=== PATIENT | female | born 1935 | race Hispanic/Latino ===

== ENCOUNTER 2016-07-16 09:16 | Day surgery (SDC) | payer MEDICARE, BC ==
[2016-01-22 22:39] VITALS: BMI 19.3
[2016-07-16 09:59] VITALS: TEMP 98.1
[2016-07-16] MEDS ORDERED: Propofol 10 mg/ml Inj (20 ML) ONE (11:20)
[2016-07-16] MEDS ORDERED: Sodium Chloride 0.9% 1,000 ML IV SCH (12:00)
[2016-07-16 12:14] LABS: ADD MANUAL DIFF? NO
[2016-07-16 12:17] LABS: BASO # 0.03 K/mm3 (0.0-2.0); BASO % 0.6 % (0.0-3.0); GRAN # 3.29 (1.4-6.5); GRAN % 69.2 % (50.0-68.0); HEMATOCRIT 28.2 % (36.0-48.0); LYMPH # 1.1 (1.2-3.4); LYMPH % 23.5 % (22.0-35.0); MEAN CELL VOLUME 97.2 fL (80.0-105.0); MEAN CORPUSCULAR HGB CONC 31.9 g/dl (31.0-37.0); MEAN PLATELET VOLUME 9.2 fl (7.0-11.0); MONO # 0.3 (0.1-0.6); MONO % 6.7 % (1.0-6.0); PLATELET COUNT 191 10^3/uL (120.0-450.0); RED CELL DISTRIBUTION WIDTH 13.6 % (11.5-14.5); WHITE BLOOD COUNT 4.8 10^3/ul (4.5-11.0)
[2016-07-16 12:34] VITALS: O2SAT 100
[2016-07-16 12:43] LABS: ALB/GLOB RATIO 1.4 (1.1-1.8); BILIRUBIN,TOTAL 0.5 mg/dL (0.2-1.3); CALCIUM 8.6 mg/dL (8.4-10.5); POTASSIUM 4.2 mmol/L (3.6-5.0); TOTAL PROTEIN 6.4 g/dL (5.8-8.3)
[2016-07-16 13:20] VITALS: BP 126/57; PULSE 56; RESP 19
== END 2016-07-16 15:06 | disposition home or self-care (01) ==
LOC: ENDO 09:16
PROVIDERS: ATTEND Internal Medicine Gastroenterology
DX: C18.2 Malignant neoplasm of ascending colon (principal); D64.9 Anemia, unspecified; K57.30 Diverticulosis of large intestine without perforation or abscess without bleeding; K64.8 Other hemorrhoids; J44.9 Chronic obstructive pulmonary disease, unspecified; E78.00 Pure hypercholesterolemia, unspecified; K27.9 Peptic ulcer, site unspecified, unspecified as acute or chronic, without hemorrhage or perforation; E03.9 Hypothyroidism, unspecified; Z90.49 Acquired absence of other specified parts of digestive tract; Z98.49 Cataract extraction status, unspecified eye; K44.9 Diaphragmatic hernia without obstruction or gangrene; Z87.898 Personal history of other specified conditions; Z80.0 Family history of malignant neoplasm of digestive organs
CPT/HCPCS: 36415; 45380; 80053; 85025; 88305; J2704; J7040

== ENCOUNTER 2016-08-16 11:13 | Inpatient (IN) | payer MEDICARE, BC ==
[2016-08-16 11:38] VITALS: BMI 18.1
[2016-08-16 12:12] LABS: HEMOGLOBIN 9.8 gm/dL (12.0-16.0); MEAN CELL VOLUME 96.6 fL (80.0-105.0); MEAN CORPUSCULAR HEMOGLOBIN 30.4 pg (25.0-35.0); MEAN CORPUSCULAR HGB CONC 31.5 g/dl (31.0-37.0); MEAN PLATELET VOLUME 9.3 fl (7.0-11.0); RBC 3.22 10^6/uL (3.5-6.1); WHITE BLOOD COUNT 6.1 10^3/ul (4.5-11.0)
[2016-08-16 12:23] LABS: INR 0.99 (0.93-1.08); PROTHROMBIN TIME 10.7 Seconds (9.9-11.8)
[2016-08-16 12:25] LABS: BLOOD UREA NITROGEN 15 mg/dL (7-21); CALCIUM 8.9 mg/dL (8.4-10.5); GFR AFRICAN-AMERICAN > 60; GFR NON-AFRICAN AMERICAN 53
[2016-08-16] MEDS ORDERED: Magnesium Citrate Oral SOL (300 ml) PO ONE (12:31)
--- NOTE | 2016-08-16 13:25 | RAD ---
HISTORY: COLON CA ANEMIA COMPARISON: 01/22/2016 TECHNIQUE: Chest PA and lateral FINDINGS: LUNGS: No active pulmonary disease. PLEURA: No significant pleural effusion identified. No pneumothorax apparent. CARDIOVASCULAR: Normal. OSSEOUS STRUCTURES: No significant abnormalities. VISUALIZED UPPER ABDOMEN: Hiatal hernia OTHER FINDINGS: None. IMPRESSION: No active disease.
--- NOTE | 2016-08-16 16:40 | CP.PCM.CON ---
History of Present Illness - History of Present Illness History of Present Illness: 80 yo female for elective colon resection, CA colon, negative metastatic w/u ( PET/CT). Past Patient History - Past Medical History & Family History Past Family History: Reviewed and not pertinent - Past Social History Smoking Status: Never Smoked - CARDIAC Hx Pacemaker: No - PULMONARY Hx Respiratory Disorders: Yes Hx Asthma: Yes Hx Chronic Obstructive Pulmonary Disease (COPD): Yes Hx Emphysema: Yes Hx Pneumonia: Yes - NEUROLOGICAL Hx Neurological Disorder: Yes Hx Dizziness: Yes - HEENT Hx HEENT Problems: Yes Hx Cataracts: Yes (cataract removal ou) Hx Glaucoma: Yes Hx Macular Degeneration: Yes - RENAL Hx Chronic Kidney Disease: No - ENDOCRINE/METABOLIC Hx Endocrine Disorders: Yes Hx Hypothyroidism: Yes - HEMATOLOGICAL/ONCOLOGICAL Hx Blood Disorders: No - INTEGUMENTARY Hx Dermatological Problems: No - MUSCULOSKELETAL/RHEUMATOLOGICAL Hx Falls: No - GASTROINTESTINAL Hx Gastrointestinal Disorders: Yes Hx Gastroesophageal Reflux: Yes Other/Comment: hiatal hernia - GENITOURINARY/GYNECOLOGICAL Hx Genitourinary Disorders: No - PSYCHIATRIC Hx Emotional Abuse: No Hx Physical Abuse: No - SURGICAL HISTORY Hx Surgeries: Yes - ANESTHESIA Hx Anesthesia Reactions: Yes Hx Malignant Hyperthermia: No Meds Allergies/Adverse Reactions: Allergies Allergy/AdvReac Type Severity Reaction Status Date / Time codeine Allergy NAUSEA Verified 01/22/16 15:01 - Medications Medications: Current Medications Atorvastatin Calcium (Lipitor) 20 mg PO DIN [facility] Calcitonin [place] (Miacalcin) 200 iu NS DAILY [facility] Donepezil HCl (Aricept) 20 mg PO DAILY [facility] Erythromycin (Erythromycin) 500 mg PO TID [facility] PRN Reason: Protocol Last Admin: 08/16/16 14:01 Dose: 500 mg Home Med (Home Med) 1 unit INH BID [facility] Sodium Chloride (Sodium Chloride 0.9%) 1,000 mls @ 83 mls/hr IV .Q12H3M [facility] Levothyroxine Sodium (Synthroid) 50 mcg PO DAILY [facility] Levothyroxine Sodium (Synthroid) 50 mcg PO 0600 [facility] Meclizine HCl (Antivert) 12.5 mg PO TID PRN PRN Reason: Dizziness Montelukast Sodium (Singulair) 10 mg PO QPM [facility] Montelukast Sodium (Singulair) 10 mg PO HS [facility] Neomycin Sulfate (Neomycin Tab) 500 mg PO TID [facility] Last Admin: 08/16/16 14:01 Dose: 500 mg Non-Formulary Medication (Fluticasone Propionate [Flovent Diskus]) 0 mcg IH BID [facility] Pantoprazole Sodium (Protonix Inj) 40 mg IVP DAILY [facility] Pantoprazole Sodium (Protonix Ec Tab) 40 mg PO 0600 [facility] Pramipexole Dihydrochloride (Mirapex) 0.125 mg PO DAILY [facility] Tiotropium [place] (Spiriva) 18 mcg IH QPM [facility] Tiotropium [place] (Spiriva) 18 mcg IH DAILY [facility] Results - Vital Signs Recent Vital Signs: Last Vital Signs Temp 98.6 F 08/16/16 15:36 Pulse 84 08/16/16 15:36 Resp 18 08/16/16 15:36 BP 138/73 08/16/16 15:36 Pulse Ox - Labs Result Diagrams: 08/16/16 11:00 08/16/16 11:00 Labs: Laboratory Results - last 24 hr 08/16/16 08/16/16 08/16/16 11:00 11:00 11:00 WBC 6.1 D RBC 3.22 L Hgb 9.8 L Hct 31.1 L MCV 96.6 MCH 30.4 MCHC 31.5 RDW 13.0 Plt Count 225 MPV 9.3 PT 10.7 INR 0.99 Sodium 139 Potassium 4.4 Chloride 104 Carbon Dioxide 27 Anion Gap 12 BUN 15 Creatinine 1.0 Est GFR ( Amer) > 60 Est GFR (Non-Af Amer) 53 Random Glucose 83 Calcium 8.9 Blood Type Antibody Screen Crossmatch BBK History Checked 08/16/16 11:00 WBC RBC Hgb Hct MCV MCH MCHC RDW Plt Count MPV PT INR Sodium Potassium Chloride Carbon Dioxide Anion Gap BUN Creatinine Est GFR ( Amer) Est GFR (Non-Af Amer) Random Glucose Calcium Blood Type O POSITIVE Antibody Screen Negative Crossmatch See Detail BBK History Checked Patient has bt Assessment & Plan (1) Adenocarcinoma of colon Status: Acute (2) COPD (chronic obstructive pulmonary disease) Status: Acute - Assessment and Plan (Free Text) Plan: for OR in am, no medical contraindications to surgery or gen anesthesia
--- NOTE | 2016-08-16 17:35 | CARD ---
APPROVED REPORT EKG Measurement Heart [id number] ND 160P0 [id number] <Conclusion> Normal sinus rhythm Normal ECG
[2016-08-16] MEDS ORDERED: Tiotropium 18 mcg Cap For Inhalation IH ONE (18:00)
[2016-08-16] MEDS ORDERED: Home Med 1 UNIT INH SCH (18:00)
[2016-08-16] MEDS ORDERED: Non Formulary Medication (Fluticasone Propionate [Flovent Diskus] 50 MCG) IH SCH (18:00)
[2016-08-16] MEDS: FLOVENT INH SCH (18:27)
[2016-08-16] MEDS: FLUTICASONE PROPIONATE IH SCH (18:28)
[2016-08-17] MEDS: Sodium Chloride 0.9% 1,000 ML IV SCH (00:34)
[2016-08-17] MEDS: Pantoprazole 40 mg EC Tab PO SCH (05:36)
[2016-08-17] MEDS ORDERED: Levothyroxine 50 MCG TAB PO SCH (06:00)
[2016-08-17 08:21] LABS: HEMOGLOBIN 10.9 gm/dL (12.0-16.0); MEAN CELL VOLUME 93.3 fL (80.0-105.0); MEAN CORPUSCULAR HEMOGLOBIN 30.3 pg (25.0-35.0); MEAN CORPUSCULAR HGB CONC 32.4 g/dl (31.0-37.0); MEAN PLATELET VOLUME 8.7 fl (7.0-11.0); RBC 3.6 10^6/uL (3.5-6.1); RED CELL DISTRIBUTION WIDTH 14.2 % (11.5-14.5); WHITE BLOOD COUNT 6.3 10^3/ul (4.5-11.0)
[2016-08-17 08:34] LABS: BLOOD UREA NITROGEN 13 mg/dL (7-21); CALCIUM 8.6 mg/dL (8.4-10.5); GFR AFRICAN-AMERICAN > 60; GFR NON-AFRICAN AMERICAN 60
[2016-08-17] MEDS: FLUTICASONE PROPIONATE IH SCH (09:08)
[2016-08-17] MEDS: FLOVENT INH SCH (09:08)
[2016-08-17] MEDS: Budesonide 0.5 mg/2 ml Inhal Susp UD IH SCH (09:25)
[2016-08-17] MEDS: Arformoterol 15 mcg/2 ml Inh Sol IH SCH (09:25)
[2016-08-17] MEDS: Calcitonin 200 Int Units/Inh Nasal Spray (3.7 ml) NS SCH (09:41)
[2016-08-17] MEDS: Tiotropium 18 mcg Cap For Inhalation IH SCH (09:41)
[2016-08-17] MEDS: Levothyroxine 50 MCG TAB PO SCH (09:42)
[2016-08-17] MEDS ORDERED: Non Formulary Medication (Simvastatin [Zocor] 40 MG) PO SCH (10:00)
[2016-08-17] MEDS ORDERED: Etomidate 20 mg/10ml Inj IV ONE (10:53)
[2016-08-17] MEDS ORDERED: Rocuronium 10 mg/ml (5 ml) ONE (10:53)
[2016-08-17] MEDS ORDERED: metroNIDAZOLE IV 500 mg/100 ml 500 MG/100 ML BAG ONE (11:05)
[2016-08-17] MEDS ORDERED: Oxychlorosene Topical 2 gm Packet TOP ONE (12:13)
[2016-08-17] MEDS ORDERED: Esmolol 100 mg/10ml Inj IV ONE (12:17)
[2016-08-17] MEDS ORDERED: Bupivacaine 0.25% Inj(30mL) ONE ×2 (12:19→12:24)
[2016-08-17] MEDS ORDERED: Neostigmine Methylsulfate 3mg/3ml Syringe IV ONE (12:38)
[2016-08-17] MEDS ORDERED: Glycopyrrolate 0.2 mg/ml (2ml vial) ONE (12:38)
[2016-08-17] MEDS ORDERED: Lidocaine 2% Inj (20ml) ONE (13:06)
[2016-08-17] MEDS ORDERED: HYDROmorphone 0.5 mg/0.5 ml ISec ONE ×2 (13:18→14:19)
[2016-08-17] MEDS ORDERED: Lactated Ringer's 1,000 ML IV SCH (13:20)
[2016-08-17] MEDS ORDERED: HYDROmorphone 0.5 mg/0.5 ml ISec IVP PRN (13:20)
--- NOTE | 2016-08-17 13:22 | PCM.SURG1 ---
Surgeon's Initial Post Op Note - Surgeon's Notes Surgeon: Dr. Davis Apparel Manager: Dr. Tuttle PGY3; Dr. King PGY2; Dr. Fernandez PGY1 Type of Anesthesia: General Endo Anesthesia Administered By: Yair Pre-Operative Diagnosis: Colon Ca Operative Findings: see operative report Post-Operative Diagnosis: same Operation Performed: Celiotomy. Right Hemicolectomy. Lysis of Adhesions Specimen/Specimens Removed: right colon w/ terminal ileum Estimated Blood Loss: EBL {In ML}: 50 Blood Products Given: N/A Drains Used: Stoney Post-Op Condition: Good Date of Surgery/Procedure: 08/17/16 Time of Surgery/Procedure: 13:23
--- NOTE | 2016-08-17 13:32 | CP.PCM.CON ---
History of Present Illness - History of Present Illness History of Present Illness: NAD denies cp sob Past Patient History - Past Medical History & Family History Past Family History: Reviewed and not pertinent - Past Social History Smoking Status: Never Smoked - CARDIAC Hx Pacemaker: No - PULMONARY Hx Respiratory Disorders: Yes Hx Asthma: Yes Hx Chronic Obstructive Pulmonary Disease (COPD): Yes Hx Emphysema: Yes Hx Pneumonia: Yes - NEUROLOGICAL Hx Paralysis: No - HEENT Hx HEENT Problems: Yes Hx Cataracts: Yes (cataract removal ou) Hx Glaucoma: Yes Hx Macular Degeneration: Yes - RENAL Hx Chronic Kidney Disease: No - ENDOCRINE/METABOLIC Hx Endocrine Disorders: Yes Hx Hypothyroidism: Yes - HEMATOLOGICAL/ONCOLOGICAL Hx Blood Transfusions: Yes Hx Blood Transfusion Reaction: No - INTEGUMENTARY Hx Dermatological Problems: No - MUSCULOSKELETAL/RHEUMATOLOGICAL Hx Musculoskeletal Disorders: Yes - GASTROINTESTINAL Hx Gastrointestinal Disorders: Yes Hx Gastroesophageal Reflux: Yes Other/Comment: hiatal hernia - GENITOURINARY/GYNECOLOGICAL Hx Genitourinary Disorders: No - PSYCHIATRIC Hx Emotional Abuse: No Hx Physical Abuse: No Hx Substance Use: No - SURGICAL HISTORY Hx Surgeries: Yes - ANESTHESIA Hx Anesthesia Reactions: No Hx Malignant Hyperthermia: No Meds Allergies/Adverse Reactions: Allergies Allergy/AdvReac Type Severity Reaction Status Date / Time codeine Allergy NAUSEA Verified 01/22/16 15:01 - Medications Medications: Current Medications Arformoterol Tartrate (Brovana) 15 mcg IH [id number] [facility] Last Admin: 08/17/16 09:25 Dose: 15 mcg Atorvastatin Calcium (Lipitor) 20 mg PO DIN [facility] Last Admin: 08/16/16 17:23 Dose: 20 mg Budesonide (Pulmicort Respules) 0.5 mg IH BIDRESP [facility] Last Admin: 08/17/16 09:25 Dose: 0.5 mg Calcitonin [place] (Miacalcin) 200 iu NS DAILY [facility] Last Admin: 08/17/16 09:41 Dose: 1 spr Donepezil HCl (Aricept) 20 mg PO DAILY [facility] Last Admin: 08/17/16 09:15 Dose: Not Given Erythromycin (Erythromycin) 500 mg PO TID [facility] PRN Reason: Protocol Last Admin: 08/17/16 09:15 Dose: Not Given Home Med (Home Med) 1 unit INH BID [facility] Last Admin: 08/17/16 09:08 Dose: Not Given Hydromorphone HCl (Dilaudid) 0.5 mg IVP Q15M PRN PRN Reason: Pain, moderate (4-7) Stop: 08/17/16 15:21 Hydromorphone HCl (Dilaudid) 0.5 mg IVP Q3H PRN PRN Reason: Pain, moderate (4-7) Sodium Chloride (Sodium Chloride 0.9%) 1,000 mls @ 83 mls/hr IV .Q12H3M [facility] Last Admin: 08/17/16 00:34 Dose: 83 mls/hr Lactated Ringer's (Lactated Ringer's) 1,000 mls @ 75 mls/hr IV .[id number] [facility] Stop: 08/17/16 15:21 Cefazolin Sodium (Ancef 1gm In Ns) 1 gm in 100 mls @ 100 mls/hr IVPB ONCE ONE PRN Reason: Protocol Stop: 08/17/16 20:59 Metronidazole (Flagyl) 500 mg in 100 mls @ 100 mls/hr IVPB ONCE ONE PRN Reason: Protocol Stop: 08/17/16 20:59 Levothyroxine Sodium (Synthroid) 50 mcg PO DAILY [facility] Last Admin: 08/17/16 09:42 Dose: Not Given Levothyroxine Sodium (Synthroid) 50 mcg PO 0600 [facility] Last Admin: 08/17/16 05:36 Dose: Not Given Meclizine HCl (Antivert) 12.5 mg PO TID PRN PRN Reason: Dizziness Montelukast Sodium (Singulair) 10 mg PO QPM [facility] Last Admin: 08/16/16 17:23 Dose: 10 mg Montelukast Sodium (Singulair) 10 mg PO HS [facility] Last Admin: 08/16/16 22:41 Dose: 10 mg Neomycin Sulfate (Neomycin Tab) 500 mg PO TID [facility] Last Admin: 08/17/16 09:16 Dose: Not Given Non-Formulary Medication (Fluticasone Propionate [Flovent Diskus]) 0 mcg IH BID [facility] Last Admin: 08/17/16 09:08 Dose: Not Given Pantoprazole Sodium (Protonix Inj) 40 mg IVP DAILY [facility] Last Admin: 08/17/16 09:41 Dose: 40 mg Pantoprazole Sodium (Protonix Ec Tab) 40 mg PO 0600 [facility] Last Admin: 08/17/16 05:36 Dose: Not Given Pramipexole Dihydrochloride (Mirapex) 0.125 mg PO DAILY [facility] Last Admin: 08/17/16 09:16 Dose: Not Given Tiotropium [place] (Spiriva) 18 mcg IH DAILY [facility] Last Admin: 08/17/16 09:41 Dose: 18 mcg Physical Exam - Respiratory Exam Respiratory Exam: Clear to Auscultation Bilateral, NORMAL BREATHING PATTERN - Cardiovascular Exam Cardiovascular Exam: REGULAR RHYTHM Results - Vital Signs Recent Vital Signs: Last Vital Signs Temp 98.1 F 08/17/16 10:14 Pulse 74 08/17/16 10:14 Resp 20 08/17/16 10:14 BP 132/53 L 08/17/16 10:14 Pulse Ox 97 08/17/16 10:14 - Labs Result Diagrams: 08/17/16 07:00 08/17/16 07:00 Labs: Laboratory Results - last 24 hr 08/16/16 08/17/16 08/17/16 11:00 07:00 07:00 WBC 6.3 RBC 3.60 Hgb 10.9 L Hct 33.6 L MCV 93.3 MCH 30.3 MCHC 32.4 RDW 14.2 Plt Count 160 MPV 8.7 Sodium 139 Potassium 4.8 Chloride 105 Carbon Dioxide 26 Anion Gap 13 BUN 13 Creatinine 0.9 Est GFR ( Amer) > 60 Est GFR (Non-Af Amer) 60 Random Glucose 78 Calcium 8.6 Blood Type O POSITIVE Antibody Screen Negative Crossmatch See Detail BBK History Checked Patient has bt Assessment & Plan (1) Adenocarcinoma of colon Status: Acute (2) COPD (chronic obstructive pulmonary disease) Status: Acute - Assessment and Plan (Free Text) Plan: for OR today
[2016-08-17] MEDS ORDERED: metroNIDAZOLE IV 500 mg/100 ml 500 MG/100 ML BAG IVPB SCH (14:00)
--- NOTE | 2016-08-17 14:35 | CP.PCM.CON ---
History of Present Illness - History of Present Illness History of Present Illness: 80 yo female with COPD? admitted for elective colon resection for colon adenocarcinoma. Patient tolerated procedure well. EBL reportedly minimal. u/o? IVF during procedure? Normotensive throughout procedure. Extubated in OR. OnQ in place. Patient is on mild mod postoperative pain--on opiods PRN as well. Review of Systems - Constitutional Constitutional: As Per HPI - EENT Eyes: As Per HPI Nose/Mouth/Throat: As Per HPI - Breasts Breasts: As Per HPI - Cardiovascular Cardiovascular: As Per HPI - Respiratory Respiratory: As Per HPI - Gastrointestinal Gastrointestinal: As Per HPI - Musculoskeletal Musculoskeletal: As Per HPI - Integumentary Integumentary: As Per HPI - Neurological Neurological: As Per HPI Past Patient History - Past Medical History & Family History Past Family History: Reviewed and not pertinent - Past Social History Smoking Status: Never Smoked - CARDIAC Hx Pacemaker: No - PULMONARY Hx Respiratory Disorders: Yes Hx Asthma: Yes Hx Chronic Obstructive Pulmonary Disease (COPD): Yes Hx Emphysema: Yes Hx Pneumonia: Yes - NEUROLOGICAL Hx Paralysis: No - HEENT Hx HEENT Problems: Yes Hx Cataracts: Yes (cataract removal ou) Hx Glaucoma: Yes Hx Macular Degeneration: Yes - RENAL Hx Chronic Kidney Disease: No - ENDOCRINE/METABOLIC Hx Endocrine Disorders: Yes Hx Hypothyroidism: Yes - HEMATOLOGICAL/ONCOLOGICAL Hx Blood Transfusions: Yes Hx Blood Transfusion Reaction: No - INTEGUMENTARY Hx Dermatological Problems: No - MUSCULOSKELETAL/RHEUMATOLOGICAL Hx Musculoskeletal Disorders: Yes - GASTROINTESTINAL Hx Gastrointestinal Disorders: Yes Hx Gastroesophageal Reflux: Yes Other/Comment: hiatal hernia - GENITOURINARY/GYNECOLOGICAL Hx Genitourinary Disorders: No - PSYCHIATRIC Hx Emotional Abuse: No Hx Physical Abuse: No Hx Substance Use: No - SURGICAL HISTORY Hx Surgeries: Yes - ANESTHESIA Hx Anesthesia Reactions: No Hx Malignant Hyperthermia: No Meds Allergies/Adverse Reactions: Allergies Allergy/AdvReac Type Severity Reaction Status Date / Time codeine Allergy NAUSEA Verified 01/22/16 15:01 - Medications Medications: Current Medications Arformoterol Tartrate (Brovana) 15 mcg IH [id number] [facility] Last Admin: 08/17/16 09:25 Dose: 15 mcg Atorvastatin Calcium (Lipitor) 20 mg PO DIN [facility] Last Admin: 08/16/16 17:23 Dose: 20 mg Budesonide (Pulmicort Respules) 0.5 mg IH BIDRESP [facility] Last Admin: 08/17/16 09:25 Dose: 0.5 mg Calcitonin [place] (Miacalcin) 200 iu NS DAILY [facility] Last Admin: 08/17/16 09:41 Dose: 1 spr Donepezil HCl (Aricept) 20 mg PO DAILY [facility] Last Admin: 08/17/16 09:15 Dose: Not Given Home Med (Home Med) 1 unit INH BID [facility] Last Admin: 08/17/16 09:08 Dose: Not Given Hydromorphone HCl (Dilaudid) 0.5 mg IVP Q15M PRN PRN Reason: Pain, moderate (4-7) Stop: 08/17/16 15:21 Last Admin: 08/17/16 13:35 Dose: 0.5 mg Hydromorphone HCl (Dilaudid) 0.5 mg IVP Q3H PRN PRN Reason: Pain, moderate (4-7) Sodium Chloride (Sodium Chloride 0.9%) 1,000 mls @ 83 mls/hr IV .Q12H3M [facility] Last Admin: 08/17/16 00:34 Dose: 83 mls/hr Lactated Ringer's (Lactated Ringer's) 1,000 mls @ 75 mls/hr IV .[id number] [facility] Stop: 08/17/16 15:21 Cefazolin Sodium (Ancef 1gm In Ns) 1 gm in 100 mls @ 100 mls/hr IVPB 0315,1915 [facility] PRN Reason: Protocol Stop: 08/18/16 04:14 Metronidazole (Flagyl) 500 mg in 100 mls @ 100 mls/hr IVPB 0315,1915 [facility] PRN Reason: Protocol Stop: 08/18/16 04:14 Levothyroxine Sodium (Synthroid) 50 mcg PO DAILY [facility] Last Admin: 08/17/16 09:42 Dose: Not Given Meclizine HCl (Antivert) 12.5 mg PO TID PRN PRN Reason: Dizziness Montelukast Sodium (Singulair) 10 mg PO HS [facility] Last Admin: 08/16/16 22:41 Dose: 10 mg Non-Formulary Medication (Fluticasone Propionate [Flovent Diskus]) 0 mcg IH BID [facility] Last Admin: 08/17/16 09:08 Dose: Not Given Ondansetron HCl (Zofran Inj) 4 mg IVP Q4H PRN PRN Reason: Nausea/Vomiting Pantoprazole Sodium (Protonix Ec Tab) 40 mg PO 0600 [facility] Last Admin: 08/17/16 05:36 Dose: Not Given Pramipexole Dihydrochloride (Mirapex) 0.125 mg PO DAILY [facility] Last Admin: 08/17/16 09:16 Dose: Not Given Tiotropium [place] (Spiriva) 18 mcg IH DAILY [facility] Last Admin: 08/17/16 09:41 Dose: 18 mcg Physical Exam - Constitutional Additional comments: in mild distress due to postop pain - Head Exam Head Exam: ATRAUMATIC, NORMAL INSPECTION, NORMOCEPHALIC - Respiratory Exam Respiratory Exam: Clear to Auscultation Bilateral, NORMAL BREATHING PATTERN - Cardiovascular Exam Cardiovascular Exam: REGULAR RHYTHM, +S1, +S2 - Neurological Exam Additional comments: patient moves all extremities - Psychiatric Exam Additional comments: following commands - Skin Skin Exam: Normal Color Results - Vital Signs Recent Vital Signs: Last Vital Signs Temp 97.8 F 08/17/16 13:30 Pulse 87 08/17/16 13:30 Resp 16 08/17/16 13:30 BP 169/68 H 08/17/16 13:30 Pulse Ox 98 08/17/16 13:30 - Labs Result Diagrams: 08/17/16 07:00 08/17/16 07:00 Labs: Laboratory Results - last 24 hr 08/16/16 08/17/16 08/17/16 11:00 07:00 07:00 WBC 6.3 RBC 3.60 Hgb 10.9 L Hct 33.6 L MCV 93.3 MCH 30.3 MCHC 32.4 RDW 14.2 Plt Count 160 MPV 8.7 Sodium 139 Potassium 4.8 Chloride 105 Carbon Dioxide 26 Anion Gap 13 BUN 13 Creatinine 0.9 Est GFR ( Amer) > 60 Est GFR (Non-Af Amer) 60 Random Glucose 78 Calcium 8.6 Blood Type O POSITIVE Antibody Screen Negative Crossmatch See Detail BBK History Checked Patient has bt Assessment & Plan - Assessment and Plan (Free Text) Plan: 80 yo with ?COPD, extubated in OR after uneventful colon resection for colon adenocarcinoma. Pain control, NPO, IVF, early mobilization, OOB to chair, IS, chest PT, bronchodilators, ICS, DVT/GI prophylaxis. Heparin s/c when cleared by surgery.
[2016-08-17 15:57] LABS: BASO # 0.02 K/mm3 (0.0-2.0); BASO % 0.2 % (0.0-3.0); GRAN # 9.26 (1.4-6.5); GRAN % 81.9 % (50.0-68.0); HEMOGLOBIN 11.5 gm/dL (12.0-16.0); LYMPH # 1.4 (1.2-3.4); LYMPH % 11.9 % (22.0-35.0); MEAN CELL VOLUME 94.4 fL (80.0-105.0); MEAN CORPUSCULAR HEMOGLOBIN 30.5 pg (25.0-35.0); MEAN CORPUSCULAR HGB CONC 32.3 g/dl (31.0-37.0); MEAN PLATELET VOLUME 8.6 fl (7.0-11.0); MONO # 0.7 (0.1-0.6); PLATELET COUNT 147 10^3/uL (120.0-450.0); RBC 3.77 10^6/uL (3.5-6.1); RED CELL DISTRIBUTION WIDTH 14.1 % (11.5-14.5); VENOUS BLOOD GAS BASE EXCESS -2.8 mmol/L (0.0-2.0); VENOUS BLOOD GAS PO2 29 mm/Hg (30-55); VENOUS BLOOD PH 7.23 (7.32-7.43); WHITE BLOOD COUNT 11.3 10^3/ul (4.5-11.0)
[2016-08-17 16:09] LABS: ALB/GLOB RATIO 1.3 (1.1-1.8); ALBUMIN 3.3 g/dL (3.0-4.8); ALT/SGPT 33 U/L (7-56); AST/SGOT 59 U/L (15-39); BLOOD UREA NITROGEN 12 mg/dL (7-21); GFR AFRICAN-AMERICAN > 60; GFR NON-AFRICAN AMERICAN > 60
[2016-08-17 16:21] LABS: TROPONIN I < 0.01 ng/mL
[2016-08-17] MEDS: HYDROmorphone 0.5 mg/0.5 ml ISec IVP PRN ×2 (17:24→22:08)
[2016-08-17] MEDS: ceFAZolin 1 gm in NS 1 GM/100 ML BAG IVPB SCH (19:15)
[2016-08-17] MEDS: metroNIDAZOLE IV 500 mg/100 ml 500 MG/100 ML BAG IVPB SCH (19:15)
[2016-08-17 19:35] LABS: VENOUS BLOOD GAS PO2 27 mm/Hg (30-55); VENOUS BLOOD PH 7.22 (7.32-7.43)
[2016-08-17] MEDS ORDERED: metroNIDAZOLE IV 500 mg/100 ml 500 MG/100 ML BAG IVPB ONE (20:00)
[2016-08-17] MEDS ORDERED: ceFAZolin 1 gm in NS 1 GM/100 ML BAG IVPB ONE (20:00)
[2016-08-17] MEDS ORDERED: HYDROmorphone 0.5 mg/0.5 ml ISec IVP STA (23:27)
[2016-08-18] MEDS: HYDROmorphone 0.5 mg/0.5 ml ISec IVP PRN ×3 (02:14→14:12)
[2016-08-18] MEDS: Sodium Chloride 0.9% 1,000 ML IV SCH ×2 (02:49→13:32)
[2016-08-18] MEDS: ceFAZolin 1 gm in NS 1 GM/100 ML BAG IVPB SCH (03:15)
[2016-08-18] MEDS: metroNIDAZOLE IV 500 mg/100 ml 500 MG/100 ML BAG IVPB SCH (03:15)
[2016-08-18] MEDS: Pantoprazole 40 mg EC Tab PO SCH (05:20)
[2016-08-18 06:49] LABS: GRAN # 10.08 (1.4-6.5); GRAN % 86.1 % (50.0-68.0); HEMOGLOBIN 9.9 gm/dL (12.0-16.0); LYMPH # 0.8 (1.2-3.4); LYMPH % 6.5 % (22.0-35.0); MEAN CORPUSCULAR HEMOGLOBIN 30.1 pg (25.0-35.0); MEAN CORPUSCULAR HGB CONC 32.4 g/dl (31.0-37.0); MEAN PLATELET VOLUME 9.3 fl (7.0-11.0); MONO # 0.9 (0.1-0.6); MONO % 7.4 % (1.0-6.0); PLATELET COUNT 114 10^3/uL (120.0-450.0); RBC 3.29 10^6/uL (3.5-6.1); WHITE BLOOD COUNT 11.7 10^3/ul (4.5-11.0)
[2016-08-18 06:56] LABS: ALB/GLOB RATIO 1.2 (1.1-1.8); ALBUMIN 2.9 g/dL (3.0-4.8); ALT/SGPT 36 U/L (7-56); AST/SGOT 55 U/L (15-39); BLOOD UREA NITROGEN 12 mg/dL (7-21); CALCIUM 7.7 mg/dL (8.4-10.5); GFR AFRICAN-AMERICAN > 60; GFR NON-AFRICAN AMERICAN > 60
[2016-08-18] MEDS: Arformoterol 15 mcg/2 ml Inh Sol IH SCH ×2 (08:02→20:00)
[2016-08-18] MEDS: Budesonide 0.5 mg/2 ml Inhal Susp UD IH SCH ×2 (08:02→20:00)
[2016-08-18 09:19] LABS: ARTERIAL BLOOD GAS HCO3 20.6 mmol/L (21-28); ARTERIAL BLOOD GAS HEMOGLOBIN 9.3 g/dL (11.7-17.4); ARTERIAL BLOOD GAS O2 SAT 99.7 % (95-98); ARTERIAL BLOOD GAS PCO2 23 mm/Hg (35-45); ARTERIAL BLOOD GAS PH 7.56 (7.35-7.45); ARTERIAL BLOOD GAS TCO2 21.3 mmol.L (22-28)
[2016-08-18] MEDS: Tiotropium 18 mcg Cap For Inhalation IH SCH (09:27)
[2016-08-18] MEDS: Levothyroxine 50 MCG TAB PO SCH (09:27)
[2016-08-18] MEDS: FLUTICASONE PROPIONATE IH SCH ×2 (09:27→17:55)
[2016-08-18] MEDS: FLOVENT INH SCH ×2 (09:28→17:55)
[2016-08-18] MEDS: Calcitonin 200 Int Units/Inh Nasal Spray (3.7 ml) NS SCH (09:28)
--- NOTE | 2016-08-18 11:20 | RAD ---
HISTORY: tachypneic, post op abd surgery COMPARISON: 08/16/2016 FINDINGS: LUNGS: No active pulmonary disease. PLEURA: No significant pleural effusion identified, no pneumothorax apparent. CARDIOVASCULAR: Normal. OSSEOUS STRUCTURES: No significant abnormalities. VISUALIZED UPPER ABDOMEN: There is a moderate size hiatal hernia OTHER FINDINGS: None. IMPRESSION: No active disease.
--- NOTE | 2016-08-18 12:45 | CP.PCM.PN ---
Subjective - Date & Time of Evaluation Date of Evaluation: 08/18/16 Time of Evaluation: 07:30 - Subjective Subjective: General Surgery- Ryan Pt S&E at bedside this AM. No acute events overnight. Tolerating surgical pain well. Currently on ice chips awaiting bowel function return. C/o SOB currently receiving breathing treatment. Denies fevers, chills, nausea, vomiting. Using IC , SCD on. Incision C/D/I Objective - Vital Signs/Intake and Output Vital Signs (last 24 hours): Temp Pulse Resp BP Pulse Ox 97.1 F L 102 H 37 H 131/60 100 08/18/16 08:00 08/18/16 12:26 08/18/16 11:42 08/18/16 11:42 08/18/16 12:00 Intake and Output: 08/18/16 08/18/16 06:59 18:59 Intake Total 1396 Output Total 375 Balance 1021 - Medications Medications: Current Medications Arformoterol Tartrate (Brovana) 15 mcg IH [id number] [facility] Last Admin: 08/18/16 08:02 Dose: 15 mcg Atorvastatin Calcium (Lipitor) 20 mg PO DIN [facility] Last Admin: 08/17/16 17:04 Dose: Not Given Budesonide (Pulmicort Respules) 0.5 mg IH BIDRESP [facility] Last Admin: 08/18/16 08:02 Dose: 0.5 mg Calcitonin [place] (Miacalcin) 200 iu NS DAILY [facility] Last Admin: 08/18/16 09:28 Dose: 1 spr Donepezil HCl (Aricept) 20 mg PO DAILY [facility] Last Admin: 08/18/16 09:27 Dose: 20 mg Home Med (Home Med) 1 unit INH BID [facility] Last Admin: 08/18/16 09:28 Dose: Not Given Hydromorphone HCl (Dilaudid) 0.5 mg IVP Q3H PRN PRN Reason: Pain, moderate (4-7) Last Admin: 08/18/16 02:14 Dose: 0.5 mg Hydromorphone HCl (Dilaudid) 0.25 mg IVP Q4H PRN PRN Reason: Pain, moderate (4-7) Last Admin: 08/18/16 09:51 Dose: 0.25 mg Sodium Chloride (Sodium Chloride 0.9%) 1,000 mls @ 83 mls/hr IV .Q12H3M [facility] Last Admin: 08/18/16 02:49 Dose: 83 mls/hr Levothyroxine Sodium (Synthroid) 50 mcg PO DAILY [facility] Last Admin: 08/18/16 09:27 Dose: 50 mcg Meclizine HCl (Antivert) 12.5 mg PO TID PRN PRN Reason: Dizziness Last Admin: 08/18/16 10:39 Dose: 12.5 mg Montelukast Sodium (Singulair) 10 mg PO HS [facility] Last Admin: 08/17/16 22:03 Dose: Not Given Non-Formulary Medication (Fluticasone Propionate [Flovent Diskus]) 0 mcg IH BID [facility] Last Admin: 08/18/16 09:27 Dose: Not Given Ondansetron HCl (Zofran Inj) 4 mg IVP Q4H PRN PRN Reason: Nausea/Vomiting Last Admin: 08/18/16 07:43 Dose: 4 mg Pantoprazole Sodium (Protonix Ec Tab) 40 mg PO 0600 [facility] Last Admin: 08/18/16 05:20 Dose: Not Given Pramipexole Dihydrochloride (Mirapex) 0.125 mg PO DAILY [facility] Last Admin: 08/18/16 09:41 Dose: 0.125 mg Tiotropium [place] (Spiriva) 18 mcg IH DAILY [facility] Last Admin: 08/18/16 09:27 Dose: 18 mcg - Labs Labs: 08/18/16 05:30 08/18/16 05:30 PT 10.7 Seconds (9.9-11.8) 08/16/16 11:00 INR 0.99 (0.93-1.08) 08/16/16 11:00 - Constitutional Appears: No Acute Distress - Head Exam Head Exam: ATRAUMATIC - Eye Exam Eye Exam: EOMI - Respiratory Exam Respiratory Exam: Wheezes, NORMAL BREATHING PATTERN - Cardiovascular Exam Cardiovascular Exam: Tachycardia - GI/Abdominal Exam GI & Abdominal Exam: Soft, Diminished Bowel Sounds, Normal Bowel Sounds. absent : Distended, Firm, Guarding - Neurological Exam Neurological Exam: Alert, Oriented x3 - Psychiatric Exam Psychiatric exam: Normal Affect, Normal Mood - Skin Skin Exam: Normal Color Assessment and Plan - Assessment and Plan (Free Text) Assessment: 80F hx of COPD POD1 s/p Right Hemicolectomy Plan: - diet ice chips- await bowel function return; then advance as tolerated - Pain control - IC - GI/DVT ppx - monitor O2 sat discussed with Dr. Ryan Fernandez PGY1
--- NOTE | 2016-08-18 13:26 | CP.PCM.PN ---
Subjective - Date & Time of Evaluation Date of Evaluation: 08/18/16 Time of Evaluation: 12:00 - Subjective Subjective: OOB in chair, confused, somewhat tachypneic Objective - Vital Signs/Intake and Output Vital Signs (last 24 hours): Temp Pulse Resp BP Pulse Ox 97.1 F L 102 H 37 H 131/60 100 08/18/16 08:00 08/18/16 12:26 08/18/16 11:42 08/18/16 11:42 08/18/16 12:00 Intake and Output: 08/18/16 08/18/16 06:59 18:59 Intake Total 1396 Output Total 375 Balance 1021 - Medications Medications: Current Medications Arformoterol Tartrate (Brovana) 15 mcg IH [id number] [facility] Last Admin: 08/18/16 08:02 Dose: 15 mcg Atorvastatin Calcium (Lipitor) 20 mg PO DIN [facility] Last Admin: 08/17/16 17:04 Dose: Not Given Budesonide (Pulmicort Respules) 0.5 mg IH BIDRESP [facility] Last Admin: 08/18/16 08:02 Dose: 0.5 mg Calcitonin [place] (Miacalcin) 200 iu NS DAILY [facility] Last Admin: 08/18/16 09:28 Dose: 1 spr Donepezil HCl (Aricept) 20 mg PO DAILY [facility] Last Admin: 08/18/16 09:27 Dose: 20 mg Home Med (Home Med) 1 unit INH BID [facility] Last Admin: 08/18/16 09:28 Dose: Not Given Hydromorphone HCl (Dilaudid) 0.5 mg IVP Q3H PRN PRN Reason: Pain, moderate (4-7) Last Admin: 08/18/16 02:14 Dose: 0.5 mg Hydromorphone HCl (Dilaudid) 0.25 mg IVP Q4H PRN PRN Reason: Pain, moderate (4-7) Last Admin: 08/18/16 09:51 Dose: 0.25 mg Sodium Chloride (Sodium Chloride 0.9%) 1,000 mls @ 83 mls/hr IV .Q12H3M [facility] Last Admin: 08/18/16 02:49 Dose: 83 mls/hr Levothyroxine Sodium (Synthroid) 50 mcg PO DAILY [facility] Last Admin: 08/18/16 09:27 Dose: 50 mcg Meclizine HCl (Antivert) 12.5 mg PO TID PRN PRN Reason: Dizziness Last Admin: 08/18/16 10:39 Dose: 12.5 mg Montelukast Sodium (Singulair) 10 mg PO HS [facility] Last Admin: 08/17/16 22:03 Dose: Not Given Non-Formulary Medication (Fluticasone Propionate [Flovent Diskus]) 0 mcg IH BID [facility] Last Admin: 08/18/16 09:27 Dose: Not Given Ondansetron HCl (Zofran Inj) 4 mg IVP Q4H PRN PRN Reason: Nausea/Vomiting Last Admin: 08/18/16 07:43 Dose: 4 mg Pantoprazole Sodium (Protonix Ec Tab) 40 mg PO 0600 [facility] Last Admin: 08/18/16 05:20 Dose: Not Given Pramipexole Dihydrochloride (Mirapex) 0.125 mg PO DAILY [facility] Last Admin: 08/18/16 09:41 Dose: 0.125 mg Tiotropium [place] (Spiriva) 18 mcg IH DAILY [facility] Last Admin: 08/18/16 09:27 Dose: 18 mcg - Labs Labs: 08/18/16 05:30 08/18/16 05:30 PT 10.7 Seconds (9.9-11.8) 08/16/16 11:00 INR 0.99 (0.93-1.08) 08/16/16 11:00 - Respiratory Exam Respiratory Exam: Accessory Muscle Use, Prolonged Expiratory Phase - Cardiovascular Exam Cardiovascular Exam: Tachycardia, REGULAR RHYTHM - GI/Abdominal Exam GI & Abdominal Exam: Soft, Tenderness, Hypoactive Bowel Sounds - Neurological Exam Neurological Exam: Altered Assessment and Plan (1) Adenocarcinoma of colon Status: Acute (2) COPD (chronic obstructive pulmonary disease) Status: Acute - Assessment and Plan (Free Text) Plan: continue post-op monitoring in ICU
--- NOTE | 2016-08-18 15:15 | CP.PCM.PN ---
<Suzy Camp - Last Filed: 08/18/16 15:37> Subjective - Date & Time of Evaluation Date of Evaluation: 08/18/16 Time of Evaluation: 15:13 - Subjective Subjective: Patient seen and examined at bedside. She has some mild abdominal pain on deep inspiration. Objective - Vital Signs/Intake and Output Vital Signs (last 24 hours): Temp Pulse Resp BP Pulse Ox 97.1 F L 100 H 19 162/68 H 84 L 08/18/16 08:00 08/18/16 14:42 08/18/16 14:42 08/18/16 14:42 08/18/16 14:42 Intake and Output: 08/18/16 08/18/16 06:59 18:59 Intake Total 1396 Output Total 375 Balance 1021 - Medications Medications: Current Medications Arformoterol Tartrate (Brovana) 15 mcg IH [id number] [facility] Last Admin: 08/18/16 08:02 Dose: 15 mcg Atorvastatin Calcium (Lipitor) 20 mg PO DIN [facility] Last Admin: 08/17/16 17:04 Dose: Not Given Budesonide (Pulmicort Respules) 0.5 mg IH BIDRESP [facility] Last Admin: 08/18/16 08:02 Dose: 0.5 mg Calcitonin [place] (Miacalcin) 200 iu NS DAILY [facility] Last Admin: 08/18/16 09:28 Dose: 1 spr Donepezil HCl (Aricept) 20 mg PO DAILY [facility] Last Admin: 08/18/16 09:27 Dose: 20 mg Home Med (Home Med) 1 unit INH BID [facility] Last Admin: 08/18/16 09:28 Dose: Not Given Hydromorphone HCl (Dilaudid) 0.5 mg IVP Q3H PRN PRN Reason: Pain, moderate (4-7) Last Admin: 08/18/16 14:12 Dose: 0.5 mg Hydromorphone HCl (Dilaudid) 0.25 mg IVP Q4H PRN PRN Reason: Pain, moderate (4-7) Last Admin: 08/18/16 09:51 Dose: 0.25 mg Sodium Chloride (Sodium Chloride 0.9%) 1,000 mls @ 100 mls/hr IV .Q10H [facility] Last Admin: 08/18/16 13:32 Dose: 100 mls/hr Levothyroxine Sodium (Synthroid) 50 mcg PO DAILY [facility] Last Admin: 08/18/16 09:27 Dose: 50 mcg Meclizine HCl (Antivert) 12.5 mg PO TID PRN PRN Reason: Dizziness Last Admin: 08/18/16 10:39 Dose: 12.5 mg Montelukast Sodium (Singulair) 10 mg PO HS [facility] Last Admin: 08/17/16 22:03 Dose: Not Given Non-Formulary Medication (Fluticasone Propionate [Flovent Diskus]) 0 mcg IH BID [facility] Last Admin: 08/18/16 09:27 Dose: Not Given Ondansetron HCl (Zofran Inj) 4 mg IVP Q4H PRN PRN Reason: Nausea/Vomiting Last Admin: 08/18/16 07:43 Dose: 4 mg Pantoprazole Sodium (Protonix Ec Tab) 40 mg PO 0600 [facility] Last Admin: 08/18/16 05:20 Dose: Not Given Pramipexole Dihydrochloride (Mirapex) 0.125 mg PO DAILY [facility] Last Admin: 08/18/16 09:41 Dose: 0.125 mg Tiotropium [place] (Spiriva) 18 mcg IH DAILY [facility] Last Admin: 08/18/16 09:27 Dose: 18 mcg - Labs Labs: 08/18/16 05:30 08/18/16 05:30 PT 10.7 Seconds (9.9-11.8) 08/16/16 11:00 INR 0.99 (0.93-1.08) 08/16/16 11:00 - Constitutional Appears: Other (fragile, in no acute distress, sitting at ) - Head Exam Head Exam: ATRAUMATIC, NORMOCEPHALIC - Eye Exam Eye Exam: EOMI, Normal appearance - ENT Exam ENT Exam: Mucous Membranes Moist, Normal Exam - Neck Exam Neck Exam: absent: Normal Inspection, Tenderness - Respiratory Exam Respiratory Exam: NORMAL BREATHING PATTERN. absent: Accessory Muscle Use, Rales , Rhonchi, Respiratory Distress - Cardiovascular Exam Cardiovascular Exam: REGULAR RHYTHM, +S1, +S2 - GI/Abdominal Exam GI & Abdominal Exam: Soft, Hypoactive Bowel Sounds. absent: Tenderness, Rebound - Rectal Exam Rectal Exam: Deferred - Extremities Exam Extremities Exam: Normal Inspection. 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 She has advanced COPD and was aked to be monitored post-surgery. Plan: 1) NPO, Out of bed to chair, early mobilization, incentive spirometry, IVF resuscitation, chest physiotherapy, bronchodilator, control pain. <Chloe Sen MD H - Last Filed: 08/18/16 16:32> Objective - Vital Signs/Intake and Output Vital Signs (last 24 hours): Temp Pulse Resp BP Pulse Ox 97.1 F L 100 H 19 162/68 H 84 L 08/18/16 08:00 08/18/16 14:42 08/18/16 14:42 08/18/16 14:42 08/18/16 14:42 Intake and Output: 08/18/16 08/18/16 06:59 18:59 Intake Total 1396 Output Total 375 Balance 1021 - Medications Medications: Current Medications Arformoterol Tartrate (Brovana) 15 mcg IH [id number] [facility] Last Admin: 08/18/16 08:02 Dose: 15 mcg Atorvastatin Calcium (Lipitor) 20 mg PO DIN [facility] Last Admin: 08/17/16 17:04 Dose: Not Given Budesonide (Pulmicort Respules) 0.5 mg IH BIDRESP [facility] Last Admin: 08/18/16 08:02 Dose: 0.5 mg Calcitonin [place] (Miacalcin) 200 iu NS DAILY [facility] Last Admin: 08/18/16 09:28 Dose: 1 spr Donepezil HCl (Aricept) 20 mg PO DAILY [facility] Last Admin: 08/18/16 09:27 Dose: 20 mg Home Med (Home Med) 1 unit INH BID [facility] Last Admin: 08/18/16 09:28 Dose: Not Given Hydromorphone HCl (Dilaudid) 0.5 mg IVP Q3H PRN PRN Reason: Pain, moderate (4-7) Last Admin: 08/18/16 14:12 Dose: 0.5 mg Hydromorphone HCl (Dilaudid) 0.25 mg IVP Q4H PRN PRN Reason: Pain, moderate (4-7) Last Admin: 08/18/16 09:51 Dose: 0.25 mg Sodium Chloride (Sodium Chloride 0.9%) 1,000 mls @ 100 mls/hr IV .Q10H [facility] Last Admin: 08/18/16 13:32 Dose: 100 mls/hr Levothyroxine Sodium (Synthroid) 50 mcg PO DAILY [facility] Last Admin: 08/18/16 09:27 Dose: 50 mcg Meclizine HCl (Antivert) 12.5 mg PO TID PRN PRN Reason: Dizziness Last Admin: 08/18/16 10:39 Dose: 12.5 mg Montelukast Sodium (Singulair) 10 mg PO HS [facility] Last Admin: 08/17/16 22:03 Dose: Not Given Non-Formulary Medication (Fluticasone Propionate [Flovent Diskus]) 0 mcg IH BID [facility] Last Admin: 08/18/16 09:27 Dose: Not Given Ondansetron HCl (Zofran Inj) 4 mg IVP Q4H PRN PRN Reason: Nausea/Vomiting Last Admin: 08/18/16 07:43 Dose: 4 mg Pantoprazole Sodium (Protonix Ec Tab) 40 mg PO 0600 [facility] Last Admin: 08/18/16 05:20 Dose: Not Given Pramipexole Dihydrochloride (Mirapex) 0.125 mg PO DAILY [facility] Last Admin: 08/18/16 09:41 Dose: 0.125 mg Tiotropium [place] (Spiriva) 18 mcg IH DAILY [facility] Last Admin: 08/18/16 09:27 Dose: 18 mcg - Labs Labs: 08/18/16 05:30 08/18/16 05:30 PT 10.7 Seconds (9.9-11.8) 08/16/16 11:00 INR 0.99 (0.93-1.08) 08/16/16 11:00 Attending/Attestation - Attestation I have personally seen and examined this patient.: Yes I have fully participated in the care of the patient.: Yes I have reviewed all pertinent clinical information, including history, physical exam and plan: Yes Notes (Text): 08/18/16 16:24 80 y/o F s/p Hemicolectomy for adeno ca Post op course uneventful COPD treatment as prescribed, no acute exacerbation. Post op Incentive spirometry PT/OT HGB post op keep > 9. dvt p scd ppi cc time 65 min
--- NOTE | 2016-08-18 16:45 | CARD ---
APPROVED REPORT EKG Measurement Heart [id number] <Conclusion> Normal sinus rhythm Normal ECG
[2016-08-18 20:35] LABS: PH,URINE 5.5 (4.7-8.0); URINE BILIRUBIN NEGATIVE (NEGATIVE); URINE BLOOD LARGE (NEGATIVE); URINE GLUCOSE (UA) NEGATIVE (NEGATIVE); URINE LEUKOCYTE ESTERASE TRACE Leu/uL (NEGATIVE); URINE NITRATE NEGATIVE (NEGATIVE); URINE PROTEIN NEGATIVE mg/dL (<30 mg/dL); URINE UROBILINOGEN 0.2 E.U./dL (<1 E.U./dL)
[2016-08-18 20:39] LABS: URINE APPEARANCE SL CLOUDY (CLEAR); URINE COLOR YELLOW (YELLOW)
[2016-08-18 21:06] LABS: URINE RBC 15 - 20 /hpf (0-2); URINE WBC 20 - 25 /hpf (0-6)
[2016-08-18 21:07] LABS: URINE BACTERIA MOD (NEG)
[2016-08-19] MEDS: HYDROmorphone 0.5 mg/0.5 ml ISec IVP PRN (03:07)
[2016-08-19] MEDS: Sodium Chloride 0.9% 1,000 ML IV SCH ×2 (03:08→10:00)
[2016-08-19] MEDS: Pantoprazole 40 mg EC Tab PO SCH (06:08)
[2016-08-19 06:44] LABS: GRAN % 86.5 % (50.0-68.0); HEMOGLOBIN 8.7 gm/dL (12.0-16.0); LYMPH # 0.8 (1.2-3.4); LYMPH % 6.3 % (22.0-35.0); MEAN CELL VOLUME 92.7 fL (80.0-105.0); MEAN CORPUSCULAR HEMOGLOBIN 30.1 pg (25.0-35.0); MEAN CORPUSCULAR HGB CONC 32.5 g/dl (31.0-37.0); MONO % 7.2 % (1.0-6.0); PLATELET COUNT 115 10^3/uL (120.0-450.0); RBC 2.89 10^6/uL (3.5-6.1); RED CELL DISTRIBUTION WIDTH 14.1 % (11.5-14.5); WHITE BLOOD COUNT 13.3 10^3/ul (4.5-11.0)
[2016-08-19 07:23] LABS: ALB/GLOB RATIO 1.2 (1.1-1.8); ALBUMIN 2.9 g/dL (3.0-4.8); ALT/SGPT 24 U/L (7-56); AST/SGOT 46 U/L (15-39); BLOOD UREA NITROGEN 13 mg/dL (7-21); CALCIUM 7.4 mg/dL (8.4-10.5); GFR AFRICAN-AMERICAN > 60; GFR NON-AFRICAN AMERICAN 60
--- NOTE | 2016-08-19 07:27 | CP.PCM.PN ---
Subjective - Date & Time of Evaluation Date of Evaluation: 08/19/16 Time of Evaluation: 07:23 - Subjective Subjective: General Surgery PGY [address] Davis Patient seen and examined at bedside this morning. No acute events over night. Patient states that she was feeling SOB at times yesterday, but was able to return to her baseline after receiving a breathing treatment. Patient states her pain is well controlled. She states that she is passing flatus has not had a BM. Denies F/C, N/V Objective - Vital Signs/Intake and Output Vital Signs (last 24 hours): Temp Pulse Resp BP Pulse Ox 98.2 F 72 18 157/63 H 72 L 08/18/16 18:39 08/18/16 19:03 08/18/16 19:03 08/18/16 19:03 08/18/16 18:39 Intake and Output: 08/19/16 08/19/16 06:59 18:59 Intake Total 0 Output Total 230 Balance -230 - Medications Medications: Current Medications Arformoterol Tartrate (Brovana) 15 mcg IH [id number] [facility] Last Admin: 08/18/16 20:00 Dose: 15 mcg Atorvastatin Calcium (Lipitor) 20 mg PO DIN [facility] Last Admin: 08/18/16 16:50 Dose: 20 mg Budesonide (Pulmicort Respules) 0.5 mg IH BIDRESP [facility] Last Admin: 08/18/16 20:00 Dose: 0.5 mg Calcitonin [place] (Miacalcin) 200 iu NS DAILY [facility] Last Admin: 08/18/16 09:28 Dose: 1 spr Donepezil HCl (Aricept) 20 mg PO DAILY [facility] Last Admin: 08/18/16 09:27 Dose: 20 mg Home Med (Home Med) 1 unit INH BID [facility] Last Admin: 08/18/16 17:55 Dose: Not Given Hydromorphone HCl (Dilaudid) 0.25 mg IVP Q4H PRN PRN Reason: Pain, moderate (4-7) Last Admin: 08/19/16 03:07 Dose: 0.25 mg Sodium Chloride (Sodium Chloride 0.9%) 1,000 mls @ 100 mls/hr IV .Q10H [facility] Last Admin: 08/19/16 03:08 Dose: 100 mls/hr Levothyroxine Sodium (Synthroid) 50 mcg PO DAILY [facility] Last Admin: 08/18/16 09:27 Dose: 50 mcg Meclizine HCl (Antivert) 12.5 mg PO TID PRN PRN Reason: Dizziness Last Admin: 08/18/16 10:39 Dose: 12.5 mg Montelukast Sodium (Singulair) 10 mg PO HS [facility] Last Admin: 08/18/16 22:06 Dose: 10 mg Non-Formulary Medication (Fluticasone Propionate [Flovent Diskus]) 0 mcg IH BID [facility] Last Admin: 08/18/16 17:55 Dose: Not Given Ondansetron HCl (Zofran Inj) 4 mg IVP Q4H PRN PRN Reason: Nausea/Vomiting Last Admin: 08/18/16 07:43 Dose: 4 mg Pantoprazole Sodium (Protonix Ec Tab) 40 mg PO 0600 [facility] Last Admin: 08/19/16 06:08 Dose: 40 mg Pramipexole Dihydrochloride (Mirapex) 0.125 mg PO DAILY [facility] Last Admin: 08/18/16 09:41 Dose: 0.125 mg Tiotropium [place] (Spiriva) 18 mcg IH DAILY [facility] Last Admin: 08/18/16 09:27 Dose: 18 mcg - Labs Labs: 08/19/16 06:30 08/18/16 05:30 PT 10.7 Seconds (9.9-11.8) 08/16/16 11:00 INR 0.99 (0.93-1.08) 08/16/16 11:00 - Constitutional Appears: Non-toxic, No Acute Distress - Head Exam Head Exam: ATRAUMATIC, NORMOCEPHALIC - Eye Exam Eye Exam: EOMI - ENT Exam ENT Exam: Mucous Membranes Moist - Respiratory Exam Respiratory Exam: NORMAL BREATHING PATTERN. absent: Accessory Muscle Use, Respiratory Distress - Cardiovascular Exam Cardiovascular Exam: REGULAR RHYTHM - GI/Abdominal Exam GI & Abdominal Exam: Soft, Tenderness. absent: Distended, Rigid Additional comments: Incision is well approximated. C/D/I. - Neurological Exam Neurological Exam: Alert, Awake - Skin Skin Exam: Dry, Normal Color, Warm Assessment and Plan - Assessment and Plan (Free Text) Assessment: 80 yo F with hx of Colon CA s/p R Hemicolectomy POD 2 Plan: Start on Clear Liquid Diet, advance as tolerated. Pain control GI/DVT ppx Monitor O2 sat Encourage IS Will discuss with Dr. Ryan Elizabeth Waldo PGY 1
[2016-08-19] MEDS: Budesonide 0.5 mg/2 ml Inhal Susp UD IH SCH ×2 (07:34→19:36)
[2016-08-19] MEDS: Arformoterol 15 mcg/2 ml Inh Sol IH SCH ×2 (07:34→19:36)
[2016-08-19] MEDS: FLOVENT INH SCH ×2 (09:35→19:00)
[2016-08-19] MEDS: FLUTICASONE PROPIONATE IH SCH ×2 (09:35→19:00)
[2016-08-19] MEDS: Tiotropium 18 mcg Cap For Inhalation IH SCH (10:15)
[2016-08-19] MEDS: Calcitonin 200 Int Units/Inh Nasal Spray (3.7 ml) NS SCH (10:15)
[2016-08-19] MEDS: Levothyroxine 50 MCG TAB PO SCH (10:15)
--- NOTE | 2016-08-19 10:58 | CP.PCM.PN ---
Subjective - Date & Time of Evaluation Date of Evaluation: 08/19/16 Time of Evaluation: 09:15 - Subjective Subjective: less confused, remains somewhat tachypneic, denies abd pain, no cp Objective - Vital Signs/Intake and Output Vital Signs (last 24 hours): Temp Pulse Resp BP Pulse Ox 97.6 F 58 L 20 141/63 94 L 08/19/16 08:31 08/19/16 08:31 08/19/16 08:31 08/19/16 08:31 08/19/16 08:31 Intake and Output: 08/19/16 08/19/16 06:59 18:59 Intake Total 0 Output Total 230 Balance -230 - Medications Medications: Current Medications Arformoterol Tartrate (Brovana) 15 mcg IH [id number] [facility] Last Admin: 08/19/16 07:34 Dose: 15 mcg Atorvastatin Calcium (Lipitor) 20 mg PO DIN [facility] Last Admin: 08/18/16 16:50 Dose: 20 mg Budesonide (Pulmicort Respules) 0.5 mg IH BIDRESP [facility] Last Admin: 08/19/16 07:34 Dose: 0.5 mg Calcitonin [place] (Miacalcin) 200 iu NS DAILY [facility] Last Admin: 08/19/16 10:15 Dose: 1 spr Donepezil HCl (Aricept) 20 mg PO DAILY [facility] Last Admin: 08/19/16 10:15 Dose: 20 mg Home Med (Home Med) 1 unit INH BID [facility] Last Admin: 08/19/16 09:35 Dose: Not Given Hydromorphone HCl (Dilaudid) 0.25 mg IVP Q4H PRN PRN Reason: Pain, moderate (4-7) Last Admin: 08/19/16 03:07 Dose: 0.25 mg Potassium Chloride 10 meq/ (Sodium Chloride) 1,005 mls @ 70 mls/hr IV .[id number] [facility] Levothyroxine Sodium (Synthroid) 50 mcg PO DAILY [facility] Last Admin: 08/18/16 09:27 Dose: 50 mcg Meclizine HCl (Antivert) 12.5 mg PO TID PRN PRN Reason: Dizziness Last Admin: 08/18/16 10:39 Dose: 12.5 mg Montelukast Sodium (Singulair) 10 mg PO HS [facility] Last Admin: 08/18/16 22:06 Dose: 10 mg Non-Formulary Medication (Fluticasone Propionate [Flovent Diskus]) 0 mcg IH BID [facility] Last Admin: 08/19/16 09:35 Dose: Not Given Ondansetron HCl (Zofran Inj) 4 mg IVP Q4H PRN PRN Reason: Nausea/Vomiting Last Admin: 08/18/16 07:43 Dose: 4 mg Pantoprazole Sodium (Protonix Ec Tab) 40 mg PO 0600 [facility] Last Admin: 08/19/16 06:08 Dose: 40 mg Pramipexole Dihydrochloride (Mirapex) 0.125 mg PO DAILY [facility] Last Admin: 08/19/16 10:14 Dose: 0.125 mg Tiotropium [place] (Spiriva) 18 mcg IH DAILY [facility] Last Admin: 08/19/16 10:15 Dose: 18 mcg - Labs Labs: 08/19/16 06:30 08/19/16 06:30 PT 10.7 Seconds (9.9-11.8) 08/16/16 11:00 INR 0.99 (0.93-1.08) 08/16/16 11:00 - Respiratory Exam Respiratory Exam: Accessory Muscle Use, Prolonged Expiratory Phase - Cardiovascular Exam Cardiovascular Exam: REGULAR RHYTHM - GI/Abdominal Exam GI & Abdominal Exam: Distended, Firm (abdominal binder intact), Diminished Bowel Sounds - Neurological Exam Neurological Exam: Alert, Awake, Oriented x3 Assessment and Plan (1) Adenocarcinoma of colon Status: Acute (2) COPD (chronic obstructive pulmonary disease) Status: Acute - Assessment and Plan (Free Text) Plan: check troponin, bnp, decrease IVF to 70cc/hr, add 10meq KCl
[2016-08-19 11:47] LABS: AMYLASE 68 U/L (35-125)
[2016-08-19 11:48] LABS: LIPASE < 10 U/L (23-300)
[2016-08-19 12:03] LABS: B-TYPE NATRIURETIC PEPTIDE 3320 pg/mL (0-450)
[2016-08-19 12:10] LABS: TROPONIN I < 0.01 ng/mL
[2016-08-19] MEDS ORDERED: 0.125% Bupivacaine in 0.9% NS 750mL On Q Dual pump IJ ONE (12:18)
[2016-08-19] MEDS: Albuterol-Ipratrop 3 mg / 0.5 (3 ml) UD IH SCH (19:36)
[2016-08-20] MEDS: Albuterol-Ipratrop 3 mg / 0.5 (3 ml) UD IH SCH ×7 (01:39→23:30)
[2016-08-20] MEDS: Pantoprazole 40 mg EC Tab PO SCH (06:40)
[2016-08-20 07:59] LABS: BASO # 0.01 K/mm3 (0.0-2.0); BASO % 0.1 % (0.0-3.0); GRAN # 9.33 (1.4-6.5); GRAN % 84.3 % (50.0-68.0); LYMPH # 0.9 (1.2-3.4); MEAN CELL VOLUME 93.1 fL (80.0-105.0); MEAN CORPUSCULAR HEMOGLOBIN 30.4 pg (25.0-35.0); MEAN CORPUSCULAR HGB CONC 32.6 g/dl (31.0-37.0); MEAN PLATELET VOLUME 9.3 fl (7.0-11.0); MONO # 0.8 (0.1-0.6); MONO % 7.6 % (1.0-6.0); PLATELET COUNT 139 10^3/uL (120.0-450.0); RED CELL DISTRIBUTION WIDTH 14.3 % (11.5-14.5); WHITE BLOOD COUNT 11.1 10^3/ul (4.5-11.0)
[2016-08-20 08:05] LABS: ALBUMIN 2.7 g/dL (3.0-4.8); ALT/SGPT 24 U/L (7-56); AST/SGOT 34 U/L (15-39); BLOOD UREA NITROGEN 15 mg/dL (7-21); CALCIUM 7.5 mg/dL (8.4-10.5); GFR AFRICAN-AMERICAN > 60; GFR NON-AFRICAN AMERICAN 60
[2016-08-20 08:10] LABS: HEMOGLOBIN 7.9 gm/dL (12.0-16.0)
[2016-08-20] MEDS: Budesonide 0.5 mg/2 ml Inhal Susp UD IH SCH ×2 (08:14→20:20)
[2016-08-20] MEDS: Arformoterol 15 mcg/2 ml Inh Sol IH SCH ×2 (08:14→20:19)
--- NOTE | 2016-08-20 09:38 | CP.PCM.PN ---
Subjective - Date & Time of Evaluation Date of Evaluation: 08/20/16 Time of Evaluation: 09:34 - Subjective Subjective: General Surgery Progress Note Resident: Alyssa Attending: Ryan HPI: Pt seen and examined this morning. Much more alert. Does not have any complaints at this time. Was tachypnic this morning that she blames on the rapid response called on her roommate. We moved her to another room and gave her a breathing treatment which resolved her tachypnea. She states her pain is much improved and she is tolerating her diet. +flatus/+BM. Denies F/N/V/CP. Objective - Vital Signs/Intake and Output Vital Signs (last 24 hours): Temp Pulse Resp BP Pulse Ox 98.6 F 124 H 20 144/71 94 L 08/20/16 08:54 08/20/16 08:54 08/20/16 08:54 08/20/16 08:54 08/20/16 08:54 Intake and Output: 08/20/16 08/20/16 06:59 18:59 Intake Total 360 Output Total 120 Balance 240 - Medications Medications: Current Medications Albuterol/Ipratropium (Duoneb 3 Mg/0.5 Mg (3 Ml) Ud) 3 ml IH [id number] [facility] Last Admin: 08/20/16 08:14 Dose: 3 ml Arformoterol Tartrate (Brovana) 15 mcg IH [id number] [facility] Last Admin: 08/20/16 08:14 Dose: 15 mcg Atorvastatin Calcium (Lipitor) 20 mg PO DIN [facility] Last Admin: 08/19/16 17:02 Dose: 20 mg Budesonide (Pulmicort Respules) 0.5 mg IH BIDRESP [facility] Last Admin: 08/20/16 08:14 Dose: 0.5 mg Calcitonin [place] (Miacalcin) 200 iu NS DAILY [facility] Last Admin: 08/19/16 10:15 Dose: 1 spr Home Med (Home Med) 1 unit INH BID [facility] Last Admin: 08/19/16 19:00 Dose: Not Given Potassium Chloride 40 meq/ (Sodium Chloride) 1,020 mls @ 70 mls/hr IV .[id number] [facility] Levothyroxine Sodium (Synthroid) 50 mcg PO DAILY [facility] Last Admin: 08/19/16 10:15 Dose: 50 mcg Meclizine HCl (Antivert) 12.5 mg PO TID PRN PRN Reason: Dizziness Last Admin: 08/18/16 10:39 Dose: 12.5 mg Montelukast Sodium (Singulair) 10 mg PO HS [facility] Last Admin: 08/19/16 22:45 Dose: Not Given Non-Formulary Medication (Fluticasone Propionate [Flovent Diskus]) 0 mcg IH BID [facility] Last Admin: 08/19/16 19:00 Dose: Not Given Ondansetron HCl (Zofran Inj) 4 mg IVP Q4H PRN PRN Reason: Nausea/Vomiting Last Admin: 08/18/16 07:43 Dose: 4 mg Pantoprazole Sodium (Protonix Ec Tab) 40 mg PO 0600 [facility] Last Admin: 08/20/16 06:40 Dose: 40 mg Pramipexole Dihydrochloride (Mirapex) 0.125 mg PO DAILY [facility] Last Admin: 08/19/16 10:14 Dose: 0.125 mg Tiotropium [place] (Spiriva) 18 mcg IH DAILY [facility] Last Admin: 08/19/16 10:15 Dose: 18 mcg Tramadol/Acetaminophen (Ultracet 37.5/325 Mg) 1 tab PO Q4H PRN PRN Reason: Pain - Labs Labs: 08/20/16 07:00 08/20/16 07:00 PT 10.7 Seconds (9.9-11.8) 08/16/16 11:00 INR 0.99 (0.93-1.08) 08/16/16 11:00 - Constitutional Appears: Well, No Acute Distress - Head Exam Head Exam: NORMAL INSPECTION - Eye Exam Eye Exam: EOMI - ENT Exam ENT Exam: Mucous Membranes Moist - Respiratory Exam Respiratory Exam: Respiratory Distress Additional comments: Tachypneic this am - Cardiovascular Exam Cardiovascular Exam: REGULAR RHYTHM, RRR. absent: Gallop, Rubs, Murmur - GI/Abdominal Exam GI & Abdominal Exam: Soft. absent: Distended, Guarding, Rigid, Tenderness Additional comments: BALAJI drain = 80 cc serosanginous dressing c/d/i with no evidence of infection Assessment and Plan - Assessment and Plan (Free Text) Assessment: 80 y/o frail WF s/p R. hemicolectomy * Hgb was 7.9 --> transfused 1 unit of PRBC * dressing changed this am * IS 10x/hr * Pain control: tramadol * PPX: cara Shah DO PGY-1
[2016-08-20] MEDS: FLUTICASONE PROPIONATE IH SCH ×2 (10:14→18:52)
--- NOTE | 2016-08-20 10:56 | PQF MALNUT ---
This form is a permanent part of the medical record Clarification of your documentation is requested to better reflect the severity of illness and intensity of treatment of your patient. Indicators present 08/20 s/p Hemicolectomy,on d/t Colon CA, on liquid diet, BMI- 18.2 T-Protein - 5.3, Albumin- 2.7. Dietary consult shows Level 3- high acuity. Tx w/ Ensure 3x day. Please document type & degree of malnutrition as this will reflect severity of illness & intensity of treatment. [] Cachexia (due to severe malnutrition) [x] Albumin < 2.8- [] Decreased Pre-albumin [x] Dietary Consult [x] Provider documentation reflects BMI of: []_18.2 [x] Low serum proteins [x] Documented weight loss [x] Inability to consume adequate caloric intake [] Anorexic [] Other: [] Post OP Hemicolectomy d/t Adenocarcinoma of Colon Location in the medical record that reflects the above clinical findings: [x] Dietary consult Treatment Provided: [x]Ensure 3xday PHYSICIAN'S RESPONSE Based on your medical judgment of the clinical indicators outlined above, are you treating this patient for a known or suspected: Type of Malnutrition Severity [] Mild [] Moderate [] Severe [x] Protein calorie [x] Mild [] Moderate [] severe [] Other, please indicate: []_ [] If Unable to Determine, please check the box, sign and date. Present On Admission (POA) Indicator: [x] Present at the time of admission [] Not present at the time of admission [] Clinically Undetermined In responding to this query, please exercise your independent professional judgment. The fact that a question is asked does not imply that any particular answer is desired or expected. Thank you for your clarification on this documentation. If you have any questions please call:[ ][phone] * Thank you, [ ]Sherice Saunders RN CDS frame pulley mortising machine operator Malnutrition Malnutrition results from an imbalance between the body's intake of nutrients and the body's use of nutrients to fuel energy expenditure. Malnutrition may be described as mild, moderate or severe. There are variations in clinical indicators, lab values and risk factors with each type and degree. When reviewing the nutritional status of the client, the entire clinical picture should be assessed and taken into consideration rather than a focus on a single laboratory value. Mild Malnutrition: patient's weight is noted at 85-95% of normal body weight; BMI 18-18.9; serum albumin 3.0-3.4; total lymphocyte count [id number]. Moderate Malnutrition: patient's weight is noted at 75-85% of normal body weight ; BMI 16-17.9; serum albumin 2.4-3.0; total lymphocyte count 800-1500. Severe Malnutrition: patient's weight is noted at <75% of normal body weight, BMI <16, serum albumin <2.4, total lymphocyte count <800, abnormally low VLDL/ LDL levels, creatinine <0.6, BUN <8, cholesterol <160. Other clinical indicators include: loss of subq fat, muscle wasting of the extremities, skin lesions, decubitus ulcers, hair loss, lethargy, constipation, decreased pulse/ respiratory rates, relative hypotension, hepatomegaly d/t fat infiltration, poor wound healing.~~~~~~ Risk: poor intake d/t food avoidance or NPO status for >7 days, protracted nutritional losses from malabsorption states, hypermetabolic state such as sepsis, prolonged fever, extensive trauma or kebede, alcohol/drug abuse, advanced age, CKD, trouble chewing or swallowing, some medications, depression/ social isolation, special diets such as low protein Treatment: dietary consultation, protein-calorie dietary supplementation, daily weights, PEG tube, psychiatric consultation, appetite stimulants (Megace). [employer] Principles of Internal Medicine, 17th edition, chapters 9, 72 and 234. The [employer] Nutritional Support Core Curriculum, 2007 MTDD
[2016-08-20] MEDS: FLOVENT INH SCH ×2 (11:01→18:52)
[2016-08-20] MEDS: Calcitonin 200 Int Units/Inh Nasal Spray (3.7 ml) NS SCH (11:02)
[2016-08-20] MEDS: Levothyroxine 50 MCG TAB PO SCH (11:03)
[2016-08-20] MEDS: Tiotropium 18 mcg Cap For Inhalation IH SCH (11:03)
[2016-08-20] MEDS ORDERED: Potassium Chloride 40 mEq/30 ml LIQ UD PO ONE (11:17)
--- NOTE | 2016-08-20 11:24 | CP.PCM.PN ---
Subjective - Date & Time of Evaluation Date of Evaluation: 08/20/16 Time of Evaluation: 11:00 - Subjective Subjective: remains sl tachypneic, no abd pain Objective - Vital Signs/Intake and Output Vital Signs (last 24 hours): Temp Pulse Resp BP Pulse Ox 98.6 F 124 H 20 144/71 94 L 08/20/16 08:54 08/20/16 08:54 08/20/16 08:54 08/20/16 08:54 08/20/16 08:54 Intake and Output: 08/20/16 08/20/16 06:59 18:59 Intake Total 360 Output Total 120 Balance 240 - Medications Medications: Current Medications Albuterol/Ipratropium (Duoneb 3 Mg/0.5 Mg (3 Ml) Ud) 3 ml IH [id number] [facility] Last Admin: 08/20/16 11:02 Dose: 3 ml Arformoterol Tartrate (Brovana) 15 mcg IH [id number] [facility] Last Admin: 08/20/16 08:14 Dose: 15 mcg Atorvastatin Calcium (Lipitor) 20 mg PO DIN [facility] Last Admin: 08/19/16 17:02 Dose: 20 mg Budesonide (Pulmicort Respules) 0.5 mg IH BIDRESP [facility] Last Admin: 08/20/16 08:14 Dose: 0.5 mg Calcitonin [place] (Miacalcin) 200 iu NS DAILY [facility] Last Admin: 08/20/16 11:02 Dose: 1 spr Home Med (Home Med) 1 unit INH BID [facility] Last Admin: 08/20/16 11:01 Dose: Not Given Levothyroxine Sodium (Synthroid) 50 mcg PO DAILY [facility] Last Admin: 08/20/16 11:03 Dose: 50 mcg Meclizine HCl (Antivert) 12.5 mg PO TID PRN PRN Reason: Dizziness Last Admin: 08/18/16 10:39 Dose: 12.5 mg Montelukast Sodium (Singulair) 10 mg PO HS [facility] Last Admin: 08/19/16 22:45 Dose: Not Given Non-Formulary Medication (Fluticasone Propionate [Flovent Diskus]) 0 mcg IH BID [facility] Last Admin: 08/20/16 10:14 Dose: Not Given Ondansetron HCl (Zofran Inj) 4 mg IVP Q4H PRN PRN Reason: Nausea/Vomiting Last Admin: 08/18/16 07:43 Dose: 4 mg Pantoprazole Sodium (Protonix Ec Tab) 40 mg PO 0600 [facility] Last Admin: 08/20/16 06:40 Dose: 40 mg Potassium Chloride (Potassium Chloride Oral Soln) 40 meq PO ONCE ONE Stop: 08/20/16 11:18 Pramipexole Dihydrochloride (Mirapex) 0.125 mg PO DAILY [facility] Last Admin: 08/20/16 11:02 Dose: 0.125 mg Tiotropium [place] (Spiriva) 18 mcg IH DAILY [facility] Last Admin: 08/20/16 11:03 Dose: 18 mcg Tramadol/Acetaminophen (Ultracet 37.5/325 Mg) 1 tab PO Q4H PRN PRN Reason: Pain - Labs Labs: 08/20/16 07:00 08/20/16 07:00 PT 10.7 Seconds (9.9-11.8) 08/16/16 11:00 INR 0.99 (0.93-1.08) 08/16/16 11:00 - Respiratory Exam Respiratory Exam: Rales - Cardiovascular Exam Cardiovascular Exam: Tachycardia, RRR - GI/Abdominal Exam GI & Abdominal Exam: Soft, Normal Bowel Sounds - Neurological Exam Neurological Exam: Awake Assessment and Plan (1) Adenocarcinoma of colon Status: Acute (2) COPD (chronic obstructive pulmonary disease) Status: Acute - Assessment and Plan (Free Text) Plan: increased BNP, will d/c IVF, K supplement ordered
--- NOTE | 2016-08-20 14:07 | PN ---
SUBJECTIVE: The patient is transferred to [facility]. The patient is an 80-year-old woman who just underwent abdominal surgery. She is on the floor now, extubated and comfortable. There is no respiratory distress. She is extremely anxious. When she gets anxious, she starts to breathe deep. This is not a consequence of her respiratory status, it is a consequence of her anxiety. There are no other problems noted from the pulmonary point of view at this time. OBJECTIVE: VITAL SIGNS: She is afebrile. Has respiratory rate of 22 this morning, blood pressure of 130/60, pulse ox 100%. Intake is 1396, output is 3756 with a positive balance of 1021. She remains on Brovana, budesonide, and tiotropium. There is no need for any further medications at this time. The patient is doing well. There are no other problems of note. NECK: Supple, no JVD, no lymphadenopathy. There is no bruits. CARDIOVASCULAR: S1, S2, soft systolic ejection murmur at the lower left sternal border and no gallop or rub. CHEST: Clear to percussion and auscultation, prolonged expiratory phase. ABDOMEN: Soft but mildly tender. EXTREMITIES: Reveal no clubbing, cyanosis, or edema. SKIN: No rash or excoriation. LABORATORY STUDY: Other laboratory studies show a chest x-ray that is clear of infiltrates. The patient had diagnostics with an x-ray that shows no pulmonary infiltrate and an arterial blood gas done yesterday that shows a pH of 7.56, pCO2 of 23 and a pO2 of 125. Again, this shows a respiratory alkalosis, not secondary to intrinsic lung disease, this is secondary to her anxiety. At times, she is noted to be much slower, I am certain that this blood gas was indicative of her anxiety. IMPRESSION: 1. Status post abdominal surgery, postoperative, stable. 2. Asthma, possible emphysema and hypocapnia secondary to hyperventilation from anxiety. PLAN: Continue to watch this patient carefully. Manage her anxiety per PMD and surgeon. When the patient does well and decreases her breath, she is able to have normalized pH and pCO2. This is not something urgent. I will ask you to contact me if there were any further issues with her respiratory status, and we will be happy to see her again as needed. Thank you for the opportunity to see her during this perioperative period. Сергей Boone MD [facility] # [id number]
--- NOTE | 2016-08-20 17:45 | CP.PCM.PCO ---
Physician Communication Note - Physician Communication Note Physician Communication Note: + FRlatus/No BM/Rx Full liquids/Tramadol PO
--- NOTE | 2016-08-21 00:55 | CP.PCM.PN ---
Subjective - Date & Time of Evaluation Date of Evaluation: 08/21/16 Time of Evaluation: 00:50 - Subjective Subjective: Patient was seen at bedside because she had 2 dark tarry bowel movements. Denies abdominal pain, nausea, vomiting. Is S/P Celiotomy, Right hemicolectomy for colonic cancer. Had received one unit of blood transfusion earlier. This 80 year old white woman was admitted Has H of Colonic cancer, COPD, DJD, GERD, osteoporosis, hypothyroidism, appendectomy. Objective - Vital Signs/Intake and Output Vital Signs (last 24 hours): Temp Pulse Resp BP Pulse Ox 97.9 F 88 20 167/92 H 94 L 08/20/16 19:11 08/20/16 19:11 08/20/16 19:11 08/20/16 19:11 08/20/16 16:00 T: 97.7*F, 142/74, 94 % on 2L/min, 88, 20/min. Sittin/87, HR:108/min.? Intake and Output: 08/20/16 08/21/16 18:59 06:59 Intake Total 360 360 Output Total 80 Balance 360 280 - Medications Medications: Current Medications Albuterol/Ipratropium (Duoneb 3 Mg/0.5 Mg (3 Ml) Ud) 3 ml IH [id number] [facility] Last Admin: 08/20/16 20:20 Dose: 3 ml Arformoterol Tartrate (Brovana) 15 mcg IH [id number] [facility] Last Admin: 08/20/16 20:19 Dose: 15 mcg Atorvastatin Calcium (Lipitor) 20 mg PO DIN [facility] Last Admin: 08/20/16 18:57 Dose: 20 mg Budesonide (Pulmicort Respules) 0.5 mg IH BIDRESP [facility] Last Admin: 08/20/16 20:20 Dose: 0.5 mg Calcitonin [place] (Miacalcin) 200 iu NS DAILY [facility] Last Admin: 08/20/16 11:02 Dose: 1 spr Home Med (Home Med) 1 unit INH BID [facility] Last Admin: 08/20/16 18:52 Dose: Not Given Levothyroxine Sodium (Synthroid) 50 mcg PO DAILY [facility] Last Admin: 08/20/16 11:03 Dose: 50 mcg Meclizine HCl (Antivert) 12.5 mg PO TID PRN PRN Reason: Dizziness Last Admin: 08/18/16 10:39 Dose: 12.5 mg Montelukast Sodium (Singulair) 10 mg PO HS [facility] Last Admin: 08/20/16 22:00 Dose: Not Given Non-Formulary Medication (Fluticasone Propionate [Flovent Diskus]) 0 mcg IH BID [facility] Last Admin: 08/20/16 18:52 Dose: Not Given Ondansetron HCl (Zofran Inj) 4 mg IVP Q4H PRN PRN Reason: Nausea/Vomiting Last Admin: 08/18/16 07:43 Dose: 4 mg Pantoprazole Sodium (Protonix Ec Tab) 40 mg PO 0600 [facility] Last Admin: 08/20/16 06:40 Dose: 40 mg Pramipexole Dihydrochloride (Mirapex) 0.125 mg PO DAILY [facility] Last Admin: 08/20/16 11:02 Dose: 0.125 mg Tiotropium [place] (Spiriva) 18 mcg IH DAILY [facility] Last Admin: 08/20/16 11:03 Dose: 18 mcg Tramadol/Acetaminophen (Ultracet 37.5/325 Mg) 1 tab PO Q4H PRN PRN Reason: Pain - Labs Labs: 08/20/16 07:00 08/20/16 07:00 PT 10.7 Seconds (9.9-11.8) 08/16/16 11:00 INR 0.99 (0.93-1.08) 08/16/16 11:00 Lab Studies 08/20/16 08/20/16 08/20/16 Range/Units 13:48 07:00 07:00 WBC 11.1 H (4.5-11.0) 10^3/ul RBC 2.60 L (3.5-6.1) 10^6/uL Hgb 7.9 L (12.0-16.0) gm/dL Hct 24.2 L (36.0-48.0) % MCV 93.1 (80.0-105.0) fL MCH 30.4 (25.0-35.0) pg MCHC 32.6 (31.0-37.0) g/dl RDW 14.3 (11.5-14.5) % Plt Count 139 (120.0-450.0) 10^3/uL MPV 9.3 (7.0-11.0) fl Gran % 84.3 H (50.0-68.0) % Lymph % (Auto) 8.0 L (22.0-35.0) % [place] % (Auto) 7.6 H (1.0-6.0) % Eos % (Auto) 0.0 L (1.5-5.0) % Baso % (Auto) 0.1 (0.0-3.0) % Gran # 9.33 H (1.4-6.5) Lymph # 0.9 L (1.2-3.4) [place] # 0.8 H (0.1-0.6) Eos # 0.0 (0.0-0.7) Baso # 0.01 (0.0-2.0) K/mm3 Sodium 138 (132-148) mmol/L Potassium 3.1 L (3.6-5.0) mmol/L Chloride 112 H (98-107) mmol/L Carbon Dioxide 14 L (21-33) mmol/L Anion Gap 15 (10-20) BUN 15 (7-21) mg/dL Creatinine 0.9 (0.5-1.4) mg/dL Est GFR ( Amer) > 60 Est GFR (Non-Af Amer) 60 Random Glucose 61 L (70-110) mg/dL Calcium 7.5 L (8.4-10.5) mg/dL Magnesium 1.8 (1.7-2.2) mg/dL Total Bilirubin 0.4 (0.2-1.3) mg/dL AST 34 (15-39) U/L ALT 24 (7-56) U/L Alkaline Phosphatase 64 (38-133) U/L Total Protein 5.3 L (5.8-8.3) g/dL Albumin 2.7 L (3.0-4.8) g/dL Globulin 2.6 gm/dL Albumin/Globulin Ratio 1.0 L (1.1-1.8) Blood Type Antibody Screen Crossmatch BBK History Checked 08/19/16 08/16/16 Range/Units 12:28 11:00 WBC (4.5-11.0) 10^3/ul RBC (3.5-6.1) 10^6/uL Hgb (12.0-16.0) gm/dL Hct (36.0-48.0) % MCV (80.0-105.0) fL MCH (25.0-35.0) pg MCHC (31.0-37.0) g/dl RDW (11.5-14.5) % Plt Count (120.0-450.0) 10^3/uL MPV (7.0-11.0) fl Gran % (50.0-68.0) % Lymph % (Auto) (22.0-35.0) % [place] % (Auto) (1.0-6.0) % Eos % (Auto) (1.5-5.0) % Baso % (Auto) (0.0-3.0) % Gran # (1.4-6.5) Lymph # (1.2-3.4) [place] # (0.1-0.6) Eos # (0.0-0.7) Baso # (0.0-2.0) K/mm3 Sodium (132-148) mmol/L Potassium (3.6-5.0) mmol/L Chloride (98-107) mmol/L Carbon Dioxide (21-33) mmol/L Anion Gap (10-20) BUN (7-21) mg/dL Creatinine (0.5-1.4) mg/dL Est GFR ( Amer) Est GFR (Non-Af Amer) Random Glucose (70-110) mg/dL Calcium (8.4-10.5) mg/dL Magnesium (1.7-2.2) mg/dL Total Bilirubin (0.2-1.3) mg/dL AST (15-39) U/L ALT (7-56) U/L Alkaline Phosphatase (38-133) U/L Total Protein (5.8-8.3) g/dL Albumin (3.0-4.8) g/dL Globulin gm/dL Albumin/Globulin Ratio (1.1-1.8) Blood Type O POSITIVE Antibody Screen Negative Crossmatch See Detail See Detail BBK History Checked Patient has bt - Constitutional Appears: Well, No Acute Distress - Head Exam Head Exam: ATRAUMATIC, NORMAL INSPECTION, NORMOCEPHALIC - Eye Exam Eye Exam: Normal appearance - ENT Exam ENT Exam: Normal External Ear Exam - Neck Exam Neck Exam: Normal Inspection - Respiratory Exam Respiratory Exam: NORMAL BREATHING PATTERN - Cardiovascular Exam Cardiovascular Exam: REGULAR RHYTHM. absent: JVD - GI/Abdominal Exam GI & Abdominal Exam: absent: Distended, Tenderness Additional comments: Abdominal Band clean and dry. - Rectal Exam Rectal Exam: Deferred Additional comments: Noticed dark tarry stool on diaper. - Exam Additional comments: Deferred. - Extremities Exam Extremities Exam: Normal Inspection - Back Exam Back Exam: NORMAL INSPECTION - Neurological Exam Neurological Exam: Alert, Oriented x3 - Psychiatric Exam Psychiatric exam: Normal Affect, Normal Mood - Skin Skin Exam: Normal Color Assessment and Plan - Assessment and Plan (Free Text) Assessment: Rectal bleeding. S/P Celiotomy, Right hemicolectomy. Anemia. Colon cancer. COPD. DJD. Hypothyroidism. Osteoporosis. GERD. Plan: CBC stat. Ortho static Vital Sign x 1. 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 Continue present management.
[2016-08-21 01:32] LABS: HEMOGLOBIN 10.6 gm/dL (12.0-16.0); MEAN CELL VOLUME 89.4 fL (80.0-105.0); MEAN CORPUSCULAR HEMOGLOBIN 30.4 pg (25.0-35.0); MEAN PLATELET VOLUME 9.1 fl (7.0-11.0); RBC 3.49 10^6/uL (3.5-6.1); RED CELL DISTRIBUTION WIDTH 15.2 % (11.5-14.5); WHITE BLOOD COUNT 10.1 10^3/ul (4.5-11.0)
[2016-08-21] MEDS: Pantoprazole 40 mg EC Tab PO SCH ×2 (05:56→18:11)
--- NOTE | 2016-08-21 06:59 | CP.PCM.PCO ---
Physician Communication Note - Physician Communication Note Physician Communication Note: + Rectal bleeding: H & H ? stable/Cont liquids-GI Consult(Doubt PUD)
[2016-08-21] MEDS: Arformoterol 15 mcg/2 ml Inh Sol IH SCH ×2 (08:02→19:13)
[2016-08-21] MEDS: Budesonide 0.5 mg/2 ml Inhal Susp UD IH SCH ×2 (08:03→19:13)
[2016-08-21] MEDS: Albuterol-Ipratrop 3 mg / 0.5 (3 ml) UD IH SCH ×5 (08:03→23:18)
[2016-08-21 08:11] LABS: GRAN # 7.32 (1.4-6.5); GRAN % 83.3 % (50.0-68.0); HEMOGLOBIN 10.7 gm/dL (12.0-16.0); LYMPH # 0.7 (1.2-3.4); LYMPH % 8.3 % (22.0-35.0); MEAN CELL VOLUME 90.1 fL (80.0-105.0); MEAN CORPUSCULAR HEMOGLOBIN 30.2 pg (25.0-35.0); MEAN CORPUSCULAR HGB CONC 33.5 g/dl (31.0-37.0); MEAN PLATELET VOLUME 9.2 fl (7.0-11.0); MONO # 0.7 (0.1-0.6); MONO % 8.4 % (1.0-6.0); PLATELET COUNT 120 10^3/uL (120.0-450.0); RBC 3.54 10^6/uL (3.5-6.1); RED CELL DISTRIBUTION WIDTH 15.6 % (11.5-14.5); WHITE BLOOD COUNT 8.8 10^3/ul (4.5-11.0)
[2016-08-21 08:26] LABS: ALBUMIN 2.6 g/dL (3.0-4.8); ALT/SGPT 25 U/L (7-56); AST/SGOT 32 U/L (15-39); BLOOD UREA NITROGEN 14 mg/dL (7-21); CALCIUM 8.1 mg/dL (8.4-10.5); GFR AFRICAN-AMERICAN > 60; GFR NON-AFRICAN AMERICAN > 60; MAGNESIUM 1.5 mg/dL (1.7-2.2)
--- NOTE | 2016-08-21 10:01 | CP.PCM.PN ---
Subjective - Date & Time of Evaluation Date of Evaluation: 08/21/16 Time of Evaluation: 09:57 - Subjective Subjective: PT S&E at bedside. Patient states she is doing well after blood transfusion. Patient admits to some abdominal pain, but would prefer the binder to be taken off Objective - Vital Signs/Intake and Output Vital Signs (last 24 hours): Temp Pulse Resp BP Pulse Ox 98.1 F 90 21 136/80 97 08/21/16 07:50 08/21/16 07:50 08/21/16 07:50 08/21/16 07:50 08/21/16 07:50 Intake and Output: 08/21/16 08/21/16 06:59 18:59 Intake Total 360 120 Output Total 80 30 Balance 280 90 - Medications Medications: Current Medications Albuterol/Ipratropium (Duoneb 3 Mg/0.5 Mg (3 Ml) Ud) 3 ml IH [id number] [facility] Last Admin: 08/21/16 08:03 Dose: 3 ml Arformoterol Tartrate (Brovana) 15 mcg IH [id number] [facility] Last Admin: 08/21/16 08:02 Dose: 15 mcg Atorvastatin Calcium (Lipitor) 20 mg PO DIN [facility] Last Admin: 08/20/16 18:57 Dose: 20 mg Budesonide (Pulmicort Respules) 0.5 mg IH BIDRESP [facility] Last Admin: 08/21/16 08:03 Dose: 0.5 mg Calcitonin [place] (Miacalcin) 200 iu NS DAILY [facility] Last Admin: 08/20/16 11:02 Dose: 1 spr Home Med (Home Med) 1 unit INH BID [facility] Last Admin: 08/20/16 18:52 Dose: Not Given Levothyroxine Sodium (Synthroid) 50 mcg PO DAILY [facility] Last Admin: 08/20/16 11:03 Dose: 50 mcg Meclizine HCl (Antivert) 12.5 mg PO TID PRN PRN Reason: Dizziness Last Admin: 08/18/16 10:39 Dose: 12.5 mg Montelukast Sodium (Singulair) 10 mg PO HS [facility] Last Admin: 08/20/16 22:00 Dose: Not Given Non-Formulary Medication (Fluticasone Propionate [Flovent Diskus]) 0 mcg IH BID [facility] Last Admin: 08/20/16 18:52 Dose: Not Given Ondansetron HCl (Zofran Inj) 4 mg IVP Q4H PRN PRN Reason: Nausea/Vomiting Last Admin: 08/18/16 07:43 Dose: 4 mg Pantoprazole Sodium (Protonix Ec Tab) 40 mg PO 0600,1600 [facility] Potassium Chloride (K-Dur 20 Meq Er Tab) 20 meq PO [facility] [place] Pramipexole Dihydrochloride (Mirapex) 0.125 mg PO DAILY [facility] Last Admin: 08/20/16 11:02 Dose: 0.125 mg Tiotropium [place] (Spiriva) 18 mcg IH DAILY [facility] Last Admin: 08/20/16 11:03 Dose: 18 mcg Tramadol/Acetaminophen (Ultracet 37.5/325 Mg) 1 tab PO Q4H PRN PRN Reason: Pain - Labs Labs: 08/21/16 08:00 08/21/16 08:00 PT 10.7 Seconds (9.9-11.8) 08/16/16 11:00 INR 0.99 (0.93-1.08) 08/16/16 11:00 - Constitutional Appears: No Acute Distress - Head Exam Head Exam: NORMAL INSPECTION - Eye Exam Eye Exam: EOMI, Normal appearance - ENT Exam ENT Exam: Mucous Membranes Moist - Cardiovascular Exam Cardiovascular Exam: REGULAR RHYTHM. absent: Bradycardia, Tachycardia - GI/Abdominal Exam GI & Abdominal Exam: Soft, Tenderness. absent: Distended, Firm, Guarding, Hyperactive Bowel Sounds - Neurological Exam Neurological Exam: Awake - Skin Skin Exam: Dry Assessment and Plan - Assessment and Plan (Free Text) Assessment: 80 F presents with colon Ca s/p Hemicolectomy POD #4 Plan: H/H stable monitor H/H q8H DC heparin do not advance diet discuss plan with with Juan
[2016-08-21] MEDS: FLOVENT INH SCH ×2 (10:27→17:50)
[2016-08-21] MEDS: Potassium Chloride 20 mEq ER Tab PO SCH (10:27)
[2016-08-21] MEDS: FLUTICASONE PROPIONATE IH SCH ×2 (10:27→17:50)
[2016-08-21] MEDS: Calcitonin 200 Int Units/Inh Nasal Spray (3.7 ml) NS SCH (10:28)
[2016-08-21] MEDS: Levothyroxine 50 MCG TAB PO SCH (10:28)
[2016-08-21] MEDS: Tiotropium 18 mcg Cap For Inhalation IH SCH (10:28)
--- NOTE | 2016-08-21 10:35 | CP.PCM.PN ---
Subjective - Date & Time of Evaluation Date of Evaluation: 08/21/16 Time of Evaluation: 09:15 - Subjective Subjective: denies abd pain, c/o fatigue Objective - Vital Signs/Intake and Output Vital Signs (last 24 hours): Temp Pulse Resp BP Pulse Ox 98.1 F 90 21 136/80 97 08/21/16 07:50 08/21/16 07:50 08/21/16 07:50 08/21/16 07:50 08/21/16 07:50 Intake and Output: 08/21/16 08/21/16 06:59 18:59 Intake Total 360 120 Output Total 80 30 Balance 280 90 - Medications Medications: Current Medications Albuterol/Ipratropium (Duoneb 3 Mg/0.5 Mg (3 Ml) Ud) 3 ml IH [id number] [facility] Last Admin: 08/21/16 08:03 Dose: 3 ml Arformoterol Tartrate (Brovana) 15 mcg IH [id number] [facility] Last Admin: 08/21/16 08:02 Dose: 15 mcg Atorvastatin Calcium (Lipitor) 20 mg PO DIN [facility] Last Admin: 08/20/16 18:57 Dose: 20 mg Budesonide (Pulmicort Respules) 0.5 mg IH BIDRESP [facility] Last Admin: 08/21/16 08:03 Dose: 0.5 mg Calcitonin [place] (Miacalcin) 200 iu NS DAILY [facility] Last Admin: 08/21/16 10:28 Dose: 1 spr Home Med (Home Med) 1 unit INH BID [facility] Last Admin: 08/21/16 10:27 Dose: Not Given Potassium Chloride 40 meq/ (Dextrose/Sodium Chloride) 1,020 mls @ 75 mls/hr IV .[id number] [facility] Levothyroxine Sodium (Synthroid) 50 mcg PO DAILY [facility] Last Admin: 08/21/16 10:28 Dose: 50 mcg Meclizine HCl (Antivert) 12.5 mg PO TID PRN PRN Reason: Dizziness Last Admin: 08/18/16 10:39 Dose: 12.5 mg Montelukast Sodium (Singulair) 10 mg PO HS [facility] Last Admin: 08/20/16 22:00 Dose: Not Given Non-Formulary Medication (Fluticasone Propionate [Flovent Diskus]) 0 mcg IH BID [facility] Last Admin: 08/21/16 10:27 Dose: Not Given Ondansetron HCl (Zofran Inj) 4 mg IVP Q4H PRN PRN Reason: Nausea/Vomiting Last Admin: 08/18/16 07:43 Dose: 4 mg Pantoprazole Sodium (Protonix Ec Tab) 40 mg PO 0600,1600 [facility] Potassium Chloride (K-Dur 20 Meq Er Tab) 20 meq PO BRK [facility] Last Admin: 08/21/16 10:27 Dose: 20 meq Pramipexole Dihydrochloride (Mirapex) 0.125 mg PO DAILY [facility] Last Admin: 08/21/16 10:28 Dose: 0.125 mg Tiotropium [place] (Spiriva) 18 mcg IH DAILY [facility] Last Admin: 08/21/16 10:28 Dose: 18 mcg Tramadol/Acetaminophen (Ultracet 37.5/325 Mg) 1 tab PO Q4H PRN PRN Reason: Pain - Labs Labs: 08/21/16 08:00 08/21/16 08:00 PT 10.7 Seconds (9.9-11.8) 08/16/16 11:00 INR 0.99 (0.93-1.08) 08/16/16 11:00 - Respiratory Exam Respiratory Exam: Prolonged Expiratory Phase - Cardiovascular Exam Cardiovascular Exam: REGULAR RHYTHM - GI/Abdominal Exam GI & Abdominal Exam: Normal Bowel Sounds - Neurological Exam Neurological Exam: Alert, Awake Assessment and Plan (1) Adenocarcinoma of colon Status: Acute (2) COPD (chronic obstructive pulmonary disease) Status: Acute - Assessment and Plan (Free Text) Plan: continue post-op care, for d/c planning, PT
[2016-08-21] MEDS: Potassium Chloride 40 MEQ in Dextrose 5%/0.45% NS 1,000 ML IV SCH (12:02)
[2016-08-21 16:37] LABS: BASO # 0.01 K/mm3 (0.0-2.0); BASO % 0.1 % (0.0-3.0); EOS % 0.1 % (1.5-5.0); GRAN # 6.63 (1.4-6.5); HEMOGLOBIN 11.2 gm/dL (12.0-16.0); LYMPH % 11.4 % (22.0-35.0); MEAN CELL VOLUME 90.4 fL (80.0-105.0); MEAN CORPUSCULAR HEMOGLOBIN 29.9 pg (25.0-35.0); MEAN CORPUSCULAR HGB CONC 33.1 g/dl (31.0-37.0); MEAN PLATELET VOLUME 9.1 fl (7.0-11.0); MONO # 0.7 (0.1-0.6); MONO % 8.4 % (1.0-6.0); PLATELET COUNT 127 10^3/uL (120.0-450.0); RBC 3.74 10^6/uL (3.5-6.1); RED CELL DISTRIBUTION WIDTH 15.4 % (11.5-14.5); WHITE BLOOD COUNT 8.3 10^3/ul (4.5-11.0)
[2016-08-21] MEDS ORDERED: Alum-Mag Hydrox-Simethicone Susp (30 mL) PO ONE (22:13)
[2016-08-22 00:11] LABS: ALBUMIN 2.5 g/dL (3.0-4.8); ALT/SGPT 25 U/L (7-56); AST/SGOT 30 U/L (15-39); BLOOD UREA NITROGEN 18 mg/dL (7-21); CALCIUM 7.9 mg/dL (8.4-10.5); GFR AFRICAN-AMERICAN > 60; GFR NON-AFRICAN AMERICAN > 60
[2016-08-22] MEDS: Potassium Chloride 40 MEQ in Dextrose 5%/0.45% NS 1,000 ML IV SCH ×2 (00:50→22:03)
[2016-08-22] MEDS: Albuterol-Ipratrop 3 mg / 0.5 (3 ml) UD IH SCH ×6 (04:43→23:22)
[2016-08-22] MEDS: Pantoprazole 40 mg EC Tab PO SCH (05:43)
[2016-08-22] MEDS: TraMADol/Apap 37.5/325 mg Tab PO PRN (07:00)
--- NOTE | 2016-08-22 07:54 | CP.PCM.PN ---
<Cuong Shah - Last Filed: 08/22/16 07:49> Subjective - Date & Time of Evaluation Date of Evaluation: 08/22/16 Time of Evaluation: 07:49 - Subjective Subjective: General Surgery Progress Note: Resident: Alyssa Attending: Ryan HPI: Pt seen and examined at bedside. Witnessed multiple episodes of bilious emesis. Pt stated she felt a burning sensation in her epigastrum prior to this. She has not other complaints at this time. Denies abdominal pain. +Flatus. Had a melonic BM this am. +N/+V. Denies CP/SOB. Objective - Vital Signs/Intake and Output Vital Signs (last 24 hours): Temp Pulse Resp BP Pulse Ox 97.5 F L 96 H 20 130/80 97 08/22/16 07:25 08/22/16 07:25 08/22/16 07:25 08/22/16 07:25 08/22/16 07:25 Intake and Output: 08/22/16 08/22/16 06:59 18:59 Intake Total 1740 120 Output Total 195 50 Balance 1545 70 - Medications Medications: Current Medications Albuterol/Ipratropium (Duoneb 3 Mg/0.5 Mg (3 Ml) Ud) 3 ml IH [id number] [facility] Last Admin: 08/22/16 04:43 Dose: Not Given Arformoterol Tartrate (Brovana) 15 mcg IH [id number] [facility] Last Admin: 08/21/16 19:13 Dose: Not Given Atorvastatin Calcium (Lipitor) 20 mg PO DIN [facility] Last Admin: 08/21/16 18:11 Dose: 20 mg Budesonide (Pulmicort Respules) 0.5 mg IH BIDRESP [facility] Last Admin: 08/21/16 19:13 Dose: Not Given Calcitonin [place] (Miacalcin) 200 iu NS DAILY [facility] Last Admin: 08/21/16 10:28 Dose: 1 spr Home Med (Home Med) 1 unit INH BID [facility] Last Admin: 08/21/16 17:50 Dose: Not Given Potassium Chloride 40 meq/ (Dextrose/Sodium Chloride) 1,020 mls @ 75 mls/hr IV .[id number] [facility] Last Admin: 08/22/16 00:50 Dose: 75 mls/hr Levothyroxine Sodium (Synthroid) 50 mcg PO DAILY [facility] Last Admin: 08/21/16 10:28 Dose: 50 mcg Meclizine HCl (Antivert) 12.5 mg PO TID PRN PRN Reason: Dizziness Last Admin: 08/18/16 10:39 Dose: 12.5 mg Montelukast Sodium (Singulair) 10 mg PO HS [facility] Last Admin: 08/21/16 21:35 Dose: 10 mg Non-Formulary Medication (Fluticasone Propionate [Flovent Diskus]) 0 mcg IH BID [facility] Last Admin: 08/21/16 17:50 Dose: Not Given Ondansetron HCl (Zofran Inj) 4 mg IVP Q4H PRN PRN Reason: Nausea/Vomiting Last Admin: 08/22/16 07:00 Dose: 4 mg Pantoprazole Sodium (Protonix Ec Tab) 40 mg PO 0600,1600 [facility] Last Admin: 08/22/16 05:43 Dose: 40 mg Potassium Chloride (K-Dur 20 Meq Er Tab) 20 meq PO BRK [facility] Last Admin: 08/21/16 10:27 Dose: 20 meq Pramipexole Dihydrochloride (Mirapex) 0.125 mg PO DAILY [facility] Last Admin: 08/21/16 10:28 Dose: 0.125 mg Tiotropium [place] (Spiriva) 18 mcg IH DAILY [facility] Last Admin: 08/21/16 10:28 Dose: 18 mcg Tramadol/Acetaminophen (Ultracet 37.5/325 Mg) 1 tab PO Q4H PRN PRN Reason: Pain Last Admin: 08/22/16 07:00 Dose: 1 tab - Labs Labs: 08/21/16 16:00 08/21/16 23:45 PT 10.7 Seconds (9.9-11.8) 08/16/16 11:00 INR 0.99 (0.93-1.08) 08/16/16 11:00 - Constitutional Appears: In Acute Distress (sitting upright in bed vomiting) - Head Exam Head Exam: NORMAL INSPECTION - Eye Exam Eye Exam: EOMI - ENT Exam ENT Exam: Mucous Membranes Moist - Respiratory Exam Respiratory Exam: Clear to Ausculation Bilateral - Cardiovascular Exam Cardiovascular Exam: REGULAR RHYTHM - GI/Abdominal Exam GI & Abdominal Exam: Soft. absent: Distended, Tenderness - Neurological Exam Neurological Exam: Alert, Awake, Oriented x3 Assessment and Plan - Assessment and Plan (Free Text) Assessment: 80 y/o WF s/p R. Hemicolectomy POD 5 * Switched to CLD * Follow H/H * Switched to IV protonix * Will Discuss with Dr. Ryan Shah DO PGY-1 <Viktor Davis - Last Filed: 08/23/16 10:36> Objective - Vital Signs/Intake and Output Vital Signs (last 24 hours): Temp Pulse Resp BP Pulse Ox 98.3 F 97 H 25 H 127/78 96 08/23/16 08:00 08/23/16 08:00 08/23/16 08:00 08/23/16 07:30 08/23/16 08:00 Intake and Output: 08/23/16 08/23/16 06:59 18:59 Intake Total 1236 Output Total 765 Balance 471 - Medications Medications: Current Medications Al Hydrox/Mg Hydrox/Simethicone (Maalox Plus 30 Ml) 30 ml PO DAILY PRN PRN Reason: Indigestion / Heartburn Albuterol/Ipratropium (Duoneb 3 Mg/0.5 Mg (3 Ml) Ud) 3 ml IH [id number] [facility] Last Admin: 08/23/16 08:06 Dose: 3 ml Arformoterol Tartrate (Brovana) 15 mcg IH [id number] [facility] Last Admin: 08/23/16 08:05 Dose: 15 mcg Aspirin (Ecotrin) 81 mg PO DAILY [facility] Atorvastatin Calcium (Lipitor) 20 mg PO DIN [facility] Last Admin: 08/22/16 18:00 Dose: 20 mg Budesonide (Pulmicort Respules) 0.5 mg IH BIDRESP [facility] Last Admin: 08/23/16 08:06 Dose: 0.5 mg Calcitonin [place] (Miacalcin) 200 iu NS DAILY [facility] Last Admin: 08/22/16 11:00 Dose: 1 spr Clopidogrel Bisulfate (Plavix) 75 mg PO DAILY [facility] Last Admin: 08/22/16 11:36 Dose: 75 mg Home Med (Home Med) 1 unit INH BID [facility] Last Admin: 08/22/16 18:23 Dose: Not Given Potassium Chloride 40 meq/ (Dextrose/Sodium Chloride) 1,020 mls @ 75 mls/hr IV .[id number] [facility] Last Admin: 08/22/16 22:03 Dose: 75 mls/hr Amino Acids/Electrolytes/Dextrose (Clinimix 4.25/5 % "E" (2000 Ml)) 2,000 mls @ 83 mls/hr IV .Q24H [facility] Stop: 08/25/16 17:59 Last Admin: 08/22/16 18:10 Dose: 83 mls/hr Piperacillin Sod/Tazobactam Sod (Zosyn 3.375 In Ns 100ml) 100 mls @ 200 mls/hr IVPB Q6 [facility] PRN Reason: Protocol Stop: 08/23/16 12:29 Isosorbide Mononitrate (Imdur) 30 mg PO DAILY [facility] Last Admin: 08/22/16 11:36 Dose: 30 mg Levothyroxine Sodium (Synthroid) 50 mcg PO DAILY [facility] Last Admin: 08/22/16 11:27 Dose: 50 mcg Meclizine HCl (Antivert) 12.5 mg PO TID PRN PRN Reason: Dizziness Last Admin: 08/18/16 10:39 Dose: 12.5 mg Metoprolol Tartrate (Lopressor) 25 mg PO Q12 [facility] Last Admin: 08/22/16 21:24 Dose: 25 mg Montelukast Sodium (Singulair) 10 mg PO HS [facility] Last Admin: 08/22/16 21:24 Dose: 10 mg Nitroglycerin (Nitro-Bid 2% Oint) 1 ea TOP Q6H PRN PRN Reason: Pain, severe (8-10) Last Admin: 08/23/16 05:34 Dose: 1 ea Non-Formulary Medication (Fluticasone Propionate [Flovent Diskus]) 0 mcg IH BID [facility] Last Admin: 08/22/16 18:23 Dose: Not Given Ondansetron HCl (Zofran Inj) 4 mg IVP Q4H PRN PRN Reason: Nausea/Vomiting Last Admin: 08/22/16 11:45 Dose: 4 mg Pantoprazole Sodium (Protonix Inj) 40 mg IVP Q12 [facility] Last Admin: 08/22/16 21:24 Dose: 40 mg Potassium Chloride (K-Dur 20 Meq Er Tab) 20 meq PO BRK [facility] Last Admin: 08/22/16 08:30 Dose: 20 meq Pramipexole Dihydrochloride (Mirapex) 0.125 mg PO DAILY [facility] Last Admin: 08/22/16 11:26 Dose: 0.125 mg Tiotropium [place] (Spiriva) 18 mcg IH DAILY [facility] Last Admin: 08/22/16 11:37 Dose: 18 mcg Tramadol/Acetaminophen (Ultracet 37.5/325 Mg) 1 tab PO Q4H PRN PRN Reason: Pain Last Admin: 08/23/16 06:33 Dose: 1 tab - Labs Labs: 08/23/16 05:30 08/23/16 05:30 PT 11.3 Seconds (9.9-11.8) 08/22/16 07:40 INR 1.05 (0.93-1.08) 08/22/16 07:40 APTT 23.9 Seconds (23.7-30.8) 08/22/16 07:40 Assessment and Plan - Assessment and Plan (Free Text) Assessment: Dx NE(Troponin 0.29) Rx ICU-Cardiology Consultation([facility]) Ulysses Davis MD FACS
[2016-08-22 07:55] LABS: BASO # 0.01 K/mm3 (0.0-2.0); BASO % 0.1 % (0.0-3.0); GRAN # 6.59 (1.4-6.5); GRAN % 80.7 % (50.0-68.0); HEMOGLOBIN 11.9 gm/dL (12.0-16.0); LYMPH # 0.9 (1.2-3.4); LYMPH % 10.6 % (22.0-35.0); MEAN CELL VOLUME 90.9 fL (80.0-105.0); MEAN CORPUSCULAR HEMOGLOBIN 30.1 pg (25.0-35.0); MEAN CORPUSCULAR HGB CONC 33.1 g/dl (31.0-37.0); MEAN PLATELET VOLUME 9.5 fl (7.0-11.0); MONO # 0.7 (0.1-0.6); MONO % 8.6 % (1.0-6.0); PLATELET COUNT 146 10^3/uL (120.0-450.0); RBC 3.95 10^6/uL (3.5-6.1); RED CELL DISTRIBUTION WIDTH 15.5 % (11.5-14.5); WHITE BLOOD COUNT 8.2 10^3/ul (4.5-11.0)
[2016-08-22 08:00] LABS: INR 1.05 (0.93-1.08); PARTIAL THROMBOPLASTIN TIME 23.9 Seconds (23.7-30.8); PROTHROMBIN TIME 11.3 Seconds (9.9-11.8)
[2016-08-22] MEDS: Arformoterol 15 mcg/2 ml Inh Sol IH SCH ×2 (08:13→19:48)
[2016-08-22] MEDS: Budesonide 0.5 mg/2 ml Inhal Susp UD IH SCH ×2 (08:13→19:48)
[2016-08-22] MEDS: Potassium Chloride 20 mEq ER Tab PO SCH (08:30)
[2016-08-22] MEDS ORDERED: Alum-Mag Hydrox-Simethicone Susp (30 mL) PO PRN (08:59)
[2016-08-22 09:54] LABS: TROPONIN I 0.29 ng/mL
[2016-08-22] MEDS: FLOVENT INH SCH ×2 (10:00→18:23)
--- NOTE | 2016-08-22 10:18 | CARD ---
APPROVED REPORT EKG Measurement Heart [id number] [id number] [id number] <Conclusion> Normal sinus rhythm T wave abnormality, consider lateral ischemia Abnormal ECG
[2016-08-22] MEDS: Calcitonin 200 Int Units/Inh Nasal Spray (3.7 ml) NS SCH (11:00)
[2016-08-22] MEDS: Levothyroxine 50 MCG TAB PO SCH (11:27)
[2016-08-22] MEDS: FLUTICASONE PROPIONATE IH SCH ×2 (11:28→18:23)
[2016-08-22] MEDS: Tiotropium 18 mcg Cap For Inhalation IH SCH (11:37)
--- NOTE | 2016-08-22 12:19 | CP.PCM.PN ---
Subjective - Date & Time of Evaluation Date of Evaluation: 08/22/16 Time of Evaluation: 11:15 - Subjective Subjective: had some chest discomfort this am, troponin elevated, pt seen by cardiology started on plavix/asa, no cp at present/ mild nausea, no vomiting Objective - Vital Signs/Intake and Output Vital Signs (last 24 hours): Temp Pulse Resp BP Pulse Ox 97.5 F L 96 H 20 130/80 97 08/22/16 07:25 08/22/16 07:25 08/22/16 07:25 08/22/16 07:25 08/22/16 07:25 Intake and Output: 08/22/16 08/22/16 06:59 18:59 Intake Total 1740 120 Output Total 195 50 Balance 1545 70 - Medications Medications: Current Medications Al Hydrox/Mg Hydrox/Simethicone (Maalox Plus 30 Ml) 30 ml PO DAILY PRN PRN Reason: Indigestion / Heartburn Albuterol/Ipratropium (Duoneb 3 Mg/0.5 Mg (3 Ml) Ud) 3 ml IH [id number] [facility] Last Admin: 08/22/16 11:28 Dose: Not Given Arformoterol Tartrate (Brovana) 15 mcg IH [id number] [facility] Last Admin: 08/22/16 08:13 Dose: 15 mcg Aspirin (Ecotrin) 81 mg PO DAILY [facility] Atorvastatin Calcium (Lipitor) 20 mg PO DIN [facility] Last Admin: 08/21/16 18:11 Dose: 20 mg Budesonide (Pulmicort Respules) 0.5 mg IH BIDRESP [facility] Last Admin: 08/22/16 08:13 Dose: 0.5 mg Calcitonin [place] (Miacalcin) 200 iu NS DAILY [facility] Last Admin: 08/22/16 11:00 Dose: 1 spr Clopidogrel Bisulfate (Plavix) 75 mg PO DAILY [facility] Last Admin: 08/22/16 11:36 Dose: 75 mg Home Med (Home Med) 1 unit INH BID [facility] Last Admin: 08/22/16 10:00 Dose: Not Given Potassium Chloride 40 meq/ (Dextrose/Sodium Chloride) 1,020 mls @ 75 mls/hr IV .[id number] [facility] Last Admin: 08/22/16 00:50 Dose: 75 mls/hr Amino Acids/Electrolytes/Dextrose (Clinimix 4.25/5 % "E" (2000 Ml)) 2,000 mls @ 83 mls/hr IV .Q24H [facility] Stop: 08/25/16 17:59 Isosorbide Mononitrate (Imdur) 30 mg PO DAILY [facility] Last Admin: 08/22/16 11:36 Dose: 30 mg Levothyroxine Sodium (Synthroid) 50 mcg PO DAILY [facility] Last Admin: 08/22/16 11:27 Dose: 50 mcg Meclizine HCl (Antivert) 12.5 mg PO TID PRN PRN Reason: Dizziness Last Admin: 08/18/16 10:39 Dose: 12.5 mg Metoprolol Tartrate (Lopressor) 25 mg PO Q12 [facility] Montelukast Sodium (Singulair) 10 mg PO HS [facility] Last Admin: 08/21/16 21:35 Dose: 10 mg Non-Formulary Medication (Fluticasone Propionate [Flovent Diskus]) 0 mcg IH BID [facility] Last Admin: 08/22/16 11:28 Dose: Not Given Ondansetron HCl (Zofran Inj) 4 mg IVP Q4H PRN PRN Reason: Nausea/Vomiting Last Admin: 08/22/16 11:45 Dose: 4 mg Pantoprazole Sodium (Protonix Inj) 40 mg IVP Q12 [facility] Last Admin: 08/22/16 11:37 Dose: 40 mg Potassium Chloride (K-Dur 20 Meq Er Tab) 20 meq PO BRK [facility] Last Admin: 08/22/16 08:30 Dose: 20 meq Pramipexole Dihydrochloride (Mirapex) 0.125 mg PO DAILY [facility] Last Admin: 08/22/16 11:26 Dose: 0.125 mg Tiotropium [place] (Spiriva) 18 mcg IH DAILY [facility] Last Admin: 08/22/16 11:37 Dose: 18 mcg Tramadol/Acetaminophen (Ultracet 37.5/325 Mg) 1 tab PO Q4H PRN PRN Reason: Pain Last Admin: 08/22/16 07:00 Dose: 1 tab - Labs Labs: 08/22/16 07:40 08/21/16 23:45 PT 11.3 Seconds (9.9-11.8) 08/22/16 07:40 INR 1.05 (0.93-1.08) 08/22/16 07:40 APTT 23.9 Seconds (23.7-30.8) 08/22/16 07:40 - Respiratory Exam Respiratory Exam: Prolonged Expiratory Phase - Cardiovascular Exam Cardiovascular Exam: REGULAR RHYTHM - GI/Abdominal Exam GI & Abdominal Exam: Soft, Normal Bowel Sounds - Back Exam Back Exam: NORMAL INSPECTION - Skin Skin Exam: Dry, Warm Assessment and Plan (1) Adenocarcinoma of colon Status: Acute (2) COPD (chronic obstructive pulmonary disease) Status: Acute (3) Acute coronary syndrome Status: Acute - Assessment and Plan (Free Text) Plan: monitor serial troponin levels, asa/plavix
--- NOTE | 2016-08-22 14:30 | RAD ---
HISTORY: CP, R/o ACS COMPARISON: Comparison chest dated 08/18/2016 FINDINGS: LUNGS: Vague opacities in the right mid and lower lung field as well as left lung base may represent some combination of atelectasis/ infiltrate and effusion. Central pulmonary vasculature is slightly increased. PLEURA: No significant pleural effusion identified, no pneumothorax apparent. CARDIOVASCULAR: Heart size is upper limits of normal. OSSEOUS STRUCTURES: No significant abnormalities. VISUALIZED UPPER ABDOMEN: Moderate size hiatal hernia less well seen on this study compared the prior chest radiograph OTHER FINDINGS: IMPRESSION: Vague opacities in the right mid and lower lung field as well as left lung base may represent some combination of atelectasis/ infiltrate and effusion. Central pulmonary vasculature is slightly increased.
--- NOTE | 2016-08-22 15:43 | CP.PCM.CON ---
History of Present Illness - History of Present Illness History of Present Illness: 80 yo female s/p hemicolectomy POD #6 with a history of advanced COPD who had vomited some nausea and bilious-appearing vomiting. She admits to having some epigastric pain post-emesis this AM. She denies any CP, SOB, or diaphoresis. She is currently on 2L NC and en route to obtain an x-ray of the abdomen. Review of Systems - EENT Eyes: As Per HPI Ears: As Per HPI Nose/Mouth/Throat: As Per HPI - Cardiovascular Cardiovascular: As Per HPI - Respiratory Respiratory: Pain on Inspiration (deep inspiration) - Gastrointestinal Gastrointestinal: Vomiting - Musculoskeletal Additional comments: kyphoscoliosis - Psychiatric Psychiatric: absent: Mood Swings, Tactile Hallucinations - Endocrine Endocrine: As Per HPI - Hematologic/Lymphatic Hematologic: As Per HPI Past Patient History - Past Medical History & Family History Past Family History: Reviewed and not pertinent - Past Social History Smoking Status: Never Smoked - CARDIAC Hx Pacemaker: No - PULMONARY Hx Chronic Obstructive Pulmonary Disease (COPD): Yes - NEUROLOGICAL Hx Paralysis: No - HEENT Hx HEENT Problems: Yes Hx Cataracts: Yes (cataract removal ou) Hx Glaucoma: Yes Hx Macular Degeneration: Yes - RENAL Hx Chronic Kidney Disease: No - ENDOCRINE/METABOLIC Hx Hypothyroidism: Yes - HEMATOLOGICAL/ONCOLOGICAL Hx Blood Transfusions: Yes Hx Blood Transfusion Reaction: No - INTEGUMENTARY Hx Dermatological Problems: No - MUSCULOSKELETAL/RHEUMATOLOGICAL Hx Musculoskeletal Disorders: Yes - GASTROINTESTINAL Hx Gastrointestinal Disorders: Yes Hx Gastroesophageal Reflux: Yes Other/Comment: hiatal hernia - GENITOURINARY/GYNECOLOGICAL Hx Genitourinary Disorders: No - PSYCHIATRIC Hx Emotional Abuse: No Hx Physical Abuse: No Hx Substance Use: No - SURGICAL HISTORY Hx Surgeries: Yes - ANESTHESIA Hx Anesthesia Reactions: No Hx Malignant Hyperthermia: No Meds Allergies/Adverse Reactions: Allergies Allergy/AdvReac Type Severity Reaction Status Date / Time codeine Allergy NAUSEA Verified 01/22/16 15:01 - Medications Medications: Current Medications Al Hydrox/Mg Hydrox/Simethicone (Maalox Plus 30 Ml) 30 ml PO DAILY PRN PRN Reason: Indigestion / Heartburn Albuterol/Ipratropium (Duoneb 3 Mg/0.5 Mg (3 Ml) Ud) 3 ml IH [id number] [facility] Last Admin: 08/22/16 11:28 Dose: Not Given Arformoterol Tartrate (Brovana) 15 mcg IH [id number] [facility] Last Admin: 08/22/16 08:13 Dose: 15 mcg Aspirin (Ecotrin) 81 mg PO DAILY [facility] Atorvastatin Calcium (Lipitor) 20 mg PO DIN [facility] Last Admin: 08/21/16 18:11 Dose: 20 mg Budesonide (Pulmicort Respules) 0.5 mg IH BIDRESP [facility] Last Admin: 08/22/16 08:13 Dose: 0.5 mg Calcitonin [place] (Miacalcin) 200 iu NS DAILY [facility] Last Admin: 08/22/16 11:00 Dose: 1 spr Clopidogrel Bisulfate (Plavix) 75 mg PO DAILY [facility] Last Admin: 08/22/16 11:36 Dose: 75 mg Home Med (Home Med) 1 unit INH BID [facility] Last Admin: 08/22/16 10:00 Dose: Not Given Potassium Chloride 40 meq/ (Dextrose/Sodium Chloride) 1,020 mls @ 75 mls/hr IV .[id number] [facility] Last Admin: 08/22/16 00:50 Dose: 75 mls/hr Amino Acids/Electrolytes/Dextrose (Clinimix 4.25/5 % "E" (2000 Ml)) 2,000 mls @ 83 mls/hr IV .Q24H [facility] Stop: 08/25/16 17:59 Isosorbide Mononitrate (Imdur) 30 mg PO DAILY [facility] Last Admin: 08/22/16 11:36 Dose: 30 mg Levothyroxine Sodium (Synthroid) 50 mcg PO DAILY [facility] Last Admin: 08/22/16 11:27 Dose: 50 mcg Meclizine HCl (Antivert) 12.5 mg PO TID PRN PRN Reason: Dizziness Last Admin: 08/18/16 10:39 Dose: 12.5 mg Metoprolol Tartrate (Lopressor) 25 mg PO Q12 [facility] Montelukast Sodium (Singulair) 10 mg PO HS [facility] Last Admin: 08/21/16 21:35 Dose: 10 mg Non-Formulary Medication (Fluticasone Propionate [Flovent Diskus]) 0 mcg IH BID [facility] Last Admin: 08/22/16 11:28 Dose: Not Given Ondansetron HCl (Zofran Inj) 4 mg IVP Q4H PRN PRN Reason: Nausea/Vomiting Last Admin: 08/22/16 11:45 Dose: 4 mg Pantoprazole Sodium (Protonix Inj) 40 mg IVP Q12 [facility] Last Admin: 08/22/16 11:37 Dose: 40 mg Potassium Chloride (K-Dur 20 Meq Er Tab) 20 meq PO BRK [facility] Last Admin: 08/22/16 08:30 Dose: 20 meq Pramipexole Dihydrochloride (Mirapex) 0.125 mg PO DAILY [facility] Last Admin: 08/22/16 11:26 Dose: 0.125 mg Tiotropium [place] (Spiriva) 18 mcg IH DAILY [facility] Last Admin: 08/22/16 11:37 Dose: 18 mcg Tramadol/Acetaminophen (Ultracet 37.5/325 Mg) 1 tab PO Q4H PRN PRN Reason: Pain Last Admin: 08/22/16 07:00 Dose: 1 tab Physical Exam - Constitutional Appears: Cachectic - Head Exam Head Exam: ATRAUMATIC, NORMOCEPHALIC - Eye Exam Eye Exam: Normal appearance. absent: Periorbital swelling Pupil Exam: PERRL - Neck Exam Neck exam: Positive for: Normal Inspection - Respiratory Exam Additional comments: Respiratory rate 20 per minute, shallow respirations, kyphoscoliosis, bowel sounds auscultated in left lung field - Cardiovascular Exam Cardiovascular Exam: Tachycardia, REGULAR RHYTHM, +S1, +S2 - GI/Abdominal Exam Additional comments: unable to be examined, patient was being transported for abdominal x ray - Neurological Exam Neurological exam: Alert, CN II-XII Intact, Oriented x3 - Psychiatric Exam Psychiatric exam: Normal Affect, Normal Mood - Skin Skin Exam: Dry, Intact, Normal Color Results - Vital Signs Recent Vital Signs: Last Vital Signs Temp 97.5 F L 08/22/16 07:25 Pulse 96 H 08/22/16 07:25 Resp 20 08/22/16 07:25 BP 130/80 08/22/16 07:25 Pulse Ox 97 08/22/16 07:25 - Labs Result Diagrams: 08/22/16 07:40 08/21/16 23:45 Labs: Laboratory Results - last 24 hr 08/21/16 08/21/16 08/22/16 16:00 23:45 07:40 WBC 8.3 8.2 RBC 3.74 3.95 Hgb 11.2 L 11.9 L Hct 33.8 L 35.9 L MCV 90.4 90.9 MCH 29.9 30.1 MCHC 33.1 33.1 RDW 15.4 H 15.5 H Plt Count 127 146 MPV 9.1 9.5 Gran % 80.0 H 80.7 H Lymph % (Auto) 11.4 L 10.6 L [place] % (Auto) 8.4 H 8.6 H Eos % (Auto) 0.1 L 0.0 L Baso % (Auto) 0.1 0.1 Gran # 6.63 H 6.59 H Lymph # 1.0 L 0.9 L [place] # 0.7 H 0.7 H Eos # 0.0 0.0 Baso # 0.01 0.01 PT INR APTT Sodium 135 Potassium 4.9 Chloride 110 H Carbon Dioxide 20 L Anion Gap 10 BUN 18 Creatinine 0.8 Est GFR ( Amer) > 60 Est GFR (Non-Af Amer) > 60 Random Glucose 145 H Calcium 7.9 L Total Bilirubin 0.6 AST 30 ALT 25 Alkaline Phosphatase 45 Lactate Dehydrogenase Total Creatine Kinase Troponin I Total Protein 5.0 L Albumin 2.5 L Globulin 2.5 Albumin/Globulin Ratio 1.0 L 08/22/16 08/22/16 08/22/16 07:40 09:03 13:43 WBC RBC Hgb Hct MCV MCH MCHC RDW Plt Count MPV Gran % Lymph % (Auto) [place] % (Auto) Eos % (Auto) Baso % (Auto) Gran # Lymph # [place] # Eos # Baso # PT 11.3 INR 1.05 APTT 23.9 Sodium Potassium Chloride Carbon Dioxide Anion Gap BUN Creatinine Est GFR ( Amer) Est GFR (Non-Af Amer) Random Glucose Calcium Total Bilirubin AST ALT Alkaline Phosphatase Lactate Dehydrogenase 746 H Total Creatine Kinase 79 Troponin I 0.29 H* D 0.32 H* Total Protein Albumin Globulin Albumin/Globulin Ratio - EKG Data EKG Interpreted by: Myself - EKG Data EKG comments: T-wave inversions in lead I and avL, likely misplacement of lead. - Imaging and Cardiology Chest x-ray Status: Image reviewed by me (increased vascular markings, agree with radiologist's findings.) Assessment & Plan - Assessment and Plan (Free Text) Assessment: 80 yo with a history of advanced COPD, kyphoscoliosis, s/p right hemicolectomy POD #6 who had some nausea and bilious-appearing vomiting, along with an elevation in her troponin I today. Currently, the patient does not have any active chest pain, dyspnea, or diaphoresis. She admits to having some epigastric pain earlier in the day. CXR did show some increased vascular markings this AM compared to prior films, IAt this moment in time, who do not feel Ms. Turpin would benefit from ICU monitoring. If there are any changes in regards to her hemodynamic status, or she develops CP, dyspnea, or a rise in her cardiac markers, we will reconsider admission into the ICU. Plan: ACS: monitor serial troponins, continue ASA/plavix, will re-evaluate patient if she develops any acute SOB, chest pain, or rise in cardiac biomarkers. Currently , patient is hemodynamically stable. - Date & Time Date: 08/22/16 Time: 16:48
--- NOTE | 2016-08-22 18:04 | RAD ---
Abdominal radiographs dated 10/23/2016. History: Nausea and vomiting. Supine AP and right-sided decubitus films performed. Comparison made with prior CT scan abdomen pelvis dated 07/21/2016 The current study reveals skin closure ben just to the left of midline in the lower abdomen upper pelvis region. Drainage catheters are seen overlying the right lower and abdomen. Nonobstructive bowel gas pattern is present. Note that the left abdomen is partially obscured by overlying presumed clothing orbit sheath artifact. Recommend follow-up CT scan of the abdomen pelvis. Impression: Apparent recent postoperative changes with presumed drainage catheters overlying the right abdomen. No definitive evidence of acute obstruction. . Recommend followup CT scan of abdomen pelvis if further evaluation is required as to study is quite limited Findings discussed with 3 Norris Skaggs at approximately 6:02 p.m. with written down and read back verification.
[2016-08-22] MEDS: Nitroglycerin 2% Ointment Foilpak UD TOP PRN (22:02)
[2016-08-22 22:39] LABS: ARTERIAL BLOOD GAS HCO3 19.2 mmol/L (21-28); ARTERIAL BLOOD GAS O2 SAT 98.8 % (95-98); ARTERIAL BLOOD GAS PCO2 27 mm/Hg (35-45); ARTERIAL BLOOD GAS PH 7.46 (7.35-7.45)
--- NOTE | 2016-08-22 22:46 | CP.PCM.PN ---
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 Patient seen and examined at beside. Patient states that she is more fatigued than usual which started approximately 1 hour ago without a specific provoking event. Denies fever, chills, dizziness, chest pain, SOB, abdominal pain, N/V, diarrhea, constipation, and urinary symptoms. Vitals: Temp. 98.2 F, BP 117/77, HR 143, RR 16 SpO2 97% on 3 Liters General: NAD HEENT: AT-NC, EOMI Heart: Tachycardic, +s1, +s2 Lungs: CTA bilateral, no wheezing, no rales, no rhonchi Neuro:Patient is awake, alert, responds to verbal stimuli, follows command, and is moving extremities on command. Sensation is intact to touch Assessment and Plan: 1. AMS - CBC - CMP 2. Tachycardia - EKG - CKR - Lopressor - Troponins trending up, 3rd set is pending, monitor closely Objective - Vital Signs/Intake and Output Vital Signs (last 24 hours): Temp Pulse Resp BP Pulse Ox 97.5 F L 144 H 20 137/76 97 08/22/16 07:25 08/22/16 21:24 08/22/16 07:25 08/22/16 21:24 08/22/16 07:25 Intake and Output: 08/22/16 08/23/16 18:59 06:59 Intake Total 240 Output Total 50 Balance 190 - Medications Medications: Current Medications Al Hydrox/Mg Hydrox/Simethicone (Maalox Plus 30 Ml) 30 ml PO DAILY PRN PRN Reason: Indigestion / Heartburn Albuterol/Ipratropium (Duoneb 3 Mg/0.5 Mg (3 Ml) Ud) 3 ml IH [id number] [facility] Last Admin: 08/22/16 19:48 Dose: 3 ml Arformoterol Tartrate (Brovana) 15 mcg IH [id number] [facility] Last Admin: 08/22/16 19:48 Dose: 15 mcg Aspirin (Ecotrin) 81 mg PO DAILY [facility] Atorvastatin Calcium (Lipitor) 20 mg PO DIN [facility] Last Admin: 08/22/16 18:00 Dose: 20 mg Budesonide (Pulmicort Respules) 0.5 mg IH BIDRESP [facility] Last Admin: 08/22/16 19:48 Dose: 0.5 mg Calcitonin [place] (Miacalcin) 200 iu NS DAILY [facility] Last Admin: 08/22/16 11:00 Dose: 1 spr Clopidogrel Bisulfate (Plavix) 75 mg PO DAILY [facility] Last Admin: 08/22/16 11:36 Dose: 75 mg Home Med (Home Med) 1 unit INH BID [facility] Last Admin: 08/22/16 18:23 Dose: Not Given Potassium Chloride 40 meq/ (Dextrose/Sodium Chloride) 1,020 mls @ 75 mls/hr IV .[id number] [facility] Last Admin: 08/22/16 22:03 Dose: 75 mls/hr Amino Acids/Electrolytes/Dextrose (Clinimix 4.25/5 % "E" (2000 Ml)) 2,000 mls @ 83 mls/hr IV .Q24H [facility] Stop: 08/25/16 17:59 Last Admin: 08/22/16 18:10 Dose: 83 mls/hr Isosorbide Mononitrate (Imdur) 30 mg PO DAILY [facility] Last Admin: 08/22/16 11:36 Dose: 30 mg Levothyroxine Sodium (Synthroid) 50 mcg PO DAILY [facility] Last Admin: 08/22/16 11:27 Dose: 50 mcg Meclizine HCl (Antivert) 12.5 mg PO TID PRN PRN Reason: Dizziness Last Admin: 08/18/16 10:39 Dose: 12.5 mg Metoprolol Tartrate (Lopressor) 25 mg PO Q12 [facility] Last Admin: 08/22/16 21:24 Dose: 25 mg Montelukast Sodium (Singulair) 10 mg PO HS [facility] Last Admin: 08/22/16 21:24 Dose: 10 mg Nitroglycerin (Nitro-Bid 2% Oint) 1 ea TOP Q6H PRN PRN Reason: Pain, severe (8-10) Last Admin: 08/22/16 22:02 Dose: 1 ea Non-Formulary Medication (Fluticasone Propionate [Flovent Diskus]) 0 mcg IH BID [facility] Last Admin: 08/22/16 18:23 Dose: Not Given Ondansetron HCl (Zofran Inj) 4 mg IVP Q4H PRN PRN Reason: Nausea/Vomiting Last Admin: 08/22/16 11:45 Dose: 4 mg Pantoprazole Sodium (Protonix Inj) 40 mg IVP Q12 [facility] Last Admin: 08/22/16 21:24 Dose: 40 mg Potassium Chloride (K-Dur 20 Meq Er Tab) 20 meq PO BRK [facility] Last Admin: 08/22/16 08:30 Dose: 20 meq Pramipexole Dihydrochloride (Mirapex) 0.125 mg PO DAILY [facility] Last Admin: 08/22/16 11:26 Dose: 0.125 mg Tiotropium [place] (Spiriva) 18 mcg IH DAILY [facility] Last Admin: 08/22/16 11:37 Dose: 18 mcg Tramadol/Acetaminophen (Ultracet 37.5/325 Mg) 1 tab PO Q4H PRN PRN Reason: Pain Last Admin: 08/22/16 07:00 Dose: 1 tab - Labs Labs: 08/22/16 07:40 08/21/16 23:45 PT 11.3 Seconds (9.9-11.8) 08/22/16 07:40 INR 1.05 (0.93-1.08) 08/22/16 07:40 APTT 23.9 Seconds (23.7-30.8) 08/22/16 07:40
[2016-08-22 22:50] LABS: BASO # 0.01 K/mm3 (0.0-2.0); BASO % 0.1 % (0.0-3.0); EOS % 0.1 % (1.5-5.0); GRAN # 6.53 (1.4-6.5); GRAN % 72.9 % (50.0-68.0); HEMOGLOBIN 11.2 gm/dL (12.0-16.0); LYMPH # 1.4 (1.2-3.4); LYMPH % 15.8 % (22.0-35.0); MEAN CELL VOLUME 91.9 fL (80.0-105.0); MEAN CORPUSCULAR HEMOGLOBIN 30.3 pg (25.0-35.0); MEAN CORPUSCULAR HGB CONC 32.9 g/dl (31.0-37.0); MEAN PLATELET VOLUME 9.1 fl (7.0-11.0); MONO % 11.1 % (1.0-6.0); PLATELET COUNT 151 10^3/uL (120.0-450.0); RED CELL DISTRIBUTION WIDTH 15.1 % (11.5-14.5)
[2016-08-22] MEDS ORDERED: Metoprolol 1 mg/ml Inj IVP STA (22:52)
[2016-08-22] MEDS ORDERED: Levalbuterol 0.63 MG/3 ML Inhal Soln UD IH STA (22:52)
[2016-08-22 22:54] LABS: ALBUMIN 2.6 g/dL (3.0-4.8); ALT/SGPT 22 U/L (7-56); AST/SGOT 26 U/L (15-39); BLOOD UREA NITROGEN 22 mg/dL (7-21); CALCIUM 8.3 mg/dL (8.4-10.5); GFR AFRICAN-AMERICAN > 60; GFR NON-AFRICAN AMERICAN 60
[2016-08-22] MEDS ORDERED: Metoprolol 1 mg/ml Inj IVP ONE (22:56)
[2016-08-22] MEDS ORDERED: Iodixanol 320 MG/ML 100 ML BOTTLE IV ONE (23:55)
--- NOTE | 2016-08-23 00:36 | CP.PCM.CON ---
<Jude Mckeon - Last Filed: 08/23/16 01:17> History of Present Illness - History of Present Illness History of Present Illness: ICU Consult Note - Jude Mckeon PGY2 HPI: Patient is a 80yo female with past medical history of Colon Ca s/p hemicolectomy (POD #5), COPD, DJD, Osteoporosis, hypothyroidism, GERD that was admitted to the surgical service for elective colon resection. Patient previously had a rapid response called for altered mental status and tachycardia (~140's despite metoprolol 25mg PO administration 2 hours prior). Per prior notes, patient had been previously complaining of chest pain, abdominal pain and nausea/vomiting. She had elevated troponin of 0.29, 0.32 and 0.38 for which cardiology was consulted and had been seeing the patient. Presently, patient admitted to the ICU for closer monitoring/treatment s/p rapid response. Presently, denies chest pain, palpitations, abdominal pain, nausea, vomiting. 12point ROS as per HPI above, otherwise negative PMHx: as above PSHx: Appendectomy, colon ca s/p hemicolectomy Allergies: Codeine Social Hx: Denies tobacco, alcohol, illicit drug use Family Hx: Noncontributory Past Patient History - Past Medical History & Family History Past Family History: Reviewed and not pertinent - Past Social History Smoking Status: Never Smoked - CARDIAC Hx Pacemaker: No - PULMONARY Hx Chronic Obstructive Pulmonary Disease (COPD): Yes - NEUROLOGICAL Hx Paralysis: No - HEENT Hx HEENT Problems: Yes Hx Cataracts: Yes (cataract removal ou) Hx Glaucoma: Yes Hx Macular Degeneration: Yes - RENAL Hx Chronic Kidney Disease: No - ENDOCRINE/METABOLIC Hx Hypothyroidism: Yes - HEMATOLOGICAL/ONCOLOGICAL Hx Blood Transfusions: Yes Hx Blood Transfusion Reaction: No - INTEGUMENTARY Hx Dermatological Problems: No - MUSCULOSKELETAL/RHEUMATOLOGICAL Hx Musculoskeletal Disorders: Yes - GASTROINTESTINAL Hx Gastrointestinal Disorders: Yes Hx Gastroesophageal Reflux: Yes Other/Comment: hiatal hernia - GENITOURINARY/GYNECOLOGICAL Hx Genitourinary Disorders: No - PSYCHIATRIC Hx Emotional Abuse: No Hx Physical Abuse: No Hx Substance Use: No - SURGICAL HISTORY Hx Surgeries: Yes - ANESTHESIA Hx Anesthesia Reactions: No Hx Malignant Hyperthermia: No Meds Allergies/Adverse Reactions: Allergies Allergy/AdvReac Type Severity Reaction Status Date / Time codeine Allergy NAUSEA Verified 01/22/16 15:01 - Medications Medications: Current Medications Al Hydrox/Mg Hydrox/Simethicone (Maalox Plus 30 Ml) 30 ml PO DAILY PRN PRN Reason: Indigestion / Heartburn Albuterol/Ipratropium (Duoneb 3 Mg/0.5 Mg (3 Ml) Ud) 3 ml IH [id number] [facility] Last Admin: 08/22/16 23:22 Dose: Not Given Arformoterol Tartrate (Brovana) 15 mcg IH [id number] [facility] Last Admin: 08/22/16 19:48 Dose: 15 mcg Aspirin (Ecotrin) 81 mg PO DAILY [facility] Atorvastatin Calcium (Lipitor) 20 mg PO DIN [facility] Last Admin: 08/22/16 18:00 Dose: 20 mg Budesonide (Pulmicort Respules) 0.5 mg IH BIDRESP [facility] Last Admin: 08/22/16 19:48 Dose: 0.5 mg Calcitonin [place] (Miacalcin) 200 iu NS DAILY [facility] Last Admin: 08/22/16 11:00 Dose: 1 spr Clopidogrel Bisulfate (Plavix) 75 mg PO DAILY [facility] Last Admin: 08/22/16 11:36 Dose: 75 mg Home Med (Home Med) 1 unit INH BID [facility] Last Admin: 08/22/16 18:23 Dose: Not Given Potassium Chloride 40 meq/ (Dextrose/Sodium Chloride) 1,020 mls @ 75 mls/hr IV .[id number] [facility] Last Admin: 08/22/16 22:03 Dose: 75 mls/hr Amino Acids/Electrolytes/Dextrose (Clinimix 4.25/5 % "E" (2000 Ml)) 2,000 mls @ 83 mls/hr IV .Q24H [facility] Stop: 08/25/16 17:59 Last Admin: 08/22/16 18:10 Dose: 83 mls/hr Isosorbide Mononitrate (Imdur) 30 mg PO DAILY [facility] Last Admin: 08/22/16 11:36 Dose: 30 mg Levothyroxine Sodium (Synthroid) 50 mcg PO DAILY [facility] Last Admin: 08/22/16 11:27 Dose: 50 mcg Meclizine HCl (Antivert) 12.5 mg PO TID PRN PRN Reason: Dizziness Last Admin: 08/18/16 10:39 Dose: 12.5 mg Metoprolol Tartrate (Lopressor) 25 mg PO Q12 [facility] Last Admin: 08/22/16 21:24 Dose: 25 mg Montelukast Sodium (Singulair) 10 mg PO HS [facility] Last Admin: 08/22/16 21:24 Dose: 10 mg Nitroglycerin (Nitro-Bid 2% Oint) 1 ea TOP Q6H PRN PRN Reason: Pain, severe (8-10) Last Admin: 08/22/16 22:02 Dose: 1 ea Non-Formulary Medication (Fluticasone Propionate [Flovent Diskus]) 0 mcg IH BID [facility] Last Admin: 08/22/16 18:23 Dose: Not Given Ondansetron HCl (Zofran Inj) 4 mg IVP Q4H PRN PRN Reason: Nausea/Vomiting Last Admin: 08/22/16 11:45 Dose: 4 mg Pantoprazole Sodium (Protonix Inj) 40 mg IVP Q12 [facility] Last Admin: 08/22/16 21:24 Dose: 40 mg Potassium Chloride (K-Dur 20 Meq Er Tab) 20 meq PO BRK [facility] Last Admin: 08/22/16 08:30 Dose: 20 meq Pramipexole Dihydrochloride (Mirapex) 0.125 mg PO DAILY [facility] Last Admin: 08/22/16 11:26 Dose: 0.125 mg Tiotropium [place] (Spiriva) 18 mcg IH DAILY [facility] Last Admin: 08/22/16 11:37 Dose: 18 mcg Tramadol/Acetaminophen (Ultracet 37.5/325 Mg) 1 tab PO Q4H PRN PRN Reason: Pain Last Admin: 08/22/16 07:00 Dose: 1 tab Physical Exam - Constitutional Appears: Non-toxic, No Acute Distress - Head Exam Head Exam: ATRAUMATIC, NORMAL INSPECTION, NORMOCEPHALIC - Eye Exam Eye Exam: EOMI, PERRL - ENT Exam ENT Exam: Mucous Membranes Moist - Neck Exam Neck exam: Positive for: Normal Inspection. Negative for: Lymphadenopathy, Tenderness, Thyromegaly - Respiratory Exam Respiratory Exam: Decreased Breath Sounds. absent: Rales, Rhonchi, Wheezes - Cardiovascular Exam Cardiovascular Exam: Tachycardia, +S1, +S2. absent: Gallop, Rubs - GI/Abdominal Exam GI & Abdominal Exam: Soft. absent: Distended, Firm, Guarding, Rebound, Tenderness - Neurological Exam Neurological exam: Alert, Oriented x3 - Psychiatric Exam Psychiatric exam: Normal Affect, Normal Mood - Skin Skin Exam: Dry, Intact, Normal Color, Warm Results - Vital Signs Recent Vital Signs: Last Vital Signs Temp 97.5 F L 08/22/16 07:25 Pulse 144 H 08/22/16 22:57 Resp 20 08/22/16 07:25 BP 117/76 08/22/16 23:14 Pulse Ox 97 08/22/16 07:25 - Labs Result Diagrams: 08/22/16 22:40 08/22/16 22:40 Labs: Laboratory Results - last 24 hr 08/22/16 08/22/16 08/22/16 07:40 07:40 09:03 WBC 8.2 RBC 3.95 Hgb 11.9 L Hct 35.9 L MCV 90.9 MCH 30.1 MCHC 33.1 RDW 15.5 H Plt Count 146 MPV 9.5 Gran % 80.7 H Lymph % (Auto) 10.6 L [place] % (Auto) 8.6 H Eos % (Auto) 0.0 L Baso % (Auto) 0.1 Gran # 6.59 H Lymph # 0.9 L [place] # 0.7 H Eos # 0.0 Baso # 0.01 PT 11.3 INR 1.05 APTT 23.9 pCO2 pO2 HCO3 ABG pH ABG Total CO2 ABG O2 Saturation ABG Base Excess ABG Potassium Sodium Chloride Glucose Lactate FiO2 Potassium Carbon Dioxide Anion Gap BUN Creatinine Est GFR ( Amer) Est GFR (Non-Af Amer) Random Glucose Calcium Total Bilirubin AST ALT Alkaline Phosphatase Lactate Dehydrogenase 746 H Total Creatine Kinase 79 Troponin I 0.29 H* D Total Protein Albumin Globulin Albumin/Globulin Ratio Arterial Blood Potassium 08/22/16 08/22/16 08/22/16 13:43 22:14 22:30 WBC RBC Hgb Hct MCV MCH MCHC RDW Plt Count MPV Gran % Lymph % (Auto) [place] % (Auto) Eos % (Auto) Baso % (Auto) Gran # Lymph # [place] # Eos # Baso # PT INR APTT pCO2 27 L pO2 96.0 HCO3 19.2 L ABG pH 7.46 H ABG Total CO2 20.0 L ABG O2 Saturation 98.8 H ABG Base Excess -3.6 L ABG Potassium 5.2 Sodium 149.0 H Chloride 99.0 Glucose 135 H Lactate 1.1 FiO2 32.0 Potassium Carbon Dioxide Anion Gap BUN Creatinine Est GFR ( Amer) Est GFR (Non-Af Amer) Random Glucose Calcium Total Bilirubin AST ALT Alkaline Phosphatase Lactate Dehydrogenase Total Creatine Kinase Troponin I 0.32 H* 0.38 H* Total Protein Albumin Globulin Albumin/Globulin Ratio Arterial Blood Potassium 5.2 08/22/16 08/22/16 22:40 22:40 WBC 9.0 RBC 3.70 Hgb 11.2 L Hct 34.0 L MCV 91.9 MCH 30.3 MCHC 32.9 RDW 15.1 H Plt Count 151 MPV 9.1 Gran % 72.9 H Lymph % (Auto) 15.8 L [place] % (Auto) 11.1 H Eos % (Auto) 0.1 L Baso % (Auto) 0.1 Gran # 6.53 H Lymph # 1.4 [place] # 1.0 H Eos # 0.0 Baso # 0.01 PT INR APTT pCO2 pO2 HCO3 ABG pH ABG Total CO2 ABG O2 Saturation ABG Base Excess ABG Potassium Sodium 134 Chloride 106 Glucose Lactate FiO2 Potassium 4.7 Carbon Dioxide 22 Anion Gap 11 BUN 22 H Creatinine 0.9 Est GFR ( Amer) > 60 Est GFR (Non-Af Amer) 60 Random Glucose 123 H Calcium 8.3 L Total Bilirubin 0.5 AST 26 ALT 22 Alkaline Phosphatase 47 Lactate Dehydrogenase Total Creatine Kinase Troponin I Total Protein 5.2 L Albumin 2.6 L Globulin 2.6 Albumin/Globulin Ratio 1.0 L Arterial Blood Potassium Assessment & Plan - Assessment and Plan (Free Text) Plan: 80yo female with history of COPD, Colon Ca s/p hemicolectomy (POD #5) admitted to the ICU s/p rapid response for which she reportedly had AMS, tachycardia (~ 140's) and prior complaints of chest pain with elevated troponin Neuro: -Alert and oriented x3 -Afebrile, maintain normothermia Cardio: -Troponin elevated of 0.29, 0.32 and 0.38 -Prior EKG's reviewed -Sinus tachycardia on examination; patient was given Lopressor 5mg IVP and subsequently HR decreased to the 90's -No prior echocardiogram available for review; pending echo -Maintain MAP > 65 -Continue with ASA, plavix, metoprolol 25 BID, lipitor per cardiology recs -Cardiology consulted - Dr. Quach Pulm: -CXR reviewed; revealed vague opacities in the right mid and lower lung field as well as left lung base may represent some combination of atelectasis/ infiltrate and effusion (see full report) -ABG ordered and reviewed; consistent with respiratory alkalosis -CTA ordered to rule out PE given unexplained tachycardia in a POD#5 patient -Continue with pulmicort, brovana, singulair GI: -NPO diet per GI recs -Continue with protonix -GI following - Dr. Sierra Nephro: -Will monitor and replete electrolytes as needed -Strict I's and O's Heme: -DVT prophylaxis with SCD's -H/H stable ID: -Afebrile, no leukocytosis -Blood/urine cultures pending -Procalcitonin pending -Lactate within normal limits Patient seen and case discussed with attending, Dr. Hill - Date & Time Date: 08/23/16 Time: 00:56 <Stone Hill MD - Last Filed: 08/23/16 08:44> Meds - Medications Medications: Current Medications Al Hydrox/Mg Hydrox/Simethicone (Maalox Plus 30 Ml) 30 ml PO DAILY PRN PRN Reason: Indigestion / Heartburn Albuterol/Ipratropium (Duoneb 3 Mg/0.5 Mg (3 Ml) Ud) 3 ml IH [id number] [facility] Last Admin: 08/23/16 08:06 Dose: 3 ml Arformoterol Tartrate (Brovana) 15 mcg IH [id number] [facility] Last Admin: 08/23/16 08:05 Dose: 15 mcg Aspirin (Ecotrin) 81 mg PO DAILY [facility] Atorvastatin Calcium (Lipitor) 20 mg PO DIN [facility] Last Admin: 08/22/16 18:00 Dose: 20 mg Budesonide (Pulmicort Respules) 0.5 mg IH BIDRESP [facility] Last Admin: 08/23/16 08:06 Dose: 0.5 mg Calcitonin [place] (Miacalcin) 200 iu NS DAILY [facility] Last Admin: 08/22/16 11:00 Dose: 1 spr Clopidogrel Bisulfate (Plavix) 75 mg PO DAILY [facility] Last Admin: 08/22/16 11:36 Dose: 75 mg Home Med (Home Med) 1 unit INH BID [facility] Last Admin: 08/22/16 18:23 Dose: Not Given Potassium Chloride 40 meq/ (Dextrose/Sodium Chloride) 1,020 mls @ 75 mls/hr IV .[id number] [facility] Last Admin: 08/22/16 22:03 Dose: 75 mls/hr Amino Acids/Electrolytes/Dextrose (Clinimix 4.25/5 % "E" (2000 Ml)) 2,000 mls @ 83 mls/hr IV .Q24H [facility] Stop: 08/25/16 17:59 Last Admin: 08/22/16 18:10 Dose: 83 mls/hr Piperacillin Sod/Tazobactam Sod (Zosyn 3.375 In Ns 100ml) 100 mls @ 200 mls/hr IVPB Q6 [facility] PRN Reason: Protocol Stop: 08/23/16 12:29 Isosorbide Mononitrate (Imdur) 30 mg PO DAILY [facility] Last Admin: 08/22/16 11:36 Dose: 30 mg Levothyroxine Sodium (Synthroid) 50 mcg PO DAILY [facility] Last Admin: 08/22/16 11:27 Dose: 50 mcg Meclizine HCl (Antivert) 12.5 mg PO TID PRN PRN Reason: Dizziness Last Admin: 08/18/16 10:39 Dose: 12.5 mg Metoprolol Tartrate (Lopressor) 25 mg PO Q12 [facility] Last Admin: 08/22/16 21:24 Dose: 25 mg Montelukast Sodium (Singulair) 10 mg PO HS [facility] Last Admin: 08/22/16 21:24 Dose: 10 mg Nitroglycerin (Nitro-Bid 2% Oint) 1 ea TOP Q6H PRN PRN Reason: Pain, severe (8-10) Last Admin: 08/23/16 05:34 Dose: 1 ea Non-Formulary Medication (Fluticasone Propionate [Flovent Diskus]) 0 mcg IH BID [facility] Last Admin: 08/22/16 18:23 Dose: Not Given Ondansetron HCl (Zofran Inj) 4 mg IVP Q4H PRN PRN Reason: Nausea/Vomiting Last Admin: 08/22/16 11:45 Dose: 4 mg Pantoprazole Sodium (Protonix Inj) 40 mg IVP Q12 [facility] Last Admin: 08/22/16 21:24 Dose: 40 mg Potassium Chloride (K-Dur 20 Meq Er Tab) 20 meq PO BRK [facility] Last Admin: 08/22/16 08:30 Dose: 20 meq Pramipexole Dihydrochloride (Mirapex) 0.125 mg PO DAILY [facility] Last Admin: 08/22/16 11:26 Dose: 0.125 mg Tiotropium [place] (Spiriva) 18 mcg IH DAILY [facility] Last Admin: 08/22/16 11:37 Dose: 18 mcg Tramadol/Acetaminophen (Ultracet 37.5/325 Mg) 1 tab PO Q4H PRN PRN Reason: Pain Last Admin: 08/23/16 06:33 Dose: 1 tab Results - Vital Signs Recent Vital Signs: Last Vital Signs Temp 98.2 F 08/23/16 04:25 Pulse 97 H 08/23/16 08:00 Resp 25 H 08/23/16 08:00 BP 127/78 08/23/16 07:30 Pulse Ox 96 08/23/16 08:00 - Labs Result Diagrams: 08/23/16 05:30 08/23/16 05:30 Labs: Laboratory Results - last 24 hr 08/22/16 08/22/16 08/22/16 09:03 13:43 22:14 WBC RBC Hgb Hct MCV MCH MCHC RDW Plt Count MPV Gran % Lymph % (Auto) [place] % (Auto) Eos % (Auto) Baso % (Auto) Gran # Lymph # [place] # Eos # Baso # pCO2 pO2 HCO3 ABG pH ABG Total CO2 ABG O2 Saturation ABG Base Excess ABG Potassium Sodium Chloride Glucose Lactate FiO2 Potassium Carbon Dioxide Anion Gap BUN Creatinine Est GFR ( Amer) Est GFR (Non-Af Amer) Random Glucose Calcium Total Bilirubin AST ALT Alkaline Phosphatase Lactate Dehydrogenase 746 H Total Creatine Kinase 79 Troponin I 0.29 H* D 0.32 H* 0.38 H* Total Protein Albumin Globulin Albumin/Globulin Ratio Arterial Blood Potassium 08/22/16 08/22/16 08/22/16 22:30 22:40 22:40 WBC 9.0 RBC 3.70 Hgb 11.2 L Hct 34.0 L MCV 91.9 MCH 30.3 MCHC 32.9 RDW 15.1 H Plt Count 151 MPV 9.1 Gran % 72.9 H Lymph % (Auto) 15.8 L [place] % (Auto) 11.1 H Eos % (Auto) 0.1 L Baso % (Auto) 0.1 Gran # 6.53 H Lymph # 1.4 [place] # 1.0 H Eos # 0.0 Baso # 0.01 pCO2 27 L pO2 96.0 HCO3 19.2 L ABG pH 7.46 H ABG Total CO2 20.0 L ABG O2 Saturation 98.8 H ABG Base Excess -3.6 L ABG Potassium 5.2 Sodium 149.0 H 134 Chloride 99.0 106 Glucose 135 H Lactate 1.1 FiO2 32.0 Potassium 4.7 Carbon Dioxide 22 Anion Gap 11 BUN 22 H Creatinine 0.9 Est GFR ( Amer) > 60 Est GFR (Non-Af Amer) 60 Random Glucose 123 H Calcium 8.3 L Total Bilirubin 0.5 AST 26 ALT 22 Alkaline Phosphatase 47 Lactate Dehydrogenase Total Creatine Kinase Troponin I Total Protein 5.2 L Albumin 2.6 L Globulin 2.6 Albumin/Globulin Ratio 1.0 L Arterial Blood Potassium 5.2 08/23/16 08/23/16 05:30 05:30 WBC 7.8 RBC 3.47 L Hgb 10.5 L Hct 32.2 L MCV 92.8 MCH 30.3 MCHC 32.6 RDW 15.3 H Plt Count 164 MPV 9.4 Gran % 72.4 H Lymph % (Auto) 16.7 L [place] % (Auto) 10.5 H Eos % (Auto) 0.3 L Baso % (Auto) 0.1 Gran # 5.67 Lymph # 1.3 [place]ley # 0.8 H Eos # 0.0 Baso # 0.01 pCO2 pO2 HCO3 ABG pH ABG Total CO2 ABG O2 Saturation ABG Base Excess ABG Potassium Sodium 134 Chloride 102 Glucose Lactate FiO2 Potassium 4.4 Carbon Dioxide 23 Anion Gap 13 BUN 28 H Creatinine 1.0 Est GFR ( Amer) > 60 Est GFR (Non-Af Amer) 53 Random Glucose 122 H Calcium 8.3 L Total Bilirubin 0.4 AST 25 ALT 23 Alkaline Phosphatase 42 Lactate Dehydrogenase Total Creatine Kinase Troponin I Total Protein 5.0 L Albumin 2.5 L Globulin 2.4 Albumin/Globulin Ratio 1.0 L Arterial Blood Potassium Attending/Attestation - Attestation I have personally seen and examined this patient.: Yes I have fully participated in the care of the patient.: Yes I have reviewed all pertinent clinical information: Yes Notes (Text): 08/23/16 08:35 -I agree with the above ICU consult note completed by the resident physician with the following additions and/or changes: The patient is an 80 year old woman with a history of COPD, hypothyroidism, DJD and colon adenocarcinoma (s/p hemicolectomy POD#6). Her post-op course has be potentially been complicated by an NSTEMI. Overnight, a [employer] because the patient was found to be acutely lethargic, diaphoretic and SOB by the nurse. She was also persistently tachycardic (sinus) (as high as 150's). A stat CXR showed evidence of increased congestion (+/- infiltrates). A stat CT angio of the chest ruled out acute PE but did confirm the presence of worsening bilateral effusions and infiltrates. As a result, the patient was upgraded to the ICU overnight for closer monitoring. Also, a single dose of IV Lasix 40mg was given after which the patient appeared less distressed. Lastly, empiric IV Zosyn was started given new CXR findings (after blood and urine cultures were drawn). More serial trop's and EKG's were also ordered. Will continue to follow-up further cardiology recommendations later this morning.
--- NOTE | 2016-08-23 02:33 | CT ---
EXAM: CT Angiography Chest With Intravenous Contrast CLINICAL HISTORY: 80 years old, female; Signs and symptoms; Shortness of breath; Additional info: R/O pe TECHNIQUE: Axial computed tomographic angiography images of the chest with intravenous contrast using pulmonary embolism protocol. This CT exam was performed using one or more of the following dose reduction techniques: automated exposure control, adjustment of the mA and/or kV according to patient size, and/or use of iterative reconstruction technique. MIP reconstructed images were created and reviewed. Coronal and sagittal reformatted images were created and reviewed. CONTRAST: 96 mL of visi 320 administered intravenously. EXAM DATE/TIME: 08/22/2016 11:14 PM COMPARISON: CT - CHEST, ABDOMEN, PELVIS PO ONLY 01/23/2016 4:28:55 PM FINDINGS: No pulmonary embolism. There are atherosclerotic changes of the aorta.No aortic dissection or aneurysm. There are small- moderate bilateral pleural effusions. There is bilateral lower lung consolidation. The majority of the stomach herniates into the lower right chest similar to prior. Please see discussion in prior report where wall thickness was better visualized. Fluid is present within the gastric lumen and esophagus. Fluid within the visualized bowel in the upper abdomen, finding that can be associated with diarrhea/enteritis. Gallstones are present. There is mild bilateral perinephric stranding.There is mild bilateral hydronephrosis new since prior. Catheter along the inferior aspect of the right kidney. IMPRESSION: Bilateral pleural effusions and bilateral lower lung consolidation essentially new since prior. Majority of the stomach herniates into the chest similar to prior however please note that gastric wall is better evaluated on the prior study due to administration of oral contrast. Cholelithiasis. New bilateral mild hydronephrosis incompletely evaluated on this exam. Fluid within the bowel discussed in the body of the report.
[2016-08-23] MEDS: Albuterol-Ipratrop 3 mg / 0.5 (3 ml) UD IH SCH ×3 (03:23→11:13)
[2016-08-23] MEDS: Nitroglycerin 2% Ointment Foilpak UD TOP PRN (05:34)
[2016-08-23] MEDS: TraMADol/Apap 37.5/325 mg Tab PO PRN ×2 (06:33→16:27)
[2016-08-23] MEDS ORDERED: Piperacillin/Tazobact 3.375 gm 100 ML IVPB SCH ×2 (06:48→12:00)
[2016-08-23 06:51] LABS: BASO # 0.01 K/mm3 (0.0-2.0); BASO % 0.1 % (0.0-3.0); EOS % 0.3 % (1.5-5.0); GRAN # 5.67 (1.4-6.5); GRAN % 72.4 % (50.0-68.0); HEMOGLOBIN 10.5 gm/dL (12.0-16.0); LYMPH # 1.3 (1.2-3.4); LYMPH % 16.7 % (22.0-35.0); MEAN CELL VOLUME 92.8 fL (80.0-105.0); MEAN CORPUSCULAR HEMOGLOBIN 30.3 pg (25.0-35.0); MEAN CORPUSCULAR HGB CONC 32.6 g/dl (31.0-37.0); MEAN PLATELET VOLUME 9.4 fl (7.0-11.0); MONO # 0.8 (0.1-0.6); MONO % 10.5 % (1.0-6.0); PLATELET COUNT 164 10^3/uL (120.0-450.0); RBC 3.47 10^6/uL (3.5-6.1); RED CELL DISTRIBUTION WIDTH 15.3 % (11.5-14.5); WHITE BLOOD COUNT 7.8 10^3/ul (4.5-11.0)
[2016-08-23 07:01] LABS: ALBUMIN 2.5 g/dL (3.0-4.8); ALT/SGPT 23 U/L (7-56); AST/SGOT 25 U/L (15-39); BLOOD UREA NITROGEN 28 mg/dL (7-21); CALCIUM 8.3 mg/dL (8.4-10.5); GFR AFRICAN-AMERICAN > 60; GFR NON-AFRICAN AMERICAN 53
--- NOTE | 2016-08-23 07:06 | CON ---
DATE: 08/22/2016 LOCATION: Room 361, Bed 2. REASON FOR CONSULTATION: Chest pain, troponin elevation. HISTORY OF PRESENT ILLNESS: The patient is an 80-year-old female, known case of a mass in the colon for which she had recent surgery, history of high cholesterol, hypothyroidism, asthma, COPD, vertigo, developed chest pain which was in the lower sternal area. The patient also had some burning in the epigastrium and she also had associated nausea and she vomited also. The patient denies any prior history of exertional chest pain or any cardiac problem in the past. PAST MEDICAL HISTORY: Positive for asthma, hypothyroidism, vertigo, high cholesterol, she had cataract surgery, macular degeneration, asthma, COPD. PERSONAL HISTORY: Denies smoking. Denies drinking. HOME MEDICATIONS: Included Antivert 12.5 mg t.i.d. p.r.n., Synthroid 50 mcg p.o. daily, Zocor 40 daily, Spiriva, omeprazole, Singulair, Aricept. REVIEW OF SYSTEMS: All the systems reviewed, positive mentioned in the history, otherwise negative. PHYSICAL EXAMINATION VITAL SIGNS: Blood pressure 130/80, respirations 20, pulse 96, temperature 97.5. HEENT: Head is normocephalic. Eyes: Pupils are normal. Conjunctivae slightly pale. NECK: JVP low. Carotid equal. Thorax AP diameter normal. LUNGS: Clear. CARDIOVASCULAR: S1 and S2. ABDOMEN: The patient has recent surgery for the colon mass. EXTREMITIES: No clubbing. No cyanosis. LABORATORY DATA: Shows WBC 8.2, hemoglobin 11.9, hematocrit 35.9, platelet 146. Sodium 135, potassium 4.9, BUN 18, creatinine 0.8, AST/ALT normal, total protein 5.0, bilirubin 2.5. The patient's troponin on 08/19/2016 was less than 0.01 and today troponin is 0.29 and second troponin 0.32. EKG showed regular sinus rhythm. As compared to admission EKG, the patient has T inversion in 1 and aVL. Chest x-ray, vague opacities in the right mid and lower lung field and left lung base, *------* combination of atelectasis versus infiltrate versus effusion. DIAGNOSES: Chest pain with troponin elevation suggestive of non-ST segment elevation myocardial infarction, recent surgery for colon mass, emphysema, high cholesterol, hypothyroidism, vertigo. PLAN: We will start the patient on aspirin 81 mg daily, Plavix 75 mg daily, metoprolol 25 mg b.i.d., isosorbide mononitrate 30 mg p.o. daily, atorvastatin 20 mg p.o. daily. We will give 20 mg IV stat Lasix dose. We will follow up repeat troponin. The patient may have also GI component with burning in the epigastrium and repeated episode of vomiting that may be related to GI problem. We will monitor the patient closely and we will follow with you. Right now, the patient is asymptomatic, had no chest pain or shortness of breath. Kemar Arias MD
--- NOTE | 2016-08-23 07:30 | CP.PCM.PN ---
<ConradoSuzy - Last Filed: 08/23/16 13:28> Subjective - Date & Time of Evaluation Date of Evaluation: 08/23/16 Time of Evaluation: 07:23 - Subjective Subjective: Patient seen and examined at bedside. Patient denies CP or dyspnea at this moment. Reports epigastric pain has improved on current regiment. Objective - Vital Signs/Intake and Output Vital Signs (last 24 hours): Temp Pulse Resp BP Pulse Ox 98.2 F 95 H 16 115/71 96 08/23/16 04:25 08/23/16 06:00 08/23/16 05:30 08/23/16 05:30 08/23/16 06:00 Intake and Output: 08/23/16 08/23/16 06:59 18:59 Intake Total 1236 Output Total 765 Balance 471 - Medications Medications: Current Medications Al Hydrox/Mg Hydrox/Simethicone (Maalox Plus 30 Ml) 30 ml PO DAILY PRN PRN Reason: Indigestion / Heartburn Albuterol/Ipratropium (Duoneb 3 Mg/0.5 Mg (3 Ml) Ud) 3 ml IH [id number] [facility] Last Admin: 08/23/16 03:23 Dose: Not Given Arformoterol Tartrate (Brovana) 15 mcg IH [id number] [facility] Last Admin: 08/22/16 19:48 Dose: 15 mcg Aspirin (Ecotrin) 81 mg PO DAILY [facility] Atorvastatin Calcium (Lipitor) 20 mg PO DIN [facility] Last Admin: 08/22/16 18:00 Dose: 20 mg Budesonide (Pulmicort Respules) 0.5 mg IH BIDRESP [facility] Last Admin: 08/22/16 19:48 Dose: 0.5 mg Calcitonin [place] (Miacalcin) 200 iu NS DAILY [facility] Last Admin: 08/22/16 11:00 Dose: 1 spr Clopidogrel Bisulfate (Plavix) 75 mg PO DAILY [facility] Last Admin: 08/22/16 11:36 Dose: 75 mg Home Med (Home Med) 1 unit INH BID [facility] Last Admin: 08/22/16 18:23 Dose: Not Given Potassium Chloride 40 meq/ (Dextrose/Sodium Chloride) 1,020 mls @ 75 mls/hr IV .[id number] [facility] Last Admin: 08/22/16 22:03 Dose: 75 mls/hr Amino Acids/Electrolytes/Dextrose (Clinimix 4.25/5 % "E" (2000 Ml)) 2,000 mls @ 83 mls/hr IV .Q24H [facility] Stop: 08/25/16 17:59 Last Admin: 08/22/16 18:10 Dose: 83 mls/hr Piperacillin Sod/Tazobactam Sod (Zosyn 3.375 In Ns 100ml) 100 mls @ 200 mls/hr IVPB Q6 [facility] PRN Reason: Protocol Stop: 08/23/16 12:29 Isosorbide Mononitrate (Imdur) 30 mg PO DAILY [facility] Last Admin: 08/22/16 11:36 Dose: 30 mg Levothyroxine Sodium (Synthroid) 50 mcg PO DAILY [facility] Last Admin: 08/22/16 11:27 Dose: 50 mcg Meclizine HCl (Antivert) 12.5 mg PO TID PRN PRN Reason: Dizziness Last Admin: 08/18/16 10:39 Dose: 12.5 mg Metoprolol Tartrate (Lopressor) 25 mg PO Q12 [facility] Last Admin: 08/22/16 21:24 Dose: 25 mg Montelukast Sodium (Singulair) 10 mg PO HS [facility] Last Admin: 08/22/16 21:24 Dose: 10 mg Nitroglycerin (Nitro-Bid 2% Oint) 1 ea TOP Q6H PRN PRN Reason: Pain, severe (8-10) Last Admin: 08/23/16 05:34 Dose: 1 ea Non-Formulary Medication (Fluticasone Propionate [Flovent Diskus]) 0 mcg IH BID [facility] Last Admin: 08/22/16 18:23 Dose: Not Given Ondansetron HCl (Zofran Inj) 4 mg IVP Q4H PRN PRN Reason: Nausea/Vomiting Last Admin: 08/22/16 11:45 Dose: 4 mg Pantoprazole Sodium (Protonix Inj) 40 mg IVP Q12 [facility] Last Admin: 08/22/16 21:24 Dose: 40 mg Potassium Chloride (K-Dur 20 Meq Er Tab) 20 meq PO BRK [facility] Last Admin: 08/22/16 08:30 Dose: 20 meq Pramipexole Dihydrochloride (Mirapex) 0.125 mg PO DAILY [facility] Last Admin: 08/22/16 11:26 Dose: 0.125 mg Tiotropium [place] (Spiriva) 18 mcg IH DAILY [facility] Last Admin: 08/22/16 11:37 Dose: 18 mcg Tramadol/Acetaminophen (Ultracet 37.5/325 Mg) 1 tab PO Q4H PRN PRN Reason: Pain Last Admin: 08/23/16 06:33 Dose: 1 tab - Labs Labs: 08/23/16 05:30 08/23/16 05:30 PT 11.3 Seconds (9.9-11.8) 08/22/16 07:40 INR 1.05 (0.93-1.08) 08/22/16 07:40 APTT 23.9 Seconds (23.7-30.8) 08/22/16 07:40 - Head Exam Head Exam: ATRAUMATIC, NORMOCEPHALIC Assessment and Plan - Assessment and Plan (Free Text) Assessment: 80yo female with history of COPD, Colon Ca s/p right hemicolectomy (POD #6) admitted to the ICU s/p rapid response for which she reportedly had AMS, tachycardia (~140's) with prior complaints of epigastric pain, nausea, with elevated troponins. Neuro: -Alert and oriented x3 -Afebrile, maintain normothermia Cardio: Dr. Quach will perform cardiac catherization on patient today for NSTEMI. Patient made NPO. -Troponin elevated of 0.29, 0.32 and 0.38. Prior EKG's reviewed, EKG obtained during intial episode of CP on 08/22 showed new T-wave inversions in leads avL and I compared to EKG on 08/16 and 08/17 with concomitant elevation of troponin I. NSTEMI: Maintain O2 saturation> 90%, control chest pain, will follow cardiology consult. Pulm: -CTA for PE showed no evidence of PE, but did reveal new bilateral pleural effusions and bilateral lower lung consolidation -ABG shows improvement in respiratory alkalosis pH 7.46, PCO2 of 27, PO2 97, HCO3 19.6 -Patient undergoing cardiac catherization, will continue/hold with pulmicort, brovana, singulair GI: -Abdominal film showed non-obstructive bowel pattern -NPO diet per GI recommendations -Continue with protonix -GI following - Dr. Sierra Nephro: -CT for PE protocol incidentally showed new bilateral hydronephrosis with bilateral perinephric stranding, -Will monitor and replete electrolytes as needed -Strict I's and O's Heme: -DVT prophylaxis with SCD's -H/H stable ID: -Afebrile, no leukocytosis -Blood cultures pending -Urine uncollected -Procalcitonin pending -Lactate within normal limits <Alex Vázquez - Last Filed: 08/23/16 14:25> Objective - Vital Signs/Intake and Output Vital Signs (last 24 hours): Temp Pulse Resp BP Pulse Ox 98.3 F 102 H 25 H 127/78 96 08/23/16 08:00 08/23/16 10:00 08/23/16 08:00 08/23/16 07:30 08/23/16 08:00 Intake and Output: 08/23/16 08/23/16 06:59 18:59 Intake Total 1236 Output Total 765 Balance 471 - Medications Medications: Current Medications Al Hydrox/Mg Hydrox/Simethicone (Maalox Plus 30 Ml) 30 ml PO DAILY PRN PRN Reason: Indigestion / Heartburn Albuterol/Ipratropium (Duoneb 3 Mg/0.5 Mg (3 Ml) Ud) 3 ml IH [id number] [facility] Last Admin: 08/23/16 11:13 Dose: 3 ml Arformoterol Tartrate (Brovana) 15 mcg IH [id number] [facility] Last Admin: 08/23/16 08:05 Dose: 15 mcg Aspirin (Ecotrin) 81 mg PO DAILY [facility] Last Admin: 08/23/16 12:39 Dose: 81 mg Atorvastatin Calcium (Lipitor) 20 mg PO DIN [facility] Last Admin: 08/22/16 18:00 Dose: 20 mg Budesonide (Pulmicort Respules) 0.5 mg IH BIDRESP [facility] Last Admin: 08/23/16 08:06 Dose: 0.5 mg Calcitonin [place] (Miacalcin) 200 iu NS DAILY [facility] Last Admin: 08/22/16 11:00 Dose: 1 spr Clopidogrel Bisulfate (Plavix) 75 mg PO DAILY [facility] Last Admin: 08/23/16 12:39 Dose: 75 mg Home Med (Home Med) 1 unit INH BID [facility] Last Admin: 08/22/16 18:23 Dose: Not Given Potassium Chloride 40 meq/ (Dextrose/Sodium Chloride) 1,020 mls @ 75 mls/hr IV .[id number] [facility] Last Admin: 08/22/16 22:03 Dose: 75 mls/hr Amino Acids/Electrolytes/Dextrose (Clinimix 4.25/5 % "E" (2000 Ml)) 2,000 mls @ 83 mls/hr IV .Q24H [facility] Stop: 08/25/16 17:59 Last Admin: 08/22/16 18:10 Dose: 83 mls/hr Isosorbide Mononitrate (Imdur) 30 mg PO DAILY [facility] Last Admin: 08/23/16 10:55 Dose: Not Given Levothyroxine Sodium (Synthroid) 50 mcg PO DAILY [facility] Last Admin: 08/22/16 11:27 Dose: 50 mcg Meclizine HCl (Antivert) 12.5 mg PO TID PRN PRN Reason: Dizziness Last Admin: 08/18/16 10:39 Dose: 12.5 mg Metoprolol Tartrate (Lopressor) 25 mg PO Q12 [facility] Last Admin: 08/23/16 10:55 Dose: Not Given Montelukast Sodium (Singulair) 10 mg PO HS [facility] Last Admin: 08/22/16 21:24 Dose: 10 mg Nitroglycerin (Nitro-Bid 2% Oint) 1 ea TOP Q6H PRN PRN Reason: Pain, severe (8-10) Last Admin: 08/23/16 05:34 Dose: 1 ea Non-Formulary Medication (Fluticasone Propionate [Flovent Diskus]) 0 mcg IH BID [facility] Last Admin: 08/22/16 18:23 Dose: Not Given Ondansetron HCl (Zofran Inj) 4 mg IVP Q4H PRN PRN Reason: Nausea/Vomiting Last Admin: 08/22/16 11:45 Dose: 4 mg Pantoprazole Sodium (Protonix Inj) 40 mg IVP Q12 [facility] Last Admin: 08/23/16 11:08 Dose: 40 mg Potassium Chloride (K-Dur 20 Meq Er Tab) 20 meq PO BRK [facility] Last Admin: 08/23/16 10:55 Dose: Not Given Pramipexole Dihydrochloride (Mirapex) 0.125 mg PO DAILY [facility] Last Admin: 08/23/16 11:07 Dose: Not Given Tiotropium [place] (Spiriva) 18 mcg IH DAILY [facility] Last Admin: 08/22/16 11:37 Dose: 18 mcg Tramadol/Acetaminophen (Ultracet 37.5/325 Mg) 1 tab PO Q4H PRN PRN Reason: Pain Last Admin: 08/23/16 06:33 Dose: 1 tab - Labs Labs: 08/23/16 05:30 08/23/16 05:30 PT 11.3 Seconds (9.9-11.8) 08/22/16 07:40 INR 1.05 (0.93-1.08) 08/22/16 07:40 APTT 23.9 Seconds (23.7-30.8) 08/22/16 07:40 Attending/Attestation - Attestation I have personally seen and examined this patient.: Yes I have fully participated in the care of the patient.: Yes I have reviewed all pertinent clinical information, including history, physical exam and plan: Yes Notes (Text): 08/23/16 14:20 80 yo female who developed NSTEMI in late postop period (chest pain, trop leak and EKG changes in I, avL). If surgery cleared would proceed with DUAPT, therapeutic AC, maintaining Hb >9, bb and statins. Patient is going for PCI by Dr. Quach. Patient is not in pain and no active bleed to consider supply/demand mismatch ischemia. If/when cardio clears would consider early mobilization, OOB to chair, PT. Also would go with bronchodilators, IS, CPT. DVT/GI propylaxis ccm time 40 min
--- NOTE | 2016-08-23 08:01 | RAD ---
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 PLEURA: Suspect pleural effusions. No pneumothorax. CARDIOVASCULAR: The cardiomediastinal silhouette is stable. OSSEOUS STRUCTURES: Stable. VISUALIZED UPPER ABDOMEN: Normal. OTHER FINDINGS: None. IMPRESSION: Bibasilar atelectasis/ pneumonia and bilateral pleural effusions .
[2016-08-23] MEDS: Arformoterol 15 mcg/2 ml Inh Sol IH SCH ×2 (08:05→20:39)
[2016-08-23] MEDS: Budesonide 0.5 mg/2 ml Inhal Susp UD IH SCH ×2 (08:06→20:39)
[2016-08-23 08:47] LABS: VENOUS BLOOD GAS BASE EXCESS 0.7 mmol/L (0.0-2.0); VENOUS BLOOD GAS PO2 52 mm/Hg (30-55); VENOUS BLOOD PH 7.36 (7.32-7.43)
--- NOTE | 2016-08-23 08:48 | CP.PCM.PN ---
<MerchantSerge - Last Filed: 08/23/16 09:11> Subjective - Date & Time of Evaluation Date of Evaluation: 08/23/16 Time of Evaluation: 07:30 - Subjective Subjective: General Surgery- Dr. Davis Pt seen and examined at bedside this AM. Rapid response was called last night, pt was given Metoprolol and Nitro. Pt is feeling better. Denies any current chest pain or shortness of breath. Denies Nausea or vomiting at this time. Tolerating CLD. Pain is manageable. +Flatus no BM this AM. purewick in place, connected to suction. Incision Clean Dry Intact, no perincisional erythema Objective - Vital Signs/Intake and Output Vital Signs (last 24 hours): Temp Pulse Resp BP Pulse Ox 98.2 F 97 H 25 H 127/78 96 08/23/16 04:25 08/23/16 08:00 08/23/16 08:00 08/23/16 07:30 08/23/16 08:00 Intake and Output: 08/23/16 08/23/16 06:59 18:59 Intake Total 1236 Output Total 765 Balance 471 - Medications Medications: Current Medications Al Hydrox/Mg Hydrox/Simethicone (Maalox Plus 30 Ml) 30 ml PO DAILY PRN PRN Reason: Indigestion / Heartburn Albuterol/Ipratropium (Duoneb 3 Mg/0.5 Mg (3 Ml) Ud) 3 ml IH [id number] [facility] Last Admin: 08/23/16 08:06 Dose: 3 ml Arformoterol Tartrate (Brovana) 15 mcg IH [id number] [facility] Last Admin: 08/23/16 08:05 Dose: 15 mcg Aspirin (Ecotrin) 81 mg PO DAILY [facility] Atorvastatin Calcium (Lipitor) 20 mg PO DIN [facility] Last Admin: 08/22/16 18:00 Dose: 20 mg Budesonide (Pulmicort Respules) 0.5 mg IH BIDRESP [facility] Last Admin: 08/23/16 08:06 Dose: 0.5 mg Calcitonin [place] (Miacalcin) 200 iu NS DAILY [facility] Last Admin: 08/22/16 11:00 Dose: 1 spr Clopidogrel Bisulfate (Plavix) 75 mg PO DAILY [facility] Last Admin: 08/22/16 11:36 Dose: 75 mg Home Med (Home Med) 1 unit INH BID [facility] Last Admin: 08/22/16 18:23 Dose: Not Given Potassium Chloride 40 meq/ (Dextrose/Sodium Chloride) 1,020 mls @ 75 mls/hr IV .[id number] [facility] Last Admin: 08/22/16 22:03 Dose: 75 mls/hr Amino Acids/Electrolytes/Dextrose (Clinimix 4.25/5 % "E" (2000 Ml)) 2,000 mls @ 83 mls/hr IV .Q24H [facility] Stop: 08/25/16 17:59 Last Admin: 08/22/16 18:10 Dose: 83 mls/hr Piperacillin Sod/Tazobactam Sod (Zosyn 3.375 In Ns 100ml) 100 mls @ 200 mls/hr IVPB Q6 [facility] PRN Reason: Protocol Stop: 08/23/16 12:29 Isosorbide Mononitrate (Imdur) 30 mg PO DAILY [facility] Last Admin: 08/22/16 11:36 Dose: 30 mg Levothyroxine Sodium (Synthroid) 50 mcg PO DAILY [facility] Last Admin: 08/22/16 11:27 Dose: 50 mcg Meclizine HCl (Antivert) 12.5 mg PO TID PRN PRN Reason: Dizziness Last Admin: 08/18/16 10:39 Dose: 12.5 mg Metoprolol Tartrate (Lopressor) 25 mg PO Q12 [facility] Last Admin: 08/22/16 21:24 Dose: 25 mg Montelukast Sodium (Singulair) 10 mg PO HS [facility] Last Admin: 08/22/16 21:24 Dose: 10 mg Nitroglycerin (Nitro-Bid 2% Oint) 1 ea TOP Q6H PRN PRN Reason: Pain, severe (8-10) Last Admin: 08/23/16 05:34 Dose: 1 ea Non-Formulary Medication (Fluticasone Propionate [Flovent Diskus]) 0 mcg IH BID [facility] Last Admin: 08/22/16 18:23 Dose: Not Given Ondansetron HCl (Zofran Inj) 4 mg IVP Q4H PRN PRN Reason: Nausea/Vomiting Last Admin: 08/22/16 11:45 Dose: 4 mg Pantoprazole Sodium (Protonix Inj) 40 mg IVP Q12 [facility] Last Admin: 08/22/16 21:24 Dose: 40 mg Potassium Chloride (K-Dur 20 Meq Er Tab) 20 meq PO BRK [facility] Last Admin: 08/22/16 08:30 Dose: 20 meq Pramipexole Dihydrochloride (Mirapex) 0.125 mg PO DAILY [facility] Last Admin: 08/22/16 11:26 Dose: 0.125 mg Tiotropium [place] (Spiriva) 18 mcg IH DAILY [facility] Last Admin: 08/22/16 11:37 Dose: 18 mcg Tramadol/Acetaminophen (Ultracet 37.5/325 Mg) 1 tab PO Q4H PRN PRN Reason: Pain Last Admin: 08/23/16 06:33 Dose: 1 tab - Labs Labs: 08/23/16 05:30 08/23/16 05:30 PT 11.3 Seconds (9.9-11.8) 08/22/16 07:40 INR 1.05 (0.93-1.08) 08/22/16 07:40 APTT 23.9 Seconds (23.7-30.8) 08/22/16 07:40 - Constitutional Appears: No Acute Distress - Eye Exam Eye Exam: EOMI - ENT Exam ENT Exam: Mucous Membranes Moist - Respiratory Exam Respiratory Exam: Wheezes, NORMAL BREATHING PATTERN. absent: Accessory Muscle Use - Cardiovascular Exam Cardiovascular Exam: REGULAR RHYTHM, +S1, +S2 - GI/Abdominal Exam GI & Abdominal Exam: Soft, Normal Bowel Sounds. absent: Tenderness - Neurological Exam Neurological Exam: Awake, Oriented x3 Assessment and Plan - Assessment and Plan (Free Text) Assessment: 80F s/p R. 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 Ryan Fernandez <Viktor Davis - Last Filed: 08/23/16 10:39> Objective - Vital Signs/Intake and Output Vital Signs (last 24 hours): Temp Pulse Resp BP Pulse Ox 98.3 F 97 H 25 H 127/78 96 08/23/16 08:00 08/23/16 08:00 08/23/16 08:00 08/23/16 07:30 08/23/16 08:00 Intake and Output: 08/23/16 08/23/16 06:59 18:59 Intake Total 1236 Output Total 765 Balance 471 - Medications Medications: Current Medications Al Hydrox/Mg Hydrox/Simethicone (Maalox Plus 30 Ml) 30 ml PO DAILY PRN PRN Reason: Indigestion / Heartburn Albuterol/Ipratropium (Duoneb 3 Mg/0.5 Mg (3 Ml) Ud) 3 ml IH [id number] [facility] Last Admin: 08/23/16 08:06 Dose: 3 ml Arformoterol Tartrate (Brovana) 15 mcg IH [id number] [facility] Last Admin: 08/23/16 08:05 Dose: 15 mcg Aspirin (Ecotrin) 81 mg PO DAILY [facility] Atorvastatin Calcium (Lipitor) 20 mg PO DIN [facility] Last Admin: 08/22/16 18:00 Dose: 20 mg Budesonide (Pulmicort Respules) 0.5 mg IH BIDRESP [facility] Last Admin: 08/23/16 08:06 Dose: 0.5 mg Calcitonin [place] (Miacalcin) 200 iu NS DAILY [facility] Last Admin: 08/22/16 11:00 Dose: 1 spr Clopidogrel Bisulfate (Plavix) 75 mg PO DAILY [facility] Last Admin: 08/22/16 11:36 Dose: 75 mg Home Med (Home Med) 1 unit INH BID [facility] Last Admin: 08/22/16 18:23 Dose: Not Given Potassium Chloride 40 meq/ (Dextrose/Sodium Chloride) 1,020 mls @ 75 mls/hr IV .[id number] [facility] Last Admin: 08/22/16 22:03 Dose: 75 mls/hr Amino Acids/Electrolytes/Dextrose (Clinimix 4.25/5 % "E" (2000 Ml)) 2,000 mls @ 83 mls/hr IV .Q24H [facility] Stop: 08/25/16 17:59 Last Admin: 08/22/16 18:10 Dose: 83 mls/hr Piperacillin Sod/Tazobactam Sod (Zosyn 3.375 In Ns 100ml) 100 mls @ 200 mls/hr IVPB Q6 [facility] PRN Reason: Protocol Stop: 08/23/16 12:29 Isosorbide Mononitrate (Imdur) 30 mg PO DAILY [facility] Last Admin: 08/22/16 11:36 Dose: 30 mg Levothyroxine Sodium (Synthroid) 50 mcg PO DAILY [facility] Last Admin: 08/22/16 11:27 Dose: 50 mcg Meclizine HCl (Antivert) 12.5 mg PO TID PRN PRN Reason: Dizziness Last Admin: 08/18/16 10:39 Dose: 12.5 mg Metoprolol Tartrate (Lopressor) 25 mg PO Q12 [facility] Last Admin: 08/22/16 21:24 Dose: 25 mg Montelukast Sodium (Singulair) 10 mg PO HS [facility] Last Admin: 08/22/16 21:24 Dose: 10 mg Nitroglycerin (Nitro-Bid 2% Oint) 1 ea TOP Q6H PRN PRN Reason: Pain, severe (8-10) Last Admin: 08/23/16 05:34 Dose: 1 ea Non-Formulary Medication (Fluticasone Propionate [Flovent Diskus]) 0 mcg IH BID [facility] Last Admin: 08/22/16 18:23 Dose: Not Given Ondansetron HCl (Zofran Inj) 4 mg IVP Q4H PRN PRN Reason: Nausea/Vomiting Last Admin: 08/22/16 11:45 Dose: 4 mg Pantoprazole Sodium (Protonix Inj) 40 mg IVP Q12 [facility] Last Admin: 08/22/16 21:24 Dose: 40 mg Potassium Chloride (K-Dur 20 Meq Er Tab) 20 meq PO BRK [facility] Last Admin: 08/22/16 08:30 Dose: 20 meq Pramipexole Dihydrochloride (Mirapex) 0.125 mg PO DAILY [facility] Last Admin: 08/22/16 11:26 Dose: 0.125 mg Tiotropium [place] (Spiriva) 18 mcg IH DAILY [facility] Last Admin: 08/22/16 11:37 Dose: 18 mcg Tramadol/Acetaminophen (Ultracet 37.5/325 Mg) 1 tab PO Q4H PRN PRN Reason: Pain Last Admin: 08/23/16 06:33 Dose: 1 tab - Labs Labs: 08/23/16 05:30 08/23/16 05:30 PT 11.3 Seconds (9.9-11.8) 08/22/16 07:40 INR 1.05 (0.93-1.08) 08/22/16 07:40 APTT 23.9 Seconds (23.7-30.8) 08/22/16 07:40 Assessment and Plan - Assessment and Plan (Free Text) Assessment: Dx OH/Tachycardia every night(130-150) Leonides [facility]/Beta peter Ulysses Davis MD FACS
[2016-08-23 09:44] LABS: TROPONIN I 0.27 ng/mL
[2016-08-23] MEDS: Potassium Chloride 20 mEq ER Tab PO SCH (10:55)
--- NOTE | 2016-08-23 13:52 | PN ---
GI Followup DATE: 08/23/2016 Seen and examined at the bedside earlier today. The patient denies any shortness of breath, chest pain. No nausea, vomiting. Complaining of some upper abdominal discomfort. The patient had rapid response last night. Had a chest CT, angio that showed cholelithiasis. No pulmonary embolism, but did show some bilateral pleural effusion. PHYSICAL EXAMINATION VITAL SIGNS: Temperature 98.3, blood pressure 127/78, pulse 97, respirations 20, O2 saturation 96. HEENT: Sclerae are anicteric. NECK: Supple. CARDIAC: S1 and S2. LUNGS: Lung sounds with decreased breath sounds, but good air entry. LABS: WBC 7.8, H and H is 10.5 and 32.2, platelets is 164. Sodium 134, K 4.4, BUN 28, creatinine is 1.2. LFTs are within normal limits. Her troponin last night was 0.38, this morning it is 0.27, LDH is 545. ASSESSMENT: An 80-year-old female with history of colon cancer, status post right hemicolectomy; history of chronic obstructive pulmonary disease, status post rapid response. The patient had altered mental status and tachycardia. She does complain of epigastric pain. No nausea now and elevated troponins. Her CT chest, angio was negative for pulmonary embolism. It did show gallstones and bilateral pleural effusions, anemia. Also CT shows new bilateral hydronephrosis with bilateral perinephric stranding. PLAN: The patient NPO. Continue IV fluids for hydration. She is also on IV antibiotics. Continue PPI. The patient is on aspirin and Plavix. Looks like planned for cardiac cath today. Continue surgical followup. Monitor H and H. The patient was seen and case discussed with Dr. Sierra. WILMAN Green BRIAN
[2016-08-23] MEDS ORDERED: Iodixanol 320 mg/ml 150 ml Bottle IV ONE (13:58)
[2016-08-23] MEDS ORDERED: Lidocaine 2% Inj (20ml) ONE (13:58)
[2016-08-23] MEDS ORDERED: Iohexol 350mgl/ml 50 ML ONE (13:59)
--- NOTE | 2016-08-23 14:12 | CP.PCM.PN ---
Subjective - Date & Time of Evaluation Date of Evaluation: 08/23/16 Time of Evaluation: 09:00 - Subjective Subjective: nad, no cp, no n/v Objective - Vital Signs/Intake and Output Vital Signs (last 24 hours): Temp Pulse Resp BP Pulse Ox 98.3 F 97 H 25 H 127/78 96 08/23/16 08:00 08/23/16 08:00 08/23/16 08:00 08/23/16 07:30 08/23/16 08:00 Intake and Output: 08/23/16 08/23/16 06:59 18:59 Intake Total 1236 Output Total 765 Balance 471 - Medications Medications: Current Medications Al Hydrox/Mg Hydrox/Simethicone (Maalox Plus 30 Ml) 30 ml PO DAILY PRN PRN Reason: Indigestion / Heartburn Albuterol/Ipratropium (Duoneb 3 Mg/0.5 Mg (3 Ml) Ud) 3 ml IH [id number] [facility] Last Admin: 08/23/16 11:13 Dose: 3 ml Arformoterol Tartrate (Brovana) 15 mcg IH [id number] [facility] Last Admin: 08/23/16 08:05 Dose: 15 mcg Aspirin (Ecotrin) 81 mg PO DAILY [facility] Last Admin: 08/23/16 12:39 Dose: 81 mg Atorvastatin Calcium (Lipitor) 20 mg PO DIN [facility] Last Admin: 08/22/16 18:00 Dose: 20 mg Budesonide (Pulmicort Respules) 0.5 mg IH BIDRESP [facility] Last Admin: 08/23/16 08:06 Dose: 0.5 mg Calcitonin [place] (Miacalcin) 200 iu NS DAILY [facility] Last Admin: 08/22/16 11:00 Dose: 1 spr Clopidogrel Bisulfate (Plavix) 75 mg PO DAILY [facility] Last Admin: 08/23/16 12:39 Dose: 75 mg Home Med (Home Med) 1 unit INH BID [facility] Last Admin: 08/22/16 18:23 Dose: Not Given Potassium Chloride 40 meq/ (Dextrose/Sodium Chloride) 1,020 mls @ 75 mls/hr IV .[id number] [facility] Last Admin: 08/22/16 22:03 Dose: 75 mls/hr Amino Acids/Electrolytes/Dextrose (Clinimix 4.25/5 % "E" (2000 Ml)) 2,000 mls @ 83 mls/hr IV .Q24H [facility] Stop: 08/25/16 17:59 Last Admin: 08/22/16 18:10 Dose: 83 mls/hr Isosorbide Mononitrate (Imdur) 30 mg PO DAILY [facility] Last Admin: 08/23/16 10:55 Dose: Not Given Levothyroxine Sodium (Synthroid) 50 mcg PO DAILY [facility] Last Admin: 08/22/16 11:27 Dose: 50 mcg Meclizine HCl (Antivert) 12.5 mg PO TID PRN PRN Reason: Dizziness Last Admin: 08/18/16 10:39 Dose: 12.5 mg Metoprolol Tartrate (Lopressor) 25 mg PO Q12 [facility] Last Admin: 08/23/16 10:55 Dose: Not Given Montelukast Sodium (Singulair) 10 mg PO HS [facility] Last Admin: 08/22/16 21:24 Dose: 10 mg Nitroglycerin (Nitro-Bid 2% Oint) 1 ea TOP Q6H PRN PRN Reason: Pain, severe (8-10) Last Admin: 08/23/16 05:34 Dose: 1 ea Non-Formulary Medication (Fluticasone Propionate [Flovent Diskus]) 0 mcg IH BID [facility] Last Admin: 08/22/16 18:23 Dose: Not Given Ondansetron HCl (Zofran Inj) 4 mg IVP Q4H PRN PRN Reason: Nausea/Vomiting Last Admin: 08/22/16 11:45 Dose: 4 mg Pantoprazole Sodium (Protonix Inj) 40 mg IVP Q12 [facility] Last Admin: 08/23/16 11:08 Dose: 40 mg Potassium Chloride (K-Dur 20 Meq Er Tab) 20 meq PO BRK [facility] Last Admin: 08/23/16 10:55 Dose: Not Given Pramipexole Dihydrochloride (Mirapex) 0.125 mg PO DAILY [facility] Last Admin: 08/23/16 11:07 Dose: Not Given Tiotropium [place] (Spiriva) 18 mcg IH DAILY [facility] Last Admin: 08/22/16 11:37 Dose: 18 mcg Tramadol/Acetaminophen (Ultracet 37.5/325 Mg) 1 tab PO Q4H PRN PRN Reason: Pain Last Admin: 08/23/16 06:33 Dose: 1 tab - Labs Labs: 08/23/16 05:30 08/23/16 05:30 PT 11.3 Seconds (9.9-11.8) 08/22/16 07:40 INR 1.05 (0.93-1.08) 08/22/16 07:40 APTT 23.9 Seconds (23.7-30.8) 08/22/16 07:40 - Respiratory Exam Respiratory Exam: Prolonged Expiratory Phase, Rales - Cardiovascular Exam Cardiovascular Exam: REGULAR RHYTHM, Murmur - GI/Abdominal Exam GI & Abdominal Exam: Soft, Normal Bowel Sounds - Neurological Exam Neurological Exam: Alert, Awake - Skin Skin Exam: Dry, Pallor, Warm Assessment and Plan (1) Adenocarcinoma of colon Status: Acute (2) COPD (chronic obstructive pulmonary disease) Status: Acute (3) Acute coronary syndrome Status: Acute
[2016-08-23 14:14] LABS: TROPONIN I 0.19 ng/mL
--- NOTE | 2016-08-23 14:29 | CON ---
DATE: 08/23/2016 HISTORY OF PRESENT ILLNESS: The patient is an 80-year-old lady who was evaluated by ICU team several days ago on 08/17/2016 for postoperative management in light of her baseline reportedly severe chronic emphysema. At that time, the patient was completely stable without signs of respiratory or cardiac compromise and extubated in OR. She was transferred out of ICU Tuesday. She was doing well couple of days; however, yesterday she developed chest pain associated with some shortness of breath 5-6/10 in intensity, pressure like in nature,waxing and waning for hour before it went away. She was found to have new EKG changes with T wave inversion in lead I and aVL and the patient was transferred to ICU for further management of [place]. PAST MEDICAL HISTORY: COPD and emphysema. MEDICATIONS: DuoNeb every 4 hours q.p.m., Brovana, aspirin, Lipitor, Pulmicort, calcitonin, Plavix, fluticasone, Lasix, isosorbide mononitrate, Synthroid, Antivert, metoprolol, Singulair, Zofran p.r.n., Protonix, potassium supplementation, Mirapex, Spiriva, Zosyn. REVIEW OF SYSTEMS: Review of 12-point systems other than mentioned in history of present illness is negative. FAMILY HISTORY: Noncontributory. ALLERGIES: CODEINE. PHYSICAL EXAMINATION VITAL SIGNS: Heart rate 81, oxygen saturation 96% on room air, respiratory rate 19, blood pressure 127/78. HEENT: Atraumatic. LUNGS: Clear to auscultation bilaterally. HEART: Regular rate and rhythm. S1 and S2 normal. ABDOMEN: Soft, nontender, nondistended even in perioperative area. There is BALAJI in intraperitoneal space with serosanguineous discharge about 70 mL over the last night. MUSCULOSKELETAL: No C/C/E. NEUROLOGIC: The patient moves all extremities spontaneously. SKIN: Moist. PSYCHIATRIC: The patient is alert and oriented x3. LABORATORY DATA: Sodium 135, potassium 4.2, chloride 102, carbon dioxide 26, BUN 12, creatinine 0.8, glucose 102. AST 55, ALT 36. WBC 11.1. hemoglobin 7.9, down from 8.7, platelet count 139. ASSESSMENT AND PLAN: This is an 80-year-old with non-ST elevated myocardial infarction in the setting of chest pain, troponin leak, and EKG changes in the anterior leads. Cardiology consult was obtained and the patient is going for cardiac catheterization at 10 a.m. today, I would continue with dual antiplatelet therapy, statins, beta-blockers, and therapeutic anticoagulation if cleared by surgery. I would continue with pain control, DVT and GI prophylaxis, mobilization, incentive spirometry, out of bed to chair, physical therapy if/when cleared by cardiology and surgical service. The patient has a questionable history of chronic obstructive pulmonary disease, thus she is on bronchodilators, long acting muscarinic antagonist. There is no signs of bronchospasm and she is not wheezing, thus I would avoid steroids at the present at present. Aspiration precaution, HOB>35 degrees. ccm time 40 min Alex Vázquez MD MTDJessie
[2016-08-23] MEDS ORDERED: Midazolam 2 MG/2 ML VIAL ONE (14:37)
[2016-08-23] MEDS ORDERED: Eptifibatide 20 mg/10mL Inj IVP ONE (14:42)
--- NOTE | 2016-08-23 14:45 | CP.PCM.PN ---
Subjective - Date & Time of Evaluation Date of Evaluation: 08/23/16 Time of Evaluation: 14:41 - Subjective Subjective: [employer] note: Code heart in the [employer] [facility] was paged overhead. Rapid response team responded immediately. Patient was on gurney at [employer] [facility] at time of arrival. Dr. Quach was at bedside. He reports that further help is not needed. Patient will proceed with cardiac cath. Objective - Vital Signs/Intake and Output Vital Signs (last 24 hours): Temp Pulse Resp BP Pulse Ox 98.2 F 100 H 25 H 127/78 96 08/23/16 12:00 08/23/16 14:00 08/23/16 08:00 08/23/16 07:30 08/23/16 08:00 Intake and Output: 08/23/16 08/23/16 06:59 18:59 Intake Total 1236 Output Total 765 Balance 471 - Medications Medications: Current Medications Al Hydrox/Mg Hydrox/Simethicone (Maalox Plus 30 Ml) 30 ml PO DAILY PRN PRN Reason: Indigestion / Heartburn Albuterol/Ipratropium (Duoneb 3 Mg/0.5 Mg (3 Ml) Ud) 3 ml IH [id number] [facility] Last Admin: 08/23/16 11:13 Dose: 3 ml Arformoterol Tartrate (Brovana) 15 mcg IH [id number] [facility] Last Admin: 08/23/16 08:05 Dose: 15 mcg Aspirin (Ecotrin) 81 mg PO DAILY [facility] Last Admin: 08/23/16 12:39 Dose: 81 mg Atorvastatin Calcium (Lipitor) 20 mg PO DIN [facility] Last Admin: 08/22/16 18:00 Dose: 20 mg Budesonide (Pulmicort Respules) 0.5 mg IH BIDRESP [facility] Last Admin: 08/23/16 08:06 Dose: 0.5 mg Calcitonin [place] (Miacalcin) 200 iu NS DAILY [facility] Last Admin: 08/22/16 11:00 Dose: 1 spr Clopidogrel Bisulfate (Plavix) 75 mg PO DAILY [facility] Last Admin: 08/23/16 12:39 Dose: 75 mg Home Med (Home Med) 1 unit INH BID [facility] Last Admin: 08/22/16 18:23 Dose: Not Given Potassium Chloride 40 meq/ (Dextrose/Sodium Chloride) 1,020 mls @ 75 mls/hr IV .[id number] [facility] Last Admin: 08/22/16 22:03 Dose: 75 mls/hr Amino Acids/Electrolytes/Dextrose (Clinimix 4.25/5 % "E" (2000 Ml)) 2,000 mls @ 83 mls/hr IV .Q24H [facility] Stop: 08/25/16 17:59 Last Admin: 08/22/16 18:10 Dose: 83 mls/hr Isosorbide Mononitrate (Imdur) 30 mg PO DAILY [facility] Last Admin: 08/23/16 10:55 Dose: Not Given Levothyroxine Sodium (Synthroid) 50 mcg PO DAILY [facility] Last Admin: 08/22/16 11:27 Dose: 50 mcg Meclizine HCl (Antivert) 12.5 mg PO TID PRN PRN Reason: Dizziness Last Admin: 08/18/16 10:39 Dose: 12.5 mg Metoprolol Tartrate (Lopressor) 25 mg PO Q12 [facility] Last Admin: 08/23/16 10:55 Dose: Not Given Montelukast Sodium (Singulair) 10 mg PO HS [facility] Last Admin: 08/22/16 21:24 Dose: 10 mg Nitroglycerin (Nitro-Bid 2% Oint) 1 ea TOP Q6H PRN PRN Reason: Pain, severe (8-10) Last Admin: 08/23/16 05:34 Dose: 1 ea Non-Formulary Medication (Fluticasone Propionate [Flovent Diskus]) 0 mcg IH BID [facility] Last Admin: 08/22/16 18:23 Dose: Not Given Ondansetron HCl (Zofran Inj) 4 mg IVP Q4H PRN PRN Reason: Nausea/Vomiting Last Admin: 08/22/16 11:45 Dose: 4 mg Pantoprazole Sodium (Protonix Inj) 40 mg IVP Q12 [facility] Last Admin: 08/23/16 11:08 Dose: 40 mg Potassium Chloride (K-Dur 20 Meq Er Tab) 20 meq PO BRK [facility] Last Admin: 08/23/16 10:55 Dose: Not Given Pramipexole Dihydrochloride (Mirapex) 0.125 mg PO DAILY [facility] Last Admin: 08/23/16 11:07 Dose: Not Given Tiotropium [place] (Spiriva) 18 mcg IH DAILY [facility] Last Admin: 08/22/16 11:37 Dose: 18 mcg Tramadol/Acetaminophen (Ultracet 37.5/325 Mg) 1 tab PO Q4H PRN PRN Reason: Pain Last Admin: 08/23/16 06:33 Dose: 1 tab - Labs Labs: 08/23/16 05:30 08/23/16 05:30 PT 11.3 Seconds (9.9-11.8) 08/22/16 07:40 INR 1.05 (0.93-1.08) 08/22/16 07:40 APTT 23.9 Seconds (23.7-30.8) 08/22/16 07:40
--- NOTE | 2016-08-23 15:13 | PN ---
DATE: 08/23/2016 REASON FOR THE CONSULTATION: Non-ST segment myocardial infarction, status post rapid response, moved to ICU. BRIEF CLINICAL HISTORY: This is an 80-year-old female with colon mass, is status post celiotomy and a postop troponin is positive. The patient complained last night of abdominal pain, chest pain, moved to ICU with significant T-inversion noted anteriorly, which is not present. Currently, the patient is awake and alert. Denies any chest pain, but felt mild abdominal and chest discomfort. PHYSICAL EXAMINATION: As follows, VITAL SIGNS: Temperature afebrile, heart rate 97, blood pressure 127/78. HEENT: PERRLA, EOM intact. NECK: Supple. No carotid bruit or thyromegaly. CHEST: Clear to auscultation. HEART: S1 and S2, regular. ABDOMEN: Soft. EXTREMITIES: Clubbing, cyanosis negative. LABORATORY DATA: WBC 7.8, hemoglobin *------*, hematocrit 32.2, platelet count 164. Chemistry shows sodium 134, potassium 4.4, chloride of 102, *------*, anion gap of 13, BUN 20, creatinine 1.02, total protein 5, albumin 2.5, albumin globulin ratio 1. Troponin 0.38, maximum troponin 0.32, BNP 3300, troponin is trending up. IMPRESSION: Status post rapid response, status post chest pain, abdominal pain, non-ST segment myocardial infarction, T-wave inversion in inferior lead, status post exploratory laparotomy, recent surgery for colonic mass, emphysema, high lipid, hypothyroidism. Last night, the patient did chest CT, negative for PE. Recommended to keep n.p.o. Give the Plavix, aspirin. We will consider cardiac catheterization. Discussed with the patient and the patient agreed. The patient is complaining of a burning pain, epigastric abdominal pain going to the chest, possible angina. Further recommendation after cardiac catheterization. If needed, probably we will put bare-metal stent. We will keep n.p.o. for now. Further recommendation after cardiac catheterization. Thank you Dr. Davis for the opportunity in taking care of the patient. We will follow with you. Kemar Quach MD cc: Dr. Viktor Davis
[2016-08-23] MEDS ORDERED: Sodium Chloride 0.9% 1,000 ML IV SCH (15:15)
--- NOTE | 2016-08-23 17:45 | CARD ---
APPROVED REPORT Procedure(s) performed: Left Heart Catheterization HISTORY The patient is a 80 year-old female with a history of : Hx of Ca colon S/p resection post op NSTEMI, and had rapid response b/c of chest pain, tachycardia ST T changes and upgraded to ICU.. INDICATION The indication(s) include : non-STEMI . CASE TECHNIQUE The patient was brought urgently to the Cardiac Catheterization Laboratory in a fasting state and was prepped and draped in a sterile manner. The right femoral groin was infiltrated with 2% Lidocaine subcutaneous anesthesia. A 6 fR kuldeep sheath was inserted into the right femoral artery without difficulty. Coronary angiography was performed using coronary diagnostic catheters. The left coronary system was accessed and visualized with a Diagnostic , JL3.5 5Fr catheter. The right coronary system was accessed and visualized with a Diagnostic ,JR 3.5, 5Fr catheter. The left ventricle was accessed and visualized with a pig tail catheter. Left ventricular/Aortic Valve gradient assessed on pullback. Left ventriculogram was performed in LYNN projection. Closure device was deployed with a 6 Fr Mynx without any complications. The patient tolerated the procedure well and there were no complications associated with the procedure. Vessel Analysis The patient's coronary anatomy is right dominant. The left main coronary artery is a large size vessel with diffuse calcification noted throughout this vessel and without significant stenosis. The left main bifurcates to the left anterior descending and circumflex. The left anterior descending artery is a medium size vessel with diffuse calcification noted throughout this vessel and without significant stenosis. very tortous vessel The first diagonal branch is a medium size vessel with diffuse calcification noted throughout this vessel and without significant stenosis. The circumflex artery is a medium size vessel with diffuse calcification noted throughout this vessel and without significant stenosis. Very tortous vessel The first obtuse marginal branch is a medium size vessel with diffuse calcification noted throughout this vessel and without significant stenosis. The right coronary artery is a large size vessel with diffuse calcification noted throughout this vessel and without significant stenosis. The right posterior descending artery is a medium size vessel with diffuse calcification noted throughout this vessel and without significant stenosis. Left Ventricle The left ventricle is normal in size with normal contractility. There was no cardiomyopathy. The left ventricular ejection fraction is estimated to be 65%. The left ventricular end diastolic pressure is 14 mmHg. There was no gradient across the aortic valve upon pullback. 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 EF-65%, EDP-14 mmof hg. Positive troponin Post op, possible secondary to henodynamic instability. Recommendations Aggressive Medical Therapy Add ASa and beta peter. Cc; Dr. Davis/ [place]
[2016-08-23 19:26] LABS: TROPONIN I 0.17 ng/mL
--- NOTE | 2016-08-23 20:41 | CARD ---
APPROVED REPORT EKG Measurement Heart [id number] <Conclusion> Sinus tachycardia T wave abnormality, consider lateral ischemia Abnormal ECG
--- NOTE | 2016-08-23 20:55 | CARD ---
APPROVED REPORT EKG Measurement Heart [id number] [id number] <Conclusion> Normal sinus rhythm T wave abnormality, consider lateral ischemia Abnormal ECG
[2016-08-23 23:05] LABS: MEAN CELL VOLUME 91.5 fL (80.0-105.0); MEAN CORPUSCULAR HEMOGLOBIN 30.4 pg (25.0-35.0); MEAN CORPUSCULAR HGB CONC 33.2 g/dl (31.0-37.0); MEAN PLATELET VOLUME 9.6 fl (7.0-11.0); RBC 3.29 10^6/uL (3.5-6.1); RED CELL DISTRIBUTION WIDTH 14.6 % (11.5-14.5); WHITE BLOOD COUNT 9.2 10^3/ul (4.5-11.0)
[2016-08-24] MEDS ORDERED: Morphine 2 mg/ml ISec IVP ONE (02:11)
--- NOTE | 2016-08-24 03:00 | PN ---
ADDENDUM DATE: 08/23/2016 SUBJECTIVE: This patient was seen and evaluated earlier. This is an addendum to the GI progress report dictated by WILMAN Green. Status post cardiac cath today. Normal coronaries on cardiac cath today. The patient is on aspirin and Plavix. Hemoglobin today is 10.5, remains more stable. Status post right hemicolectomy. Continue with PPI. The patient did have an upper GI endoscopy done 6 months ago that is negative. Thank you very much for allowing us to participate in the care of this patient. Joseline Sierra MD
[2016-08-24 05:56] LABS: BASO # 0.01 K/mm3 (0.0-2.0); BASO % 0.1 % (0.0-3.0); EOS # 0.1 (0.0-0.7); EOS % 0.6 % (1.5-5.0); GRAN # 5.43 (1.4-6.5); HEMOGLOBIN 10.2 gm/dL (12.0-16.0); LYMPH # 1.8 (1.2-3.4); LYMPH % 22.3 % (22.0-35.0); MEAN CELL VOLUME 92.1 fL (80.0-105.0); MEAN CORPUSCULAR HEMOGLOBIN 29.9 pg (25.0-35.0); MEAN CORPUSCULAR HGB CONC 32.5 g/dl (31.0-37.0); MEAN PLATELET VOLUME 9.3 fl (7.0-11.0); MONO # 0.8 (0.1-0.6); PLATELET COUNT 190 10^3/uL (120.0-450.0); RBC 3.41 10^6/uL (3.5-6.1); RED CELL DISTRIBUTION WIDTH 14.8 % (11.5-14.5); WHITE BLOOD COUNT 8.1 10^3/ul (4.5-11.0)
[2016-08-24 06:15] LABS: ALB/GLOB RATIO 1.1 (1.1-1.8); ALBUMIN 2.6 g/dL (3.0-4.8); CALCIUM 8.1 mg/dL (8.4-10.5)
[2016-08-24 06:51] LABS: TROPONIN I 0.15 ng/mL
[2016-08-24] MEDS: Arformoterol 15 mcg/2 ml Inh Sol IH SCH (07:17)
[2016-08-24] MEDS: Budesonide 0.5 mg/2 ml Inhal Susp UD IH SCH ×2 (07:17→20:47)
[2016-08-24] MEDS ORDERED: Sodium Chloride 0.9% 500 ML IV STA (08:12)
[2016-08-24] MEDS: Levothyroxine 50 MCG TAB PO SCH ×2 (09:59→10:47)
[2016-08-24] MEDS: Tiotropium 18 mcg Cap For Inhalation IH SCH (10:28)
--- NOTE | 2016-08-24 11:48 | PN ---
DATE: 08/24/2016 SUBJECTIVE: The patient is seen and examined at bedside. She feels comfortable. She talks in full sentences. She is not in respiratory or otherwise distress. She does have a discomfort associated with being in the bed most of the time. She is alert and oriented x 3. PHYSICAL EXAMINATION: VITAL SIGNS: Heart rate of 111, blood pressure of 116/72, respiratory rate of 13, and oxygen saturation of 95% on room air. HEENT: Head and neck atraumatic. LUNGS: Clear to auscultation bilaterally. HEART: Regular rate and rhythm. S1 and S2 normal. ABDOMEN: Soft, nontender and nondistended. BALAJI has 30 mL of serous fluid output over the last 12 hours (overnight). No tenderness even in the periumbilical area. MUSCULOSKELETAL: No C/C/E. NEUROLOGIC: The patient moves all extremities spontaneously. SKIN: Moist. PSYCHIATRIC: The patient is alert and oriented x3. LABORATORY DATA: WBC of 8.1, hemoglobin of 10.2, and platelet count of 190. Sodium of 131, potassium of 4.8, chloride of 99, carbon dioxide of 23, BUN of 52, and creatinine of 1.2. Troponin of 0.15 down from 0.17. Pro-BNP is 16,100. DIAGNOSTIC DATA: Of note, CAT scan of the chest performed 2 days ago did not reveal any PE. MEDICATIONS: CPM, aspirin, Lipitor, budesonide, calcitonin, isosorbide mononitrate, Xopenex p.r.n., Synthroid, meclizine, metoprolol 25 mg p.o. t.i.d., Singulair, Zofran p.r.n., Protonix, Mirapex, tiotropium, acetaminophen, and tramadol. ASSESSMENT AND PLAN: This is an 80-year-old lady who presented to ICU with troponin and electrocardiogram changes and some epigastric/chest pain. Subsequent coronary angiography revealed "clear" coronaries. Plavix and therapeutic anticoagulation was stopped. At the present time, the patient hemodynamically relatively stable except for mild tachycardia. Her abdominal exam is benign. Her BALAJI drain is substantially decreased and become more serous than serosanguineous. Her creatinine is slightly increased and I will start patient on statins/NAC/IVF for [place]ER[place]. I would maintain thin balance between fluid overloading the patient and preventing kidney hypoperfusion. I will continue with out of bed to chair, incentive spirometry chest PT, physical therapy, bronchodilators, pulmonary toilet, deep venous thrombosis and gastrointestinal prophylaxis. Cardiology service want to continue beta-blockers and baby aspirin. ccm time 40 min Alex Vázquez MD MTDD
--- NOTE | 2016-08-24 11:55 | CP.PCM.PN ---
Subjective - Date & Time of Evaluation Date of Evaluation: 08/24/16 Time of Evaluation: 11:51 - Subjective Subjective: General Surgery - Dr. Davis Pt S&E. Pt had 1 episode of vomiting overnight after receiving regular diet. Otherwise she denies any complaints. Pt denies any abdominal pain, F/C, SOB/ Cp. Stoney drain in RLQ w/ serous drainage, 30cc/12hrs. Objective - Vital Signs/Intake and Output Vital Signs (last 24 hours): Temp Pulse Resp BP Pulse Ox 98.2 F 113 H 18 113/62 93 L 08/24/16 07:57 08/24/16 10:05 08/24/16 10:05 08/24/16 09:58 08/24/16 10:23 Intake and Output: 08/24/16 08/24/16 06:59 18:59 Intake Total 1196 Output Total 25 Balance 1171 - Medications Medications: Current Medications Acetylcysteine (Acetylcysteine 20%) 3 ml PO BID [facility] Aspirin (Ecotrin) 81 mg PO DAILY [facility] Last Admin: 08/24/16 09:59 Dose: 81 mg Atorvastatin Calcium (Lipitor) 20 mg PO DIN [facility] Last Admin: 08/22/16 18:00 Dose: 20 mg Budesonide (Pulmicort Respules) 0.5 mg IH BIDRESP [facility] Last Admin: 08/24/16 07:17 Dose: 0.5 mg Calcitonin [place] (Miacalcin) 200 iu NS DAILY [facility] Last Admin: 08/22/16 11:00 Dose: 1 spr Home Med (Home Med) 1 unit INH BID [facility] Last Admin: 08/22/16 18:23 Dose: Not Given Amino Acids/Electrolytes/Dextrose (Clinimix 4.25/5 % "E" (2000 Ml)) 2,000 mls @ 83 mls/hr IV .Q24H [facility] Stop: 08/25/16 17:59 Last Admin: 08/23/16 18:12 Dose: 83 mls/hr Isosorbide Mononitrate (Imdur) 30 mg PO DAILY [facility] Last Admin: 08/23/16 10:55 Dose: Not Given Levalbuterol HCl (Xopenex) 0.63 mg IH [id number] PRN PRN Reason: Shortness of Breath Levothyroxine Sodium (Synthroid) 50 mcg PO DAILY [facility] Last Admin: 08/24/16 10:47 Dose: 50 mcg Meclizine HCl (Antivert) 12.5 mg PO TID PRN PRN Reason: Dizziness Last Admin: 08/18/16 10:39 Dose: 12.5 mg Montelukast Sodium (Singulair) 10 mg PO HS [facility] Last Admin: 08/23/16 22:00 Dose: Not Given Ondansetron HCl (Zofran Inj) 4 mg IVP Q4H PRN PRN Reason: Nausea/Vomiting Last Admin: 08/24/16 02:20 Dose: 4 mg Pantoprazole Sodium (Protonix Inj) 40 mg IVP Q12 [facility] Last Admin: 08/24/16 10:01 Dose: 40 mg Potassium Chloride (K-Dur 20 Meq Er Tab) 20 meq PO BRK [facility] Last Admin: 08/23/16 10:55 Dose: Not Given Pramipexole Dihydrochloride (Mirapex) 0.125 mg PO DAILY [facility] Last Admin: 08/24/16 10:00 Dose: 0.125 mg Propranolol HCl (Inderal) 20 mg PO TID [facility] Last Admin: 08/24/16 09:58 Dose: 20 mg Tiotropium [place] (Spiriva) 18 mcg IH DAILY [facility] Last Admin: 08/22/16 11:37 Dose: 18 mcg Tramadol/Acetaminophen (Ultracet 37.5/325 Mg) 1 tab PO Q4H PRN PRN Reason: Pain Last Admin: 08/23/16 16:27 Dose: 1 tab - Labs Labs: 08/24/16 05:30 08/24/16 05:30 PT 11.3 Seconds (9.9-11.8) 08/22/16 07:40 INR 1.05 (0.93-1.08) 08/22/16 07:40 APTT 23.9 Seconds (23.7-30.8) 08/22/16 07:40 - Constitutional Appears: No Acute Distress - Head Exam Head Exam: ATRAUMATIC, NORMAL INSPECTION, NORMOCEPHALIC - Eye Exam Eye Exam: Normal appearance - Respiratory Exam Respiratory Exam: NORMAL BREATHING PATTERN. absent: Respiratory Distress - Cardiovascular Exam Cardiovascular Exam: Tachycardia - GI/Abdominal Exam GI & Abdominal Exam: Distended (mild), Soft. absent: Guarding, Tenderness, Rebound Additional comments: midline incision C/D/I with ben - Neurological Exam Neurological Exam: Alert, Oriented x3 - Psychiatric Exam Psychiatric exam: Normal Affect, Normal Mood - Skin Skin Exam: Dry, Intact Assessment and Plan - Assessment and Plan (Free Text) Assessment: 80F s/p R. Hemicolectomy POD 7 with post op AK, s/p cath 08/23 Plan: - Clear liquid diet until pt is tolerating, then may advance slowly to regular - Cont care as per cardiology and ICU teams - Encourage IS and OOB to chair CHUNG Tuttle PGY3
--- NOTE | 2016-08-24 13:40 | CP.PCM.PN ---
Subjective - Date & Time of Evaluation Date of Evaluation: 08/24/16 Time of Evaluation: 07:35 - Subjective Subjective: Patient seen and examined at bedside. Does not complain of epigastric pain today. Nurse reports that patient did not have any CP, SOB, nausea overnight. Objective - Vital Signs/Intake and Output Vital Signs (last 24 hours): Temp Pulse Resp BP Pulse Ox 98.2 F 85 17 126/65 93 L 08/24/16 07:57 08/24/16 13:14 08/24/16 12:11 08/24/16 12:11 08/24/16 12:11 Intake and Output: 08/24/16 08/24/16 06:59 18:59 Intake Total 1196 1196 Output Total 25 700 Balance 1171 496 - Medications Medications: Current Medications Acetylcysteine (Acetylcysteine 20%) 3 ml PO BID [facility] Aspirin (Ecotrin) 81 mg PO DAILY [facility] Last Admin: 08/24/16 09:59 Dose: 81 mg Atorvastatin Calcium (Lipitor) 20 mg PO DIN [facility] Last Admin: 08/22/16 18:00 Dose: 20 mg Budesonide (Pulmicort Respules) 0.5 mg IH BIDRESP [facility] Last Admin: 08/24/16 07:17 Dose: 0.5 mg Calcitonin [place] (Miacalcin) 200 iu NS DAILY [facility] Last Admin: 08/22/16 11:00 Dose: 1 spr Home Med (Home Med) 1 unit INH BID [facility] Last Admin: 08/22/16 18:23 Dose: Not Given Amino Acids/Electrolytes/Dextrose (Clinimix 4.25/5 % "E" (2000 Ml)) 2,000 mls @ 83 mls/hr IV .Q24H [facility] Stop: 08/25/16 17:59 Last Admin: 08/23/16 18:12 Dose: 83 mls/hr Isosorbide Mononitrate (Imdur) 30 mg PO DAILY [facility] Last Admin: 08/24/16 10:00 Dose: Not Given Levalbuterol HCl (Xopenex) 0.63 mg IH [id number] PRN PRN Reason: Shortness of Breath Levothyroxine Sodium (Synthroid) 50 mcg PO DAILY [facility] Last Admin: 08/24/16 10:47 Dose: 50 mcg Meclizine HCl (Antivert) 12.5 mg PO TID PRN PRN Reason: Dizziness Last Admin: 08/18/16 10:39 Dose: 12.5 mg Montelukast Sodium (Singulair) 10 mg PO HS [facility] Last Admin: 08/23/16 22:00 Dose: Not Given Ondansetron HCl (Zofran Inj) 4 mg IVP Q4H PRN PRN Reason: Nausea/Vomiting Last Admin: 08/24/16 02:20 Dose: 4 mg Pantoprazole Sodium (Protonix Inj) 40 mg IVP Q12 [facility] Last Admin: 08/24/16 10:01 Dose: 40 mg Potassium Chloride (K-Dur 20 Meq Er Tab) 20 meq PO BRK [facility] Last Admin: 08/23/16 10:55 Dose: Not Given Pramipexole Dihydrochloride (Mirapex) 0.125 mg PO DAILY [facility] Last Admin: 08/24/16 10:00 Dose: 0.125 mg Propranolol HCl (Inderal) 20 mg PO TID [facility] Last Admin: 08/24/16 09:58 Dose: 20 mg Tiotropium [place] (Spiriva) 18 mcg IH DAILY [facility] Last Admin: 08/24/16 10:28 Dose: 18 mcg Tramadol/Acetaminophen (Ultracet 37.5/325 Mg) 1 tab PO Q4H PRN PRN Reason: Pain Last Admin: 08/23/16 16:27 Dose: 1 tab - Labs Labs: 08/24/16 05:30 08/24/16 05:30 PT 11.3 Seconds (9.9-11.8) 08/22/16 07:40 INR 1.05 (0.93-1.08) 08/22/16 07:40 APTT 23.9 Seconds (23.7-30.8) 08/22/16 07:40 - Constitutional Appears: No Acute Distress, Other (frail) - Head Exam Head Exam: ATRAUMATIC, NORMOCEPHALIC - Eye Exam Eye Exam: EOMI, Normal appearance. absent: Conjunctival injection Pupil Exam: PERRL - ENT Exam ENT Exam: Mucous Membranes Moist - Respiratory Exam Respiratory Exam: Clear to Ausculation Bilateral, NORMAL BREATHING PATTERN - Cardiovascular Exam Cardiovascular Exam: REGULAR RHYTHM, +S1, +S2 Additional comments: Patient's tachycardia has resolved - GI/Abdominal Exam Additional comments: deferred - Rectal Exam Rectal Exam: Deferred - Neurological Exam Neurological Exam: Alert, Oriented x3 - Psychiatric Exam Psychiatric exam: Normal Affect, Normal Mood - Skin Skin Exam: Dry, Intact Additional comments: thin, pale Assessment and Plan - Assessment and Plan (Free Text) Assessment: 80 yo female with history of COPD, s/p right hemicolectomy (POD #7) admitted to the ICU for NSTEMI-elevated troponins with high risk for bleeding. Neuro: Alert and oriented x3, will maintain normothermia Cardiology: Cardiac Catherization showed diffuse calcifications seen throughout the coronary arteries, without stenosis, and preserved EF of 65%. B-blockers and ASA recommended per Cardiology. Elevated troponins, tachycardia, and SOB of unknown etiology in a post- operative patient warrants further diagnostic testing. To R/O PE a Bedside POC US was performed that did not show signs suggestive of PE/right heart strain. Duplex US of LE also ordered to assess for DVT/VTE. Other causes could be tachycardia-induced myocardial ischemia, would recommended rate-control measures as well as discontinuing LABA. The tachycardia in and of itself may be due to vagal nerve derangement given a celiotomy was performed with the right hemicolectomy, unlikely, but mentionable cause. Otherwise, will continue to maintain O2 saturation> 90%, control non-cardiogenic chest pain and admit patient to telemetry for cardiac monitoring. [id number]-type [employer] tripled as did the BUN. Renal related, not indicative of a change in cardiac status/myocardial ischemia/ or sudden onset HF. Patient has preserved EF of 65%. Pulmonology: CTA for PE performed on 08/22 showed no evidence of PE, but did reveal new bilateral pleural effusions and bilateral lower lung consolidation. Witheld LABA, will continue Levalbuterol. PFT also ordered to assess the degree / severity of the patients underlying respiratory condition. GI: Continue with therapeutic dosage of Protonix. GI and surgical team are following closely. Nephrology: Contrast-induced LEXII, will administer IVF/N-acetylcysteine/statin. PE protocol and cardiac catherization cumulative dose of radiocontrast must be considered. Heme: Discussed anticoagulation with PGY-2, Dr. Yuriy King. We will hold DVT prophylaxis at this time. Anemia, stable but will continue to monitor with daily H/H given patient is in the post-operative setting. DVT prophylaxis with Sequential Compression Device ID: No leukocytosis or fever, will continue to monitor. Psychiatric: Patient is of appropriate mood and affect. Disposition: Patient transferred to Telemetry for cardiac monitoring.
--- NOTE | 2016-08-24 15:36 | CP.PCM.PN ---
Subjective - Date & Time of Evaluation Date of Evaluation: 08/24/16 Time of Evaluation: 15:30 - Subjective Subjective: mild nausea, no vomiting, denies cp, no sob Objective - Vital Signs/Intake and Output Vital Signs (last 24 hours): Temp Pulse Resp BP Pulse Ox 98.2 F 91 H 16 114/79 96 08/24/16 07:57 08/24/16 14:11 08/24/16 14:11 08/24/16 14:11 08/24/16 14:11 Intake and Output: 08/24/16 08/24/16 06:59 18:59 Intake Total 1196 1196 Output Total 25 700 Balance 1171 496 - Medications Medications: Current Medications Acetylcysteine (Acetylcysteine 20%) 3 ml PO BID [facility] Aspirin (Ecotrin) 81 mg PO DAILY [facility] Last Admin: 08/24/16 09:59 Dose: 81 mg Atorvastatin Calcium (Lipitor) 20 mg PO DIN [facility] Last Admin: 08/22/16 18:00 Dose: 20 mg Budesonide (Pulmicort Respules) 0.5 mg IH BIDRESP [facility] Last Admin: 08/24/16 07:17 Dose: 0.5 mg Calcitonin [place] (Miacalcin) 200 iu NS DAILY [facility] Last Admin: 08/22/16 11:00 Dose: 1 spr Home Med (Home Med) 1 unit INH BID [facility] Last Admin: 08/22/16 18:23 Dose: Not Given Amino Acids/Electrolytes/Dextrose (Clinimix 4.25/5 % "E" (2000 Ml)) 2,000 mls @ 83 mls/hr IV .Q24H [facility] Stop: 08/25/16 17:59 Last Admin: 08/23/16 18:12 Dose: 83 mls/hr Isosorbide Mononitrate (Imdur) 30 mg PO DAILY [facility] Last Admin: 08/24/16 10:00 Dose: Not Given Levalbuterol HCl (Xopenex) 0.63 mg IH [id number] PRN PRN Reason: Shortness of Breath Levothyroxine Sodium (Synthroid) 50 mcg PO DAILY [facility] Last Admin: 08/24/16 10:47 Dose: 50 mcg Meclizine HCl (Antivert) 12.5 mg PO TID PRN PRN Reason: Dizziness Last Admin: 08/18/16 10:39 Dose: 12.5 mg Montelukast Sodium (Singulair) 10 mg PO HS [facility] Last Admin: 08/23/16 22:00 Dose: Not Given Ondansetron HCl (Zofran Inj) 4 mg IVP Q4H PRN PRN Reason: Nausea/Vomiting Last Admin: 08/24/16 02:20 Dose: 4 mg Pantoprazole Sodium (Protonix Inj) 40 mg IVP Q12 [facility] Last Admin: 08/24/16 10:01 Dose: 40 mg Potassium Chloride (K-Dur 20 Meq Er Tab) 20 meq PO BRK [facility] Last Admin: 08/23/16 10:55 Dose: Not Given Pramipexole Dihydrochloride (Mirapex) 0.125 mg PO DAILY [facility] Last Admin: 08/24/16 10:00 Dose: 0.125 mg Propranolol HCl (Inderal) 20 mg PO TID [facility] Last Admin: 08/24/16 09:58 Dose: 20 mg Tiotropium [place] (Spiriva) 18 mcg IH DAILY [facility] Last Admin: 08/24/16 10:28 Dose: 18 mcg Tramadol/Acetaminophen (Ultracet 37.5/325 Mg) 1 tab PO Q4H PRN PRN Reason: Pain Last Admin: 08/23/16 16:27 Dose: 1 tab - Labs Labs: 08/24/16 05:30 08/24/16 05:30 PT 11.3 Seconds (9.9-11.8) 08/22/16 07:40 INR 1.05 (0.93-1.08) 08/22/16 07:40 APTT 23.9 Seconds (23.7-30.8) 08/22/16 07:40 - Respiratory Exam Respiratory Exam: Decreased Breath Sounds, Prolonged Expiratory Phase - Cardiovascular Exam Cardiovascular Exam: Tachycardia, REGULAR RHYTHM - GI/Abdominal Exam GI & Abdominal Exam: Soft, Normal Bowel Sounds - Extremities Exam Extremities Exam: Normal Inspection - Neurological Exam Neurological Exam: Alert, Awake - Skin Skin Exam: Dry, Warm Assessment and Plan (1) Adenocarcinoma of colon Status: Acute (2) COPD (chronic obstructive pulmonary disease) Status: Acute (3) Acute coronary syndrome Status: Acute (4) Cardiomyopathy Status: Acute - Assessment and Plan (Free Text) Plan: continue post-op ICU monitoring
[2016-08-24] MEDS: TraMADol/Apap 37.5/325 mg Tab PO PRN (15:49)
--- NOTE | 2016-08-24 16:53 | US ---
HISTORY: Leg pain and swelling. Evaluate for DVT PHYSICIAN(S): Armand Infante MD. TECHNIQUE: Duplex sonography and color-flow Doppler with graded compression were used to evaluate the deep venous systems of both lower extremities. FINDINGS: The visualized deep venous systems of both lower extremities are sonographically normal and compressible. Normal wave forms and augmentation are seen. There is no sonographic evidence for deep venous thrombosis in the visualized segments of both lower extremities. There is a 4.6 x 6 cm hypoechoic collection in the left groin. This could represent hematoma post catheterization IMPRESSION: No sonographic evidence for deep venous thrombosis in the visualized segments of both lower extremities.
--- NOTE | 2016-08-24 17:02 | CP.PCM.PN ---
Subjective - Date & Time of Evaluation Date of Evaluation: 08/24/16 Time of Evaluation: 10:30 - Subjective Subjective: Weight Up 11#/? Overhydrated/BUN doubled 28 to 52(R/O UGI Bleeding) Objective - Vital Signs/Intake and Output Vital Signs (last 24 hours): Temp Pulse Resp BP Pulse Ox 97.5 F L 85 17 132/73 94 L 08/24/16 16:00 08/24/16 16:00 08/24/16 16:00 08/24/16 16:00 08/24/16 16:00 Intake and Output: 08/24/16 08/24/16 06:59 18:59 Intake Total 1196 1796 Output Total 25 1100 Balance 1171 696 - Medications Medications: Current Medications Acetylcysteine (Acetylcysteine 20%) 3 ml PO BID [facility] Aspirin (Ecotrin) 81 mg PO DAILY [facility] Last Admin: 08/24/16 09:59 Dose: 81 mg Atorvastatin Calcium (Lipitor) 20 mg PO DIN [facility] Last Admin: 08/22/16 18:00 Dose: 20 mg Budesonide (Pulmicort Respules) 0.5 mg IH BIDRESP [facility] Last Admin: 08/24/16 07:17 Dose: 0.5 mg Calcitonin [place] (Miacalcin) 200 iu NS DAILY [facility] Last Admin: 08/22/16 11:00 Dose: 1 spr Home Med (Home Med) 1 unit INH BID [facility] Last Admin: 08/22/16 18:23 Dose: Not Given Amino Acids/Electrolytes/Dextrose (Clinimix 4.25/5 % "E" (2000 Ml)) 2,000 mls @ 83 mls/hr IV .Q24H [facility] Stop: 08/25/16 17:59 Last Admin: 08/23/16 18:12 Dose: 83 mls/hr Isosorbide Mononitrate (Imdur) 30 mg PO DAILY [facility] Last Admin: 08/24/16 10:00 Dose: Not Given Levalbuterol HCl (Xopenex) 0.63 mg IH [id number] PRN PRN Reason: Shortness of Breath Levothyroxine Sodium (Synthroid) 50 mcg PO DAILY [facility] Last Admin: 08/24/16 10:47 Dose: 50 mcg Meclizine HCl (Antivert) 12.5 mg PO TID PRN PRN Reason: Dizziness Last Admin: 08/18/16 10:39 Dose: 12.5 mg Montelukast Sodium (Singulair) 10 mg PO HS [facility] Last Admin: 08/23/16 22:00 Dose: Not Given Ondansetron HCl (Zofran Inj) 4 mg IVP Q4H PRN PRN Reason: Nausea/Vomiting Last Admin: 08/24/16 02:20 Dose: 4 mg Pantoprazole Sodium (Protonix Inj) 40 mg IVP Q12 [facility] Last Admin: 08/24/16 10:01 Dose: 40 mg Potassium Chloride (K-Dur 20 Meq Er Tab) 20 meq PO BRK [facility] Last Admin: 08/23/16 10:55 Dose: Not Given Pramipexole Dihydrochloride (Mirapex) 0.125 mg PO DAILY [facility] Last Admin: 08/24/16 10:00 Dose: 0.125 mg Propranolol HCl (Inderal) 20 mg PO TID [facility] Last Admin: 08/24/16 15:51 Dose: 20 mg Tiotropium [place] (Spiriva) 18 mcg IH DAILY [facility] Last Admin: 08/24/16 10:28 Dose: 18 mcg Tramadol/Acetaminophen (Ultracet 37.5/325 Mg) 1 tab PO Q4H PRN PRN Reason: Pain Last Admin: 08/24/16 15:49 Dose: 1 tab - Labs Labs: 08/24/16 05:30 08/24/16 05:30 PT 11.3 Seconds (9.9-11.8) 08/22/16 07:40 INR 1.05 (0.93-1.08) 08/22/16 07:40 APTT 23.9 Seconds (23.7-30.8) 08/22/16 07:40 Assessment and Plan - Assessment and Plan (Free Text) Plan: Rx Decrease IV/OOB ambulating/BID Prophylaxix PPI/HOLD Heparin
--- NOTE | 2016-08-24 17:16 | PN ---
DATE OF SERVICE: REASON FOR CONSULTATION: Followup non-ST segment myocardial infarction, status post rapid response, status post colostomy. BRIEF CLINICAL HISTORY: This is an 80-year-old female with a colonic mass status post celiotomy and postop colectomy. The patient developed non-ST segment myocardial infraction, chest pain, abdominal pain, had a rapid response and was tachycardiac. Next morning, the patient was taken to tag and label cutter, found to be nonobstructive coronary artery disease. The patient feels okay, but still is tachycardic. Denies any chest pain, abdominal pain, or shortness of breath. PHYSICAL EXAMINATION: As follows; VITAL SIGNS: Temperature afebrile, heart rate 130, and blood pressure 116/72. HEENT: PERRLA. Extraocular muscles intact. NECK: Supple. No carotid thyromegaly. CHEST: Clear to auscultation. HEART: S1 and S2, regular. ABDOMEN: Soft. EXTREMITIES: Clubbing, cyanosis negative. LABORATORY DATA: Blood workup as follows; WBC 8.1, hemoglobin 10.8, hematocrit 31.4, platelet count 190. Chemistry shows sodium of 131, potassium 4.8, chloride 99, carbon dioxide 33, anion gap of 14, BUN 52, and creatinine 1.2. Troponin trended to down 0.18. BNP 21147. The patient has sinus tachycardia, rule out hyperthyroidism *------* multifactorial anemia, postop pain. Also, the patient getting a Duoneb nebulizer treatment status post cardiac catheterization and absolute normal coronaries, preserved LV function. Protein calorie malnutrition, moderate, albumin is 2.6. This protein calorie malnutrition was not present on admission. ASSESSMENT: Anemia, colon cancer status post celiotomy as well as right hemicolectomy, status post packed red blood cell transfusion. RECOMMENDATION: Discontinue metoprolol, start propranolol 20 mg three times a day. Discontinue nebulizer treatment. Duoneb nebulizer change to Xopenex. We will get EKG, get a TSH level, transfer to telemetry, not a candidate to med/surg because her heart rate is 130, very fragile lady. We will transfer to telemetry. We will discuss with Dr. Huff and Dr. Vázquez. Monitor electrolytes. Monitor blood workup. Though patient have elevated BMP, but it could be secondary to low albumin level as well. Decrease plasma oncotic pressure. The patient is a prerenal azotemic. We will not follow the number and do not treat aggressively with Lasix for elevated BNP. Continue baby aspirin. We will get the lipid profile tomorrow for continuation of atorvastatin. For now, we will continue atorvastatin. We will check the lipid profile tomorrow. Continue PPN. We will follow. We will get echo to assess her valvular function and mitral regurgitation for elevated BNP. We will add magnesium level and magnesium phosphate and lipid profile and hemoglobin A1c for tomorrow. Thank you Dr. Huff for opportunity in taking care of Petra Turpin. Kemar Quach MD
--- NOTE | 2016-08-24 19:17 | CARD ---
APPROVED REPORT EKG Measurement Heart [id number] <Conclusion> Atrial fibrillation with rapid ventricular response ST & T wave abnormality, consider lateral ischemia or digitalis effect Abnormal ECG
--- NOTE | 2016-08-24 20:24 | PN ---
DATE: 08/24/2016 SUBJECTIVE: Seen and examined at the bedside earlier today. No acute overnight events reported. The patient denies any shortness of breath; feeling better; no reports of any nausea, vomiting or abdominal pain. She went for cardiac cath yesterday and reported clear coronaries. VITAL SIGNS: Temperature is 98.2, blood pressure is 113/65, her pulse rate is 97, respirations 18, 97% O2 saturation. LABORATORY DATA: WBC is 8.1, H and H are 10.2 and 31.4; platelets are 190. Sodium is 131, potassium is 4.8, BUN is 52, creatinine is 1.2. LFTs are within normal limits. Her troponin is 0.15, yesterday evening this was 0.17. BNP is 16,100. The patient has TSH level with 4.35. PHYSICAL EXAMINATION: HEENT: Sclerae are anicteric. NECK: Supple. CARDIAC: S1 and S2. LUNGS: Sounds with decreased breath sounds, but good air entry. No rales or wheeze. ABDOMEN: With bowel sounds; soft; nondistended; nontender. BALAJI drain in place with about 35 mL of drainage. Midline incision is clean and dry. NEUROLOGIC: Awake, alert, and oriented. ASSESSMENT: This is an 80-year-old female with a history of colon cancer, status post right hemicolectomy; complains of chest pains and shortness of breath. The patient has a CT angio, which was negative for a pulmonary embolism. She was found to have elevated troponins, status post cardiac catheterization yesterday, which showed normal coronaries. Other comorbidities are chronic obstructive pulmonary disease and anemia. PLAN: The patient's aspirin and Plavix have been stopped. She had a negative cardiac catheterization. She is on a regular diet as per surgery. Monitor H and H. She is noted to have elevated BNP. Continue PPI. She is currently on PPN. The patient is maintained on aspirin. She is off Plavix. Zofran p.r.n., nausea and has been placed on Inderal. The patient was seen and case discussed with Dr. Sierra. WILMAN Green [facility] # [id number]
[2016-08-25 06:03] LABS: BASO # 0.01 K/mm3 (0.0-2.0); BASO % 0.2 % (0.0-3.0); EOS # 0.1 (0.0-0.7); EOS % 1.1 % (1.5-5.0); GRAN # 3.53 (1.4-6.5); GRAN % 64.7 % (50.0-68.0); LYMPH # 1.2 (1.2-3.4); LYMPH % 22.3 % (22.0-35.0); MEAN CELL VOLUME 92.9 fL (80.0-105.0); MEAN CORPUSCULAR HEMOGLOBIN 30.6 pg (25.0-35.0); MONO # 0.6 (0.1-0.6); MONO % 11.7 % (1.0-6.0); PLATELET COUNT 197 10^3/uL (120.0-450.0); RBC 2.94 10^6/uL (3.5-6.1); RED CELL DISTRIBUTION WIDTH 14.5 % (11.5-14.5); WHITE BLOOD COUNT 5.5 10^3/ul (4.5-11.0)
[2016-08-25 06:48] LABS: ALBUMIN 2.3 g/dL (3.0-4.8); ALT/SGPT 21 U/L (7-56); AST/SGOT 28 U/L (15-39); BLOOD UREA NITROGEN 50 mg/dL (7-21); CALCIUM 7.8 mg/dL (8.4-10.5); GFR AFRICAN-AMERICAN > 60; GFR NON-AFRICAN AMERICAN 60; HDL CHOLESTEROL 42 mg/dL (29-60); MAGNESIUM 2.1 mg/dL (1.7-2.2)
[2016-08-25 06:53] LABS: B-TYPE NATRIURETIC PEPTIDE 9960 pg/mL (0-450)
[2016-08-25 07:01] LABS: LDL CHOLESTEROL 37 mg/dL (0-129)
[2016-08-25] MEDS: Budesonide 0.5 mg/2 ml Inhal Susp UD IH SCH ×2 (07:24→20:54)
[2016-08-25] MEDS: Levalbuterol 0.63 MG/3 ML Inhal Soln UD IH PRN ×2 (07:24→20:54)
--- NOTE | 2016-08-25 07:49 | CP.PCM.PN ---
Subjective - Date & Time of Evaluation Date of Evaluation: 08/25/16 Time of Evaluation: 07:00 - Subjective Subjective: General Surgery Progress note- Dr. Davis Pt S&E. Pt having dark stool per rectum. No bright red blood. currently on TPN. Otherwise she denies any complaints. Pt denies any abdominal pain, F/C, SOB/Cp. Objective - Vital Signs/Intake and Output Vital Signs (last 24 hours): Temp Pulse Resp BP Pulse Ox 98.6 F 72 20 104/57 L 95 08/25/16 06:00 08/25/16 06:00 08/25/16 06:00 08/25/16 06:00 08/25/16 06:00 Intake and Output: 08/25/16 08/25/16 06:59 18:59 Intake Total 830 Output Total 400 Balance 430 - Medications Medications: Current Medications Acetylcysteine (Acetylcysteine 20%) 3 ml PO BID [facility] Aspirin (Ecotrin) 81 mg PO DAILY [facility] Last Admin: 08/24/16 09:59 Dose: 81 mg Atorvastatin Calcium (Lipitor) 20 mg PO DIN [facility] Last Admin: 08/24/16 17:42 Dose: 20 mg Budesonide (Pulmicort Respules) 0.5 mg IH BIDRESP [facility] Last Admin: 08/25/16 07:24 Dose: 0.5 mg Calcitonin [place] (Miacalcin) 200 iu NS DAILY [facility] Last Admin: 08/22/16 11:00 Dose: 1 spr Home Med (Home Med) 1 unit INH BID [facility] Last Admin: 08/22/16 18:23 Dose: Not Given Amino Acids/Electrolytes/Dextrose (Clinimix 4.25/5 % "E" (2000 Ml)) 2,000 mls @ 83 mls/hr IV .Q24H [facility] Stop: 08/25/16 17:59 Last Admin: 08/24/16 18:40 Dose: 83 mls/hr Isosorbide Mononitrate (Imdur) 30 mg PO DAILY [facility] Last Admin: 08/24/16 10:00 Dose: Not Given Levalbuterol HCl (Xopenex) 0.63 mg IH [id number] PRN PRN Reason: Shortness of Breath Last Admin: 08/25/16 07:24 Dose: 0.63 mg Levothyroxine Sodium (Synthroid) 50 mcg PO DAILY [facility] Last Admin: 08/24/16 10:47 Dose: 50 mcg Meclizine HCl (Antivert) 12.5 mg PO TID PRN PRN Reason: Dizziness Last Admin: 08/18/16 10:39 Dose: 12.5 mg Montelukast Sodium (Singulair) 10 mg PO HS [facility] Last Admin: 08/24/16 23:22 Dose: 10 mg Ondansetron HCl (Zofran Inj) 4 mg IVP Q4H PRN PRN Reason: Nausea/Vomiting Last Admin: 08/24/16 21:32 Dose: 4 mg Pantoprazole Sodium (Protonix Inj) 40 mg IVP Q12 [facility] Last Admin: 08/24/16 21:32 Dose: 40 mg Potassium Chloride (K-Dur 20 Meq Er Tab) 20 meq PO BRK [facility] Last Admin: 08/23/16 10:55 Dose: Not Given Pramipexole Dihydrochloride (Mirapex) 0.125 mg PO DAILY [facility] Last Admin: 08/24/16 10:00 Dose: 0.125 mg Propranolol HCl (Inderal) 20 mg PO TID [facility] Last Admin: 08/24/16 17:35 Dose: 20 mg Tiotropium [place] (Spiriva) 18 mcg IH DAILY [facility] Last Admin: 08/24/16 10:28 Dose: 18 mcg Tramadol/Acetaminophen (Ultracet 37.5/325 Mg) 1 tab PO Q4H PRN PRN Reason: Pain Last Admin: 08/24/16 15:49 Dose: 1 tab - Labs Labs: 08/25/16 05:20 08/25/16 05:20 PT 11.3 Seconds (9.9-11.8) 08/22/16 07:40 INR 1.05 (0.93-1.08) 08/22/16 07:40 APTT 23.9 Seconds (23.7-30.8) 08/22/16 07:40 - Constitutional Appears: Non-toxic, In Acute Distress - Respiratory Exam Respiratory Exam: NORMAL BREATHING PATTERN. absent: Accessory Muscle Use - Cardiovascular Exam Cardiovascular Exam: REGULAR RHYTHM, +S1 - GI/Abdominal Exam GI & Abdominal Exam: Soft, Normal Bowel Sounds. absent: Distended - Rectal Exam Rectal Exam: Black Stool - Neurological Exam Neurological Exam: Awake, Oriented x3 - Psychiatric Exam Psychiatric exam: Normal Mood - Skin Skin Exam: Normal Color Assessment and Plan - Assessment and Plan (Free Text) Assessment: 80F s/p R. Hemicolectomy POD8, negative cardiac cath Plan: - Hg dropped from 10.2 to 9.0. Transfuse 1u PRBC - encourage OOB and IC - continue medical management - further recs Per Dr. Star Fernandez PGY1
[2016-08-25] MEDS: Levothyroxine 50 MCG TAB PO SCH (10:19)
[2016-08-25] MEDS: Acetylcysteine 20% Inhal Soln (4ml) PO SCH ×2 (10:23→17:55)
[2016-08-25] MEDS: Tiotropium 18 mcg Cap For Inhalation IH SCH (10:24)
[2016-08-25] MEDS: FLOVENT INH SCH ×2 (10:27→17:48)
[2016-08-25] MEDS: Calcitonin 200 Int Units/Inh Nasal Spray (3.7 ml) NS SCH ×2 (12:01→12:23)
[2016-08-25] MEDS: TraMADol/Apap 37.5/325 mg Tab PO PRN ×2 (12:19→22:11)
--- NOTE | 2016-08-25 13:58 | CP.PCM.PN ---
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, denies abd pain Objective - Vital Signs/Intake and Output Vital Signs (last 24 hours): Temp Pulse Resp BP Pulse Ox 97.3 F L 66 18 115/52 L 95 08/25/16 12:00 08/25/16 12:00 08/25/16 12:00 08/25/16 12:00 08/25/16 06:00 Intake and Output: 08/25/16 08/25/16 06:59 18:59 Intake Total 830 Output Total 400 Balance 430 - Medications Medications: Current Medications Acetylcysteine (Acetylcysteine 20%) 3 ml PO BID [facility] Last Admin: 08/25/16 10:23 Dose: 3 ml Aspirin (Ecotrin) 81 mg PO DAILY [facility] Last Admin: 08/25/16 10:22 Dose: 81 mg Budesonide (Pulmicort Respules) 0.5 mg IH BIDRESP [facility] Last Admin: 08/25/16 07:24 Dose: 0.5 mg Calcitonin [place] (Miacalcin) 200 iu NS DAILY [facility] Last Admin: 08/25/16 12:23 Dose: 1 spr Home Med (Home Med) 1 unit INH BID [facility] Last Admin: 08/25/16 10:27 Dose: Not Given Amino Acids/Electrolytes/Dextrose (Clinimix 4.25/5 % "E" (2000 Ml)) 2,000 mls @ 83 mls/hr IV .Q24H [facility] Stop: 08/25/16 17:59 Last Admin: 08/24/16 18:40 Dose: 83 mls/hr Isosorbide Mononitrate (Imdur) 30 mg PO DAILY [facility] Last Admin: 08/25/16 10:26 Dose: 30 mg Levalbuterol HCl (Xopenex) 0.63 mg IH [id number] PRN PRN Reason: Shortness of Breath Last Admin: 08/25/16 07:24 Dose: 0.63 mg Levothyroxine Sodium (Synthroid) 50 mcg PO DAILY [facility] Last Admin: 08/25/16 10:19 Dose: 50 mcg Meclizine HCl (Antivert) 12.5 mg PO TID PRN PRN Reason: Dizziness Last Admin: 08/18/16 10:39 Dose: 12.5 mg Montelukast Sodium (Singulair) 10 mg PO HS [facility] Last Admin: 08/24/16 23:22 Dose: 10 mg Ondansetron HCl (Zofran Inj) 4 mg IVP Q4H PRN PRN Reason: Nausea/Vomiting Last Admin: 08/24/16 21:32 Dose: 4 mg Pantoprazole Sodium (Protonix Inj) 40 mg IVP Q12 [facility] Last Admin: 08/25/16 10:22 Dose: 40 mg Potassium Chloride (K-Dur 20 Meq Er Tab) 20 meq PO BRK [facility] Last Admin: 08/23/16 10:55 Dose: Not Given Pramipexole Dihydrochloride (Mirapex) 0.125 mg PO DAILY [facility] Last Admin: 08/25/16 12:00 Dose: 0.125 mg Propranolol HCl (Inderal) 20 mg PO TID [facility] Last Admin: 08/25/16 10:26 Dose: 20 mg Tiotropium [place] (Spiriva) 18 mcg IH DAILY [facility] Last Admin: 08/25/16 10:24 Dose: 18 mcg Tramadol/Acetaminophen (Ultracet 37.5/325 Mg) 1 tab PO Q4H PRN PRN Reason: Pain Last Admin: 08/25/16 12:19 Dose: 1 tab - Labs Labs: 08/25/16 05:20 08/25/16 05:20 PT 11.3 Seconds (9.9-11.8) 08/22/16 07:40 INR 1.05 (0.93-1.08) 08/22/16 07:40 APTT 23.9 Seconds (23.7-30.8) 08/22/16 07:40 - Respiratory Exam Respiratory Exam: Clear to Ausculation Bilateral, NORMAL BREATHING PATTERN - Cardiovascular Exam Cardiovascular Exam: REGULAR RHYTHM - GI/Abdominal Exam GI & Abdominal Exam: Soft, Normal Bowel Sounds - Extremities Exam Extremities Exam: Normal Inspection - Neurological Exam Neurological Exam: Alert, Awake, Oriented x3 - Skin Skin Exam: Dry, Warm Assessment and Plan (1) Adenocarcinoma of colon Status: Acute (2) COPD (chronic obstructive pulmonary disease) Status: Acute (3) Acute coronary syndrome Status: Acute (4) Cardiomyopathy Status: Acute - Assessment and Plan (Free Text) Plan: PT, SW for d/c planning, continue post-op care, monitor lytes
--- NOTE | 2016-08-25 14:00 | PN ---
DATE: 08/25/2016 REASON FOR CONSULTATION: Followup for non-ST segment myocardial infarction, status post rapid response, status post colostomy. BRIEF CLINICAL HISTORY: An 80-year-old female with a past medical history significant for chronic *------*, status post celiotomy and right hemicolectomy, postop complicated by non-ST segment myocardial infarction with acute coronary artery disease. The patient underwent cardiac catheterization that revealed normal coronaries. The patient denies any chest pain, shortness of breath, any palpitation. PHYSICAL EXAMINATION: VITAL SIGNS: Temperature afebrile, heart rate 72, blood pressure 104/50. HEENT: PERRLA. EOMs intact. NECK: Supple. No carotid bruits or thyromegaly. CHEST: Clear to auscultation. HEART: S1 and S2, regular. ABDOMEN: Soft. EXTREMITIES: Clubbing and cyanosis negative. LABORATORY DATA: Blood workup as follows; WBC 5.5, hemoglobin 9, hemoglobin 27.3, platelet count 197. Chemistry show a sodium of 130, potassium 4.5, chloride 102, carbon dioxide 24, anion gap of 9, BUN 15, creatinine 0.9. BNP 9960. IMPRESSION: Albumin 2.8, which is consistent with [id number] protein-calorie malnutrition, which was not present on admission, anemia, stage I colon cancer, status post right hemicolectomy; [id number] myocardial infarction, status post myocardial infarction postop; tachycardia, status post cardiac catheterization, nonobstructive coronary artery disease, essentially normal, tachycardia resolved. RECOMMENDATION: Continue to hold nebulizer treatment, p.r.n. Xopenex. Continue beta-peter, rate is well controlled. Echo briefly reviewed, looks like anterolateral wall hypokinesis, could be manifestation of early Takotsubo syndrome. Continue beta peter, increase nutritional support. Continue propranolol; increase nutritional support; continue PPM, we will repeat a MUGA scan in a day or two. We will follow up with you. As of this morning, triglyceride is 154, total cholesterol 105, LDL 37, HDL 42. If low cholesterol and low LDL level, we will discontinue atorvastatin. In case of this report, we will follow with you. Repeat the lytes in the morning. Thank you Dr. Davis for opportunity in taking of this patient. Kemar Quach MD [facility] # [id number]
--- NOTE | 2016-08-25 14:28 | PN ---
DATE: 08/25/2016 GI FOLLOWUP NOTE SUBJECTIVE: Seen and examined at the bedside earlier today. She did have last night some nausea and episode of vomiting, what appeared to be bile. No coffee-ground vomitus or bright red blood. She feels okay this morning. No shortness of breadth. The chest pain is better, but occasionally has the patient states, status post cardiac catheterization that was negative. No other acute events overnight. She did report bowel movement. No reports of diarrhea. PHYSICAL EXAMINATION: VITAL SIGNS: Temperature 98.6, blood pressure 104/57, pulse 72, respirations 20, 95% O2 saturation. LABORATORY DATA: WBC is 5.5, H&H is 9.0 and 27.3, platelets is 197. Sodium 130, K 4.5, BUN 50, creatinine is 0.9. Total bilirubin is 0.2. LFTs are within normal limit. BNP has improved, it is 9960. She went for extremity ultrasound yesterday and this was negative for any DVT in the lower both extremities. PHYSICAL EXAMINATION: HEENT: Sclerae are anicteric. NECK: Supple. CARDIAC: S1 and S2. LUNGS: Sounds with decreased breath sounds, but good air entry. No rales or wheeze. ABDOMEN: With bowel sounds; soft, nontender. Her incision, ben is dry and intact. The BALAJI was removed yesterday. ASSESSMENT: An 81-year-old female with history of colon cancer status post right hemicolectomy. She was complaining of chest pains and shortness of breath. She was found to have elevated troponin, had cardiac catheterization which showed normal coronaries, also history of anemia and chronic obstructive pulmonary disease. She also had history of 9 cm large common hiatus hernia. PLAN: We will change diet to a soft low residual diet. Continue GI prophylaxis, she is on TPN. Monitor H&H and electrolytes. The patient is on Imdur, Zofran p.r.n. We will follow up. The patient was seen and case discussed with Dr. Sierra. WILMAN Green
--- NOTE | 2016-08-25 15:44 | PCM.OP ---
Operative Report - Operative Report Date of Surgery/Procedure: 08/17/16 Time of Surgery/Procedure: 00:00 Surgeon: Viktor Davis MD Guest Room Inspector: Darcie Gonzalez, Nima Plummer Anesthesia/Sedation: Dr. Yair NAYLOR (Anesthesia general endotracheal-on queue catheter) Pre-Operative Diagnosis: Right colon carcinoma with bleeding-anemia; Moderate COPD Post-Operative Diagnosis: Right colon carcinoma with bleeding-anemia; Moderate COPD; pathology pending Indication for Surgery: Patient is an 80 year old female with moderate COPD restricting her activity to less than one half of a flight of stairs. Over the past several months she has noted progressive weakness. Underlying blood testing found to have a hemoglobin of 6.6. She was transfused. Recommended and underwent colonoscopy confirming a right colon carcinoma that was bleeding (2.3cm) lesion. Post colonoscopy she underwent CAT scanning and PET scanning demonstrating that there is no evidence of any metastasis. The patient has been referred by her private physician Dr. Juliano Griffith to the surgeon whose advice was elective resection of the tumor. The patient' pulmonary history was obtained from [place] [employer] Dr. Santillan and demonstrating significant improvement in her pulmonary function from 2012 to 2016. She's brought to the hospital one day early with transfusion as her hemoglobin was 9 on the last count and to complete a bowel preparation which is almost impossible for this patient to do at home. She's been medically cleared by her private physician. The risks, benefits, alternatives, and anticipated outcomes have been discussed with the patient and she is fully aware that she may have a pulmonary problem requiring prolonged respiratory support post- operatively and is anticipating and prepared for this. Operative Findings: small r colon tumor Procedure/Operation Description: 1. exploratory laparotomy with lysis of adhesions. 2. Right hemicolectomy with anastomosis. 3. Insertion of an on queue catheter (pain management post operative). The patient is brought to the operating room from the holding area. She is identified by her wristband. Undergoes time out procedure and is placed on the table in a supine manner. Following the induction of general anesthesia and the insertion of an endotracheal tube sequential compression devices are placed on her lower extremeties for venous thrombal embolism prophylaxis and a Chow catheter is inserted. . The abdomen is prepped with hibiclens chlorhexidin preparation and the patient is in aseptic drape. . Midline incision is made from the epigastrium down past the umbilicus and sharp dissection carrying us through the subcutaneous tissue through the midline raphe into the peritoneal cavity. Hemostasis is now contained with electrocoagulating cautering and adhesions from the previous appendectomy in the right lower quadrant are sharply lysed and hemostasis contained. . Complete exploration of the abdomen demonstrates a small lesion in the ascending colon, no visible adenopathy or evidence of metastasis and a right hemicolectomy is now performed. . The terminal ileum is transected with a capillary YOSHI stapeler as is the transverse colon just past the hepatic flexure. The intervening meso of the right colon is transected using Lygasure device and the intervening segment of terminal ileum and right colon and hepatic flexure are submitted to pathology informal and for permanent section analysis. . The terminal ileum and transverse colon are secured with 300 muscular silk sutures enterotomies are placed and the GI stapler is inserted , fired, and anastomosis is secured and the suture line examined after removal of the stapling devices. The defect is now closed with Allis clamps and the TA60 stapler and the meso between the terminal ileum and transverse colon is closed with running locking 20 chromic catgut suture. The abdomen is now washed with normal saline solution and clorpactin until the return is clear and a Stoney 15 Divehi drain is inserted through the abdominal wall in the right gut and pelvis and secured with 2-0 surgery dacron polyester sutures. . The peritoneum and posterier fascia are closed with running 2-0 polysorb sutures and an on queue is placed with specific intention of inserting the catheter and introducer in the preperitoneal position below the abdominal wall musculature. . The catheters are inserted the introducer is removed and the catheters were inserted through the upper end of the incision and secured with steri strips and dermabond adhesive. The catheters are now flushed with bupivicaine solution and will be attached to the infusion punp at the end of the procedure. . The anterior abdominal wall is now closed with a double stranded number one PDS suture in a continuous manner. The subcutaneous space is now washed with clorpactin solution, aspirated, and hemostasis is contained. Interrupted 3-0 polysorb sutures are employed and the skin is closed with the autosuture skin stapler. . A dry dressing is applied, the patient is awaken, and she is expidited and she is transported to the recovery room is a satisfactory condition. Her vital signs and respiratory status are satisfactory and it is anticipated the patient will need intensive care monitoring over night because of the possibility of respiratory embarrasment and subsequent faliure. At this point the intensive care physician was notified, releases the bed following the recovery room and will come and see the patient. . The Stoney drain is draining approximately 40cc's of blood and approximately 50 were seen during the procedure. It is anticipated that the retroperitoneal oozing at this point may hold off on subcutaneous heparin prophylaxis or DVT treatments. It is advisable at this point to continue the antibiotics for two additional doses in a prophylactic manner and leave the Chow catheter in for the first 48 hours due to the patient's frail state approximately (4'8", 81lbs). . The surgical assistants were present throughout the procedure from beginning to end and were exremely valuable in helping with the dissection and the anastomosis as well as performing significant exposure during the dissection allowing for an expiditious procedure such that the patient has minimal anesthesia time in the operating room. Estimated Blood Loss: 60cc Blood Replaced: 0 Sponge/Instrument Count: ok Drains: stoney Complications: 0 Specimen: r colon Discharge & Condition: fair-no respirator reqd
--- NOTE | 2016-08-25 16:42 | CARD ---
APPROVED REPORT EXAM: Two-dimensional and M-mode echocardiogram with Doppler and color Doppler. INDICATION LV Function:SystolicDiastolic EF 2D DIMENSIONS Left Atrium (2D)3.4 (1.6-4.0cm)IVSd0.9 (0.7-1.1cm) LVDd4.0 (3.9-5.9cm)PWd0.9 (0.7-1.1cm) M-Mode DIMENSIONS Aortic Root3.20 (2.2-3.7cm)Aortic Cusp Exc.1.50 (1.5-2.0cm) Aortic Valve AoV Peak Epfvkufw205.0cm/Concepcion Peak GR.11mmHgAI P 1/2 Iadh511vy Mitral Valve MV E Znpcmljo56.1cm/sMV A Kvzjdqzz554.0cm/sE/A ratio0.5 TDI E/Lateral E'0.0E/Medial E'0.0 Tricuspid Valve TR Peak Zxbjbxpg753bf/sRAP [id number] Peak Gr.31mmHg [id number] LEFT VENTRICLE The left ventricle is normal size. There is normal left ventricular wall thickness. The systolic function is moderately impaired.EF-35-% There is mild to moderate hypokinesis in the apical anterior wall. Transmitral Doppler flow pattern is Grade III-reversible restrictive diastolic dysfunction. No left ventricle thrombus noted on this study. There is no ventricular septal defect visualized. There is no left ventricular aneurysm. There is no mass noted in the left ventricle. RIGHT VENTRICLE The right ventricle is normal size. There is normal right ventricular wall thickness. The right ventricular systolic function is normal. ATRIA The left atrium size is normal. The right atrium size is normal. The interatrial septum is intact with no evidence for an atrial septal defect. AORTIC VALVE The aortic valve is thickened but opens well. There is moderate aortic regurgitation. There is no aortic valvular stenosis. There is no aortic valvular vegetation. MITRAL VALVE The mitral valve is thickened but opens well. Mitral annular calcification is mild. Mitral regurgitation is mild. There is no mitral valve stenosis. There is no evidence of mitral valve prolapse. TRICUSPID VALVE The tricuspid valve leaflets are thickened or calcified, but open well. There is mild tricuspid regurgitation.RVSP-41 mmof hg. There is no tricuspid valve stenosis. There is no tricuspid valve prolapse or vegetation. PULMONIC VALVE The pulmonic valve is mildly thickened. There is trace to mild pulmonic valvular regurgitation. There is no pulmonic valvular stenosis. GREAT VESSELS The aortic root is normal in size. The ascending aorta is normal in size. The pulmonary artery is normal. The IVC is normal in size and collapses >50% with inspiration. PERICARDIAL EFFUSION There is no pleural effusion. There is no pericardial effusion. <Conclusion> The left ventricle is normal size. There is normal left ventricular wall thickness. The systolic function is moderately impaired.EF-35-% There is moderate aortic regurgitation. There is no aortic valvular stenosis. Mitral regurgitation is mild. There is mild tricuspid regurgitation.RVSP-41 mmof hg. There is trace to mild pulmonic valvular regurgitation. The IVC is normal in size and collapses >50% with inspiration. There is no pericardial effusion. No Vegetation or thrombus noted.
--- NOTE | 2016-08-25 16:43 | CP.PCM.PN ---
Subjective - Date & Time of Evaluation Date of Evaluation: 08/25/16 Time of Evaluation: 16:20 - Subjective Subjective: Patient has very poor veins,she needs iv access Objective - Vital Signs/Intake and Output Vital Signs (last 24 hours): Temp Pulse Resp BP Pulse Ox 97.3 F L 66 18 98/51 L 95 08/25/16 12:00 08/25/16 12:00 08/25/16 12:00 08/25/16 14:29 08/25/16 06:00 Intake and Output: 08/25/16 08/25/16 06:59 18:59 Intake Total 830 Output Total 400 Balance 430 - Medications Medications: Current Medications Acetylcysteine (Acetylcysteine 20%) 3 ml PO BID [facility] Last Admin: 08/25/16 10:23 Dose: 3 ml Aspirin (Ecotrin) 81 mg PO DAILY [facility] Last Admin: 08/25/16 10:22 Dose: 81 mg Budesonide (Pulmicort Respules) 0.5 mg IH BIDRESP [facility] Last Admin: 08/25/16 07:24 Dose: 0.5 mg Calcitonin [place] (Miacalcin) 200 iu NS DAILY [facility] Last Admin: 08/25/16 12:23 Dose: 1 spr Home Med (Home Med) 1 unit INH BID [facility] Last Admin: 08/25/16 10:27 Dose: Not Given Amino Acids/Electrolytes/Dextrose (Clinimix 4.25/5 % "E" (2000 Ml)) 2,000 mls @ 83 mls/hr IV .Q24H [facility] Stop: 08/25/16 17:59 Last Admin: 08/24/16 18:40 Dose: 83 mls/hr Isosorbide Mononitrate (Imdur) 30 mg PO DAILY [facility] Last Admin: 08/25/16 10:26 Dose: 30 mg Levalbuterol HCl (Xopenex) 0.63 mg IH [id number] PRN PRN Reason: Shortness of Breath Last Admin: 08/25/16 07:24 Dose: 0.63 mg Levothyroxine Sodium (Synthroid) 50 mcg PO DAILY [facility] Last Admin: 08/25/16 10:19 Dose: 50 mcg Meclizine HCl (Antivert) 12.5 mg PO TID PRN PRN Reason: Dizziness Last Admin: 08/18/16 10:39 Dose: 12.5 mg Montelukast Sodium (Singulair) 10 mg PO HS [facility] Last Admin: 08/24/16 23:22 Dose: 10 mg Ondansetron HCl (Zofran Inj) 4 mg IVP Q4H PRN PRN Reason: Nausea/Vomiting Last Admin: 08/24/16 21:32 Dose: 4 mg Pantoprazole Sodium (Protonix Inj) 40 mg IVP Q12 [facility] Last Admin: 08/25/16 10:22 Dose: 40 mg Potassium Chloride (K-Dur 20 Meq Er Tab) 20 meq PO BRK [facility] Last Admin: 08/23/16 10:55 Dose: Not Given Pramipexole Dihydrochloride (Mirapex) 0.125 mg PO DAILY [facility] Last Admin: 08/25/16 12:00 Dose: 0.125 mg Propranolol HCl (Inderal) 20 mg PO TID [facility] Last Admin: 08/25/16 14:29 Dose: Not Given Tiotropium [place] (Spiriva) 18 mcg IH DAILY [facility] Last Admin: 08/25/16 10:24 Dose: 18 mcg Tramadol/Acetaminophen (Ultracet 37.5/325 Mg) 1 tab PO Q4H PRN PRN Reason: Pain Last Admin: 08/25/16 12:19 Dose: 1 tab - Labs Labs: 08/25/16 05:20 08/25/16 05:20 PT 11.3 Seconds (9.9-11.8) 08/22/16 07:40 INR 1.05 (0.93-1.08) 08/22/16 07:40 APTT 23.9 Seconds (23.7-30.8) 08/22/16 07:40 - Constitutional Appears: No Acute Distress Assessment and Plan - Assessment and Plan (Free Text) Assessment: Poor venous access Plan: Hep lock inserted in the R antecubital vein # 24 angiocath used.
--- NOTE | 2016-08-25 21:27 | CP.PCM.PN ---
Subjective - Date & Time of Evaluation Date of Evaluation: 08/25/16 Time of Evaluation: 19:45 - Subjective Subjective: 20 G angiocath inserted in the right EJ, due to poor venous access, for ivf, meds and blood transfusion. Patient tolerated it well, good flow and return noticed. Objective - Vital Signs/Intake and Output Vital Signs (last 24 hours): Temp Pulse Resp BP Pulse Ox 97.7 F 70 18 106/45 L 95 08/25/16 20:55 08/25/16 20:55 08/25/16 20:55 08/25/16 20:55 08/25/16 06:00 Intake and Output: 08/25/16 08/26/16 18:59 06:59 Intake Total 25 375 Balance 25 375 - Medications Medications: Current Medications Acetylcysteine (Acetylcysteine 20%) 3 ml PO BID [facility] Last Admin: 08/25/16 10:23 Dose: 3 ml Aspirin (Ecotrin) 81 mg PO DAILY [facility] Last Admin: 08/25/16 10:22 Dose: 81 mg Budesonide (Pulmicort Respules) 0.5 mg IH BIDRESP [facility] Last Admin: 08/25/16 20:54 Dose: 0.5 mg Calcitonin [place] (Miacalcin) 200 iu NS DAILY [facility] Last Admin: 08/25/16 12:23 Dose: 1 spr Home Med (Home Med) 1 unit INH BID [facility] Last Admin: 08/25/16 17:48 Dose: Not Given Isosorbide Mononitrate (Imdur) 30 mg PO DAILY [facility] Last Admin: 08/25/16 10:26 Dose: 30 mg Levalbuterol HCl (Xopenex) 0.63 mg IH [id number] PRN PRN Reason: Shortness of Breath Last Admin: 08/25/16 20:54 Dose: 0.63 mg Levothyroxine Sodium (Synthroid) 50 mcg PO DAILY [facility] Last Admin: 08/25/16 10:19 Dose: 50 mcg Meclizine HCl (Antivert) 12.5 mg PO TID PRN PRN Reason: Dizziness Last Admin: 08/18/16 10:39 Dose: 12.5 mg Montelukast Sodium (Singulair) 10 mg PO HS [facility] Last Admin: 08/24/16 23:22 Dose: 10 mg Ondansetron HCl (Zofran Inj) 4 mg IVP Q4H PRN PRN Reason: Nausea/Vomiting Last Admin: 08/24/16 21:32 Dose: 4 mg Pantoprazole Sodium (Protonix Inj) 40 mg IVP Q12 [facility] Last Admin: 08/25/16 10:22 Dose: 40 mg Potassium Chloride (K-Dur 20 Meq Er Tab) 20 meq PO BRK [facility] Last Admin: 08/23/16 10:55 Dose: Not Given Pramipexole Dihydrochloride (Mirapex) 0.125 mg PO DAILY [facility] Last Admin: 08/25/16 12:00 Dose: 0.125 mg Propranolol HCl (Inderal) 20 mg PO TID [facility] Last Admin: 08/25/16 17:55 Dose: 20 mg Tiotropium [place] (Spiriva) 18 mcg IH DAILY [facility] Last Admin: 08/25/16 10:24 Dose: 18 mcg Tramadol/Acetaminophen (Ultracet 37.5/325 Mg) 1 tab PO Q4H PRN PRN Reason: Pain Last Admin: 08/25/16 12:19 Dose: 1 tab - Labs Labs: 08/25/16 05:20 08/25/16 05:20 PT 11.3 Seconds (9.9-11.8) 08/22/16 07:40 INR 1.05 (0.93-1.08) 08/22/16 07:40 APTT 23.9 Seconds (23.7-30.8) 08/22/16 07:40
[2016-08-26 05:34] VITALS: O2SAT 94
[2016-08-26 06:21] LABS: ALB/GLOB RATIO 1.1 (1.1-1.8); ALBUMIN 2.4 g/dL (3.0-4.8); ALT/SGPT 20 U/L (7-56); AST/SGOT 40 U/L (15-39); BLOOD UREA NITROGEN 46 mg/dL (7-21); CALCIUM 7.9 mg/dL (8.4-10.5); GFR AFRICAN-AMERICAN > 60; GFR NON-AFRICAN AMERICAN 60
[2016-08-26 06:46] LABS: HEMOGLOBIN 10.3 gm/dL (12.0-16.0); MEAN CELL VOLUME 94.2 fL (80.0-105.0); MEAN CORPUSCULAR HEMOGLOBIN 31.4 pg (25.0-35.0); MEAN CORPUSCULAR HGB CONC 33.3 g/dl (31.0-37.0); MEAN PLATELET VOLUME 9.5 fl (7.0-11.0); PLATELET COUNT 232 10^3/uL (120.0-450.0); RBC 3.28 10^6/uL (3.5-6.1); RED CELL DISTRIBUTION WIDTH 14.3 % (11.5-14.5); WHITE BLOOD COUNT 7.3 10^3/ul (4.5-11.0)
[2016-08-26] MEDS: Budesonide 0.5 mg/2 ml Inhal Susp UD IH SCH (07:35)
--- NOTE | 2016-08-26 08:00 | CP.PCM.PN ---
<Cuong Shah - Last Filed: 08/26/16 07:56> Subjective - Date & Time of Evaluation Date of Evaluation: 08/26/16 Time of Evaluation: 07:56 - Subjective Subjective: General Surgery Note Resident: Alyssa Attending: Ryan HPI: Patient seen and examined at bedside. Doing well with no complaints at this time. States she had a bloody BM last night. She has not been eating much. No pain. -F/N/V/CP/SOB Objective - Vital Signs/Intake and Output Vital Signs (last 24 hours): Temp Pulse Resp BP Pulse Ox 97.4 F L 76 19 93/51 L 94 L 08/26/16 05:33 08/26/16 05:33 08/26/16 05:33 08/26/16 05:33 08/26/16 05:33 Intake and Output: 08/26/16 08/26/16 06:59 18:59 Intake Total 990 Balance 990 - Medications Medications: Current Medications Acetylcysteine (Acetylcysteine 20%) 3 ml PO BID [facility] Last Admin: 08/25/16 17:55 Dose: 3 ml Aspirin (Ecotrin) 81 mg PO DAILY [facility] Last Admin: 08/25/16 10:22 Dose: 81 mg Budesonide (Pulmicort Respules) 0.5 mg IH BIDRESP [facility] Last Admin: 08/26/16 07:35 Dose: 0.5 mg Calcitonin [place] (Miacalcin) 200 iu NS DAILY [facility] Last Admin: 08/25/16 12:23 Dose: 1 spr Home Med (Home Med) 1 unit INH BID [facility] Last Admin: 08/25/16 17:48 Dose: Not Given Isosorbide Mononitrate (Imdur) 30 mg PO DAILY [facility] Last Admin: 08/25/16 10:26 Dose: 30 mg Levalbuterol HCl (Xopenex) 0.63 mg IH [id number] PRN PRN Reason: Shortness of Breath Last Admin: 08/25/16 20:54 Dose: 0.63 mg Levothyroxine Sodium (Synthroid) 50 mcg PO DAILY [facility] Last Admin: 08/25/16 10:19 Dose: 50 mcg Meclizine HCl (Antivert) 12.5 mg PO TID PRN PRN Reason: Dizziness Last Admin: 08/18/16 10:39 Dose: 12.5 mg Montelukast Sodium (Singulair) 10 mg PO HS [facility] Last Admin: 08/25/16 21:33 Dose: 10 mg Ondansetron HCl (Zofran Inj) 4 mg IVP Q4H PRN PRN Reason: Nausea/Vomiting Last Admin: 08/24/16 21:32 Dose: 4 mg Pantoprazole Sodium (Protonix Inj) 40 mg IVP Q12 [facility] Last Admin: 08/25/16 21:33 Dose: 40 mg Pramipexole Dihydrochloride (Mirapex) 0.125 mg PO DAILY [facility] Last Admin: 08/25/16 12:00 Dose: 0.125 mg Propranolol HCl (Inderal) 20 mg PO TID [facility] Last Admin: 08/25/16 17:55 Dose: 20 mg Tiotropium [place] (Spiriva) 18 mcg IH DAILY [facility] Last Admin: 08/25/16 10:24 Dose: 18 mcg Tramadol/Acetaminophen (Ultracet 37.5/325 Mg) 1 tab PO Q4H PRN PRN Reason: Pain Last Admin: 08/25/16 22:11 Dose: 1 tab - Labs Labs: 08/26/16 05:50 08/26/16 05:50 PT 11.3 Seconds (9.9-11.8) 08/22/16 07:40 INR 1.05 (0.93-1.08) 08/22/16 07:40 APTT 23.9 Seconds (23.7-30.8) 08/22/16 07:40 - Constitutional Appears: Well - Head Exam Head Exam: NORMAL INSPECTION - Eye Exam Eye Exam: EOMI - ENT Exam ENT Exam: Mucous Membranes Moist - Respiratory Exam Respiratory Exam: Clear to Ausculation Bilateral - Cardiovascular Exam Cardiovascular Exam: REGULAR RHYTHM - GI/Abdominal Exam GI & Abdominal Exam: Soft. absent: Distended, Firm, Guarding, Tenderness Assessment and Plan - Assessment and Plan (Free Text) Assessment: 80 y/o WF s/p R. Hemicolectomy POD 9 * Consult PT * Ambulate * Monitor for bloody BM * Will discuss with Dr. Ryan Shah DO PGY-1 <Viktor Davis - Last Filed: 08/26/16 11:13> Objective - Vital Signs/Intake and Output Vital Signs (last 24 hours): Temp Pulse Resp BP Pulse Ox 97.4 F L 76 19 93/51 L 94 L 08/26/16 05:33 08/26/16 05:33 08/26/16 05:33 08/26/16 05:33 08/26/16 05:33 Intake and Output: 08/26/16 08/26/16 06:59 18:59 Intake Total 990 Balance 990 - Medications Medications: Current Medications Acetylcysteine (Acetylcysteine 20%) 3 ml PO BID [facility] Last Admin: 08/25/16 17:55 Dose: 3 ml Aspirin (Ecotrin) 81 mg PO DAILY [facility] Last Admin: 08/26/16 10:35 Dose: 81 mg Budesonide (Pulmicort Respules) 0.5 mg IH BIDRESP [facility] Last Admin: 08/26/16 07:35 Dose: 0.5 mg Calcitonin [place] (Miacalcin) 200 iu NS DAILY [facility] Last Admin: 08/25/16 12:23 Dose: 1 spr Home Med (Home Med) 1 unit INH BID [facility] Last Admin: 08/25/16 17:48 Dose: Not Given Isosorbide Mononitrate (Imdur) 30 mg PO DAILY [facility] Last Admin: 08/26/16 10:35 Dose: 30 mg Levalbuterol HCl (Xopenex) 0.63 mg IH [id number] PRN PRN Reason: Shortness of Breath Last Admin: 08/25/16 20:54 Dose: 0.63 mg Levothyroxine Sodium (Synthroid) 50 mcg PO DAILY [facility] Last Admin: 08/26/16 10:35 Dose: 50 mcg Meclizine HCl (Antivert) 12.5 mg PO TID PRN PRN Reason: Dizziness Last Admin: 08/18/16 10:39 Dose: 12.5 mg Montelukast Sodium (Singulair) 10 mg PO HS [facility] Last Admin: 08/25/16 21:33 Dose: 10 mg Ondansetron HCl (Zofran Inj) 4 mg IVP Q4H PRN PRN Reason: Nausea/Vomiting Last Admin: 08/24/16 21:32 Dose: 4 mg Pantoprazole Sodium (Protonix Inj) 40 mg IVP Q12 [facility] Last Admin: 08/26/16 10:34 Dose: 40 mg Pramipexole Dihydrochloride (Mirapex) 0.125 mg PO DAILY [facility] Last Admin: 08/25/16 12:00 Dose: 0.125 mg Propranolol HCl (Inderal) 20 mg PO TID [facility] Last Admin: 08/25/16 17:55 Dose: 20 mg Tiotropium [place] (Spiriva) 18 mcg IH DAILY [facility] Last Admin: 08/25/16 10:24 Dose: 18 mcg Tramadol/Acetaminophen (Ultracet 37.5/325 Mg) 1 tab PO Q4H PRN PRN Reason: Pain Last Admin: 08/25/16 22:11 Dose: 1 tab - Labs Labs: 08/26/16 05:50 08/26/16 10:55 PT 11.3 Seconds (9.9-11.8) 08/22/16 07:40 INR 1.05 (0.93-1.08) 08/22/16 07:40 APTT 23.9 Seconds (23.7-30.8) 08/22/16 07:40 Assessment and Plan - Assessment and Plan (Free Text) Plan: BM without blood this am Bessie diet well Wound/Groin normal K+ 5.3 this am Hgb 10.3 Leonides repeat Lytes/? TRCU if improved(NB K+ stopped) Ulysses Davis MD FACS
[2016-08-26 09:01] LABS: LYMPHOCYTE 23 % (22.0-35.0); MONOCYTE 13 % (1.0-6.0); NEUTROPHIL 64 % (50.0-70.0); PLATELET ESTIMATE NORMAL (NORMAL)
--- NOTE | 2016-08-26 09:26 | CP.PCM.PN ---
<Annamarie Ambrosio - Last Filed: 08/26/16 09:26> Subjective - Date & Time of Evaluation Date of Evaluation: 08/26/16 Time of Evaluation: 08:10 - Subjective Subjective: S&E, chart reviewed, No N/V or abdominal pain. No chest discomfort. Reports BM yesterday, s/p 1 unit PRBC. Denies SOB or chest pain. Objective - Vital Signs/Intake and Output Vital Signs (last 24 hours): Temp Pulse Resp BP Pulse Ox 97.4 F L 76 19 93/51 L 94 L 08/26/16 05:33 08/26/16 05:33 08/26/16 05:33 08/26/16 05:33 08/26/16 05:33 Intake and Output: 08/26/16 08/26/16 06:59 18:59 Intake Total 990 Balance 990 - Medications Medications: Current Medications Acetylcysteine (Acetylcysteine 20%) 3 ml PO BID [facility] Last Admin: 08/25/16 17:55 Dose: 3 ml Aspirin (Ecotrin) 81 mg PO DAILY [facility] Last Admin: 08/25/16 10:22 Dose: 81 mg Budesonide (Pulmicort Respules) 0.5 mg IH BIDRESP [facility] Last Admin: 08/26/16 07:35 Dose: 0.5 mg Calcitonin [place] (Miacalcin) 200 iu NS DAILY [facility] Last Admin: 08/25/16 12:23 Dose: 1 spr Home Med (Home Med) 1 unit INH BID [facility] Last Admin: 08/25/16 17:48 Dose: Not Given Isosorbide Mononitrate (Imdur) 30 mg PO DAILY [facility] Last Admin: 08/25/16 10:26 Dose: 30 mg Levalbuterol HCl (Xopenex) 0.63 mg IH [id number] PRN PRN Reason: Shortness of Breath Last Admin: 08/25/16 20:54 Dose: 0.63 mg Levothyroxine Sodium (Synthroid) 50 mcg PO DAILY [facility] Last Admin: 08/25/16 10:19 Dose: 50 mcg Meclizine HCl (Antivert) 12.5 mg PO TID PRN PRN Reason: Dizziness Last Admin: 08/18/16 10:39 Dose: 12.5 mg Montelukast Sodium (Singulair) 10 mg PO HS [facility] Last Admin: 08/25/16 21:33 Dose: 10 mg Ondansetron HCl (Zofran Inj) 4 mg IVP Q4H PRN PRN Reason: Nausea/Vomiting Last Admin: 08/24/16 21:32 Dose: 4 mg Pantoprazole Sodium (Protonix Inj) 40 mg IVP Q12 [facility] Last Admin: 08/25/16 21:33 Dose: 40 mg Pramipexole Dihydrochloride (Mirapex) 0.125 mg PO DAILY [facility] Last Admin: 08/25/16 12:00 Dose: 0.125 mg Propranolol HCl (Inderal) 20 mg PO TID [facility] Last Admin: 08/25/16 17:55 Dose: 20 mg Tiotropium [place] (Spiriva) 18 mcg IH DAILY [facility] Last Admin: 08/25/16 10:24 Dose: 18 mcg Tramadol/Acetaminophen (Ultracet 37.5/325 Mg) 1 tab PO Q4H PRN PRN Reason: Pain Last Admin: 08/25/16 22:11 Dose: 1 tab - Labs Labs: 08/26/16 05:50 08/26/16 05:50 PT 11.3 Seconds (9.9-11.8) 08/22/16 07:40 INR 1.05 (0.93-1.08) 08/22/16 07:40 APTT 23.9 Seconds (23.7-30.8) 08/22/16 07:40 - Constitutional Appears: No Acute Distress - Head Exam Head Exam: NORMAL INSPECTION - Eye Exam Eye Exam: Normal appearance. absent: Scleral icterus - ENT Exam ENT Exam: Mucous Membranes Moist - Neck Exam Neck Exam: Normal Inspection - Respiratory Exam Respiratory Exam: Decreased Breath Sounds, NORMAL BREATHING PATTERN. absent: Wheezes, Respiratory Distress - Cardiovascular Exam Cardiovascular Exam: +S1 - GI/Abdominal Exam GI & Abdominal Exam: Soft, Normal Bowel Sounds. absent: Distended (incision HEATHER , ben dry and intact.), Guarding, Tenderness, Rebound - Extremities Exam Extremities Exam: absent: Calf Tenderness, Pedal Edema - Neurological Exam Neurological Exam: Alert, Awake, Oriented x3 Assessment and Plan - Assessment and Plan (Free Text) Assessment: ASSESSMENT: An 81-year-old female with history of colon cancer status post right hemicolectomy. 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 Sierra. <Joseline Sierra V - Last Filed: 08/26/16 22:10> Objective - Vital Signs/Intake and Output Vital Signs (last 24 hours): Temp Pulse Resp BP Pulse Ox 98.6 F 81 20 106/58 L 94 L 08/26/16 17:17 08/26/16 17:48 08/26/16 17:17 08/26/16 17:48 08/26/16 05:33 - Labs Labs: 08/26/16 05:50 08/26/16 10:55 PT 11.3 Seconds (9.9-11.8) 08/22/16 07:40 INR 1.05 (0.93-1.08) 08/22/16 07:40 APTT 23.9 Seconds (23.7-30.8) 08/22/16 07:40 Attending/Attestation - Attestation I have personally seen and examined this patient.: Yes I have fully participated in the care of the patient.: Yes I have reviewed all pertinent clinical information, including history, physical exam and plan: Yes Notes (Text): this
--- NOTE | 2016-08-26 09:33 | CP.PCM.PN ---
Subjective - Date & Time of Evaluation Date of Evaluation: 08/26/16 Time of Evaluation: 09:00 - Subjective Subjective: nad, no copper tapper, no sob, no abd pain Objective - Vital Signs/Intake and Output Vital Signs (last 24 hours): Temp Pulse Resp BP Pulse Ox 97.4 F L 76 19 93/51 L 94 L 08/26/16 05:33 08/26/16 05:33 08/26/16 05:33 08/26/16 05:33 08/26/16 05:33 Intake and Output: 08/26/16 08/26/16 06:59 18:59 Intake Total 990 Balance 990 - Medications Medications: Current Medications Acetylcysteine (Acetylcysteine 20%) 3 ml PO BID [facility] Last Admin: 08/25/16 17:55 Dose: 3 ml Aspirin (Ecotrin) 81 mg PO DAILY [facility] Last Admin: 08/25/16 10:22 Dose: 81 mg Budesonide (Pulmicort Respules) 0.5 mg IH BIDRESP [facility] Last Admin: 08/26/16 07:35 Dose: 0.5 mg Calcitonin [place] (Miacalcin) 200 iu NS DAILY [facility] Last Admin: 08/25/16 12:23 Dose: 1 spr Home Med (Home Med) 1 unit INH BID [facility] Last Admin: 08/25/16 17:48 Dose: Not Given Isosorbide Mononitrate (Imdur) 30 mg PO DAILY [facility] Last Admin: 08/25/16 10:26 Dose: 30 mg Levalbuterol HCl (Xopenex) 0.63 mg IH [id number] PRN PRN Reason: Shortness of Breath Last Admin: 08/25/16 20:54 Dose: 0.63 mg Levothyroxine Sodium (Synthroid) 50 mcg PO DAILY [facility] Last Admin: 08/25/16 10:19 Dose: 50 mcg Meclizine HCl (Antivert) 12.5 mg PO TID PRN PRN Reason: Dizziness Last Admin: 08/18/16 10:39 Dose: 12.5 mg Montelukast Sodium (Singulair) 10 mg PO HS [facility] Last Admin: 08/25/16 21:33 Dose: 10 mg Ondansetron HCl (Zofran Inj) 4 mg IVP Q4H PRN PRN Reason: Nausea/Vomiting Last Admin: 08/24/16 21:32 Dose: 4 mg Pantoprazole Sodium (Protonix Inj) 40 mg IVP Q12 [facility] Last Admin: 08/25/16 21:33 Dose: 40 mg Pramipexole Dihydrochloride (Mirapex) 0.125 mg PO DAILY [facility] Last Admin: 08/25/16 12:00 Dose: 0.125 mg Propranolol HCl (Inderal) 20 mg PO TID [facility] Last Admin: 08/25/16 17:55 Dose: 20 mg Tiotropium [place] (Spiriva) 18 mcg IH DAILY [facility] Last Admin: 08/25/16 10:24 Dose: 18 mcg Tramadol/Acetaminophen (Ultracet 37.5/325 Mg) 1 tab PO Q4H PRN PRN Reason: Pain Last Admin: 08/25/16 22:11 Dose: 1 tab - Labs Labs: 08/26/16 05:50 08/26/16 05:50 PT 11.3 Seconds (9.9-11.8) 08/22/16 07:40 INR 1.05 (0.93-1.08) 08/22/16 07:40 APTT 23.9 Seconds (23.7-30.8) 08/22/16 07:40 - Respiratory Exam Respiratory Exam: Clear to Ausculation Bilateral, NORMAL BREATHING PATTERN - Cardiovascular Exam Cardiovascular Exam: REGULAR RHYTHM - GI/Abdominal Exam GI & Abdominal Exam: Soft, Normal Bowel Sounds - Extremities Exam Extremities Exam: Normal Inspection - Neurological Exam Neurological Exam: Alert, Awake, Oriented x3 Assessment and Plan (1) Adenocarcinoma of colon Status: Acute (2) COPD (chronic obstructive pulmonary disease) Status: Acute (3) Acute coronary syndrome Status: Acute (4) Cardiomyopathy Status: Acute (5) Hyperkalemia Status: Acute - Assessment and Plan (Free Text) Plan: monitor K+, PT, SW for dc planning
[2016-08-26] MEDS: Levothyroxine 50 MCG TAB PO SCH (10:35)
[2016-08-26] MEDS: FLOVENT INH SCH (11:00)
[2016-08-26 11:45] VITALS: RESP 20
[2016-08-26] MEDS: Calcitonin 200 Int Units/Inh Nasal Spray (3.7 ml) NS SCH (12:00)
[2016-08-26 17:18] VITALS: BP 106/58; PULSE 81; TEMP 98.6
--- NOTE | 2016-08-26 17:45 | PN ---
REASON FOR CONSULTATION: Followup non-ST segment myocardial infarction, status post rapid response, status post colostomy. BRIEF CLINICAL HISTORY: This is an 80-year-old female with past medical history significant for hypertension, chronic anemia, GI bleed, status post celiotomy and right hemicolectomy for stage I CA colon. Postop course was complicated with non-ST segment myocardial infarction status post rapid response, chest pain. The patient underwent cardiac catheterization which revealed nonobstructive coronary artery disease. Echo shows anterior wall hypokinesis, possible Takotsubo syndrome. The patient now denies any chest pain, shortness of breath, or any palpitation. PHYSICAL EXAMINATION: As follows; VITAL SIGNS: Temperature afebrile, heart rate 76, blood pressure 104/61. HEENT: PERRLA. Extraocular muscles intact. NECK: Supple. No carotid bruits or thyromegaly. CHEST: Clear to auscultation. HEART: S1 and S2, regular. ABDOMEN: Soft. EXTREMITIES: Clubbing and cyanosis negative. LABORATORY DATA: Blood workup as follows: WBC 7 with hemoglobin of 10.8, hematocrit 30.9, platelet count 232. Chemistry shows sodium of 132, potassium 5.3, repeat potassium 4.6, chloride 103, carbon dioxide 23, anion gap of 11, BUN of 46, creatinine 0.9, total protein 4.5, albumin 2.4, albumin-globulin ratio 1.1. IMPRESSION: Protein-calorie malnutrition, which was not present on admission; anemia; stage I colon cancer status post colectomy, celiotomy, and right hemicolectomy. Postop course complicated with non-ST segment myocardial infarction, status post cardiac catheterization with normal coronaries. Echo shows anterior wall hypokinesis suggestive of Takotsubo syndrome possibly this related to stress of surgery. The patient went into *------* Takotsubo syndrome. Echo shows decreased LV function. [place] was not moving. Overall ejection fraction by echo 35%, moderate aortic regurgitation. RECOMMENDATION: We will get a MUGA scan to assess LV function. Continue beta-peter, the patient is a tachycardic so propranolol 20 mg three times a day started. Heart rate is well controlled. We will cut down to 10 mg because of low blood pressure. Increase nutritional support. Clinically, the patient is *------* not in failure, though BNP was elevated, but not in failure. Increase nutritional support as tolerated. We will follow with you. Increase nutritional support. Increase diet as tolerated. We will put Ensure pudding, also increase nutritional support. Possible TCU transfer. We will cut down the metoprolol to three times a day. Follow the MUGA scan when it is done and we will add Ensure pudding. Thank you Dr. Huff for providing the opportunity in taking care of the patient. Kemar Quach MD
[2016-08-26] MEDS: Tiotropium 18 mcg Cap For Inhalation IH SCH (17:54)
[2016-08-26] MEDS: Acetylcysteine 20% Inhal Soln (4ml) PO SCH ×4 (18:00→18:03)
--- NOTE | 2016-08-26 22:28 | CARD ---
APPROVED REPORT INDICATION EVALUATE LV AND RV EF% PROCEDURE The above named patient recieved 25 millicuries of Tc99m tagged red blood cells intravenously. After achieving equilibrium, gated imaging of 16/frame/cycle was performed utillizing Gamma camera interfaced with a digital computer and gated device. Gated imaging was then performed in the left anterior oblique, anterior, and the left lateral projections. Findings Left Ventricle: The quality of the study is good. The left ventricle is mildly enlarged. The right ventricle is normal in size. Wall motion study shows diffuse hypokinesis of the left ventricle. RV wall motion is normal. The right atrium is dynamic. The left atrium is prminent. The remainder of the study is unremarkable. Impressions Mild LV dysfunction with diffuse hypokinesis. LVEF = 43%. LBBB. Normal RV wall motion. Porminent left atrium is suggestive of mitral regurgitaion.
== END 2016-08-26 19:32 | DRG 329 ==
LOC: 3RSO 11:13 → OBSVTOIN 08-17 08:44 → CCU 08-17 15:21 → 3RNO 08-18 18:28 → CCU 08-23 01:12 → 2RNO 08-24 21:09
PROVIDERS: ADMIT Surgery; ATTEND Surgery
PROC: 4A023N7 Measurement of Cardiac Sampling and Pressure, Left Heart, Percutaneous Approach (ICD-10-PCS; 2016-08-23)
PROC: B2111ZZ Fluoroscopy of Multiple Coronary Arteries using Low Osmolar Contrast (ICD-10-PCS; 2016-08-23)
PROC: 0DTF0ZZ Resection of Right Large Intestine, Open Approach (ICD-10-PCS; principal; 2016-08-25)
PROC: 0DNW0ZZ Release Peritoneum, Open Approach (ICD-10-PCS; 2016-08-25)
DX: C18.2 Malignant neoplasm of ascending colon (principal); I21.4 Non-ST elevation (NSTEMI) myocardial infarction; R64 Cachexia; E44.1 Mild protein-calorie malnutrition; I42.9 Cardiomyopathy, unspecified; E87.5 Hyperkalemia; Z68.1 Body mass index [BMI] 19.9 or less, adult; J44.9 Chronic obstructive pulmonary disease, unspecified; K66.0 Peritoneal adhesions (postprocedural) (postinfection); E78.00 Pure hypercholesterolemia, unspecified; E03.9 Hypothyroidism, unspecified; Z85.038 Personal history of other malignant neoplasm of large intestine; M81.0 Age-related osteoporosis without current pathological fracture; M19.90 Unspecified osteoarthritis, unspecified site; K21.9 Gastro-esophageal reflux disease without esophagitis; R00.0 Tachycardia, unspecified; D64.9 Anemia, unspecified

== ENCOUNTER 2016-08-26 20:02 | Inpatient (IN) | payer OTHER, BC ==
[2016-08-26 20:15] VITALS: BMI 22.1
[2016-08-26] MEDS ORDERED: TraMADol/Apap 37.5/325 mg Tab PO PRN (20:28)
[2016-08-27 05:37] VITALS: O2SAT 98
[2016-08-27] MEDS ORDERED: Levothyroxine 50 MCG TAB PO SCH (06:30)
[2016-08-27 07:18] LABS: BASO # 0.01 K/mm3 (0.0-2.0); BASO % 0.1 % (0.0-3.0); EOS # 0.1 (0.0-0.7); EOS % 1.2 % (1.5-5.0); GRAN # 5.23 (1.4-6.5); GRAN % 63.2 % (50.0-68.0); HEMOGLOBIN 9.6 gm/dL (12.0-16.0); MEAN CELL VOLUME 92.4 fL (80.0-105.0); MEAN CORPUSCULAR HEMOGLOBIN 30.6 pg (25.0-35.0); MEAN CORPUSCULAR HGB CONC 33.1 g/dl (31.0-37.0); MEAN PLATELET VOLUME 8.8 fl (7.0-11.0); MONO % 11.5 % (1.0-6.0); PLATELET COUNT 260 10^3/uL (120.0-450.0); RBC 3.14 10^6/uL (3.5-6.1); RED CELL DISTRIBUTION WIDTH 14.5 % (11.5-14.5); WHITE BLOOD COUNT 8.3 10^3/ul (4.5-11.0)
[2016-08-27 07:38] LABS: ALBUMIN 2.3 g/dL (3.0-4.8); ALT/SGPT 21 U/L (7-56); AST/SGOT 26 U/L (15-39); BLOOD UREA NITROGEN 33 mg/dL (7-21); CALCIUM 7.7 mg/dL (8.4-10.5); GFR AFRICAN-AMERICAN > 60; GFR NON-AFRICAN AMERICAN 53
[2016-08-27 07:41] LABS: B-TYPE NATRIURETIC PEPTIDE 5650 pg/mL (0-450)
--- NOTE | 2016-08-27 08:02 | CP.PCM.PN ---
Subjective - Date & Time of Evaluation Date of Evaluation: 08/27/16 Time of Evaluation: 07:44 - Subjective Subjective: General Surgery Progress Note: Resident: Alyssa Attending: Ryan HPI: Patient seen adn examined at bedise. Doing well with no complaints at this time. Denies any belly pain. +flatus/+BM. Bessie. diet. No N/V/SOB/CP. Objective - Vital Signs/Intake and Output Vital Signs (last 24 hours): Temp Pulse Resp BP Pulse Ox 97.8 F 84 20 123/69 98 08/27/16 05:36 08/27/16 05:36 08/27/16 05:36 08/27/16 05:36 08/27/16 05:36 - Medications Medications: Current Medications Acetylcysteine (Acetylcysteine 20%) 3 ml PO BID [facility] Aspirin (Ecotrin) 81 mg PO 0800 [facility] Budesonide (Pulmicort Respules) 0.5 mg IH BID [facility] Calcitonin [place] (Miacalcin) 200 iu NS DAILY [facility] Isosorbide Mononitrate (Imdur) 30 mg PO 0600 [facility] Last Admin: 08/27/16 05:51 Dose: 30 mg Levalbuterol HCl (Xopenex) 0.63 mg IH [id number] PRN PRN Reason: Shortness of Breath Levothyroxine Sodium (Synthroid) 50 mcg PO 0630 [facility] Last Admin: 08/27/16 05:51 Dose: 50 mcg Meclizine HCl (Antivert) 12.5 mg PO TID PRN PRN Reason: Dizziness Montelukast Sodium (Singulair) 10 mg PO HS [facility] Last Admin: 08/26/16 21:38 Dose: 10 mg Ondansetron HCl (Zofran Inj) 4 mg IVP Q4H PRN PRN Reason: Nausea/Vomiting Pantoprazole Sodium (Protonix Ec Tab) 40 mg PO 0600,1600 [facility] Pramipexole Dihydrochloride (Mirapex) 0.125 mg PO DAILY [facility] Propranolol HCl (Inderal) 10 mg PO TID [facility] Tiotropium [place] (Spiriva) 18 mcg IH DAILY [facility] Tramadol/Acetaminophen (Ultracet 37.5/325 Mg) 1 tab PO Q4 PRN PRN Reason: moderate pain - Labs Labs: 08/27/16 06:35 07/21/17 06:35 - Constitutional Appears: Well - Head Exam Head Exam: ATRAUMATIC - Eye Exam Eye Exam: EOMI - ENT Exam ENT Exam: Mucous Membranes Moist - Respiratory Exam Respiratory Exam: Clear to Ausculation Bilateral - Cardiovascular Exam Cardiovascular Exam: REGULAR RHYTHM - GI/Abdominal Exam GI & Abdominal Exam: Soft. absent: Distended, Firm, Tenderness Additional comments: ecchymosis around suprapubic area and femoral cath insertion site Assessment and Plan - Assessment and Plan (Free Text) Assessment: 80 y/o WF s/p R. hemicolectomy POD 10 * In TCU * PT * OOB/ambulate Cuong Shah DO PGY-1
[2016-08-27] MEDS: Budesonide 0.5 mg/2 ml Inhal Susp UD IH SCH ×2 (08:18→19:54)
[2016-08-27] MEDS: Levalbuterol 0.63 MG/3 ML Inhal Soln UD IH PRN ×2 (08:18→19:54)
--- NOTE | 2016-08-27 08:29 | CP.PCM.PCO ---
Physician Communication Note - Physician Communication Note Physician Communication Note: CHF(Takotsubo)/COBPD/PUD-bleed:RX PT/Diet/BID PPI
[2016-08-27] MEDS ORDERED: Acetylcysteine 20% Inhal Soln (4ml) PO SCH (10:00)
[2016-08-27] MEDS ORDERED: Tiotropium 18 mcg Cap For Inhalation IH SCH (10:00)
[2016-08-27] MEDS ORDERED: Calcitonin 200 Int Units/Inh Nasal Spray (3.7 ml) NS SCH (10:00)
[2016-08-27] MEDS ORDERED: Budesonide 0.5 mg/2 ml Inhal Susp UD IH SCH (10:00)
--- NOTE | 2016-08-27 10:57 | CP.PCM.PN ---
<Annamarie Ambrosio - Last Filed: 08/27/16 10:57> Subjective - Date & Time of Evaluation Date of Evaluation: 08/27/16 Time of Evaluation: 09:10 - Subjective Subjective: S&E at bedside in TCU, having BM, no abdominal pain, N/V, SOB or chest pain. Tolerating oral intake. No acute overnight events. Objective - Vital Signs/Intake and Output Vital Signs (last 24 hours): Temp Pulse Resp BP Pulse Ox 97.8 F 84 20 123/69 98 08/27/16 05:36 08/27/16 09:42 08/27/16 05:36 08/27/16 09:42 08/27/16 05:36 Intake and Output: 08/27/16 08/27/16 06:59 18:59 Intake Total 240 Balance 240 - Medications Medications: Current Medications Acetylcysteine (Acetylcysteine 20%) 3 ml PO BID [facility] Aspirin (Ecotrin) 81 mg PO 0800 [facility] Last Admin: 08/27/16 08:42 Dose: 81 mg Budesonide (Pulmicort Respules) 0.5 mg IH 0800,2000 [facility] Last Admin: 08/27/16 08:18 Dose: 0.5 mg Calcitonin [place] (Miacalcin) 200 iu NS DAILY [facility] Isosorbide Mononitrate (Imdur) 30 mg PO 0600 [facility] Last Admin: 08/27/16 05:51 Dose: 30 mg Levalbuterol HCl (Xopenex) 0.63 mg IH [id number] PRN PRN Reason: Shortness of Breath Last Admin: 08/27/16 08:18 Dose: 0.63 mg Levothyroxine Sodium (Synthroid) 50 mcg PO 0630 [facility] Last Admin: 08/27/16 05:51 Dose: 50 mcg Meclizine HCl (Antivert) 12.5 mg PO TID PRN PRN Reason: Dizziness Montelukast Sodium (Singulair) 10 mg PO HS [facility] Last Admin: 08/26/16 21:38 Dose: 10 mg Ondansetron HCl (Zofran Inj) 4 mg IVP Q4H PRN PRN Reason: Nausea/Vomiting Pantoprazole Sodium (Protonix Ec Tab) 40 mg PO 0600,1600 [facility] Pramipexole Dihydrochloride (Mirapex) 0.125 mg PO DAILY [facility] Last Admin: 08/27/16 09:48 Dose: 0.125 mg Propranolol HCl (Inderal) 10 mg PO TID [facility] Last Admin: 08/27/16 09:42 Dose: 10 mg Tiotropium [place] (Spiriva) 18 mcg IH DAILY [facility] Tramadol/Acetaminophen (Ultracet 37.5/325 Mg) 1 tab PO Q4 PRN PRN Reason: moderate pain - Labs Labs: 08/27/16 06:35 08/27/16 06:35 - Constitutional Appears: No Acute Distress - Head Exam Head Exam: NORMOCEPHALIC - Eye Exam Eye Exam: Normal appearance. absent: Scleral icterus - ENT Exam ENT Exam: Mucous Membranes Moist - Neck Exam Neck Exam: Normal Inspection - Respiratory Exam Respiratory Exam: NORMAL BREATHING PATTERN. absent: Respiratory Distress - Cardiovascular Exam Cardiovascular Exam: +S1, +S2 - GI/Abdominal Exam GI & Abdominal Exam: Soft, Normal Bowel Sounds. absent: Guarding, Tenderness, Rebound - Extremities Exam Extremities Exam: absent: Calf Tenderness, Pedal Edema - Neurological Exam Neurological Exam: Alert, Awake, Oriented x3 - Skin Skin Exam: Dry, Warm Assessment and Plan - Assessment and Plan (Free Text) Assessment: ASSESSMENT: An 81-year-old female with history of colon cancer status post right hemicolectomy. 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 Sierra. <Joseline Sierra V - Last Filed: 08/27/16 23:44> Objective - Vital Signs/Intake and Output Vital Signs (last 24 hours): Temp Pulse Resp BP Pulse Ox 97.8 F 103 H 20 110/73 98 08/27/16 05:36 08/27/16 17:52 08/27/16 05:36 08/27/16 17:52 08/27/16 05:36 Intake and Output: 08/27/16 08/28/16 18:59 06:59 Intake Total 240 Balance 240 - Medications Medications: Current Medications Acetylcysteine (Acetylcysteine 20%) 3 ml PO BID [facility] Aspirin (Ecotrin) 81 mg PO 0800 [facility] Last Admin: 08/27/16 08:42 Dose: 81 mg Budesonide (Pulmicort Respules) 0.5 mg IH 0800,1999 [facility] Last Admin: 08/27/16 19:54 Dose: 0.5 mg Calcitonin [place] (Miacalcin) 200 iu NS DAILY [facility] Last Admin: 08/27/16 10:16 Dose: 1 spr Ferrous Sulfate (Feosol) 324 mg PO TID [facility] Last Admin: 08/27/16 17:55 Dose: 324 mg Levalbuterol HCl (Xopenex) 0.63 mg IH [id number] PRN PRN Reason: Shortness of Breath Last Admin: 08/27/16 19:54 Dose: 0.63 mg Levothyroxine Sodium (Synthroid) 50 mcg PO 0630 [facility] Last Admin: 08/27/16 05:51 Dose: 50 mcg Meclizine HCl (Antivert) 12.5 mg PO TID PRN PRN Reason: Dizziness Montelukast Sodium (Singulair) 10 mg PO HS [facility] Last Admin: 08/27/16 21:47 Dose: 10 mg Multivitamins (Thera Tab) 1 tab PO 0800 [facility] Ondansetron HCl (Zofran Inj) 4 mg IVP Q4H PRN PRN Reason: Nausea/Vomiting Pantoprazole Sodium (Protonix Ec Tab) 40 mg PO 0600,1600 [facility] Last Admin: 08/27/16 17:54 Dose: 40 mg Pramipexole Dihydrochloride (Mirapex) 0.125 mg PO DAILY [facility] Last Admin: 08/27/16 09:48 Dose: 0.125 mg Propranolol HCl (Inderal) 10 mg PO TID [facility] Last Admin: 08/27/16 17:52 Dose: 10 mg Tiotropium [place] (Spiriva) 18 mcg IH DAILY [facility] Last Admin: 08/27/16 10:17 Dose: 18 mcg Tramadol/Acetaminophen (Ultracet 37.5/325 Mg) 1 tab PO Q4 PRN PRN Reason: moderate pain Last Admin: 08/27/16 11:22 Dose: 1 tab - Labs Labs: 08/27/16 06:35 08/27/16 06:35 Attending/Attestation - Attestation I have personally seen and examined this patient.: Yes I have fully participated in the care of the patient.: Yes I have reviewed all pertinent clinical information, including history, physical exam and plan: Yes Notes (Text): mai
--- NOTE | 2016-08-27 11:37 | CP.PCM.HP ---
History of Present Illness - History of Present Illness History of Present Illness: 80 yo female admitted for [facility] s/p hosp elective colon resection adenoCA colon, complicated by NSTEMI, CHF. Pt now stable, no cp, no sob Present on Admission - Present on Admission Any Indicators Present on Admission: No Review of Systems - Cardiovascular Cardiovascular: Dyspnea on Exertion Past Patient History - Past Social History Smoking Status: Never Smoked - CARDIAC Hx Congestive Heart Failure: Yes Hx Heart Attack: Yes Hx Pacemaker: No - PULMONARY Hx Chronic Obstructive Pulmonary Disease (COPD): Yes - NEUROLOGICAL Hx Neurological Disorder: Yes Hx Dizziness: Yes - HEENT Hx HEENT Problems: Yes Hx Cataracts: Yes (cataract removal ou) Hx Glaucoma: Yes Hx Macular Degeneration: Yes - RENAL Hx Chronic Kidney Disease: No - ENDOCRINE/METABOLIC Hx Hypothyroidism: Yes - HEMATOLOGICAL/ONCOLOGICAL Hx Blood Disorders: No - INTEGUMENTARY Hx Dermatological Problems: No - MUSCULOSKELETAL/RHEUMATOLOGICAL Hx Musculoskeletal Disorders: Yes Hx Falls: No - GASTROINTESTINAL Hx Gastrointestinal Disorders: Yes Hx Gastroesophageal Reflux: Yes Other/Comment: hiatal hernia - GENITOURINARY/GYNECOLOGICAL Hx Genitourinary Disorders: No - PSYCHIATRIC Hx Emotional Abuse: No Hx Physical Abuse: No - SURGICAL HISTORY Hx Surgeries: Yes - ANESTHESIA Hx Anesthesia Reactions: No Hx Malignant Hyperthermia: No Meds Allergies/Adverse Reactions: Allergies Allergy/AdvReac Type Severity Reaction Status Date / Time codeine Allergy NAUSEA Verified 08/26/16 20:12 Physical Exam - Constitutional Appears: No Acute Distress - Head Exam Head Exam: ATRAUMATIC, NORMAL INSPECTION, NORMOCEPHALIC - Eye Exam Eye Exam: EOMI, Normal appearance, PERRL - ENT Exam ENT Exam: Mucous Membranes Moist, Normal Exam - Neck Exam Neck exam: Positive for: Normal Inspection - Respiratory Exam Respiratory Exam: Decreased Breath Sounds, Prolonged Expiratory Phase - Cardiovascular Exam Cardiovascular Exam: REGULAR RHYTHM - GI/Abdominal Exam GI & Abdominal Exam: Normal Bowel Sounds - Extremities Exam Extremities exam: Positive for: normal inspection - Neurological Exam Neurological exam: Alert, Normal Gait, Oriented x3 Results - Vital Signs Recent Vital Signs: Last Vital Signs Temp 97.8 F 08/27/16 05:36 Pulse 84 08/27/16 09:42 Resp 20 08/27/16 05:36 BP 123/69 08/27/16 09:42 Pulse Ox 98 08/27/16 05:36 - Labs Result Diagrams: 08/27/16 06:35 08/27/16 06:35 Labs: Laboratory Results - last 24 hr 08/27/16 08/27/16 06:35 06:35 WBC 8.3 RBC 3.14 L Hgb 9.6 L Hct 29.0 L MCV 92.4 MCH 30.6 MCHC 33.1 RDW 14.5 Plt Count 260 MPV 8.8 Gran % 63.2 Lymph % (Auto) 24.0 [place] % (Auto) 11.5 H Eos % (Auto) 1.2 L Baso % (Auto) 0.1 Gran # 5.23 Lymph # 2.0 [place] # 1.0 H Eos # 0.1 Baso # 0.01 Sodium 134 Potassium 4.3 Chloride 104 Carbon Dioxide 22 Anion Gap 12 BUN 33 H Creatinine 1.0 Est GFR ( Amer) > 60 Est GFR (Non-Af Amer) 53 Random Glucose 57 L Calcium 7.7 L Total Bilirubin 0.4 AST 26 ALT 21 Alkaline Phosphatase 58 NT-Pro-B Natriuret Pep 5650 H Total Protein 4.7 L Albumin 2.3 L Globulin 2.4 Albumin/Globulin Ratio 1.0 L Assessment & Plan (1) Adenocarcinoma of colon Status: Acute (2) COPD (chronic obstructive pulmonary disease) Status: Acute (3) Chronic congestive heart failure Status: Acute - Date & Time Date: 08/27/16 Time: 10:20
[2016-08-27] MEDS ORDERED: Pantoprazole 40 mg EC Tab PO SCH (16:00)
--- NOTE | 2016-08-28 01:40 | CP.PCM.PN ---
Subjective - Date & Time of Evaluation Date of Evaluation: 08/28/16 Time of Evaluation: 01:40 - Subjective Subjective: Patient was seen at bedside. She had rectal bleeding, bright red with clots ~ 250 CC. on pad. Also complains of little periumbilical pain. Has no other complaints. No nausea, no vomiting. Medical record was reviewed. This 80 year old white woman was admitted with NIKO,S/P colon resection for adenocarcinoma of colon, NSTEMI, CHF. Has PMH of COPD,DJD, hypothyroidism,GERD. Objective - Vital Signs/Intake and Output Vital Signs (last 24 hours): Temp Pulse Resp BP Pulse Ox 97.8 F 103 H 20 110/73 98 08/27/16 05:36 08/27/16 17:52 08/27/16 05:36 08/27/16 17:52 08/27/16 05:36 Last Vital Signs Temp 98.1 F 08/28/16 01:40 Pulse 79 08/28/16 01:40 Resp 18 08/28/16 01:40 BP 116/64 08/28/16 01:40 Pulse Ox 98 08/28/16 01:40 110/69.Lying down. Intake and Output: 08/27/16 08/28/16 18:59 06:59 Intake Total 240 Balance 240 - Medications Medications: Current Medications Acetylcysteine (Acetylcysteine 20%) 3 ml PO BID [facility] Aspirin (Ecotrin) 81 mg PO 0800 [facility] Last Admin: 08/27/16 08:42 Dose: 81 mg Budesonide (Pulmicort Respules) 0.5 mg IH 0800,1999 [facility] Last Admin: 08/27/16 19:54 Dose: 0.5 mg Calcitonin [place] (Miacalcin) 200 iu NS DAILY [facility] Last Admin: 08/27/16 10:16 Dose: 1 spr Ferrous Sulfate (Feosol) 324 mg PO TID [facility] Last Admin: 08/27/16 17:55 Dose: 324 mg Levalbuterol HCl (Xopenex) 0.63 mg IH [id number] PRN PRN Reason: Shortness of Breath Last Admin: 08/27/16 19:54 Dose: 0.63 mg Levothyroxine Sodium (Synthroid) 50 mcg PO 0630 [facility] Last Admin: 08/27/16 05:51 Dose: 50 mcg Meclizine HCl (Antivert) 12.5 mg PO TID PRN PRN Reason: Dizziness Montelukast Sodium (Singulair) 10 mg PO HS [facility] Last Admin: 08/27/16 21:47 Dose: 10 mg Multivitamins (Thera Tab) 1 tab PO 0800 [facility] Ondansetron HCl (Zofran Inj) 4 mg IVP Q4H PRN PRN Reason: Nausea/Vomiting Pantoprazole Sodium (Protonix Ec Tab) 40 mg PO 0600,1600 [facility] Last Admin: 08/27/16 17:54 Dose: 40 mg Pramipexole Dihydrochloride (Mirapex) 0.125 mg PO DAILY [facility] Last Admin: 08/27/16 09:48 Dose: 0.125 mg Propranolol HCl (Inderal) 10 mg PO TID [facility] Last Admin: 08/27/16 17:52 Dose: 10 mg Tiotropium [place] (Spiriva) 18 mcg IH DAILY [facility] Last Admin: 08/27/16 10:17 Dose: 18 mcg Tramadol/Acetaminophen (Ultracet 37.5/325 Mg) 1 tab PO Q4 PRN PRN Reason: moderate pain Last Admin: 08/27/16 11:22 Dose: 1 tab - Labs Labs: 08/27/16 06:35 08/27/16 06:35 Laboratory Last Values WBC 8.3 10^3/ul (4.5-11.0) 08/27/16 06:35 RBC 3.14 10^6/uL (3.5-6.1) L 08/27/16 06:35 Hgb 9.6 gm/dL (12.0-16.0) L 08/27/16 06:35 Hct 29.0 % (36.0-48.0) L 08/27/16 06:35 MCV 92.4 fL (80.0-105.0) 08/27/16 06:35 MCH 30.6 pg (25.0-35.0) 08/27/16 06:35 MCHC 33.1 g/dl (31.0-37.0) 08/27/16 06:35 RDW 14.5 % (11.5-14.5) 08/27/16 06:35 Plt Count 260 10^3/uL (120.0-450.0) 08/27/16 06:35 MPV 8.8 fl (7.0-11.0) 08/27/16 06:35 Gran % 63.2 % (50.0-68.0) 08/27/16 06:35 Lymph % (Auto) 24.0 % (22.0-35.0) 08/27/16 06:35 [place] % (Auto) 11.5 % (1.0-6.0) H 08/27/16 06:35 Eos % (Auto) 1.2 % (1.5-5.0) L 08/27/16 06:35 Baso % (Auto) 0.1 % (0.0-3.0) 08/27/16 06:35 Gran # 5.23 (1.4-6.5) 08/27/16 06:35 Lymph # 2.0 (1.2-3.4) 08/27/16 06:35 [place] # 1.0 (0.1-0.6) H 08/27/16 06:35 Eos # 0.1 (0.0-0.7) 08/27/16 06:35 Baso # 0.01 K/mm3 (0.0-2.0) 08/27/16 06:35 Sodium 134 mmol/L (132-148) 08/27/16 06:35 Potassium 4.3 mmol/L (3.6-5.0) 08/27/16 06:35 Chloride 104 mmol/L (98-107) 08/27/16 06:35 Carbon Dioxide 22 mmol/L (21-33) 08/27/16 06:35 Anion Gap 12 (10-20) 08/27/16 06:35 BUN 33 mg/dL (7-21) H 08/27/16 06:35 Creatinine 1.0 mg/dL (0.5-1.4) 08/27/16 06:35 Est GFR ( Amer) > 60 08/27/16 06:35 Est GFR (Non-Af Amer) 53 08/27/16 06:35 Random Glucose 57 mg/dL (70-110) L 08/27/16 06:35 Calcium 7.7 mg/dL (8.4-10.5) L 08/27/16 06:35 Total Bilirubin 0.4 mg/dL (0.2-1.3) 08/27/16 06:35 AST 26 U/L (15-39) 08/27/16 06:35 ALT 21 U/L (7-56) 08/27/16 06:35 Alkaline Phosphatase 58 U/L (38-133) 08/27/16 06:35 NT-Pro-B Natriuret Pep 5650 pg/mL (0-450) H 08/27/16 06:35 Total Protein 4.7 g/dL (5.8-8.3) L 08/27/16 06:35 Albumin 2.3 g/dL (3.0-4.8) L 08/27/16 06:35 Globulin 2.4 gm/dL 08/27/16 06:35 Albumin/Globulin Ratio 1.0 (1.1-1.8) L 08/27/16 06:35 Stool Occult Blood Positive (NEGATIVE) H 08/28/16 01:30 - Constitutional Appears: Well, No Acute Distress - Head Exam Head Exam: ATRAUMATIC, NORMAL INSPECTION, NORMOCEPHALIC - Eye Exam Eye Exam: Normal appearance - ENT Exam ENT Exam: Normal External Ear Exam - Neck Exam Neck Exam: Normal Inspection - Respiratory Exam Respiratory Exam: Clear to Ausculation Bilateral - Cardiovascular Exam Cardiovascular Exam: REGULAR RHYTHM. absent: JVD - GI/Abdominal Exam GI & Abdominal Exam: Soft (Yes,), Tenderness (Mild in periumbilical area.), Normal Bowel Sounds. absent: Distended, Firm, Guarding, Rigid, Mass, Organomegaly, Pulsatile Mass, Rebound Additional comments: Midline surgical ben seen. RLQ Mando - Banks site is clean and dry, non tender. - Rectal Exam Rectal Exam: Deferred - Exam Additional comments: Deferred. - Extremities Exam Extremities Exam: Normal Inspection - Back Exam Back Exam: NORMAL INSPECTION - Neurological Exam Neurological Exam: Alert, Oriented x3 - Psychiatric Exam Psychiatric exam: Normal Affect, Normal Mood - Skin Skin Exam: Normal Color Assessment and Plan - Assessment and Plan (Free Text) Assessment: Rectal bleeding. [place] carcinoma colon. NSTEMI,Rcecent. DJD. Hypothyroidism. COPD. GERD. CHF. Plan: NPO. Type and screen. Orthosatic VS x 1. Protonixi 40 mg IV x 1. Serial H & H. Will inform PMD and Dr. Huff in AM. 03:09 H & H have dropped by about 1/3 points. Discussed with . Will transfer patient to telemetry via ER. will transfuse one unit prbc. will get bleeding scan. Also discussed with .
[2016-08-28 01:41] VITALS: BP 116/64; PULSE 79; RESP 18; TEMP 98.1
--- NOTE | 2016-08-28 03:12 | CP.PCM.PCO ---
Physician Communication Note - Physician Communication Note Physician Communication Note: 250cc BRB(rectal)-to ER(?Tele)/[id number]/?Tic source
--- NOTE | 2016-08-28 03:14 | CON ---
DATE: 08/27/2016 CONSULT SERVICE: Cardiology. REASON FOR THE CONSULTATION: Continued care in the transition care unit, non-ST segment myocardial infarction, possible Takotsubo syndrome. BRIEF CLINICAL HISTORY: This is an 80-year-old female who was originally admitted on 08/17/2016 with a colonic mass, status post ileotomy and right hemicolectomy, postop course was complicated by non-ST segment myocardial infarction. The patient subsequently underwent cardiac catheterization that revealed nonobstructive coronary artery disease, but echo shows anterior wall severe hypokinesis. Overall, ejection fraction was 35%, moderate aortic regurgitation. PAST MEDICAL HISTORY: Significant for asthma, COPD, hypothyroidism, vertigo, high cholesterol. PAST SURGICAL HISTORY: Significant for cataract surgery and recently, the patient had a right hemicolectomy, ileotomy for the colonic mass stage I *------*, lung cancer. SOCIAL HISTORY: She denies any history of alcohol abuse. HOME MEDICATIONS: At home, the patient was taking Antivert, Synthroid, Zocor, omeprazole, and Spiriva. CURRENT MEDICATIONS: The patient is taking aspirin, meclizine, propranolol, and levothyroxine. REVIEW OF SYSTEMS: As per HPI. PHYSICAL EXAMINATION VITAL SIGNS: Temperature afebrile, heart rate 84, blood pressure 123/66. HEENT: PERRLA. EOMs intact. NECK: Supple. No carotid bruit. No thyromegaly. CHEST: Clear to auscultation. HEART: S1 and S2, regular. ABDOMEN: Soft. EXTREMITIES: Clubbing and cyanosis negative. LABORATORY DATA: Recent cardiac workup as follows: The patient had a cardiac catheterization done on 08/23/2016, that shows normal coronaries, very tortuous, hypertensive heart disease, EDP was in the range of 14. The patient had echocardiography done on 08/24/2016 that showed ejection fraction of 35%, [id number] anterior wall hypokinesis noted. Moderate aortic regurgitation. No significant aortic stenosis noted. Mild mitral regurgitation, mild tricuspid regurgitation noted. The patient subsequently underwent MUGA scan while the patient is on the floor on 08/26/2016 that shows ejection fraction of 43%, left bundle-branch block, normal RV. Blood workup as follows; WBC 8.3, hemoglobin 9.0, hematocrit 29.0, platelet count 260. Chemistry shows sodium of 134, potassium 4.0, chloride 104, carbon dioxide 20, anion gap of 12, BUN 33, and creatinine 1.0. BNP 5650. Total protein 4.7, albumin 2.5, albumin/globulin ratio 1. IMPRESSION: An 80-year-old female with past medical history significant for chronic obstructive pulmonary disease, asthma, and hypothyroidism, admitted with gastrointestinal bleed, chronic mass, stage I cancer, status post right hemicolectomy. Postop course was complicated with non-ST segment myocardial infarction, possible Takotsubo syndrome. The patient underwent cardiac catheterization that revealed essentially normal coronaries, end-diastolic pressure was in the range of 14. Echo shows anterior wall [id number] hypokinesis, mild mitral regurgitation, mild tricuspid regurgitation, moderate aortic regurgitation. The patient underwent multigated acquisition scan that showed ejection fraction of 43% consistent with Takotsubo cardiomyopathy. RECOMMENDATIONS: Continue beta-peter. Continue baby aspirin as tolerated. Discontinue Imdur. Increase nutritional support. Protein-calorie malnutrition was not present on admission. Add Ensure pudding in the diet. She has no significant coronary artery disease. We will discontinue Imdur because the patient's blood pressure is on low side. Continue propanolol. Although BNP was elevated, but the patient is not in clinically failure, so we will avoid diuretics for now and reassess in a day or two, if indeed will add on. We will add supplement Ensure and also multivitamins and iron preparation. We will follow with you. Thank you *------*for opportunity in taking care of your patient, Win Lambert. Kemar Quach MD
--- NOTE | 2016-08-28 04:33 | CP.PCM.CON ---
History of Present Illness - History of Present Illness History of Present Illness: After discussion with the patient's primary attending, a decision was made to admit patient to ICU given her multiple co-morbidities, recent surgery and recent acute DC. Patient currently undergoing a nuclear bleeding scan to help ID source of bleeding. Will also check a stat BMP afterwards to evaluate the BUN. Full note to follow. Past Patient History - Past Social History Smoking Status: Never Smoked - CARDIAC Hx Congestive Heart Failure: Yes - PULMONARY Hx Chronic Obstructive Pulmonary Disease (COPD): Yes - NEUROLOGICAL Hx Neurological Disorder: Yes Hx Dizziness: Yes - HEENT Hx HEENT Problems: Yes Hx Cataracts: Yes (cataract removal ou) Hx Glaucoma: Yes Hx Macular Degeneration: Yes - RENAL Hx Chronic Kidney Disease: No - ENDOCRINE/METABOLIC Hx Hypothyroidism: Yes - HEMATOLOGICAL/ONCOLOGICAL Hx Blood Disorders: No - INTEGUMENTARY Hx Dermatological Problems: No - MUSCULOSKELETAL/RHEUMATOLOGICAL Hx Musculoskeletal Disorders: Yes Hx Falls: No - GASTROINTESTINAL Hx Gastrointestinal Disorders: Yes Hx Gastroesophageal Reflux: Yes Other/Comment: hiatal hernia - GENITOURINARY/GYNECOLOGICAL Hx Genitourinary Disorders: No - PSYCHIATRIC Hx Emotional Abuse: No Hx Physical Abuse: No - SURGICAL HISTORY Hx Surgeries: Yes - ANESTHESIA Hx Anesthesia Reactions: No Hx Malignant Hyperthermia: No Meds Allergies/Adverse Reactions: Allergies Allergy/AdvReac Type Severity Reaction Status Date / Time codeine Allergy NAUSEA Verified 08/26/16 20:12 - Medications Medications: Current Medications Acetylcysteine (Acetylcysteine 20%) 3 ml PO BID [facility] Aspirin (Ecotrin) 81 mg PO 0800 [facility] Last Admin: 08/27/16 08:42 Dose: 81 mg Budesonide (Pulmicort Respules) 0.5 mg IH 799,1999 [facility] Last Admin: 08/27/16 19:54 Dose: 0.5 mg Calcitonin [place] (Miacalcin) 200 iu NS DAILY [facility] Last Admin: 08/27/16 10:16 Dose: 1 spr Ferrous Sulfate (Feosol) 324 mg PO TID [facility] Last Admin: 08/27/16 17:55 Dose: 324 mg Levalbuterol HCl (Xopenex) 0.63 mg IH [id number] PRN PRN Reason: Shortness of Breath Last Admin: 08/27/16 19:54 Dose: 0.63 mg Levothyroxine Sodium (Synthroid) 50 mcg PO 0630 [facility] Last Admin: 08/27/16 05:51 Dose: 50 mcg Meclizine HCl (Antivert) 12.5 mg PO TID PRN PRN Reason: Dizziness Montelukast Sodium (Singulair) 10 mg PO HS [facility] Last Admin: 08/27/16 21:47 Dose: 10 mg Multivitamins (Thera Tab) 1 tab PO 0800 [facility] Ondansetron HCl (Zofran Inj) 4 mg IVP Q4H PRN PRN Reason: Nausea/Vomiting Pantoprazole Sodium (Protonix Ec Tab) 40 mg PO 0600,1600 [facility] Last Admin: 08/27/16 17:54 Dose: 40 mg Pramipexole Dihydrochloride (Mirapex) 0.125 mg PO DAILY [facility] Last Admin: 08/27/16 09:48 Dose: 0.125 mg Propranolol HCl (Inderal) 10 mg PO TID [facility] Last Admin: 08/27/16 17:52 Dose: 10 mg Tiotropium [place] (Spiriva) 18 mcg IH DAILY [facility] Last Admin: 08/27/16 10:17 Dose: 18 mcg Tramadol/Acetaminophen (Ultracet 37.5/325 Mg) 1 tab PO Q4 PRN PRN Reason: moderate pain Last Admin: 08/27/16 11:22 Dose: 1 tab Results - Vital Signs Recent Vital Signs: Last Vital Signs Temp 98.1 F 08/28/16 01:40 Pulse 79 08/28/16 01:40 Resp 18 08/28/16 01:40 BP 116/64 08/28/16 01:40 Pulse Ox 98 08/28/16 01:40 - Labs Result Diagrams: 08/28/16 02:00 08/27/16 06:35 Labs: Laboratory Results - last 24 hr 08/27/16 08/27/16 08/28/16 06:35 06:35 01:30 WBC 8.3 RBC 3.14 L Hgb 9.6 L Hct 29.0 L MCV 92.4 MCH 30.6 MCHC 33.1 RDW 14.5 Plt Count 260 MPV 8.8 Gran % 63.2 Lymph % (Auto) 24.0 [place] % (Auto) 11.5 H Eos % (Auto) 1.2 L Baso % (Auto) 0.1 Gran # 5.23 Lymph # 2.0 [place] # 1.0 H Eos # 0.1 Baso # 0.01 Sodium 134 Potassium 4.3 Chloride 104 Carbon Dioxide 22 Anion Gap 12 BUN 33 H Creatinine 1.0 Est GFR ( Amer) > 60 Est GFR (Non-Af Amer) 53 Random Glucose 57 L Calcium 7.7 L Total Bilirubin 0.4 AST 26 ALT 21 Alkaline Phosphatase 58 NT-Pro-B Natriuret Pep 5650 H Total Protein 4.7 L Albumin 2.3 L Globulin 2.4 Albumin/Globulin Ratio 1.0 L Stool Occult Blood Positive H Blood Type Antibody Screen BBK History Checked 08/28/16 08/28/16 02:00 02:00 WBC 7.4 RBC 2.86 L Hgb 8.7 L Hct 26.6 L MCV 93.0 MCH 30.4 MCHC 32.7 RDW 14.4 Plt Count 273 MPV 8.5 Gran % Lymph % (Auto) [place] % (Auto) Eos % (Auto) Baso % (Auto) Gran # Lymph # [place] # Eos # Baso # Sodium Potassium Chloride Carbon Dioxide Anion Gap BUN Creatinine Est GFR ( Amer) Est GFR (Non-Af Amer) Random Glucose Calcium Total Bilirubin AST ALT Alkaline Phosphatase NT-Pro-B Natriuret Pep Total Protein Albumin Globulin Albumin/Globulin Ratio Stool Occult Blood Blood Type O POSITIVE Antibody Screen Negative BBK History Checked Patient has bt
[2016-08-28] MEDS: Budesonide 0.5 mg/2 ml Inhal Susp UD IH SCH (07:30)
[2016-08-28] MEDS ORDERED: Multivitamin Therapeutic Tab PO SCH (08:00)
== END 2016-08-28 05:30 | disposition short-term general hospital (02) | DRG 374 ==
LOC: TRCU 20:02
PROVIDERS: ADMIT Surgery; ATTEND Surgery
DX: C18.9 Malignant neoplasm of colon, unspecified (principal); I21.4 Non-ST elevation (NSTEMI) myocardial infarction; I51.81 Takotsubo syndrome; K62.5 Hemorrhage of anus and rectum; J44.9 Chronic obstructive pulmonary disease, unspecified; I50.9 Heart failure, unspecified; I25.10 Atherosclerotic heart disease of native coronary artery without angina pectoris; Z48.3 Aftercare following surgery for neoplasm; I08.3 Combined rheumatic disorders of mitral, aortic and tricuspid valves; E78.00 Pure hypercholesterolemia, unspecified; E03.9 Hypothyroidism, unspecified; D64.9 Anemia, unspecified; K44.9 Diaphragmatic hernia without obstruction or gangrene; M19.90 Unspecified osteoarthritis, unspecified site; K21.9 Gastro-esophageal reflux disease without esophagitis; Z90.49 Acquired absence of other specified parts of digestive tract

== ENCOUNTER 2016-08-28 03:41 | Inpatient (IN) | payer MEDICARE, BC ==
[2016-08-28 02:18] LABS: HEMOGLOBIN 8.7 gm/dL (12.0-16.0); MEAN CORPUSCULAR HEMOGLOBIN 30.4 pg (25.0-35.0); MEAN CORPUSCULAR HGB CONC 32.7 g/dl (31.0-37.0); MEAN PLATELET VOLUME 8.5 fl (7.0-11.0); RBC 2.86 10^6/uL (3.5-6.1); RED CELL DISTRIBUTION WIDTH 14.4 % (11.5-14.5); WHITE BLOOD COUNT 7.4 10^3/ul (4.5-11.0)
--- NOTE | 2016-08-28 04:49 | ED PDOC ---
Arrival/HPI - General Chief Complaint: GI Problem Time Seen by Provider: 08/28/16 04:03 Historian: Patient - History of Present Illness Narrative History of Present Illness (Text): 08/28/16 04:48 An 80 year old female, whose past medical history includes emphysema on home O2 , takotsubo cardiomyopathy and colon cancer s/p recent hemicolectomy, was sent to the emergency department from TCU for bright red blood in rectum, approximately 250cc. Patient reports left lower quadrant abdominal pain today but denies any chest pain, palpitations, general weakness, or any other complaints at this time. PMD: Dr. Juliano Griffith Symptom Onset: Sudden Symptom Course: Unchanged Activities at Onset: Rest Context: Home Past Medical History - Provider Review Nursing Documentation Reviewed: Yes - Cardiac Hx Congestive Heart Failure: Yes - Pulmonary Hx Chronic Obstructive Pulmonary Disease (COPD): Yes - Neurological Hx Neurological Disorder: Yes Hx Dizziness: Yes - HEENT Hx HEENT Disorder: Yes Hx Cataracts: Yes (cataract removal ou) Hx Glaucoma: Yes Hx Macular Degeneration: Yes - Renal Hx Renal Disorder: No - Endocrine/Metabolic Hx Hypothyroidism: Yes - Hematological/Oncological Hx Blood Disorders: No Hx Cancer: Yes (Colon) - Integumentary Hx Dermatological Disorder: No - Musculoskeletal/Rheumatological Hx Musculoskeletal Disorders: Yes Hx Falls: No - Gastrointestinal Hx Gastrointestinal Disorders: Yes Hx Gastroesophageal Reflux: Yes Other/Comment: hiatal hernia - Genitourinary/Gynecological Hx Genitourinary Disorders: No - Psychiatric Hx Emotional Abuse: No Hx Physical Abuse: No Hx Substance Use: No - Surgical History Other/Comment: Right Hemicolectomy - Anesthesia Hx Anesthesia Reactions: No Hx Malignant Hyperthermia: No - Suicidal Assessment Feels Threatened In Home Enviroment: No Family/Social History - Physician Review Nursing Documentation Reviewed: Yes Family/Social History: No Known Family HX Smoking Status: Never Smoked Hx Alcohol Use: No Hx Substance Use: No Hx Substance Use Treatment: No Allergies/Home Meds Allergies/Adverse Reactions: Allergies codeine Allergy (Verified 08/26/16 20:12) NAUSEA Home Medications: Home Meds Medication Instructions Recorded Confirmed Acetylcysteine 20% 3 ml PO BID 08/28/16 08/28/16 Aspirin [Aspirin Chewable] 81 mg PO DAILY 08/28/16 08/28/16 Budesonide [Pulmicort Respules] 0.5 mg IH BID 08/28/16 08/28/16 Calcitonin ([place]) [Miacalcin] 200 iu NS DAILY 08/28/16 08/28/16 Ferrous Sulfate [Feosol] 324 mg PO TID 08/28/16 08/28/16 Levalbuterol [Xopenex] 0.63 mg IH Q6H PRN 08/28/16 08/28/16 Levothyroxine [Synthroid] 50 mcg PO DAILY 08/28/16 08/28/16 Meclizine [Antivert] 12.5 mg PO TID PRN 08/28/16 08/28/16 Multivitamin Therapeutic Tab 1 tab PO DAILY 08/28/16 08/28/16 [Thera Tab] Ondansetron [Zofran Inj] 4 mg IVP Q4H PRN 08/28/16 08/28/16 Pantoprazole Sodium 40 mg PO BID 08/28/16 08/28/16 Pramipexole [Mirapex] 0.125 mg PO DAILY 08/28/16 08/28/16 Propranolol [Propranolol HCl] 10 mg PO TID 08/28/16 08/28/16 Tiotropium [Spiriva] 18 mcg IH DAILY 08/28/16 08/28/16 traMADol/Acetaminophen [Ultracet 1 tab PO Q4 PRN 08/28/16 08/28/16 325 MG-37.5 MG] Review of Systems - Physician Review All systems were reviewed & negative as marked: Yes - Review of Systems Cardiovascular: absent: Chest Pain, Palpitations Gastrointestinal: Abdominal Pain Physical Exam - Physical Exam Narrative Physical Exam (Text): 08/28/16 04:46 Constitutional: No acute distress. Head: Normocephalic. Atraumatic. Eyes: PERRL. ENT: Moist mucous membranes. Neck: Supple. Cardiovascular: Regular rate. Chest: No tenderness. Respiratory: Clear to auscultation bilaterally. Back: No CVA tenderness. Musculoskeletal: No tenderness or swelling of extremities. Skin: No rash. Neurologic: Alert, no focal deficit. Vital Signs Reviewed: Yes Vital Signs Temp Pulse Resp BP Pulse Ox 08/28/16 03:51 98 F 77 18 110/58 L 100 Temperature: Afebrile Pulse: Regular Respiratory Rate: Normal Appearance: Positive for: Well-Appearing, Non-Toxic, Comfortable Pain Distress: None Mental Status: Positive for: Alert and Oriented X 3 Medical Decision Making ED Course and Treatment: 08/28/16 04:45 Impression: An 80 year old female with rectal bleeding s/p hemicolectomy. Plan: -- labs -- Reassess and disposition Prior Visits: Notes and results from previous visits were reviewed. Patient was last seen in the emergency department on 01/22/16 for evaluation of low blood count. Patient admitted to Dr. Griffith's service. Progress Notes: EKG: Ordered, reviewed, and independently interpreted the EKG. Rate : 75 BPM Rhythm : NSR Interpretation : No ST elevations. No T wave inversions Blood transfusion ordered. Dr. Davis will take patient on his service. Dr. Hill accepts patient to ICU. vice president regulatory evaluated patient at bedside. - Lab Interpretations I have reviewed the lab results: Yes - RAD Interpretation Radiology Orders: 08/28/16 04:33 GI BLEEDING SCAN W/ FLOW [NM] Stat - EKG Interpretation Interpreted by ED Physician: Yes Type: 12 lead EKG - Medication Orders Current Medication Orders: Pantoprazole Sodium (Protonix Inj) 40 mg IVP Q12 [facility] - Scribe Statement The provider has reviewed the documentation as recorded by the Mariluz Hollingsworth Provider Scribe Attestation: All medical record entries made by the Yolandeibrachana were at my direction and personally dictated by me. I have reviewed the chart and agree that the record accurately reflects my personal performance of the history, physical exam, medical decision making, and the department course for this patient. I have also personally directed, reviewed, and agree with the discharge instructions and disposition. Disposition/Present on Arrival - Present on Arrival Any Indicators Present on Arrival: Yes History of DVT/PE: Yes History of Uncontrolled Diabetes: No Urinary Catheter: No History of Decub. Ulcer: No History Surgical Site Infection Following: Abdominal Surgery - Disposition Have Diagnosis and Disposition been Completed?: Yes Diagnosis: GI bleeding Disposition: HOSPITALIZED Disposition Time: 06:00 Patient Plan: Admission, ICU Condition: GUARDED
--- NOTE | 2016-08-28 06:35 | CP.PCM.HP ---
History of Present Illness - History of Present Illness History of Present Illness: 80 yo female with ischemic heart disease, COPD, asthma, hypothyroidism, GERD, AND history of right colon adenoCA admitted for elective colon resection on 12/2016. Patient is s/p Right hemicolectomy POD11. Consulted for lower GI bleed. As per nursing patient had a bloody BM w/ blood clots ~250ccs. Patient complained of epigastric pain, which was alleviated by pain medication. At times of examination patient was alert and aware. Denied headache/dizziness, palpitaions, chest pain/SOB, n/v. PMHx: as stated above PSurghx:Cataract, R hemicolectomy Allergy:Codeine Present on Admission - Present on Admission Any Indicators Present on Admission: No Review of Systems - Review of Systems Review of Systems: 12pt ROS carried out, unremarkable, except as stated in HPI Past Patient History - Past Social History Smoking Status: Never Smoked - CARDIAC Hx Congestive Heart Failure: Yes - PULMONARY Hx Chronic Obstructive Pulmonary Disease (COPD): Yes - NEUROLOGICAL Hx Neurological Disorder: Yes Hx Dizziness: Yes - HEENT Hx HEENT Problems: Yes Hx Cataracts: Yes (cataract removal ou) Hx Glaucoma: Yes Hx Macular Degeneration: Yes - RENAL Hx Chronic Kidney Disease: No - ENDOCRINE/METABOLIC Hx Hypothyroidism: Yes - HEMATOLOGICAL/ONCOLOGICAL Hx Blood Disorders: No Hx Cancer: Yes (Colon) - INTEGUMENTARY Hx Dermatological Problems: No - MUSCULOSKELETAL/RHEUMATOLOGICAL Hx Musculoskeletal Disorders: Yes Hx Falls: No - GASTROINTESTINAL Hx Gastrointestinal Disorders: Yes Hx Gastroesophageal Reflux: Yes Other/Comment: hiatal hernia - GENITOURINARY/GYNECOLOGICAL Hx Genitourinary Disorders: No - PSYCHIATRIC Hx Emotional Abuse: No Hx Physical Abuse: No Hx Substance Use: No - SURGICAL HISTORY Other/Comment: Right Hemicolectomy - ANESTHESIA Hx Anesthesia Reactions: No Hx Malignant Hyperthermia: No Meds Allergies/Adverse Reactions: Allergies Allergy/AdvReac Type Severity Reaction Status Date / Time codeine Allergy NAUSEA Verified 08/26/16 20:12 Physical Exam - Constitutional Appears: No Acute Distress - Head Exam Head Exam: NORMOCEPHALIC - ENT Exam ENT Exam: Mucous Membranes Moist - Respiratory Exam Respiratory Exam: NORMAL BREATHING PATTERN - Cardiovascular Exam Cardiovascular Exam: +S1, +S2 - GI/Abdominal Exam GI & Abdominal Exam: Soft, Tenderness Additional comments: mild epigastric tenderness on palpation - Neurological Exam Neurological exam: Alert - Psychiatric Exam Psychiatric exam: Normal Mood - Skin Skin Exam: Dry, Warm Results - Vital Signs Recent Vital Signs: Last Vital Signs Temp 98 F 08/28/16 03:51 Pulse 77 08/28/16 03:51 Resp 18 08/28/16 03:51 BP 110/58 L 08/28/16 03:51 Pulse Ox 100 08/28/16 03:51 Assessment & Plan - Assessment and Plan (Free Text) Assessment: 80F w GI bleed -NPO -IVF -Transfuse 1uPRBC -F/u AM labs -F/u bleeding scan -Chow insertion -May require central line insertion, monitor BP -Hold NGT insertion for time being -Hold ASA/ anti-coagulation -Will follow -Further recs per Dr. Refugio Angeles PGY-2
[2016-08-28] MEDS ORDERED: Levalbuterol 0.63 MG/3 ML Inhal Soln UD IH PRN (07:01)
[2016-08-28] MEDS: Lactated Ringer's 1,000 ML IV SCH ×2 (07:04→21:00)
[2016-08-28 07:31] LABS: BASO # 0.01 K/mm3 (0.0-2.0); BASO % 0.1 % (0.0-3.0); EOS # 0.1 (0.0-0.7); EOS % 0.8 % (1.5-5.0); GRAN # 4.39 (1.4-6.5); HEMOGLOBIN 8.8 gm/dL (12.0-16.0); INR 1.08 (0.93-1.08); MEAN CORPUSCULAR HEMOGLOBIN 30.9 pg (25.0-35.0); MEAN CORPUSCULAR HGB CONC 33.2 g/dl (31.0-37.0); MEAN PLATELET VOLUME 8.4 fl (7.0-11.0); MONO # 0.8 (0.1-0.6); MONO % 11.1 % (1.0-6.0); PARTIAL THROMBOPLASTIN TIME 24.7 Seconds (23.7-30.8); PLATELET COUNT 273 10^3/uL (120.0-450.0); PROTHROMBIN TIME 11.7 Seconds (9.9-11.8); RBC 2.85 10^6/uL (3.5-6.1); RED CELL DISTRIBUTION WIDTH 14.7 % (11.5-14.5); WHITE BLOOD COUNT 7.2 10^3/ul (4.5-11.0)
[2016-08-28 07:34] LABS: ALB/GLOB RATIO 1.1 (1.1-1.8); ALBUMIN 2.5 g/dL (3.0-4.8); ALT/SGPT 21 U/L (7-56); AST/SGOT 25 U/L (15-39); BLOOD UREA NITROGEN 25 mg/dL (7-21); CALCIUM 8.3 mg/dL (8.4-10.5); GFR AFRICAN-AMERICAN > 60; GFR NON-AFRICAN AMERICAN 53
--- NOTE | 2016-08-28 07:40 | CP.PCM.CON ---
History of Present Illness - History of Present Illness History of Present Illness: The patient is an 80 year old woman with a history of COPD (on home O2), asthma , hypothyroidism, GERD, AND history of right colon adenocarcinoma, who was admitted about 12 days ago for an elective right hemicolectomy POD#11. Post- operative complications included acute VT and a diagnosis of both CAD and takotsubo cardiomyopathy. She was doing well enough to have been transferred to the TCU until overnight, when she suddenly had a 250cc bloody bowel movement with associated abdominal pain. Her vitals signs have remained within normal range throughout and a stat bleeding scan was negative. However, due to her recent complicated hospital course and multiple medical comorbidities, she will be admitted to the ICU now for further management and close monitoring. Review of Systems - Review of Systems All systems: reviewed and no additional remarkable complaints except Past Patient History - Past Social History Smoking Status: Never Smoked - CARDIAC Hx Congestive Heart Failure: Yes - PULMONARY Hx Chronic Obstructive Pulmonary Disease (COPD): Yes - NEUROLOGICAL Hx Neurological Disorder: Yes Hx Dizziness: Yes - HEENT Hx HEENT Problems: Yes Hx Cataracts: Yes (cataract removal ou) Hx Glaucoma: Yes Hx Macular Degeneration: Yes - RENAL Hx Chronic Kidney Disease: No - ENDOCRINE/METABOLIC Hx Hypothyroidism: Yes - HEMATOLOGICAL/ONCOLOGICAL Hx Blood Disorders: No Hx Cancer: Yes (Colon) - INTEGUMENTARY Hx Dermatological Problems: No - MUSCULOSKELETAL/RHEUMATOLOGICAL Hx Musculoskeletal Disorders: Yes Hx Falls: No - GASTROINTESTINAL Hx Gastrointestinal Disorders: Yes Hx Gastroesophageal Reflux: Yes Other/Comment: hiatal hernia - GENITOURINARY/GYNECOLOGICAL Hx Genitourinary Disorders: No - PSYCHIATRIC Hx Emotional Abuse: No Hx Physical Abuse: No Hx Substance Use: No - SURGICAL HISTORY Other/Comment: Right Hemicolectomy - ANESTHESIA Hx Anesthesia Reactions: No Hx Malignant Hyperthermia: No Meds Allergies/Adverse Reactions: Allergies Allergy/AdvReac Type Severity Reaction Status Date / Time codeine Allergy NAUSEA Verified 08/26/16 20:12 - Medications Medications: Current Medications Acetylcysteine (Acetylcysteine 20%) 3 ml PO BID [facility] Budesonide (Pulmicort Respules) 0.5 mg IH BID [facility] Calcitonin [place] (Miacalcin) 200 iu NS DAILY [facility] Ferrous Sulfate (Feosol) 324 mg PO TID [facility] Lactated Ringer's (Lactated Ringer's) 1,000 mls @ 75 mls/hr IV .[id number] [facility] Last Admin: 08/28/16 07:04 Dose: 75 mls/hr Levalbuterol HCl (Xopenex) 0.63 mg IH Q6H PRN PRN Reason: Shortness of Breath Levothyroxine Sodium (Synthroid) 50 mcg PO DAILY [facility] Meclizine HCl (Antivert) 12.5 mg PO TID PRN PRN Reason: Dizziness Multivitamins (Thera Tab) 1 tab PO DAILY [facility] Ondansetron HCl (Zofran Inj) 4 mg IVP Q4H PRN PRN Reason: Nausea/Vomiting Pantoprazole Sodium (Protonix Inj) 40 mg IVP Q12 [facility] Pramipexole Dihydrochloride (Mirapex) 0.125 mg PO DAILY [facility] Propranolol HCl (Inderal) 10 mg PO TID [facility] Tiotropium [place] (Spiriva) 18 mcg IH DAILY [facility] Physical Exam - Constitutional Appears: Well Additional comments: Appears fatigued and weak but in no acute distress; A&OX4 - Head Exam Head Exam: ATRAUMATIC, NORMAL INSPECTION, NORMOCEPHALIC - Eye Exam Additional comments: Pale conjuntiva bilaterally - ENT Exam ENT Exam: Mucous Membranes Dry - Neck Exam Neck exam: Positive for: Normal Inspection - Respiratory Exam Respiratory Exam: Clear to Auscultation Bilateral, NORMAL BREATHING PATTERN - Cardiovascular Exam Cardiovascular Exam: REGULAR RHYTHM - GI/Abdominal Exam GI & Abdominal Exam: Normal Bowel Sounds, Soft. absent: Tenderness - Rectal Exam Rectal Exam: Deferred - Extremities Exam Extremities exam: Positive for: normal inspection - Neurological Exam Neurological exam: Alert, CN II-XII Intact, Normal Gait, Oriented x3, Reflexes Normal Results - Vital Signs Recent Vital Signs: Last Vital Signs Temp 98 F 08/28/16 03:51 Pulse 77 08/28/16 03:51 Resp 18 08/28/16 03:51 BP 110/58 L 08/28/16 03:51 Pulse Ox 100 08/28/16 03:51 - Labs Result Diagrams: 08/28/16 06:55 08/28/16 06:55 Labs: Laboratory Results - last 24 hr 08/28/16 06:55 Sodium 138 Potassium 4.0 Chloride 106 Carbon Dioxide 24 Anion Gap 12 BUN 25 H Creatinine 1.0 Est GFR ( Amer) > 60 Est GFR (Non-Af Amer) 53 Random Glucose 78 Calcium 8.3 L Total Bilirubin 0.6 AST 25 ALT 21 Alkaline Phosphatase 65 Total Protein 4.8 L Albumin 2.5 L Globulin 2.3 Albumin/Globulin Ratio 1.1 Assessment & Plan - Assessment and Plan (Free Text) Plan: A/P: The patient is an 80 year old woman with a history of recently diagnosed CAD and takotsubo cardiomyopathy, COPD (on home O2), hypothyroidism, GERD, and a history of right colon adenocarcinoma, who was admitted about 12 days ago for an elective right hemicolectomy POD#11. She now presents with acute a bloody bowel movement for which she will be admitted to the ICU for close monitoring. 1. Acute GI Bleed: -unclear source of bleeding thus far -nuclear bleeding scan negative -tranfuse 1 unit PRBC -keep NPO -IV Protonix BID -will consult GI for further rec's -monitor Q4hr serial CBC's -IVF's -patient hemondynamically stable with normal heart rate 2. Cardiomyopathy (takotsubo and ischemic): -hold all anticoagulation and antiplatelet meds given acute GI bleed -pt denies any chest pain 3. Hypothyroidisim: -continue home thyroid meds 4. COPD: -continue home meds -O2 as needed to keep sats> 92% -no acute symptoms 5. Colon AdenoCA (s/p right hemicolectomy POD#11): -surgery team is primary -pain control with IV Morphine DVT PPx: SCD's GI PPx: IV Protonix
[2016-08-28] MEDS ORDERED: Morphine 2 mg/ml ISec IVP PRN (07:59)
[2016-08-28] MEDS: Tiotropium 18 mcg Cap For Inhalation IH SCH (09:58)
[2016-08-28] MEDS: Multivitamin Therapeutic Tab PO SCH (09:58)
[2016-08-28] MEDS: Levothyroxine 50 MCG TAB PO SCH (09:58)
[2016-08-28] MEDS ORDERED: Budesonide 0.5 mg/2 ml Inhal Susp UD IH SCH (10:00)
[2016-08-28] MEDS: Acetylcysteine 20% Inhal Soln (4ml) PO SCH ×2 (10:06→18:00)
--- NOTE | 2016-08-28 11:27 | PN ---
BIOINFORMATICS SOFTWARE ENGINEER NOTE DATE: 08/28/2016 SUBJECTIVE: The patient is awake and alert and resting in bed. States that she is a little chilly with plenty of covers. The patient has some mild abdominal pain and stated that she had bloody bowel movement earlier this morning. The patient was admitted for GI bleed, and at this time, is comfortable on 2 L of nasal canula. No cough. No congestion. No nauseous or vomiting. No fever or chills. PHYSICAL EXAMINATION: VITAL SIGNS: Note that her temperature is 98, pulse is 77, respirations are 18, and BP of 110/58. SKIN: Warm and dry. HEENT: Head is atraumatic and normocephalic. Eyes; reactive to light. Ears, nose, and throat seen to be within normal limits. NECK: Supple. No JVD. No thyroid enlargement. No lymph nodes. HEART: Regular rate and rhythm. Normal S1 and S2. LUNGS: Revealed decreased breath sounds at the bases. ABDOMEN: Soft and nontender. Normal bowel sounds. GENITOURINARY AND RECTAL: Deferred. MUSCULOSKELETAL: No joint deformities. EXTREMITIES: Reveal trace lower extremity edema. NEUROLOGIC: She is seen to be grossly intact. LABORATORY DATA: As far as her laboratories are concerned; her white count is 7.2, hemoglobin is 8.8, hematocrit is 28.6 with platelets of 273,000. The patient's PT is 11.7, INR is 1.08, an PTT is 24.7. Sodium is 138, potassium is 4.0, chloride is 1.6, CO2 is 24 with BUN of 25, creatinine of 1.0, and glucose of 78. IMPRESSION: This patient has acute gastrointestinal bleed and note that the bleeding scan was negative. The patient has history of myocardial infarction with also history of coronary artery disease, chronic obstructive pulmonary disease as well as vasculitis. She has a recent history of being diagnosed with colon cancer and had a hemicolectomy. The patient also carries a diagnosis of hypothyroidism as well as gastroesophageal reflux disease. Note that the patient has anemia secondary to the gastrointestinal bleed. PLAN: We will continue to monitor closely in the ICU. The patient is getting IV fluids and has gotten packed red blood cells. We will monitor her hemoglobin closely and continue Zofran for any nauseousness. She is on Xopenex as well as Pulmicort as bronchodilators and antiinflammatory. She will continue with Synthroid and Protonix. The patient will be monitored closely and we will continue to treat aggressively along with the other consultants and the primary care doctor. Ad Roberts MD
--- NOTE | 2016-08-28 11:30 | CP.PCM.PCO ---
Physician Communication Note - Physician Communication Note Physician Communication Note: Lower GI Bleed/HgB8.7-TX IUPRBC/Hold Colonoscopy til rebleed
[2016-08-28] MEDS: Calcitonin 200 Int Units/Inh Nasal Spray (3.7 ml) NS SCH (11:45)
[2016-08-28 16:47] LABS: BASO # 0.01 K/mm3 (0.0-2.0); BASO % 0.2 % (0.0-3.0); EOS # 0.1 (0.0-0.7); EOS % 0.8 % (1.5-5.0); GRAN # 4.14 (1.4-6.5); HEMOGLOBIN 10.7 gm/dL (12.0-16.0); LYMPH # 1.7 (1.2-3.4); LYMPH % 25.4 % (22.0-35.0); MEAN CELL VOLUME 90.3 fL (80.0-105.0); MEAN CORPUSCULAR HEMOGLOBIN 30.7 pg (25.0-35.0); MEAN PLATELET VOLUME 8.6 fl (7.0-11.0); MONO # 0.8 (0.1-0.6); MONO % 11.6 % (1.0-6.0); PLATELET COUNT 225 10^3/uL (120.0-450.0); RBC 3.49 10^6/uL (3.5-6.1); RED CELL DISTRIBUTION WIDTH 14.5 % (11.5-14.5); WHITE BLOOD COUNT 6.7 10^3/ul (4.5-11.0)
[2016-08-28 17:23] VITALS: BMI 24.6
[2016-08-28] MEDS ORDERED: Pneumococcal 23-Valent Vaccine IM ONE (17:23)
--- NOTE | 2016-08-28 20:14 | CON ---
DATE: 08/28/2016 REASON FOR THE CONSULTATION: Cardiac evaluation, status post non-STEMI, status post possible Takotsubo syndrome, was in TCU, moved because of the GI bleed. BRIEF CLINICAL HISTORY: This is an 80-year-old female with past medical history of COPD, asthma, hypothyroidism, gastroesophageal reflux, on home O2, recently had a GI bleed, and found to be adenocarcinoma stage I, status post right hemicolectomy. Postop course was complicated by non-ST segment myocardial infarction; underwent cardiac catheterization, normal coronaries, possible Takotsubo syndrome, was in transitional care unit (TCU) when 250 mL bloody bowel movement between 4 and 8 p.m. So the patient was moved to ICU. Currently, hemoglobin is 8.8. Denies any chest pain or feel cold. Denies any shortness of breath. Denies any palpitation. PAST MEDICAL HISTORY: Significant for asthma, COPD, hypothyroidism, vertigo, high cholesterol, status post right hemicolectomy, adenocarcinoma of the colon. PAST SURGICAL HISTORY: Significant for cataract surgery. Recently, the patient had right hemicolectomy, ileotomy, and colonic mass removed, status post 1 colon cancer. RECENT CARDIAC WORKUP: As follows; the patient had a cardiac catheter after having a non-ST segment myocardial infarction dated 08/23/2016. This shows normal coronaries, very tortuous vessels, hypertensive heart disease. At that time, 02:59 shows ejection fraction preserved in the range of 14%. The patient had later on echocardiography done that shows ejection fraction of 35%, moderate aortic regurgitation; no aortic stenosis; mild mitral regurgitation, mild tricuspid regurgitation, RV systolic pressure of 51, but significant wall motion abnormality noted. Anterior wall hypokinesis noted, [id number]. The patient later on a MUGA scan done yesterday that shows ejection fraction of 43%, date is 08/26/2016. SOCIAL HISTORY: Active tobacco abuse. Denies any history of alcohol abuse. MEDICATIONS: At home, the patient was taking Antivert, Synthroid, Zocor, omeprazole, and Spiriva. CURRENT MEDICATIONS: At TCU, the patient was taking propranolol, levothyroxine, aspirin, and meclizine. REVIEW OF SYSTEMS: Negative except as in HPI, bloody bowel movement. PHYSICAL EXAMINATION: GENERAL: Height of the patient 4 feet 8 inches, weight of the patient 110 pounds. Body mass index 24.7 kg/meter square. VITAL SIGNS: Temperature 98, heart rate 85, blood pressure 117/54. HEENT: PERRLA. Extraocular muscles intact. NECK: Supple. No carotid bruit. No thyromegaly. CHEST: Clear to auscultation. HEART: S1 and S2 regular. ABDOMEN: Soft. EXTREMITIES: Clubbing and cyanosis negative. LABORATORY DATA: Blood workup as follows; WBC 11.8, hemoglobin 8.8, hematocrit 26.5, platelet count 273. Chemistry shows sodium of 130, potassium 4, chloride 106, carbon dioxide 24, anion gap of 12, BUN 25, creatinine 1.0. Albumin 2.5, total protein 4.8. Protein-calorie malnutrition noted today in ICU. Anemia, hemoglobin dropped to 8.8, yesterday was 9.6, and day before was 10.3. Gastrointestinal bleed; colon cancer stage 1, status post resection, hemicolectomy; non-ST segment myocardial infarction, possible Takotsubo syndrome; cardiomyopathy, hypothyroidism, COPD, on home oxygen. IMPRESSION: This is an 80-year-old female with past medical history significant for asthma, COPD, on home oxygen, hypothyroidism, gastroesophageal reflux, initially admitted 2 weeks ago for GI bleed, found to be stage I colon cancer, status post right hemicolectomy. Postop course was complicated by non-ST segment myocardial infarction secondary to Takotsubo syndrome, status post catheterization with normal coronaries. Recent MUGA scan showed ejection fraction of 43%, prior to the echo shows 35% with anterior wall hypokinesis, was in TCU; has a GI bleed; 250 mL bloody bowel movement. The patient moved to ICU. RECOMMENDATIONS: Continue beta-peter. Continue levothyroxine. Given 1 unit of pack RBC and 40 mg of Lasix post transfusion. We will monitor her closely. Further recommendation during the hospital course. We will follow with you. Thank you Dr. Huff for providing the opportunity in taking care of your patient. Kemar Quach MD
--- NOTE | 2016-08-28 20:44 | CARD ---
APPROVED REPORT EKG Measurement Heart [id number] OR 142P4 [id number] <Conclusion> Normal sinus rhythm Nonspecific T wave abnormality Abnormal ECG
[2016-08-28 21:11] LABS: BASO # 0.01 K/mm3 (0.0-2.0); BASO % 0.1 % (0.0-3.0); EOS # 0.1 (0.0-0.7); EOS % 0.9 % (1.5-5.0); GRAN # 3.81 (1.4-6.5); GRAN % 56.4 % (50.0-68.0); HEMOGLOBIN 10.5 gm/dL (12.0-16.0); LYMPH % 29.6 % (22.0-35.0); MEAN CELL VOLUME 90.7 fL (80.0-105.0); MEAN CORPUSCULAR HEMOGLOBIN 30.6 pg (25.0-35.0); MEAN CORPUSCULAR HGB CONC 33.8 g/dl (31.0-37.0); MEAN PLATELET VOLUME 8.6 fl (7.0-11.0); MONO # 0.9 (0.1-0.6); PLATELET COUNT 221 10^3/uL (120.0-450.0); RBC 3.43 10^6/uL (3.5-6.1); RED CELL DISTRIBUTION WIDTH 14.7 % (11.5-14.5); WHITE BLOOD COUNT 6.8 10^3/ul (4.5-11.0)
--- NOTE | 2016-08-29 06:12 | CP.PCM.PN ---
Subjective - Date & Time of Evaluation Date of Evaluation: 08/29/16 Time of Evaluation: 06:11 - Subjective Subjective: SURGERY NOTE FOR DR. FALLON 80F seen and examined at bedside. Patient denies pain. states she feels cold, wants to go home. NAEON. No bloody BM as per nurse. Good urine output 1000/ 10hrs. Objective - Vital Signs/Intake and Output Vital Signs (last 24 hours): Temp Pulse Resp BP Pulse Ox 98.9 F 85 20 114/50 L 98 08/29/16 04:00 08/29/16 04:40 08/29/16 04:40 08/29/16 04:35 08/29/16 04:40 Intake and Output: 08/28/16 08/29/16 18:59 06:59 Intake Total 1975 Output Total 3450 Balance -1475 - Medications Medications: Current Medications Acetylcysteine (Acetylcysteine 20%) 3 ml PO BID [facility] Last Admin: 08/28/16 10:06 Dose: 3 ml Calcitonin [place] (Miacalcin) 200 iu NS DAILY [facility] Last Admin: 08/28/16 11:45 Dose: 1 spray Ferrous Sulfate (Feosol) 324 mg PO TID [facility] Last Admin: 08/28/16 14:19 Dose: 324 mg Lactated Ringer's (Lactated Ringer's) 1,000 mls @ 75 mls/hr IV .[id number] [facility] Last Admin: 08/28/16 21:00 Dose: 75 mls/hr Levalbuterol HCl (Xopenex) 0.63 mg IH Q6H PRN PRN Reason: Shortness of Breath Levothyroxine Sodium (Synthroid) 50 mcg PO DAILY [facility] Last Admin: 08/28/16 09:58 Dose: 50 mcg Meclizine HCl (Antivert) 12.5 mg PO TID PRN PRN Reason: Dizziness Morphine Sulfate (Morphine) 2 mg IVP Q4 PRN PRN Reason: Pain, severe (8-10) Multivitamins (Thera Tab) 1 tab PO DAILY [facility] Last Admin: 08/28/16 09:58 Dose: 1 tab Ondansetron HCl (Zofran Inj) 4 mg IVP Q4H PRN PRN Reason: Nausea/Vomiting Pantoprazole Sodium (Protonix Inj) 40 mg IVP Q12 [facility] Last Admin: 08/28/16 22:04 Dose: 40 mg Pramipexole Dihydrochloride (Mirapex) 0.125 mg PO DAILY [facility] Last Admin: 08/28/16 09:58 Dose: 0.125 mg Propranolol HCl (Inderal) 10 mg PO TID [facility] Last Admin: 08/28/16 14:12 Dose: 10 mg Tiotropium [place] (Spiriva) 18 mcg IH DAILY [facility] Last Admin: 08/28/16 09:58 Dose: 18 mcg - Labs Labs: 08/28/16 21:00 08/28/16 06:55 PT 11.7 Seconds (9.9-11.8) 08/28/16 06:55 INR 1.08 (0.93-1.08) 08/28/16 06:55 APTT 24.7 Seconds (23.7-30.8) 08/28/16 06:55 - Constitutional Appears: Non-toxic, No Acute Distress - Respiratory Exam Respiratory Exam: Clear to Ausculation Bilateral - Cardiovascular Exam Cardiovascular Exam: REGULAR RHYTHM, +S1, +S2 - GI/Abdominal Exam GI & Abdominal Exam: Soft. absent: Distended, Firm, Guarding, Rigid, Tenderness , Rebound Additional comments: incision CDI - Neurological Exam Neurological Exam: Alert, Awake - Skin Skin Exam: Dry, Intact, Warm Assessment and Plan - Assessment and Plan (Free Text) Assessment: 80F with hx of right hemicolectomy POD12, presents for GI bleed Plan: - ADAT - monitor for further bloody BM - f/u labs in AM - Is&Os, daily weights - Bleeding scan appears negative, will wait for official read Further recs discuss with Dr Ryan King, PGY2
[2016-08-29 06:28] LABS: ALBUMIN 2.2 g/dL (3.0-4.8); ALT/SGPT 21 U/L (7-56); AST/SGOT 25 U/L (15-39); BLOOD UREA NITROGEN 15 mg/dL (7-21); CALCIUM 7.6 mg/dL (8.4-10.5); GFR AFRICAN-AMERICAN > 60; GFR NON-AFRICAN AMERICAN > 60
[2016-08-29 06:29] LABS: BASO # 0.02 K/mm3 (0.0-2.0); BASO % 0.3 % (0.0-3.0); EOS # 0.1 (0.0-0.7); EOS % 0.8 % (1.5-5.0); GRAN # 3.72 (1.4-6.5); GRAN % 59.7 % (50.0-68.0); HEMOGLOBIN 10.3 gm/dL (12.0-16.0); LYMPH # 1.7 (1.2-3.4); LYMPH % 26.9 % (22.0-35.0); MEAN CELL VOLUME 90.5 fL (80.0-105.0); MEAN CORPUSCULAR HEMOGLOBIN 30.7 pg (25.0-35.0); MEAN CORPUSCULAR HGB CONC 33.9 g/dl (31.0-37.0); MEAN PLATELET VOLUME 8.9 fl (7.0-11.0); MONO # 0.8 (0.1-0.6); MONO % 12.3 % (1.0-6.0); PLATELET COUNT 179 10^3/uL (120.0-450.0); RBC 3.36 10^6/uL (3.5-6.1); RED CELL DISTRIBUTION WIDTH 14.8 % (11.5-14.5); WHITE BLOOD COUNT 6.2 10^3/ul (4.5-11.0)
[2016-08-29] MEDS: Magnesium Sulfate 2 GM in Sodium Chloride 0.9% 100 ML IVPB SCH ×2 (06:59→08:06)
--- NOTE | 2016-08-29 08:17 | CP.PCM.CON ---
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 She had an episode of bright red blood per rectum about 250 cc was transferred to the ICU. No vomiting blood and no abdominal pain. Patient had of bleeding before while in the mesentery postoperatively had transfusion. Patient was tolerating the diet. Her recent hospital course was complicated by heart failure secondary to Takotsubo syndrome. Patient has a history of chronic COPD. Patient did have blood count repeated remind stable .The bleeding scans done which was negative patient was eating solid food at the time of examination. No further episodes of bleeding per rectum Other PMH include COPD Hypothyroidism Status post cataract surgery Allergy codeine Social history denies smoking or alcohol now Review of the system all other systems reviewed are positive as above Review of Systems - Review of Systems All systems: reviewed and no additional remarkable complaints except - Constitutional Constitutional: absent: Chills, Fever - EENT Eyes: absent: Diplopia, Discharge Ears: absent: Ear Discharge, Ear Pain - Cardiovascular Cardiovascular: absent: Chest Pain, Rapid Heart Rate - Gastrointestinal Gastrointestinal: As Per HPI - Genitourinary Genitourinary: absent: Dysuria, Urinary Frequency - Neurological Neurological: absent: Numbness, Weakness - Psychiatric Psychiatric: absent: Hallucinations Past Patient History - Past Social History Smoking Status: Never Smoked - CARDIAC Hx Cardiac Disorders: Yes (CAD) Hx Congestive Heart Failure: Yes - PULMONARY Hx Respiratory Disorders: Yes Hx Chronic Obstructive Pulmonary Disease (COPD): Yes (HOME O2 24-7 USE) - NEUROLOGICAL Hx Neurological Disorder: Yes Hx Dizziness: Yes (VERTIGO) - HEENT Hx HEENT Problems: Yes Hx Cataracts: Yes (cataract removal ou) Hx Glaucoma: Yes Hx Macular Degeneration: Yes - RENAL Hx Chronic Kidney Disease: No - ENDOCRINE/METABOLIC Hx Endocrine Disorders: Yes Hx Hypothyroidism: Yes - HEMATOLOGICAL/ONCOLOGICAL Hx Blood Disorders: Yes Hx Anemia: Yes (BLOOD TRANSFUSION) Hx Cancer: Yes (Colon) - INTEGUMENTARY Hx Dermatological Problems: Yes Other/Comment: MID LOWER ABDOMINAL AREA INCISION LINE POST HEMICOLECTOMY AUGUST 16. 08-28-16 GROIN AREA,PERINAL AREA WITH A LARGE BRUISE OR HEMATOMA.BURGUNDY COLORED SKIN. - MUSCULOSKELETAL/RHEUMATOLOGICAL Hx Musculoskeletal Disorders: Yes Hx Falls: No Hx Unsteady Gait: Yes (QUAD CANE) - GASTROINTESTINAL Hx Gastrointestinal Disorders: Yes (GI BLEED 08-28-16,COLON POLYP) Hx Gastroesophageal Reflux: Yes Other/Comment: hiatal hernia - GENITOURINARY/GYNECOLOGICAL Hx Genitourinary Disorders: No - PSYCHIATRIC Hx Emotional Abuse: No Hx Physical Abuse: No Hx Substance Use: No - SURGICAL HISTORY Hx Surgeries: Yes (BILATERAL CATARACT SX,) Other/Comment: Right Hemicolectomy - ANESTHESIA Hx Anesthesia Reactions: No Hx Malignant Hyperthermia: No Meds Allergies/Adverse Reactions: Allergies Allergy/AdvReac Type Severity Reaction Status Date / Time codeine Allergy NAUSEA Verified 08/28/16 14:16 - Medications Medications: Current Medications Acetylcysteine (Acetylcysteine 20%) 3 ml PO BID [facility] Last Admin: 08/28/16 10:06 Dose: 3 ml Calcitonin [place] (Miacalcin) 200 iu NS DAILY [facility] Last Admin: 08/28/16 11:45 Dose: 1 spray Ferrous Sulfate (Feosol) 324 mg PO TID [facility] Last Admin: 08/28/16 14:19 Dose: 324 mg Lactated Ringer's (Lactated Ringer's) 1,000 mls @ 75 mls/hr IV .[id number] [facility] Last Admin: 08/28/16 07:04 Dose: 75 mls/hr Levalbuterol HCl (Xopenex) 0.63 mg IH Q6H PRN PRN Reason: Shortness of Breath Levothyroxine Sodium (Synthroid) 50 mcg PO DAILY [facility] Last Admin: 08/28/16 09:58 Dose: 50 mcg Meclizine HCl (Antivert) 12.5 mg PO TID PRN PRN Reason: Dizziness Morphine Sulfate (Morphine) 2 mg IVP Q4 PRN PRN Reason: Pain, severe (8-10) Multivitamins (Thera Tab) 1 tab PO DAILY [facility] Last Admin: 08/28/16 09:58 Dose: 1 tab Ondansetron HCl (Zofran Inj) 4 mg IVP Q4H PRN PRN Reason: Nausea/Vomiting Pantoprazole Sodium (Protonix Inj) 40 mg IVP Q12 [facility] Last Admin: 08/28/16 10:01 Dose: 40 mg Pramipexole Dihydrochloride (Mirapex) 0.125 mg PO DAILY [facility] Last Admin: 08/28/16 09:58 Dose: 0.125 mg Propranolol HCl (Inderal) 10 mg PO TID [facility] Last Admin: 08/28/16 14:12 Dose: 10 mg Tiotropium [place] (Spiriva) 18 mcg IH DAILY [facility] Last Admin: 08/28/16 09:58 Dose: 18 mcg Physical Exam - Head Exam Head Exam: ATRAUMATIC, NORMOCEPHALIC - Eye Exam Eye Exam: EOMI, Normal appearance Pupil Exam: PERRL - ENT Exam ENT Exam: Mucous Membranes Moist - Respiratory Exam Respiratory Exam: absent: Accessory Muscle Use, Rales, Respiratory Distress, Stridor - Cardiovascular Exam Cardiovascular Exam: REGULAR RHYTHM, JVD, +S1, +S2 - GI/Abdominal Exam GI & Abdominal Exam: Normal Bowel Sounds Additional comments: soft surgical incision noted - Extremities Exam Extremities exam: Positive for: full ROM. Negative for: calf tenderness, pedal edema - Neurological Exam Neurological exam: Alert, Oriented x3 - Psychiatric Exam Psychiatric exam: Anxious Results - Vital Signs Recent Vital Signs: Last Vital Signs Temp 99 F 08/28/16 16:45 Pulse 98 H 08/28/16 18:30 Resp 58 H 08/28/16 18:30 BP 113/60 08/28/16 17:35 Pulse Ox 97 08/28/16 18:30 - Labs Result Diagrams: 08/29/16 05:30 08/29/16 05:30 Labs: Laboratory Results - last 24 hr 08/28/16 08/28/16 08/28/16 06:55 06:55 06:55 WBC 7.2 RBC 2.85 L Hgb 8.8 L Hct 26.5 L MCV 93.0 MCH 30.9 MCHC 33.2 RDW 14.7 H Plt Count 273 MPV 8.4 Gran % 61.0 Lymph % (Auto) 27.0 [place] % (Auto) 11.1 H Eos % (Auto) 0.8 L Baso % (Auto) 0.1 Gran # 4.39 Lymph # 2.0 [place] # 0.8 H Eos # 0.1 Baso # 0.01 PT 11.7 INR 1.08 APTT 24.7 Sodium 138 Potassium 4.0 Chloride 106 Carbon Dioxide 24 Anion Gap 12 BUN 25 H Creatinine 1.0 Est GFR ( Amer) > 60 Est GFR (Non-Af Amer) 53 Random Glucose 78 Calcium 8.3 L Total Bilirubin 0.6 AST 25 ALT 21 Alkaline Phosphatase 65 Total Protein 4.8 L Albumin 2.5 L Globulin 2.3 Albumin/Globulin Ratio 1.1 08/28/16 16:15 WBC 6.7 RBC 3.49 L Hgb 10.7 L Hct 31.5 L MCV 90.3 MCH 30.7 MCHC 34.0 RDW 14.5 Plt Count 225 MPV 8.6 Gran % 62.0 Lymph % (Auto) 25.4 [place] % (Auto) 11.6 H Eos % (Auto) 0.8 L Baso % (Auto) 0.2 Gran # 4.14 Lymph # 1.7 [place] # 0.8 H Eos # 0.1 Baso # 0.01 PT INR APTT Sodium Potassium Chloride Carbon Dioxide Anion Gap BUN Creatinine Est GFR ( Amer) Est GFR (Non-Af Amer) Random Glucose Calcium Total Bilirubin AST ALT Alkaline Phosphatase Total Protein Albumin Globulin Albumin/Globulin Ratio Assessment & Plan - Assessment and Plan (Free Text) Assessment: this 80-year-old patient status post right hemicolectomy severe COPD,Takotsubo syndrome was transferred from TCU with episodes of bright red blood per rectum. Patient appears hemodynamically stable no further episodes of bleeding per rectum patient did have an EGD and a colonoscopy. Upper GI endoscopy done few months ago revealed only a large hiatus hernia no ulcer disease colonoscopy revealed diverticulosis redundant colon and the cancerous large malesion in the right colon which was removedrecently. The differential diagnosis for the bleeding should include a hemorrhoidal diverticular and anastomotic less likely upper GI source. Patient did have a bleeding scan done earlier showed no active bleeding site. Recommendation at this present time is to watch the hemoglobin and hematocrit she is tissue patient has any further episodes of active bleeding would benefit from colonoscopy evaluation.I did discuss with the Dr. Davis earlier today - Date & Time Date: 08/28/16 Time: 16:30
[2016-08-29] MEDS ORDERED: Potassium Chloride 20 mEq ER Tab PO ONE (09:07)
--- NOTE | 2016-08-29 09:10 | CP.PCM.PCO ---
Physician Communication Note - Physician Communication Note Physician Communication Note: No bleeding/Diuresing!/Starting Diet
--- NOTE | 2016-08-29 09:54 | PN ---
ANCILLARY SPECIALIST NOTE DATE: 08/29/2016 SUBJECTIVE: The patient is resting in bed. States that she feels much better today. No shortness of breath. She is on O2 via nasal cannula. The patient has no significant abdominal pain. No diarrhea and no bloody bowel movements. No nausea or vomiting. PHYSICAL EXAMINATION: VITAL SIGNS: Note that her temperature is 98.9, pulse is 74, respirations are 22, and blood pressure is 131/57. SKIN: Warm and dry. HEENT: Head is atraumatic and normocephalic. Eyes, reactive to light. Ears, nose, and throat seemed to be within normal limits. NECK: Supple. No JVD. No thyroid enlargement. No lymph nodes. HEART: Has regular rate, and rhythm. Normal S1 and S2. LUNGS: Revealed good breath sounds bilaterally. ABDOMEN: Soft. Decreased bowel sounds. GENITALIA: Deferred. RECTAL: Deferred. MUSCULOSKELETAL: No joint deformities. EXTREMITIES: Reveal no significant edema. NEUROLOGIC: She seems to be grossly intact. LABORATORY DATA: As far as her laboratories are concerned; her white count is 6.2, hemoglobin is 10.3, hematocrit is 30.4, and platelets of 179,000. Sodium is 133, potassium is 3.4, chloride is 99, CO2 of 29 with a BUN of 15, creatinine of 0.8, and glucose of 78. Notes that the patient's magnesium is 1.0. IMPRESSION: The patient presented with acute gastrointestinal bleed and myocardial infarction. She has a history of coronary artery disease and chronic obstructive pulmonary disease as well as vasculitis. The patient is status post colon carcinoma and hemicolectomy and carries a diagnosis of hypothyroidism as well as gastroesophageal reflux disease and anemia. PLAN: We will continue to closely monitor in the ICU. The patient is getting IV fluids and we will follow her hemoglobin. We will continue with her Xopenex, Pulmicort, Synthroid, and Protonix. Ad Roberts MD
[2016-08-29] MEDS: Multivitamin Therapeutic Tab PO SCH (09:55)
[2016-08-29] MEDS: Levothyroxine 50 MCG TAB PO SCH (09:55)
[2016-08-29] MEDS: Tiotropium 18 mcg Cap For Inhalation IH SCH (09:55)
[2016-08-29] MEDS: Acetylcysteine 20% Inhal Soln (4ml) PO SCH ×2 (09:56→17:48)
[2016-08-29] MEDS: Calcitonin 200 Int Units/Inh Nasal Spray (3.7 ml) NS SCH (09:57)
[2016-08-29] MEDS ORDERED: Magnesium Sulfate 2 GM in Sodium Chloride 0.9% 100 ML IVPB ONE ×2 (12:03→13:05)
[2016-08-29] MEDS: Magnesium Oxide 400 mg Tab UD PO SCH ×2 (12:59→17:49)
[2016-08-29] MEDS ORDERED: Potassium Chloride 20 mEq/15 ml LIQ UD PO ONE (13:00)
--- NOTE | 2016-08-29 13:00 | CP.PCM.PN ---
Subjective - Date & Time of Evaluation Date of Evaluation: 08/29/16 Time of Evaluation: 12:30 - Subjective Subjective: nad, no brbpr Objective - Vital Signs/Intake and Output Vital Signs (last 24 hours): Temp Pulse Resp BP Pulse Ox 98.9 F 93 H 22 118/63 99 08/29/16 04:00 08/29/16 09:55 08/29/16 07:20 08/29/16 09:55 08/29/16 07:20 Intake and Output: 08/29/16 08/29/16 06:59 18:59 Intake Total 120 Output Total 1100 Balance -980 - Medications Medications: Current Medications Acetylcysteine (Acetylcysteine 20%) 3 ml PO BID [facility] Last Admin: 08/29/16 09:56 Dose: 3 ml Calcitonin [place] (Miacalcin) 200 iu NS DAILY [facility] Last Admin: 08/29/16 09:57 Dose: 1 spray Ferrous Sulfate (Feosol) 324 mg PO TID [facility] Last Admin: 08/29/16 09:55 Dose: 324 mg Magnesium Sulfate 2 gm/ Sodium (Chloride) 104 mls @ 102 mls/hr IVPB ONCE ONE Stop: 08/29/16 13:04 Magnesium Sulfate 2 gm/ Sodium (Chloride) 104 mls @ 102 mls/hr IVPB ONCE ONE Stop: 08/29/16 14:06 Levalbuterol HCl (Xopenex) 0.63 mg IH Q6H PRN PRN Reason: Shortness of Breath Levothyroxine Sodium (Synthroid) 50 mcg PO DAILY [facility] Last Admin: 08/29/16 09:55 Dose: 50 mcg Magnesium Oxide (Mag-Ox) 400 mg PO BID [facility] Stop: 08/30/16 23:59 Meclizine HCl (Antivert) 12.5 mg PO TID PRN PRN Reason: Dizziness Morphine Sulfate (Morphine) 2 mg IVP Q4 PRN PRN Reason: Pain, severe (8-10) Multivitamins (Thera Tab) 1 tab PO DAILY [facility] Last Admin: 08/29/16 09:55 Dose: 1 tab Ondansetron HCl (Zofran Inj) 4 mg IVP Q4H PRN PRN Reason: Nausea/Vomiting Pantoprazole Sodium (Protonix Inj) 40 mg IVP Q12 [facility] Last Admin: 08/29/16 09:59 Dose: 40 mg Potassium Chloride (Potassium Chloride Oral Soln) 20 meq PO ONCE ONE Stop: 08/29/16 13:01 Pramipexole Dihydrochloride (Mirapex) 0.125 mg PO DAILY [facility] Last Admin: 08/29/16 09:55 Dose: 0.125 mg Propranolol HCl (Inderal) 10 mg PO TID [facility] Last Admin: 08/29/16 09:55 Dose: 10 mg Tiotropium [place] (Spiriva) 18 mcg IH DAILY [facility] Last Admin: 08/29/16 09:55 Dose: 18 mcg - Labs Labs: 08/29/16 05:30 08/29/16 05:30 PT 11.7 Seconds (9.9-11.8) 08/28/16 06:55 INR 1.08 (0.93-1.08) 08/28/16 06:55 APTT 24.7 Seconds (23.7-30.8) 08/28/16 06:55 - Respiratory Exam Respiratory Exam: Clear to Ausculation Bilateral, NORMAL BREATHING PATTERN - Cardiovascular Exam Cardiovascular Exam: REGULAR RHYTHM - GI/Abdominal Exam GI & Abdominal Exam: Soft, Normal Bowel Sounds - Extremities Exam Extremities Exam: Normal Inspection - Neurological Exam Neurological Exam: Alert, Awake - Skin Skin Exam: Dry, Warm Assessment and Plan - Assessment and Plan (Free Text) Plan: monitor hb/hct, GI f/u
--- NOTE | 2016-08-29 13:03 | NM ---
PROCEDURE: Radionuclide bleeding scan HISTORY: rectal bleeding,S/P recent right hemicolectomy. COMPARISON: Not available TECHNIQUE: Autologous red blood cells were labeled, in vitro, with 30.0 mCi of technetium 99 M ultra tag. Following the intravenous administration of the tagged red blood cells, anterior images of the abdomen were obtained at 3 second intervals for 60 seconds. And images were obtained at 1 minute intervals for 60 minutes. FINDINGS: There is no abnormal accumulation of radiopharmaceutical within the abdomen during the examination. Normal activity is seen in the liver and spleen. IMPRESSION: No evidence of gastrointestinal bleeding during the period of this examination. Preliminary interpretation of this examination was reported by [facility] at 6:59 a.m. on 08/28/2016. There is concurrence of this report with the preliminary interpretation.
--- NOTE | 2016-08-29 18:07 | PN ---
DATE: 08/29/2016 REASON FOR CONSULTATION: Follow up of cardiac evaluation, status post non-STEMI, status post GI bleed, rapid response moved to ICU. BRIEF CLINICAL HISTORY: The patient is an 80-year-old female with a past medical history significant for COPD, asthma, she has hypothyroidism, gastroesophageal reflux, on home O2, admitted with GI bleed, found to be a stage I CA of colon, and status post resection. Postop course was complicated by non-STEMI pauses secondary to Takotsubo syndrome. The patient is on transitional care unit. The patient has recurrent bowel movement, fresh blood 250 mL, dropped hemoglobin to 8, and moved to ICU. The patient is status post packed RBC transfusion in the last 24 hours. No further episode of GI bleed noted. Denies any chest pain, shortness of breath, or any palpitations. PHYSICAL EXAMINATION: VITAL SIGNS: Temperature afebrile, heart rate 73, and blood pressure 108/63. HEENT: PERRLA intact. NECK: Supple. No carotid bruit or thyromegaly. CHEST: Clear to auscultation. HEART: S1 and S2 regular. ABDOMEN: Soft. EXTREMITIES: Clubbing and cyanosis negative. LABORATORY DATA: Blood workup as follows. WBC is 6.8, hemoglobin 10.3, hematocrit 30.4, and platelet count 179. Chemistry shows sodium 133, potassium 3.4, chloride 99, carbon dioxide 20, anion gap of 8, BUN 15, and creatinine 0.8. Magnesium 1. Total protein is 4.2, albumin 2.2., and albumin and globulin ratio 1. IMPRESSION: Severe hypomagnesemia, hypokalemia, protein-calorie malnutrition, was present on admission is moderate, now severe anemia. Stable hemoglobin and hematocrit, history of gastrointestinal bleed, history of cardiac catheterization because of non-ST elevation myocardial infarction Takotsubo syndrome, cardiomyopathy, ejection fraction 43%, and status post packed red blood cell transfusion. RECOMMENDATIONS: Increase nutritional support. We will add Ensure pudding four times a day, supplement aggressive magnesium, and IV and p.o. supplement potassium. We will monitor H&H closely. Repeat blood workup in the morning. The patient is relatively stable. We will follow up with you. Thank you Dr. Huff for providing the opportunity in taking care of the patient, Petra Walden and we will follow with you. Kemar Quach MD [facility] # [id number]
--- NOTE | 2016-08-30 05:36 | CP.PCM.PN ---
Subjective - Date & Time of Evaluation Date of Evaluation: 08/29/16 Time of Evaluation: 12:15 - Subjective Subjective: No further episodes of bleeding per rectum . Patient did not complain of any abdominal pain, comfortable Objective - Vital Signs/Intake and Output Vital Signs (last 24 hours): Temp Pulse Resp BP Pulse Ox 99 F 73 27 H 120/53 L 99 08/29/16 20:00 08/29/16 22:00 08/29/16 22:00 08/29/16 21:35 08/29/16 22:00 Intake and Output: 08/29/16 08/30/16 18:59 06:59 Intake Total 1275 Output Total 1200 Balance 75 - Medications Medications: Current Medications Acetylcysteine (Acetylcysteine 20%) 3 ml PO BID [facility] Last Admin: 08/29/16 17:48 Dose: 3 ml Calcitonin [place] (Miacalcin) 200 iu NS DAILY [facility] Last Admin: 08/29/16 09:57 Dose: 1 spray Docusate Sodium (Colace) 100 mg PO BID [facility] Last Admin: 08/29/16 17:47 Dose: 100 mg Ferrous Sulfate (Feosol) 324 mg PO TID [facility] Last Admin: 08/29/16 17:49 Dose: 324 mg Levalbuterol HCl (Xopenex) 0.63 mg IH Q6H PRN PRN Reason: Shortness of Breath Levothyroxine Sodium (Synthroid) 50 mcg PO DAILY [facility] Last Admin: 08/29/16 09:55 Dose: 50 mcg Magnesium Oxide (Mag-Ox) 400 mg PO BID [facility] Stop: 08/30/16 23:59 Last Admin: 08/29/16 17:49 Dose: Not Given Meclizine HCl (Antivert) 12.5 mg PO TID PRN PRN Reason: Dizziness Morphine Sulfate (Morphine) 2 mg IVP Q4 PRN PRN Reason: Pain, severe (8-10) Multivitamins (Thera Tab) 1 tab PO DAILY [facility] Last Admin: 08/29/16 09:55 Dose: 1 tab Ondansetron HCl (Zofran Inj) 4 mg IVP Q4H PRN PRN Reason: Nausea/Vomiting Last Admin: 08/29/16 14:38 Dose: 4 mg Pantoprazole Sodium (Protonix Inj) 40 mg IVP Q12 [facility] Last Admin: 08/29/16 21:57 Dose: 40 mg Pramipexole Dihydrochloride (Mirapex) 0.125 mg PO DAILY [facility] Last Admin: 08/29/16 09:55 Dose: 0.125 mg Propranolol HCl (Inderal) 10 mg PO TID [facility] Last Admin: 08/29/16 17:48 Dose: 10 mg Tiotropium [place] (Spiriva) 18 mcg IH DAILY [facility] Last Admin: 08/29/16 09:55 Dose: 18 mcg - Labs Labs: 08/29/16 05:30 08/29/16 05:30 PT 11.7 Seconds (9.9-11.8) 08/28/16 06:55 INR 1.08 (0.93-1.08) 08/28/16 06:55 APTT 24.7 Seconds (23.7-30.8) 08/28/16 06:55 - Head Exam Head Exam: ATRAUMATIC, NORMOCEPHALIC - Eye Exam Eye Exam: EOMI, PERRL - ENT Exam ENT Exam: Mucous Membranes Moist, Normal Exam - Neck Exam Neck Exam: absent: Lymphadenopathy - GI/Abdominal Exam GI & Abdominal Exam: Soft. absent: Tenderness, Mass Additional comments: Healed surgical scar - Extremities Exam Extremities Exam: absent: Calf Tenderness, Pedal Edema - Skin Skin Exam: Warm. absent: Normal Color Assessment and Plan - Assessment and Plan (Free Text) Assessment: this 80-year-old patient status post right hemicolectomy severe COPD,Takotsubo syndrome was transferred from TCU with episodes of bright red blood per rectum. Patient appears hemodynamically stable no further episodes of bleeding per rectum patient did have an EGD and a colonoscopy. Upper GI endoscopy done few months ago revealed only a large hiatus hernia no ulcer disease colonoscopy revealed diverticulosis redundant colon and the cancerous large malesion in the right colon which was removedrecently. The differential diagnosis for the bleeding should include a hemorrhoidal diverticular and anastomotic less likely upper GI source. Patient did have a bleeding scan done earlier showed no active bleeding site. Recommendation at this present time is to watch the hemoglobin and hematocrit she is tissue patient has any further episodes of active bleeding would benefit from colonoscopy evaluation.I Discussed with Dr. Juliano Griffith Today and I will discuss with Dr. Davis regarding the flexible sigmoidoscopy
[2016-08-30 07:03] LABS: BASO # 0.02 K/mm3 (0.0-2.0); BASO % 0.3 % (0.0-3.0); EOS # 0.1 (0.0-0.7); EOS % 1.5 % (1.5-5.0); GRAN # 3.97 (1.4-6.5); GRAN % 59.3 % (50.0-68.0); HEMOGLOBIN 11.1 gm/dL (12.0-16.0); LYMPH # 1.8 (1.2-3.4); LYMPH % 27.1 % (22.0-35.0); MEAN CELL VOLUME 91.8 fL (80.0-105.0); MEAN CORPUSCULAR HEMOGLOBIN 30.3 pg (25.0-35.0); MEAN PLATELET VOLUME 8.6 fl (7.0-11.0); MONO # 0.8 (0.1-0.6); MONO % 11.8 % (1.0-6.0); PLATELET COUNT 244 10^3/uL (120.0-450.0); RBC 3.66 10^6/uL (3.5-6.1); RED CELL DISTRIBUTION WIDTH 15.1 % (11.5-14.5); WHITE BLOOD COUNT 6.7 10^3/ul (4.5-11.0)
[2016-08-30] MEDS ORDERED: Lidocaine 2% Jelly (Uro-Jet) TOP PRN (08:47)
--- NOTE | 2016-08-30 08:50 | CP.PCM.PN ---
Subjective - Date & Time of Evaluation Date of Evaluation: 08/30/16 Time of Evaluation: 08:45 - Subjective Subjective: General Surgery - Dr. Davis Pt S&E. Last night Pt had sawyer catheter d/tootie around 7pm, she did not void and sawyer was reinserted around 5:30am w/ ~600cc urine out. Pt had 1 further episode of soft brown stool but no black stool or blood seen. Pt currently denies any complaints. She has no abdominal pain, N/V, F/C, SOB/CP. Objective - Vital Signs/Intake and Output Vital Signs (last 24 hours): Temp Pulse Resp BP Pulse Ox 98 F 69 19 134/58 L 76 L 08/30/16 04:00 08/30/16 08:00 08/30/16 06:50 08/30/16 06:35 08/30/16 06:50 - Medications Medications: Current Medications Acetylcysteine (Acetylcysteine 20%) 3 ml PO BID [facility] Last Admin: 08/29/16 17:48 Dose: 3 ml Calcitonin [place] (Miacalcin) 200 iu NS DAILY [facility] Last Admin: 08/29/16 09:57 Dose: 1 spray Docusate Sodium (Colace) 100 mg PO BID [facility] Last Admin: 08/29/16 17:47 Dose: 100 mg Ferrous Sulfate (Feosol) 324 mg PO TID [facility] Last Admin: 08/29/16 17:49 Dose: 324 mg Levalbuterol HCl (Xopenex) 0.63 mg IH Q6H PRN PRN Reason: Shortness of Breath Levothyroxine Sodium (Synthroid) 50 mcg PO DAILY [facility] Last Admin: 08/29/16 09:55 Dose: 50 mcg Magnesium Oxide (Mag-Ox) 400 mg PO BID [facility] Stop: 08/30/16 23:59 Last Admin: 08/29/16 17:49 Dose: Not Given Meclizine HCl (Antivert) 12.5 mg PO TID PRN PRN Reason: Dizziness Morphine Sulfate (Morphine) 2 mg IVP Q4 PRN PRN Reason: Pain, severe (8-10) Multivitamins (Thera Tab) 1 tab PO DAILY [facility] Last Admin: 08/29/16 09:55 Dose: 1 tab Ondansetron HCl (Zofran Inj) 4 mg IVP Q4H PRN PRN Reason: Nausea/Vomiting Last Admin: 08/29/16 14:38 Dose: 4 mg Pantoprazole Sodium (Protonix Inj) 40 mg IVP Q12 [facility] Last Admin: 08/29/16 21:57 Dose: 40 mg Pramipexole Dihydrochloride (Mirapex) 0.125 mg PO DAILY [facility] Last Admin: 08/29/16 09:55 Dose: 0.125 mg Propranolol HCl (Inderal) 10 mg PO TID [facility] Last Admin: 08/29/16 17:48 Dose: 10 mg Tiotropium [place] (Spiriva) 18 mcg IH DAILY [facility] Last Admin: 08/29/16 09:55 Dose: 18 mcg - Labs Labs: 08/30/16 05:35 08/29/16 05:30 PT 11.7 Seconds (9.9-11.8) 08/28/16 06:55 INR 1.08 (0.93-1.08) 08/28/16 06:55 APTT 24.7 Seconds (23.7-30.8) 08/28/16 06:55 - Constitutional Appears: No Acute Distress - Head Exam Head Exam: ATRAUMATIC, NORMAL INSPECTION, NORMOCEPHALIC - Eye Exam Eye Exam: Normal appearance - Respiratory Exam Respiratory Exam: NORMAL BREATHING PATTERN. absent: Respiratory Distress - GI/Abdominal Exam GI & Abdominal Exam: Soft. absent: Distended, Guarding, Rigid, Tenderness, Rebound Additional comments: midline incision C/D/I - Neurological Exam Neurological Exam: Alert, Oriented x3 - Psychiatric Exam Psychiatric exam: Normal Affect, Normal Mood - Skin Skin Exam: Dry, Intact Assessment and Plan - Assessment and Plan (Free Text) Assessment: 80F POD #13 s/p R Hemicolectomy for adenoCA, re-admitted from TCU with post op GI Bleed -No further bleeding episodes past 24hrs -H/H Stable today, no further transfusion needed -Continue PT/Incentive Spirometer -OK to transfer out of ICU Parag PGY3
[2016-08-30] MEDS: Multivitamin Therapeutic Tab PO SCH (09:20)
[2016-08-30] MEDS: Calcitonin 200 Int Units/Inh Nasal Spray (3.7 ml) NS SCH (09:20)
[2016-08-30] MEDS: Levothyroxine 50 MCG TAB PO SCH (09:21)
[2016-08-30] MEDS: Tiotropium 18 mcg Cap For Inhalation IH SCH (09:27)
[2016-08-30] MEDS: Magnesium Oxide 400 mg Tab UD PO SCH (09:42)
[2016-08-30 09:43] LABS: BLOOD UREA NITROGEN 15 mg/dL (7-21); GFR AFRICAN-AMERICAN > 60; GFR NON-AFRICAN AMERICAN 60; MAGNESIUM 1.9 mg/dL (1.7-2.2)
--- NOTE | 2016-08-30 09:54 | CP.PCM.PN ---
<Annamarie Ambrosio - Last Filed: 08/30/16 09:52> Subjective - Date & Time of Evaluation Date of Evaluation: 08/30/16 Time of Evaluation: 08:45 - Subjective Subjective: S&E, chart reviewed, had a dark brown BM yesterday per nursing staff, no brbpr. Denies sob, cp, n/v or abdominal pain. No acute overngiht events reported. Objective - Vital Signs/Intake and Output Vital Signs (last 24 hours): Temp Pulse Resp BP Pulse Ox 98 F 73 19 118/60 76 L 08/30/16 04:00 08/30/16 09:24 08/30/16 06:50 08/30/16 09:24 08/30/16 06:50 - Medications Medications: Current Medications Acetylcysteine (Acetylcysteine 20%) 3 ml PO BID [facility] Last Admin: 08/29/16 17:48 Dose: 3 ml Calcitonin [place] (Miacalcin) 200 iu NS DAILY [facility] Last Admin: 08/30/16 09:20 Dose: 1 spray Docusate Sodium (Colace) 100 mg PO BID [facility] Last Admin: 08/30/16 09:21 Dose: 100 mg Ferrous Sulfate (Feosol) 324 mg PO TID [facility] Last Admin: 08/30/16 09:22 Dose: 324 mg Levalbuterol HCl (Xopenex) 0.63 mg IH Q6H PRN PRN Reason: Shortness of Breath Levothyroxine Sodium (Synthroid) 50 mcg PO DAILY [facility] Last Admin: 08/30/16 09:21 Dose: 50 mcg Lidocaine HCl (Xylocaine 2% (Uro-Jet)) 0 ea TOP Q6H PRN PRN Reason: Pain, moderate (4-7) Last Admin: 08/30/16 09:18 Dose: 1 ml Magnesium Oxide (Mag-Ox) 400 mg PO BID [facility] Stop: 08/30/16 23:59 Last Admin: 08/29/16 17:49 Dose: Not Given Meclizine HCl (Antivert) 12.5 mg PO TID PRN PRN Reason: Dizziness Morphine Sulfate (Morphine) 2 mg IVP Q4 PRN PRN Reason: Pain, severe (8-10) Multivitamins (Thera Tab) 1 tab PO DAILY [facility] Last Admin: 08/30/16 09:20 Dose: 1 tab Ondansetron HCl (Zofran Inj) 4 mg IVP Q4H PRN PRN Reason: Nausea/Vomiting Last Admin: 08/29/16 14:38 Dose: 4 mg Pantoprazole Sodium (Protonix Inj) 40 mg IVP Q12 [facility] Last Admin: 08/30/16 09:20 Dose: 40 mg Pramipexole Dihydrochloride (Mirapex) 0.125 mg PO DAILY [facility] Last Admin: 08/30/16 09:22 Dose: 0.125 mg Propranolol HCl (Inderal) 10 mg PO TID [facility] Last Admin: 08/30/16 09:24 Dose: 10 mg Tiotropium [place] (Spiriva) 18 mcg IH DAILY [facility] Last Admin: 08/30/16 09:27 Dose: 18 mcg - Labs Labs: 08/30/16 05:35 08/29/16 05:30 PT 11.7 Seconds (9.9-11.8) 08/28/16 06:55 INR 1.08 (0.93-1.08) 08/28/16 06:55 APTT 24.7 Seconds (23.7-30.8) 08/28/16 06:55 - Constitutional Appears: No Acute Distress - Head Exam Head Exam: NORMAL INSPECTION - Eye Exam Eye Exam: Normal appearance. absent: Scleral icterus - ENT Exam ENT Exam: Mucous Membranes Moist - Neck Exam Neck Exam: Normal Inspection - Respiratory Exam Respiratory Exam: NORMAL BREATHING PATTERN. absent: Respiratory Distress - Cardiovascular Exam Cardiovascular Exam: +S1, +S2 - GI/Abdominal Exam GI & Abdominal Exam: Soft, Normal Bowel Sounds. absent: Distended (surgical incision , ben removed, and dry and intact. ), Guarding, Tenderness, Rebound - Extremities Exam Extremities Exam: absent: Calf Tenderness, Pedal Edema - Neurological Exam Neurological Exam: Alert, Awake, Oriented x3 Assessment and Plan - Assessment and Plan (Free Text) Assessment: Assessment: GI Bleed per rectum, GI bleed scan negative, differential to consider hemorroidal, diverticular, and anastomotic less likely upper GI source. s/p right hemicolectomy Takotsubo syndrome COPD recent EGD done, large hiatus hernia, colon, diverticulosis PLAN: monitor H/H, if further episode of active bleed may benefit from colon/flex continue PPI on Iron supplement continue stool softners on heart healthy diet DVT prophylaxsis Seen and examined with Dr. Sierra. <Joseline Sierra V - Last Filed: 08/30/16 23:52> Objective - Vital Signs/Intake and Output Vital Signs (last 24 hours): Temp Pulse Resp BP Pulse Ox 97.9 F 67 19 126/62 96 08/30/16 19:40 08/30/16 21:00 08/30/16 19:40 08/30/16 19:40 08/30/16 19:40 Intake and Output: 08/30/16 08/31/16 18:59 06:59 Intake Total 450 Output Total 450 Balance 0 - Medications Medications: Current Medications Acetylcysteine (Acetylcysteine 20%) 3 ml PO BID [facility] Last Admin: 08/29/16 17:48 Dose: 3 ml Calcitonin [place] (Miacalcin) 200 iu NS DAILY [facility] Last Admin: 08/30/16 09:20 Dose: 1 spray Docusate Sodium (Colace) 100 mg PO BID [facility] Last Admin: 08/30/16 17:56 Dose: 100 mg Ferrous Sulfate (Feosol) 324 mg PO TID [facility] Last Admin: 08/30/16 17:56 Dose: 324 mg Levalbuterol HCl (Xopenex) 0.63 mg IH Q6H PRN PRN Reason: Shortness of Breath Levothyroxine Sodium (Synthroid) 50 mcg PO DAILY [facility] Last Admin: 08/30/16 09:21 Dose: 50 mcg Lidocaine HCl (Xylocaine 2% (Uro-Jet)) 0 ea TOP Q6H PRN PRN Reason: Pain, moderate (4-7) Last Admin: 08/30/16 09:18 Dose: 1 ml Meclizine HCl (Antivert) 12.5 mg PO TID PRN PRN Reason: Dizziness Multivitamins (Thera Tab) 1 tab PO DAILY [facility] Last Admin: 08/30/16 09:20 Dose: 1 tab Ondansetron HCl (Zofran Inj) 4 mg IVP Q4H PRN PRN Reason: Nausea/Vomiting Last Admin: 08/29/16 14:38 Dose: 4 mg Pantoprazole Sodium (Protonix Inj) 40 mg IVP Q12 [facility] Last Admin: 08/30/16 21:01 Dose: 40 mg Pramipexole Dihydrochloride (Mirapex) 0.125 mg PO DAILY [facility] Last Admin: 08/30/16 09:22 Dose: 0.125 mg Propranolol HCl (Inderal) 10 mg PO TID [facility] Last Admin: 08/30/16 17:56 Dose: 10 mg Tiotropium [place] (Spiriva) 18 mcg IH DAILY [facility] Last Admin: 08/30/16 09:27 Dose: 18 mcg Tramadol/Acetaminophen (Ultracet 37.5/325 Mg) 1 tab PO Q6H PRN PRN Reason: Pain, moderate (4-7) Last Admin: 08/30/16 11:44 Dose: 1 tab - Labs Labs: 08/30/16 05:35 08/30/16 05:35 PT 11.7 Seconds (9.9-11.8) 08/28/16 06:55 INR 1.08 (0.93-1.08) 08/28/16 06:55 APTT 24.7 Seconds (23.7-30.8) 08/28/16 06:55 Attending/Attestation - Attestation I have personally seen and examined this patient.: Yes I have fully participated in the care of the patient.: Yes I have reviewed all pertinent clinical information, including history, physical exam and plan: Yes Notes (Text): t
--- NOTE | 2016-08-30 10:15 | CP.PCM.PCO ---
Physician Communication Note - Physician Communication Note Physician Communication Note: OK Telemetry
[2016-08-30 11:05] LABS: PH,URINE 7.5 (4.7-8.0); URINE BILIRUBIN NEGATIVE (NEGATIVE); URINE BLOOD LARGE (NEGATIVE); URINE GLUCOSE (UA) NEGATIVE (NEGATIVE); URINE LEUKOCYTE ESTERASE NEGATIVE Leu/uL (NEGATIVE); URINE NITRATE NEGATIVE (NEGATIVE); URINE PROTEIN NEGATIVE mg/dL (<30 mg/dL); URINE UROBILINOGEN 0.2 E.U./dL (<1 E.U./dL)
[2016-08-30 11:16] LABS: URINE APPEARANCE SL CLOUDY (CLEAR); URINE COLOR YELLOW (YELLOW)
[2016-08-30 11:27] LABS: URINE BACTERIA MOD (NEG); URINE RBC 25 - 30 /hpf (0-2)
[2016-08-30] MEDS: TraMADol/Apap 37.5/325 mg Tab PO PRN (11:44)
--- NOTE | 2016-08-30 12:40 | CP.PCM.PN ---
<ConradoSuzy - Last Filed: 08/30/16 12:37> Subjective - Date & Time of Evaluation Date of Evaluation: 08/30/16 Time of Evaluation: 07:45 - Subjective Subjective: Patient complains of left medial malleolar pain, states its chronic in nature. No events overnight per nursing staff. Objective - Vital Signs/Intake and Output Vital Signs (last 24 hours): Temp Pulse Resp BP Pulse Ox 98 F 73 19 118/60 76 L 08/30/16 04:00 08/30/16 11:46 08/30/16 06:50 08/30/16 09:24 08/30/16 06:50 - Medications Medications: Current Medications Acetylcysteine (Acetylcysteine 20%) 3 ml PO BID [facility] Last Admin: 08/29/16 17:48 Dose: 3 ml Calcitonin [place] (Miacalcin) 200 iu NS DAILY [facility] Last Admin: 08/30/16 09:20 Dose: 1 spray Docusate Sodium (Colace) 100 mg PO BID [facility] Last Admin: 08/30/16 09:21 Dose: 100 mg Ferrous Sulfate (Feosol) 324 mg PO TID [facility] Last Admin: 08/30/16 09:22 Dose: 324 mg Levalbuterol HCl (Xopenex) 0.63 mg IH Q6H PRN PRN Reason: Shortness of Breath Levothyroxine Sodium (Synthroid) 50 mcg PO DAILY [facility] Last Admin: 08/30/16 09:21 Dose: 50 mcg Lidocaine HCl (Xylocaine 2% (Uro-Jet)) 0 ea TOP Q6H PRN PRN Reason: Pain, moderate (4-7) Last Admin: 08/30/16 09:18 Dose: 1 ml Meclizine HCl (Antivert) 12.5 mg PO TID PRN PRN Reason: Dizziness Multivitamins (Thera Tab) 1 tab PO DAILY [facility] Last Admin: 08/30/16 09:20 Dose: 1 tab Ondansetron HCl (Zofran Inj) 4 mg IVP Q4H PRN PRN Reason: Nausea/Vomiting Last Admin: 08/29/16 14:38 Dose: 4 mg Pantoprazole Sodium (Protonix Inj) 40 mg IVP Q12 [facility] Last Admin: 08/30/16 09:20 Dose: 40 mg Pramipexole Dihydrochloride (Mirapex) 0.125 mg PO DAILY [facility] Last Admin: 08/30/16 09:22 Dose: 0.125 mg Propranolol HCl (Inderal) 10 mg PO TID [facility] Last Admin: 08/30/16 09:24 Dose: 10 mg Tiotropium [place] (Spiriva) 18 mcg IH DAILY [facility] Last Admin: 08/30/16 09:27 Dose: 18 mcg Tramadol/Acetaminophen (Ultracet 37.5/325 Mg) 1 tab PO Q6H PRN PRN Reason: Pain, moderate (4-7) Last Admin: 08/30/16 11:44 Dose: 1 tab - Labs Labs: 08/30/16 05:35 08/30/16 05:35 PT 11.7 Seconds (9.9-11.8) 08/28/16 06:55 INR 1.08 (0.93-1.08) 08/28/16 06:55 APTT 24.7 Seconds (23.7-30.8) 08/28/16 06:55 - Constitutional Appears: Non-toxic, No Acute Distress - Head Exam Head Exam: ATRAUMATIC, NORMOCEPHALIC - Eye Exam Eye Exam: EOMI, Normal appearance - ENT Exam ENT Exam: Mucous Membranes Moist, Normal Oropharynx - Neck Exam Neck Exam: Normal Inspection. absent: Meningismus, Tenderness, Thyromegaly - Respiratory Exam Respiratory Exam: Clear to Ausculation Bilateral, NORMAL BREATHING PATTERN - Cardiovascular Exam Cardiovascular Exam: RRR - GI/Abdominal Exam GI & Abdominal Exam: Soft. absent: Distended, Guarding, Pulsatile Mass - Rectal Exam Rectal Exam: Deferred - Extremities Exam Extremities Exam: Normal Inspection, Tenderness (left medial malleolar region). absent: Pedal Edema - Neurological Exam Neurological Exam: Alert, Awake, CN II-XII Intact, Oriented x3 - Psychiatric Exam Psychiatric exam: Normal Affect, Normal Mood - Skin Skin Exam: Dry, Intact Assessment and Plan - Assessment and Plan (Free Text) Assessment: 80 yo female s/p right hemicolectomy, newly diagnosed Takutsubo cardiomyopathy who was re-admitted to the ICU after a 250 ml,bloody BM and drop in H&H. Plan: Maintain MAP greater than 65, O2 saturation greater than 90%. We will continue to closely monitor the patient in the ICU. GI, cardiology, Dr. Sextons(surgery ) are following as well. <Litinski,Alex B - Last Filed: 08/30/16 18:09> Objective - Vital Signs/Intake and Output Vital Signs (last 24 hours): Temp Pulse Resp BP Pulse Ox 98.0 F 64 16 126/62 99 08/30/16 16:00 08/30/16 17:56 08/30/16 16:00 08/30/16 17:56 08/30/16 16:00 Intake and Output: 08/30/16 08/30/16 06:59 18:59 Intake Total 450 Output Total 450 Balance 0 - Medications Medications: Current Medications Acetylcysteine (Acetylcysteine 20%) 3 ml PO BID [facility] Last Admin: 08/29/16 17:48 Dose: 3 ml Calcitonin [place] (Miacalcin) 200 iu NS DAILY [facility] Last Admin: 08/30/16 09:20 Dose: 1 spray Docusate [place] (Colace) 100 mg PO BID [facility] Last Admin: 08/30/16 17:56 Dose: 100 mg Ferrous Sulfate (Feosol) 324 mg PO TID [facility] Last Admin: 08/30/16 17:56 Dose: 324 mg Levalbuterol HCl (Xopenex) 0.63 mg IH Q6H PRN PRN Reason: Shortness of Breath Levothyroxine Sodium (Synthroid) 50 mcg PO DAILY [facility] Last Admin: 08/30/16 09:21 Dose: 50 mcg Lidocaine HCl (Xylocaine 2% (Uro-Jet)) 0 ea TOP Q6H PRN PRN Reason: Pain, moderate (4-7) Last Admin: 08/30/16 09:18 Dose: 1 ml Meclizine HCl (Antivert) 12.5 mg PO TID PRN PRN Reason: Dizziness Multivitamins (Thera Tab) 1 tab PO DAILY [facility] Last Admin: 08/30/16 09:20 Dose: 1 tab Ondansetron HCl (Zofran Inj) 4 mg IVP Q4H PRN PRN Reason: Nausea/Vomiting Last Admin: 08/29/16 14:38 Dose: 4 mg Pantoprazole Sodium (Protonix Inj) 40 mg IVP Q12 [facility] Last Admin: 08/30/16 09:20 Dose: 40 mg Pramipexole Dihydrochloride (Mirapex) 0.125 mg PO DAILY [facility] Last Admin: 08/30/16 09:22 Dose: 0.125 mg Propranolol HCl (Inderal) 10 mg PO TID [facility] Last Admin: 08/30/16 17:56 Dose: 10 mg Tiotropium [place] (Spiriva) 18 mcg IH DAILY [facility] Last Admin: 08/30/16 09:27 Dose: 18 mcg Tramadol/Acetaminophen (Ultracet 37.5/325 Mg) 1 tab PO Q6H PRN PRN Reason: Pain, moderate (4-7) Last Admin: 08/30/16 11:44 Dose: 1 tab - Labs Labs: 08/30/16 05:35 08/30/16 05:35 PT 11.7 Seconds (9.9-11.8) 08/28/16 06:55 INR 1.08 (0.93-1.08) 08/28/16 06:55 APTT 24.7 Seconds (23.7-30.8) 08/28/16 06:55 Attending/Attestation - Attestation I have personally seen and examined this patient.: Yes I have fully participated in the care of the patient.: Yes I have reviewed all pertinent clinical information, including history, physical exam and plan: Yes Notes (Text): 08/30/16 18:07 80 yo female with one episode of lower GI bleed while maintaining her BP and HR and minimal Hb drop. Alert and oriented, hemodynamically and respiratory clemens stable. Ok to downgrade to tele ccm time 40 min
--- NOTE | 2016-08-30 14:07 | CP.PCM.PN ---
Subjective - Date & Time of Evaluation Date of Evaluation: 08/30/16 Time of Evaluation: 10:15 - Subjective Subjective: nad, no cp or sob, no melena, no brbpr Objective - Vital Signs/Intake and Output Vital Signs (last 24 hours): Temp Pulse Resp BP Pulse Ox 98 F 87 46 H 113/71 94 L 08/30/16 04:00 08/30/16 14:03 08/30/16 12:35 08/30/16 14:03 08/30/16 12:35 - Medications Medications: Current Medications Acetylcysteine (Acetylcysteine 20%) 3 ml PO BID [facility] Last Admin: 08/29/16 17:48 Dose: 3 ml Calcitonin [place] (Miacalcin) 200 iu NS DAILY [facility] Last Admin: 08/30/16 09:20 Dose: 1 spray Docusate Sodium (Colace) 100 mg PO BID [facility] Last Admin: 08/30/16 09:21 Dose: 100 mg Ferrous Sulfate (Feosol) 324 mg PO TID [facility] Last Admin: 08/30/16 14:03 Dose: 324 mg Levalbuterol HCl (Xopenex) 0.63 mg IH Q6H PRN PRN Reason: Shortness of Breath Levothyroxine Sodium (Synthroid) 50 mcg PO DAILY [facility] Last Admin: 08/30/16 09:21 Dose: 50 mcg Lidocaine HCl (Xylocaine 2% (Uro-Jet)) 0 ea TOP Q6H PRN PRN Reason: Pain, moderate (4-7) Last Admin: 08/30/16 09:18 Dose: 1 ml Meclizine HCl (Antivert) 12.5 mg PO TID PRN PRN Reason: Dizziness Multivitamins (Thera Tab) 1 tab PO DAILY [facility] Last Admin: 08/30/16 09:20 Dose: 1 tab Ondansetron HCl (Zofran Inj) 4 mg IVP Q4H PRN PRN Reason: Nausea/Vomiting Last Admin: 08/29/16 14:38 Dose: 4 mg Pantoprazole Sodium (Protonix Inj) 40 mg IVP Q12 [facility] Last Admin: 08/30/16 09:20 Dose: 40 mg Pramipexole Dihydrochloride (Mirapex) 0.125 mg PO DAILY [facility] Last Admin: 08/30/16 09:22 Dose: 0.125 mg Propranolol HCl (Inderal) 10 mg PO TID [facility] Last Admin: 08/30/16 14:03 Dose: 10 mg Tiotropium [place] (Spiriva) 18 mcg IH DAILY [facility] Last Admin: 08/30/16 09:27 Dose: 18 mcg Tramadol/Acetaminophen (Ultracet 37.5/325 Mg) 1 tab PO Q6H PRN PRN Reason: Pain, moderate (4-7) Last Admin: 08/30/16 11:44 Dose: 1 tab - Labs Labs: 08/30/16 05:35 08/30/16 05:35 PT 11.7 Seconds (9.9-11.8) 08/28/16 06:55 INR 1.08 (0.93-1.08) 08/28/16 06:55 APTT 24.7 Seconds (23.7-30.8) 08/28/16 06:55 - Respiratory Exam Respiratory Exam: Clear to Ausculation Bilateral, NORMAL BREATHING PATTERN - Cardiovascular Exam Cardiovascular Exam: REGULAR RHYTHM - GI/Abdominal Exam GI & Abdominal Exam: Soft, Normal Bowel Sounds - Extremities Exam Extremities Exam: Normal Inspection - Neurological Exam Neurological Exam: Alert, Awake, Oriented x3 Assessment and Plan - Assessment and Plan (Free Text) Plan: stable for transfer to telemetry, PT, SW for dc planning
[2016-08-31 03:44] VITALS: RESP 18
[2016-08-31 06:06] VITALS: BP 116/65; TEMP 98.3; O2SAT 99
[2016-08-31 06:56] LABS: BLOOD UREA NITROGEN 18 mg/dL (7-21); GFR AFRICAN-AMERICAN > 60; GFR NON-AFRICAN AMERICAN 60
[2016-08-31 06:57] LABS: CALCIUM 8.2 mg/dL (8.4-10.5); MAGNESIUM 1.5 mg/dL (1.7-2.2)
[2016-08-31 07:26] LABS: BASO # 0.01 K/mm3 (0.0-2.0); BASO % 0.2 % (0.0-3.0); EOS # 0.1 (0.0-0.7); EOS % 1.5 % (1.5-5.0); GRAN % 60.1 % (50.0-68.0); HEMOGLOBIN 10.6 gm/dL (12.0-16.0); LYMPH # 1.8 (1.2-3.4); LYMPH % 27.2 % (22.0-35.0); MEAN CELL VOLUME 92.8 fL (80.0-105.0); MEAN CORPUSCULAR HEMOGLOBIN 30.5 pg (25.0-35.0); MEAN CORPUSCULAR HGB CONC 32.9 g/dl (31.0-37.0); MEAN PLATELET VOLUME 8.8 fl (7.0-11.0); MONO # 0.7 (0.1-0.6); PLATELET COUNT 251 10^3/uL (120.0-450.0); RBC 3.47 10^6/uL (3.5-6.1); WHITE BLOOD COUNT 6.7 10^3/ul (4.5-11.0)
--- NOTE | 2016-08-31 08:31 | CP.PCM.PN ---
Subjective - Date & Time of Evaluation Date of Evaluation: 08/31/16 Time of Evaluation: 07:00 - Subjective Subjective: General Surgery- Dr. Davis Pt S&E at bedside this AM. No acute events overnight. Per nursing Pt had MRI yesterday. Pt has blood tinged urine. Tolerating diet, having regular BM. Denies abdominal pain, nausea, vomiting, shortness of breath. Objective - Vital Signs/Intake and Output Vital Signs (last 24 hours): Temp Pulse Resp BP Pulse Ox 98.3 F 95 H 18 116/65 99 08/31/16 08:18 08/31/16 08:18 08/31/16 08:18 08/31/16 08:18 08/31/16 08:18 Intake and Output: 08/31/16 08/31/16 06:59 18:59 Intake Total 300 Output Total 700 Balance -400 - Medications Medications: Current Medications Acetylcysteine (Acetylcysteine 20%) 3 ml PO BID [facility] Last Admin: 08/29/16 17:48 Dose: 3 ml Calcitonin [place] (Miacalcin) 200 iu NS DAILY [facility] Last Admin: 08/30/16 09:20 Dose: 1 spray Docusate Sodium (Colace) 100 mg PO BID [facility] Last Admin: 08/30/16 17:56 Dose: 100 mg Ferrous Sulfate (Feosol) 324 mg PO TID [facility] Last Admin: 08/30/16 17:56 Dose: 324 mg Levalbuterol HCl (Xopenex) 0.63 mg IH Q6H PRN PRN Reason: Shortness of Breath Levothyroxine Sodium (Synthroid) 50 mcg PO DAILY [facility] Last Admin: 08/30/16 09:21 Dose: 50 mcg Lidocaine HCl (Xylocaine 2% (Uro-Jet)) 0 ea TOP Q6H PRN PRN Reason: Pain, moderate (4-7) Last Admin: 08/30/16 09:18 Dose: 1 ml Meclizine HCl (Antivert) 12.5 mg PO TID PRN PRN Reason: Dizziness Multivitamins (Thera Tab) 1 tab PO DAILY [facility] Last Admin: 08/30/16 09:20 Dose: 1 tab Ondansetron HCl (Zofran Inj) 4 mg IVP Q4H PRN PRN Reason: Nausea/Vomiting Last Admin: 08/29/16 14:38 Dose: 4 mg Pantoprazole Sodium (Protonix Inj) 40 mg IVP Q12 [facility] Last Admin: 08/30/16 21:01 Dose: 40 mg Pramipexole Dihydrochloride (Mirapex) 0.125 mg PO DAILY [facility] Last Admin: 08/30/16 09:22 Dose: 0.125 mg Propranolol HCl (Inderal) 10 mg PO TID [facility] Last Admin: 08/30/16 17:56 Dose: 10 mg Tiotropium [place] (Spiriva) 18 mcg IH DAILY [facility] Last Admin: 08/30/16 09:27 Dose: 18 mcg Tramadol/Acetaminophen (Ultracet 37.5/325 Mg) 1 tab PO Q6H PRN PRN Reason: Pain, moderate (4-7) Last Admin: 08/30/16 11:44 Dose: 1 tab - Labs Labs: 08/31/16 05:30 08/31/16 05:30 PT 11.7 Seconds (9.9-11.8) 08/28/16 06:55 INR 1.08 (0.93-1.08) 08/28/16 06:55 APTT 24.7 Seconds (23.7-30.8) 08/28/16 06:55 Assessment and Plan - Assessment and Plan (Free Text) Assessment: 80F POD14 s/p R Hemicolectomy for adenoCA, re-admitted from TCU with post op GI Bleed Plan: -No further bleeding episodes past 24hrs -H/H Stable today, no further transfusion needed -Continue PT/Incentive Spirometer -f/u urine culture - further recs per Dr. Ryan Fernandez PGY1
--- NOTE | 2016-08-31 08:34 | PN ---
DATE: 08/30/2016 REASON FOR CONSULTATION: Followup cardiac evaluation status post non-STEMI, status post GI bleed, and rapid response, moved to ICU, and recurrent GI bleed, SUBJECTIVE: The patient is lying flat. Denies any chest pain or shortness of breath. No further episode of bright red blood per rectum noted. OBJECTIVE: GENERAL: Lying flat, not in discomfort. VITAL SIGNS: Temperature afebrile, heart rate 73, and blood pressure 118/60. HEENT: PERRLA. Extraocular muscles intact. NECK: Supple. No carotid bruits or thyromegaly. CHEST: Clear to auscultation. HEART: S1 and S2, regular. ABDOMEN: Soft. EXTREMITIES: Clubbing and cyanosis negative. LABORATORY DATA: Blood workup as follows: WBC *------*, hemoglobin of 11.9, hematocrit 33.6, and platelet count 244. Chemistry shows sodium of 132, potassium 4.3, chloride 98, carbon dioxide 28, anion gap of 10, BUN of 15, creatinine 0.9, calcium is 8, phosphorous 3.2, and magnesium 1.9. IMPRESSION: An 80-year-old female with past medical history significant for hypertension, hypothyroidism, admitted with gastrointestinal bleed, found to be colon cancer stage I, status post colon resection. Postoperative course was complicated with non-ST segment myocardial infarction. Cardiac catheterization reveal normal coronaries, *------* hypokinesis, possibly Takotsubo syndrome, and the patient is on home oxygen. The patient was transferred to telemetry and then subsequently to transitional care unit. The patient had bright red blood 250 mL per rectum, moved to ICU, managed conservatively, now H and H remains stable, no further episode of bright red blood per rectum or upper gastrointestinal bleed noted. RECOMMENDATIONS: Continue iron supplementation, continue propranolol 10 mg p.o. t.i.d., continue electrolytes supplement as needed, and continue levothyroxine. Avoid *------* to tachycardia. We will transfer to telemetry and follow H and H. Thank you *------* for providing the opportunity in taking care of the patient, Petra Walden. Kemar Quach MD
--- NOTE | 2016-08-31 09:32 | CP.PCM.PN ---
Subjective - Date & Time of Evaluation Date of Evaluation: 08/31/16 Time of Evaluation: 08:45 - Subjective Subjective: Seen and examined at bedside this am, chart reviewed, having BM no blood reported, denies N/V, abdominal pain, sawyer pink tinge. No acute overnight events reported. Objective - Vital Signs/Intake and Output Vital Signs (last 24 hours): Temp Pulse Resp BP Pulse Ox 98.3 F 95 H 18 116/65 99 08/31/16 08:18 08/31/16 08:18 08/31/16 08:18 08/31/16 08:18 08/31/16 08:18 Intake and Output: 08/31/16 08/31/16 06:59 18:59 Intake Total 300 Output Total 700 Balance -400 - Medications Medications: Current Medications Acetylcysteine (Acetylcysteine 20%) 3 ml PO BID [facility] Last Admin: 08/29/16 17:48 Dose: 3 ml Calcitonin [place] (Miacalcin) 200 iu NS DAILY [facility] Last Admin: 08/30/16 09:20 Dose: 1 spray Docusate Sodium (Colace) 100 mg PO BID [facility] Last Admin: 08/30/16 17:56 Dose: 100 mg Ferrous Sulfate (Feosol) 324 mg PO TID [facility] Last Admin: 08/30/16 17:56 Dose: 324 mg Levalbuterol HCl (Xopenex) 0.63 mg IH Q6H PRN PRN Reason: Shortness of Breath Levothyroxine Sodium (Synthroid) 50 mcg PO DAILY [facility] Last Admin: 08/30/16 09:21 Dose: 50 mcg Lidocaine HCl (Xylocaine 2% (Uro-Jet)) 0 ea TOP Q6H PRN PRN Reason: Pain, moderate (4-7) Last Admin: 08/30/16 09:18 Dose: 1 ml Meclizine HCl (Antivert) 12.5 mg PO TID PRN PRN Reason: Dizziness Multivitamins (Thera Tab) 1 tab PO DAILY [facility] Last Admin: 08/30/16 09:20 Dose: 1 tab Ondansetron HCl (Zofran Inj) 4 mg IVP Q4H PRN PRN Reason: Nausea/Vomiting Last Admin: 08/29/16 14:38 Dose: 4 mg Pantoprazole Sodium (Protonix Inj) 40 mg IVP Q12 [facility] Last Admin: 08/30/16 21:01 Dose: 40 mg Pramipexole Dihydrochloride (Mirapex) 0.125 mg PO DAILY [facility] Last Admin: 08/30/16 09:22 Dose: 0.125 mg Propranolol HCl (Inderal) 10 mg PO TID [facility] Last Admin: 08/30/16 17:56 Dose: 10 mg Tiotropium [place] (Spiriva) 18 mcg IH DAILY [facility] Last Admin: 08/30/16 09:27 Dose: 18 mcg Tramadol/Acetaminophen (Ultracet 37.5/325 Mg) 1 tab PO Q6H PRN PRN Reason: Pain, moderate (4-7) Last Admin: 08/30/16 11:44 Dose: 1 tab - Labs Labs: 08/31/16 05:30 08/31/16 05:30 PT 11.7 Seconds (9.9-11.8) 08/28/16 06:55 INR 1.08 (0.93-1.08) 08/28/16 06:55 APTT 24.7 Seconds (23.7-30.8) 08/28/16 06:55 - Constitutional Appears: No Acute Distress - Head Exam Head Exam: NORMOCEPHALIC - Eye Exam Eye Exam: Normal appearance. absent: Scleral icterus - ENT Exam ENT Exam: Mucous Membranes Moist - Neck Exam Neck Exam: Normal Inspection - Respiratory Exam Respiratory Exam: Decreased Breath Sounds, NORMAL BREATHING PATTERN. absent: Rhonchi, Wheezes, Respiratory Distress - Cardiovascular Exam Cardiovascular Exam: +S1, +S2 - GI/Abdominal Exam GI & Abdominal Exam: Soft, Normal Bowel Sounds. absent: Guarding, Tenderness, Organomegaly, Rebound Additional comments: midline incision dry and intact. - Extremities Exam Extremities Exam: Normal Capillary Refill. absent: Pedal Edema - Neurological Exam Neurological Exam: Alert, Awake, Oriented x3 Assessment and Plan - Assessment and Plan (Free Text) Assessment: Assessment: GI Bleed per rectum, GI bleed scan negative, differential to consider hemorroidal, diverticular, and anastomotic less likely upper GI source. s/p right hemicolectomy Takotsubo syndrome COPD recent EGD done, large hiatus hernia, colon, diverticulosis PLAN: monitor H/H, if further episode of active bleed may benefit from colon/flex continue PPI on Iron supplement continue stool softners on heart healthy diet DVT prophylaxsis Seen and examined with Dr. Sierra.
[2016-08-31] MEDS ORDERED: Magnesium Sulfate 2 GM in Sodium Chloride 0.9% 100 ML IVPB ONE (09:47)
[2016-08-31] MEDS: Multivitamin Therapeutic Tab PO SCH (09:56)
[2016-08-31] MEDS: Levothyroxine 50 MCG TAB PO SCH (09:56)
[2016-08-31] MEDS: Calcitonin 200 Int Units/Inh Nasal Spray (3.7 ml) NS SCH (09:57)
[2016-08-31] MEDS: Tiotropium 18 mcg Cap For Inhalation IH SCH (09:57)
[2016-08-31] MEDS: Acetylcysteine 20% Inhal Soln (4ml) PO SCH (09:58)
[2016-08-31] MEDS ORDERED: Magnesium Oxide 400 mg Tab UD PO SCH (10:00)
[2016-08-31] MEDS: TraMADol/Apap 37.5/325 mg Tab PO PRN (10:07)
--- NOTE | 2016-08-31 10:09 | CP.PCM.PCO ---
Physician Communication Note - Physician Communication Note Physician Communication Note: Improving:still + Hematuria(-c/s)/Rx PT-Diet
--- NOTE | 2016-08-31 13:28 | PN ---
DATE: 08/31/2016 REASON FOR CONSULTATION: Followup recurrent GI bleed, status post right hemicolectomy,status post non-STEMI. SUBJECTIVE: The patient is lying flat on the bed. Denies any chest pain, shortness of breath, or any palpitations. No complaint of further bright red blood per rectum. OBJECTIVE: The patient is lying comfortably, not in apparent distress. PHYSICAL EXAMINATION: As follows: VITAL SIGNS: Temperature afebrile, hear rate 81, blood pressure 116/60. HEENT: PERRLA. Extraocular muscles intact. NECK: Supple. No carotid bruits or thyromegaly. CHEST: Clear to auscultation. HEART: S1 and S2, regular. ABDOMEN: Soft. EXTREMITIES: Clubbing and cyanosis negative. LABORATORY DATA: Blood workup as follows; WBC 6.7, hemoglobin 10.6, hematocrit 32.2, platelet count 251. Chemistry shows sodium 134, potassium 4.8, chloride 97, carbon dioxide 32, anion gap of 10, BUN of 18, creatinine 0.9. Magnesium 1.5. Yesterday albumin 2.2, total protein 4.5. IMPRESSION: Severe protein-calorie malnutrition, which is present at this admission. Hypomagnesemia, anemia, status post transfusion, history of stage I colon cancer status post resection, right hemicolectomy, exploratory laparotomy, recurrent gastrointestinal bleed, ICU for rapid response. Outpatient until telemetry. History of non-ST elevation myocardial infarction after the perioperative cardiac catheterization, she is normal coronaries, possibly Takotsubo syndrome. RECOMMENDATION: In view of recurrent bleed, the patient is off aspirin, continue propranolol 20 mg, continue multivitamin, levothyroxine, monitor H&H, supplement magnesium. If remain stable consider to transfer back to TCU. We will discuss with Dr. Huff. Thank you Dr. Huff for providing the opportunity in taking care of the patient Win Lambert, increase nutritional support added on supplement, ensure pudding. We will follow with you. We will give supplement p.o. as well as IV mag rider. We will get the physical therapy evaluation and TCU evaluation. Kemar Quach MD
--- NOTE | 2016-08-31 14:08 | CP.PCM.PN ---
Subjective - Date & Time of Evaluation Date of Evaluation: 08/31/16 Time of Evaluation: 12:45 - Subjective Subjective: nad, no cp, no sob, denies abd pain Objective - Vital Signs/Intake and Output Vital Signs (last 24 hours): Temp Pulse Resp BP Pulse Ox 98.3 F 95 H 18 116/65 99 08/31/16 08:18 08/31/16 09:56 08/31/16 08:18 08/31/16 09:56 08/31/16 08:18 Intake and Output: 08/31/16 08/31/16 06:59 18:59 Intake Total 300 Output Total 700 Balance -400 - Medications Medications: Current Medications Acetylcysteine (Acetylcysteine 20%) 3 ml PO BID [facility] Last Admin: 08/31/16 09:58 Dose: 3 ml Calcitonin [place] (Miacalcin) 200 iu NS DAILY [facility] Last Admin: 08/31/16 09:57 Dose: 1 spray Docusate Sodium (Colace) 100 mg PO BID [facility] Last Admin: 08/31/16 09:59 Dose: 100 mg Ferrous Sulfate (Feosol) 324 mg PO TID [facility] Last Admin: 08/31/16 09:56 Dose: 324 mg Levalbuterol HCl (Xopenex) 0.63 mg IH Q6H PRN PRN Reason: Shortness of Breath Levothyroxine Sodium (Synthroid) 50 mcg PO DAILY [facility] Last Admin: 08/31/16 09:56 Dose: 50 mcg Lidocaine HCl (Xylocaine 2% (Uro-Jet)) 0 ea TOP Q6H PRN PRN Reason: Pain, moderate (4-7) Last Admin: 08/30/16 09:18 Dose: 1 ml Magnesium Oxide (Mag-Ox) 400 mg PO BID [facility] Stop: 09/01/16 23:59 Last Admin: 08/31/16 10:08 Dose: 400 mg Meclizine HCl (Antivert) 12.5 mg PO TID PRN PRN Reason: Dizziness Multivitamins (Thera Tab) 1 tab PO DAILY [facility] Last Admin: 08/31/16 09:56 Dose: 1 tab Ondansetron HCl (Zofran Inj) 4 mg IVP Q4H PRN PRN Reason: Nausea/Vomiting Last Admin: 08/29/16 14:38 Dose: 4 mg Pantoprazole Sodium (Protonix Inj) 40 mg IVP Q12 [facility] Last Admin: 08/31/16 09:57 Dose: 40 mg Pramipexole Dihydrochloride (Mirapex) 0.125 mg PO DAILY [facility] Last Admin: 08/31/16 09:57 Dose: 0.125 mg Propranolol HCl (Inderal) 10 mg PO TID [facility] Last Admin: 08/31/16 09:56 Dose: 10 mg Tiotropium [place] (Spiriva) 18 mcg IH DAILY [facility] Last Admin: 08/31/16 09:57 Dose: 18 mcg Tramadol/Acetaminophen (Ultracet 37.5/325 Mg) 1 tab PO Q6H PRN PRN Reason: Pain, moderate (4-7) Last Admin: 08/31/16 10:07 Dose: 1 tab - Labs Labs: 08/31/16 05:30 08/31/16 05:30 PT 11.7 Seconds (9.9-11.8) 08/28/16 06:55 INR 1.08 (0.93-1.08) 08/28/16 06:55 APTT 24.7 Seconds (23.7-30.8) 08/28/16 06:55 - Respiratory Exam Respiratory Exam: Clear to Ausculation Bilateral, NORMAL BREATHING PATTERN - Cardiovascular Exam Cardiovascular Exam: REGULAR RHYTHM - GI/Abdominal Exam GI & Abdominal Exam: Normal Bowel Sounds - Exam Additional comments: sawyer cath intact, urine grossly bloody - Neurological Exam Neurological Exam: Alert, Awake - Skin Skin Exam: Warm Assessment and Plan - Assessment and Plan (Free Text) Plan: continue present care, monitor hematuria (probably catheter related trauma), SW for dc planning
[2016-08-31 14:53] VITALS: PULSE 79
--- NOTE | 2016-09-01 16:40 | PQF GENQUE ---
09/01/16 Dr. Viktor Davis, Please see urine culture result of 08/30/16. Any diagnosis pertaining to this finding? Thank you. Clarification of your documentation is requested to better reflect the severity of illness and intensity of treatment of your patient. Indicators present [] Specify: [] [] Specify: [] [] Specify: [] [] Specify: [] Location in the medical record that reflects the above clinical findings: [] Treatment Provided: [] PHYSICIAN'S RESPONSE Based on your medical judgment of the clinical indicators outlined above please clarify the following: [x] Practitioner response Pt has hematuria and bladder obstruction due to clinical 100k UTI(Grneg kirby) [] If unable to determine, please check the box, sign and date. Present On Admission (POA) Indicator: [] Present at the time of admission Yes [] Not present at the time of admission [] Clinically Undetermined In responding to this query, please exercise your independent professional judgment. The fact that a question is asked does not imply that any particular answer is desired or expected. Thank you for your clarification on this documentation. If you have any questions please call:[ ] * Thank you, [ ] switch adjuster BRIAN
== END 2016-08-31 14:57 | DRG 377 ==
LOC: ED 03:41 → ERH 05:54 → CCU 07:37 → 2RNO 08-30 17:19
PROVIDERS: ADMIT Surgery; ATTEND Surgery
PROC: 30233N1 Transfusion of Nonautologous Red Blood Cells into Peripheral Vein, Percutaneous Approach (ICD-10-PCS; principal; 2016-08-28)
DX: K92.2 Gastrointestinal hemorrhage, unspecified (principal); E43 Unspecified severe protein-calorie malnutrition; Z99.81 Dependence on supplemental oxygen; I11.0 Hypertensive heart disease with heart failure; I50.9 Heart failure, unspecified; E83.42 Hypomagnesemia; Q43.8 Other specified congenital malformations of intestine; N39.0 Urinary tract infection, site not specified; I51.81 Takotsubo syndrome; I08.3 Combined rheumatic disorders of mitral, aortic and tricuspid valves; J44.9 Chronic obstructive pulmonary disease, unspecified; D64.9 Anemia, unspecified; I25.5 Ischemic cardiomyopathy; I25.10 Atherosclerotic heart disease of native coronary artery without angina pectoris; E03.9 Hypothyroidism, unspecified; E78.00 Pure hypercholesterolemia, unspecified; E87.6 Hypokalemia; H35.30 Unspecified macular degeneration; H40.9 Unspecified glaucoma; I25.2 Old myocardial infarction; K21.9 Gastro-esophageal reflux disease without esophagitis; K44.9 Diaphragmatic hernia without obstruction or gangrene; K91.841 Postprocedural hemorrhage of a digestive system organ or structure following other procedure; R31.0 Gross hematuria; Z72.0 Tobacco use; Z79.899 Other long term (current) drug therapy; Z85.038 Personal history of other malignant neoplasm of large intestine; Z86.010 Personal history of colon polyps; Z90.49 Acquired absence of other specified parts of digestive tract; Z98.42 Cataract extraction status, left eye; Z98.41 Cataract extraction status, right eye; Z88.5 Allergy status to narcotic agent; R42 Dizziness and giddiness; R26.81 Unsteadiness on feet; S30.23XA Contusion of vagina and vulva, initial encounter; K57.30 Diverticulosis of large intestine without perforation or abscess without bleeding; I77.6 Arteritis, unspecified; B96.1 Klebsiella pneumoniae [K. pneumoniae] as the cause of diseases classified elsewhere

== ENCOUNTER 2016-08-31 14:57 | Inpatient (IN) | payer OTHER, BC ==
[2016-08-31 17:09] VITALS: BMI 18.8
[2016-08-31] MEDS ORDERED: Levalbuterol 0.63 MG/3 ML Inhal Soln UD IH PRN (17:09)
[2016-08-31] MEDS ORDERED: Acetylcysteine 20% Inhal Soln (4ml) PO SCH (18:00)
[2016-08-31] MEDS ORDERED: Lidocaine 2% Jelly (30 ml) TOP PRN (18:12)
[2016-08-31] MEDS ORDERED: Pneumococcal 23-Valent Vaccine IM ONE (18:12)
[2016-08-31] MEDS: TraMADol/Apap 37.5/325 mg Tab PO PRN (20:30)
[2016-09-01] MEDS: Levothyroxine 50 MCG TAB PO SCH (06:06)
[2016-09-01] MEDS ORDERED: Levalbuterol 0.63 MG/3 ML Inhal Soln UD IH PRN (06:51)
[2016-09-01] MEDS: Levalbuterol 0.63 MG/3 ML Inhal Soln UD IH SCH ×3 (07:25→20:09)
[2016-09-01 07:47] LABS: ADD MANUAL DIFF? NO
[2016-09-01 07:54] LABS: BASO # 0.04 K/mm3 (0.0-2.0); BASO % 0.6 % (0.0-3.0); EOS # 0.1 (0.0-0.7); GRAN # 4.19 (1.4-6.5); GRAN % 59.2 % (50.0-68.0); HEMATOCRIT 31.2 % (36.0-48.0); LYMPH # 1.8 (1.2-3.4); LYMPH % 25.3 % (22.0-35.0); MEAN CELL VOLUME 92.9 fL (80.0-105.0); MEAN CORPUSCULAR HEMOGLOBIN 31.3 pg (25.0-35.0); MEAN CORPUSCULAR HGB CONC 33.7 g/dl (31.0-37.0); MEAN PLATELET VOLUME 9.3 fl (7.0-11.0); MONO # 0.9 (0.1-0.6); MONO % 12.9 % (1.0-6.0); PLATELET COUNT 259 10^3/uL (120.0-450.0); RED CELL DISTRIBUTION WIDTH 15.1 % (11.5-14.5); WHITE BLOOD COUNT 7.1 10^3/ul (4.5-11.0)
--- NOTE | 2016-09-01 08:17 | CP.PCM.PN ---
Subjective - Date & Time of Evaluation Date of Evaluation: 09/01/16 Time of Evaluation: 08:14 - Subjective Subjective: General Surgery Dr. Davis Patient seen and examined at bedside this morning. No acute events overnight. Patient transferred to TCU yesterday. Patient is tolerating her diet, currently in no pain. Denies F/C, N/V, SOB or CP. Objective - Vital Signs/Intake and Output Vital Signs (last 24 hours): Temp Pulse Resp BP Pulse Ox 98 F 88 20 102/57 L 08/31/16 18:00 08/31/16 18:57 08/31/16 18:00 08/31/16 18:57 Intake and Output: 09/01/16 09/01/16 06:59 18:59 Intake Total 180 Output Total 500 Balance -320 - Medications Medications: Current Medications Calcitonin [place] (Miacalcin) 200 iu NS DAILY [facility] PRN Reason: Protocol Docusate Sodium (Colace) 100 mg PO BID [facility] PRN Reason: Protocol Ferrous Sulfate (Feosol) 324 mg PO 0800,1200,1800 [facility] PRN Reason: Protocol Last Admin: 08/31/16 18:56 Dose: 324 mg Levalbuterol HCl (Xopenex) 0.63 mg IH [id number] [facility] Last Admin: 09/01/16 07:25 Dose: 0.63 mg Levalbuterol HCl (Xopenex) 0.63 mg IH Q2 PRN PRN Reason: Shortness of Breath Levothyroxine Sodium (Synthroid) 50 mcg PO 0630 [facility] PRN Reason: Protocol Last Admin: 09/01/16 06:06 Dose: 50 mcg Lidocaine HCl (Xylocaine 2%) 0 ea TOP Q6H PRN; Protocol PRN Reason: Pain, moderate (4-7) Magnesium Oxide (Mag-Ox) 400 mg PO BID [facility] PRN Reason: Protocol Meclizine HCl (Antivert) 12.5 mg PO TID PRN; Protocol PRN Reason: Dizziness Multivitamins (Thera Tab) 1 tab PO DAILY [facility] PRN Reason: Protocol Ondansetron HCl (Zofran Inj) 4 mg IVP Q4H PRN; Protocol PRN Reason: Nausea/Vomiting Pantoprazole Sodium (Protonix Inj) 40 mg IVPB 0600,1800 [facility] PRN Reason: Protocol Pramipexole Dihydrochloride (Mirapex) 0.125 mg PO DAILY [facility] PRN Reason: Protocol Propranolol HCl (Inderal) 10 mg PO TID [facility] PRN Reason: Protocol Last Admin: 08/31/16 18:57 Dose: 10 mg Tiotropium [place] (Spiriva) 18 mcg IH DAILY [facility] PRN Reason: Protocol Tramadol/Acetaminophen (Ultracet 37.5/325 Mg) 1 tab PO Q6H PRN; Protocol PRN Reason: Pain, moderate (4-7) Last Admin: 08/31/16 20:30 Dose: 1 tab - Labs Labs: 09/01/16 07:10 - Constitutional Appears: Non-toxic, No Acute Distress - Head Exam Head Exam: ATRAUMATIC, NORMOCEPHALIC - Eye Exam Eye Exam: EOMI - ENT Exam ENT Exam: Mucous Membranes Moist - Respiratory Exam Respiratory Exam: NORMAL BREATHING PATTERN. absent: Accessory Muscle Use, Respiratory Distress - Cardiovascular Exam Cardiovascular Exam: REGULAR RHYTHM - GI/Abdominal Exam GI & Abdominal Exam: Soft. absent: Distended, Guarding, Rigid, Tenderness - Exam Additional comments: Chow catheter in place, drained 500cc or urine with gross blood overnight. - Neurological Exam Neurological Exam: Alert, Awake, Oriented x3 - Psychiatric Exam Psychiatric exam: Normal Affect, Normal Mood - Skin Skin Exam: Dry, Normal Color, Warm Additional comments: Surgical midline incision healing appropriately, margins approximated well. Assessment and Plan - Assessment and Plan (Free Text) Assessment: 80F POD15 s/p R Hemicolectomy for adenoCA, re-admitted from TCU with post op GI Bleed Plan: H/H Stable today, no further transfusion needed Continue PT and IS Urine culture positive for gram neg rods - Start on Cefpodoxime further recs per Dr. Ryan Elizabeth Waldo PGY1
[2016-09-01 08:23] LABS: BLOOD UREA NITROGEN 18 mg/dL (7-21); CALCIUM 8.2 mg/dL (8.4-10.5); CARBON DIOXIDE 28 mmol/L (21-33); CHLORIDE 99 mmol/L (95-110); GFR AFRICAN-AMERICAN > 60; GLUCOSE,RANDOM 75 mg/dL (70-110); MAGNESIUM 1.8 mg/dL (1.7-2.2); POTASSIUM 4.6 mmol/L (3.6-5.0); SODIUM 133 mmol/L (132-148)
--- NOTE | 2016-09-01 08:59 | CON ---
DATE: 09/01/2016 REASON FOR CONSULTATION: Chronic obstructive pulmonary disease. REFERRING PHYSICIAN: Viktor Davis MD HISTORY OF PRESENT ILLNESS: History is obtained via extensive discussion with the nursing staff. I have also discussed the case with the patient at length and reviewed the chart at length. PAST MEDICAL HISTORY: The patient is an 80-year-old female with past medical history significant for advanced chronic obstructive pulmonary disease, asthma, who was initially admitted on 08/16/2016 for elective surgery. Apparently, a colonic mass was found and biopsied recently. The biopsy pathology was positive for adenocarcinoma. The patient was thus admitted for elective surgery. Again, I have discussed the case with the nursing staff and the patient at length. The patient has done fairly well while in the hospital. Her postoperative course was complicated by an acute myocardial infarction. The postoperative course was also complicated by blood loss and the patient received several transfusions. However, she is doing well at the present time and was transferred to the transitional unit for physical therapy. The patient denies shortness of breath at rest. She does have chronic dyspnea on exertion. There is no history of significant cough or sputum production. There is no history of recent chest pain, no history of coughing up blood. No history of chest pain-made worse with deep respirations. There have been no recent temperatures noted. No history of chills or infectious exposure. No history of night sweats, weight loss or appetite change prior to the above events. No history of leg or calf pains. No history of syncope or diaphoresis. No history of recent travel or trauma. REVIEW OF SYSTEMS: No acute urinary symptoms. No new neurological or musculoskeletal complaints. Rest of the review systems is noncontributory. ALLERGIES: CODEINE. SOCIAL HISTORY: Positive for tobacco and negative for alcohol. FAMILY HISTORY: No inheritable diseases. HOME MEDICATIONS: Include, Spiriva, propranolol, Mirapex, pantoprazole, Zofran, Antivert, Synthroid, Xopenex, Feosol, Colace. PHYSICAL EXAMINATION: GENERAL: The patient appears comfortable this morning. She is not short of breath at rest. She is awake and alert. VITAL SIGNS: Temperature is 98.0, pulse is 88, respirations are 18/20, and blood pressure is 102/57. Oxygen saturation on nasal canula is 90%. HEENT: Normocephalic and atraumatic. NECK: No JVD. CARDIOVASCULAR: Positive S1 and S2. No S3 or gallop. LUNGS: Decreased breath sounds at the bases. No rhonchi. No wheezing. EXTREMITIES: Positive for mild edema. No cyanosis. No clubbing. Calves are nontender to palpation. GI: Abdomen is postoperative. It is soft, nontender to palpation. Bowels sounds are positive. SKIN: No acute rashes. NEUROLOGIC: Limited at the present time. CURRENT LABORATORY DATA: Last radiological testing was done on 08/22/2016. On 08/22/2016, the patient had a CAT scan of the chest-done as an angiogram protocol. There was no pulmonary embolism seen. There are small bilateral pleural effusions with adjacent atelectasis noted. CBC: White count 6.7, hemoglobin 10.6, hematocrit 32.2, platelets are 251. IMPRESSION: 1. Status post hemicolectomy. 2. Colon cancer. 3. Advanced chronic obstructive pulmonary disease. 4. Asthma. 5. Recent myocardial infarction. 6. Anemia. PLAN: The patient appears comfortable this morning. She is not short of breath at rest. Again, I did discuss the case with the night nurse and the patient at length. Apparently, the patient is doing very well at the present time. Oxygen saturation is 90% on nasal cannula. On physical exam, there is no significant bronchospasm noted. I will continue with the current pulmonary medications for now. Surgical evaluation is ongoing. Input by Dr. Davis is noted. The patient will be out of bed and using her incentive spirometer. Additional pulmonary intervention will be based on the clinical status with the patient. I will discuss above with Dr. Davis this morning. Thank you very much for this pulmonary consultation. Richard Mak MD [facility]
[2016-09-01] MEDS: Magnesium Oxide 400 mg Tab UD PO SCH ×2 (10:16→17:28)
[2016-09-01] MEDS: Calcitonin 200 Int Units/Inh Nasal Spray (3.7 ml) NS SCH (10:16)
[2016-09-01] MEDS: Tiotropium 18 mcg Cap For Inhalation IH SCH (10:17)
[2016-09-01] MEDS: Multivitamin Therapeutic Tab PO SCH (10:18)
--- NOTE | 2016-09-01 10:46 | CP.PCM.CON ---
History of Present Illness - History of Present Illness History of Present Illness: 80 yo female re-admitted to TCU s/p hosp for GI Bleed. No melena or brbpr presently, no abd pain, denies cp or sob Review of Systems - Genitourinary Genitourinary: Hematuria Past Patient History - Past Social History Smoking Status: Never Smoked - CARDIAC Hx Cardiac Disorders: Yes (CAD) Hx Congestive Heart Failure: Yes - PULMONARY Hx Chronic Obstructive Pulmonary Disease (COPD): Yes - NEUROLOGICAL Hx Neurological Disorder: Yes Hx Dizziness: Yes (VERTIGO) - HEENT Hx HEENT Problems: Yes Hx Cataracts: Yes (cataract removal ou) Hx Glaucoma: Yes Hx Macular Degeneration: Yes - RENAL Hx Chronic Kidney Disease: No - ENDOCRINE/METABOLIC Hx Hypothyroidism: Yes - HEMATOLOGICAL/ONCOLOGICAL Hx Blood Disorders: Yes Hx Anemia: Yes (BLOOD TRANSFUSION) Hx Cancer: Yes (Colon) - INTEGUMENTARY Hx Dermatological Problems: Yes Other/Comment: MID LOWER ABDOMINAL AREA INCISION LINE POST HEMICOLECTOMY AUGUST 16. 08-28-16 GROIN AREA,PERINAL AREA WITH A LARGE BRUISE OR HEMATOMA.BURGUNDY COLORED SKIN. - MUSCULOSKELETAL/RHEUMATOLOGICAL Hx Falls: No - GASTROINTESTINAL Hx Gastrointestinal Disorders: Yes (GI BLEED 08-28-16,COLON POLYP) Hx Gastroesophageal Reflux: Yes Other/Comment: hiatal hernia - GENITOURINARY/GYNECOLOGICAL Hx Reproductive Disorders: No - PSYCHIATRIC Hx Emotional Abuse: No Hx Physical Abuse: No Hx Substance Use: No - SURGICAL HISTORY Hx Surgeries: Yes (BILATERAL CATARACT SX,) Other/Comment: Right Hemicolectomy - ANESTHESIA Hx Anesthesia Reactions: No Hx Malignant Hyperthermia: No Meds Allergies/Adverse Reactions: Allergies Allergy/AdvReac Type Severity Reaction Status Date / Time codeine Allergy NAUSEA Verified 08/28/16 14:16 - Medications Medications: Current Medications Calcitonin [place] (Miacalcin) 200 iu NS DAILY [facility]ACE PRN Reason: Protocol Last Admin: 09/01/16 10:16 Dose: 1 dose Cefpodoxime Proxetil (Vantin) 100 mg PO Q12 [facility] PRN Reason: Protocol Docusate Sodium (Colace) 100 mg PO BID W[facility]ACE PRN Reason: Protocol Last Admin: 09/01/16 10:15 Dose: 100 mg Ferrous Sulfate (Feosol) 324 mg PO 0800,1200,1800 [facility] PRN Reason: Protocol Last Admin: 09/01/16 08:21 Dose: 324 mg Levalbuterol HCl (Xopenex) 0.63 mg IH [id number] W[facility]ACE Last Admin: 09/01/16 07:25 Dose: 0.63 mg Levalbuterol HCl (Xopenex) 0.63 mg IH Q2 PRN PRN Reason: Shortness of Breath Levothyroxine Sodium (Synthroid) 50 mcg PO 0630 [facility]ACE PRN Reason: Protocol Last Admin: 09/01/16 06:06 Dose: 50 mcg Lidocaine HCl (Xylocaine 2%) 0 ea TOP Q6H PRN; Protocol PRN Reason: Pain, moderate (4-7) Magnesium Oxide (Mag-Ox) 400 mg PO BID W[facility]ACE PRN Reason: Protocol Last Admin: 09/01/16 10:16 Dose: 400 mg Meclizine HCl (Antivert) 12.5 mg PO TID PRN; Protocol PRN Reason: Dizziness Last Admin: 09/01/16 10:20 Dose: 12.5 mg Multivitamins (Thera Tab) 1 tab PO DAILY W[facility]ACE PRN Reason: Protocol Last Admin: 09/01/16 10:18 Dose: 1 tab Ondansetron HCl (Zofran Inj) 4 mg IVP Q4H PRN; Protocol PRN Reason: Nausea/Vomiting Pantoprazole Sodium (Protonix Inj) 40 mg IVPB 0600,1800 [facility] PRN Reason: Protocol Pramipexole Dihydrochloride (Mirapex) 0.125 mg PO DAILY W[facility]ACE PRN Reason: Protocol Last Admin: 09/01/16 10:17 Dose: 0.125 mg Propranolol HCl (Inderal) 10 mg PO TID [facility]ACE PRN Reason: Protocol Last Admin: 09/01/16 10:15 Dose: 10 mg Tiotropium [place] (Spiriva) 18 mcg IH DAILY W[facility]ACE PRN Reason: Protocol Last Admin: 09/01/16 10:17 Dose: 18 mcg Tramadol/Acetaminophen (Ultracet 37.5/325 Mg) 1 tab PO Q6H PRN; Protocol PRN Reason: Pain, moderate (4-7) Last Admin: 08/31/16 20:30 Dose: 1 tab Physical Exam - Head Exam Head Exam: ATRAUMATIC, NORMOCEPHALIC - Eye Exam Eye Exam: Normal appearance - Neck Exam Neck exam: Positive for: Normal Inspection - Respiratory Exam Respiratory Exam: Clear to Auscultation Bilateral, NORMAL BREATHING PATTERN - Cardiovascular Exam Cardiovascular Exam: REGULAR RHYTHM - GI/Abdominal Exam GI & Abdominal Exam: Normal Bowel Sounds, Soft - Extremities Exam Extremities exam: Positive for: normal inspection - Neurological Exam Neurological exam: Alert, Oriented x3 - Skin Skin Exam: Dry, Warm Results - Vital Signs Recent Vital Signs: Last Vital Signs Temp 98.2 F 09/01/16 10:00 Pulse 110 H 09/01/16 10:15 Resp 20 09/01/16 10:00 BP 108/69 09/01/16 10:15 Pulse Ox 93 L 09/01/16 10:00 - Labs Result Diagrams: 09/01/16 07:10 09/01/16 07:10 Labs: Laboratory Results - last 24 hr 09/01/16 09/01/16 07:10 07:10 WBC 7.1 RBC 3.36 L Hgb 10.5 L Hct 31.2 L MCV 92.9 MCH 31.3 MCHC 33.7 RDW 15.1 H Plt Count 259 MPV 9.3 Gran % 59.2 Lymph % (Auto) 25.3 [place] % (Auto) 12.9 H Eos % (Auto) 2.0 Baso % (Auto) 0.6 Gran # 4.19 Lymph # 1.8 [place] # 0.9 H Eos # 0.1 Baso # 0.04 Sodium 133 Potassium 4.6 Chloride 99 Carbon Dioxide 28 Anion Gap 11 BUN 18 Creatinine 0.9 Est GFR ( Amer) > 60 Est GFR (Non-Af Amer) 60 Random Glucose 75 Calcium 8.2 L Phosphorus 4.0 Magnesium 1.8 Assessment & Plan (1) Adenocarcinoma of colon Status: Resolved (2) COPD (chronic obstructive pulmonary disease) Status: Chronic (3) Hematuria Status: Acute - Date & Time Date: 09/01/16 Time: 09:30
--- NOTE | 2016-09-01 11:38 | CP.PCM.PCO ---
Physician Communication Note - Physician Communication Note Physician Communication Note: UTI Gr-Hiram rx BID AB/Nystatin matteo anal
[2016-09-01] MEDS: Cefpodoxime (Vantin) 100 mg Tab PO SCH ×2 (12:10→21:53)
[2016-09-01] MEDS: Nystatin-Triamcinolone Cream(30 gm) TOP SCH (17:28)
[2016-09-02] MEDS: Levalbuterol 0.63 MG/3 ML Inhal Soln UD IH SCH ×4 (01:06→20:05)
[2016-09-02] MEDS: TraMADol/Apap 37.5/325 mg Tab PO PRN ×2 (01:07→06:08)
[2016-09-02] MEDS: Levothyroxine 50 MCG TAB PO SCH (06:47)
--- NOTE | 2016-09-02 07:49 | PN ---
DATE: 09/02/2016 SUBJECTIVE: The patient appears comfortable at rest. She is not short of breath. PHYSICAL EXAMINATION: VITAL SIGNS: Temperature is 98.2, pulse is 95, respirations are 18, and blood pressure 111/63. Oxygen saturation on nasal canula is 94%. HEENT: Normocephalic and atraumatic. NECK: No JVD. CARDIOVASCULAR: Positive S1 and S2. No S3 or gallop. LUNGS: Decreased breath sounds at the bases. Minimal rhonchi. No wheezing. EXTREMITIES: Positive for edema. No cyanosis. No clubbing. Calves are nontender to palpation. GI: Abdomen is postoperative. It is soft, nontender to palpation. Bowels sounds are positive. SKIN: No acute rashes. NEUROLOGIC: Limited at the present time. IMPRESSION: 1. Status post hemicolectomy. 2. Colon cancer. 3. Advanced chronic obstructive pulmonary disease. 4. Asthma. 5. Recent myocardial infarction. 6. Anemia. PLAN: The patient appears comfortable this morning. She is not short of breath at rest. She does state feeling much better overall. Oxygen saturation on nasal cannula is now 94%. On physical exam, there is only minimal bronchospasm noted. I will continue the current nebulizer treatment for now. Surgical evaluation is also noted. The patient will be continued on her incentive spirometer and be out of bed as much as possible. Clinical status of the patent has certainly improved; however, the overall/future clinical status/prognosis for this patient does remain guarded. I will discuss the above with the attending physician. Richard Mak MD BRIAN
--- NOTE | 2016-09-02 08:16 | CON ---
DATE: 09/01/2016 The patient was seen earlier this morning in room 313. CHIEF COMPLIANT: Weakness from several days. HISTORY OF PRESENT ILLNESS: This is an 80-year-old female recently discharged from hospitalization with diagnoses of colon cancer, which is adenocarcinoma; end-stage chronic obstructive lung disease, on home O2; patient of Takotsubo syndrome; hypothyroidism; high cholesterol; GI bleed and cataract, who had a right hemicolectomy, colon resection, also had coronary cardiac cath which showed normal coronaries, history of appendectomy and cataract surgery who is allergic to codeine who was found to have positive urine culture for a gram-negative kirby identified as mulligan Klebsiella. The patient does have a Chow catheter at this time. She denies any symptoms. The Klebsiella is pansensitive and no nausea or vomiting. No chest pain. No abdominal pain. PAST MEDICAL HISTORY: Significant for cataract, GI bleed, high cholesterol, hypothyroidism, chronic obstructive lung disease on home O2 therapy, recent colon cancer, adenocarcinoma and Takotsubo syndrome. PAST SURGICAL HISTORY: Colon resection, right hemicolectomy, cardiac catheterization with normal coronaries, appendectomy, and cataract surgery. ALLERGIES: THE PATIENT IS ALLERGIC TO CODEINE. MEDICATIONS: Reviewed. PHYSICAL EXAMINATION GENERAL: The patient is in bed. She is awake, alert, and she is answering questions appropriately. She knows where she is and who she is. VITAL SIGNS: Temperature of 98, blood pressure of 111/60, respiratory rate of 18, heart rate of 95. HEENT: Unremarkable. NECK: Supple. LUNGS: Decreased breath sounds. HEART: Normal S1 and S2. ABDOMEN: Soft and nontender. LABORATORY EXAMINATION: Reveals the patient has white count of 7.1, hemoglobin of 10, platelets of 259. Chemistries are noted and sodium is 133. Dr. Davis' note from communication report is reviewed and Dr. Griffith's note is reviewed. He states that the patient had hematuria and Dr. Elizabeth note is reviewed, Dr. Mak note is reviewed. Urinalysis from the acute side of years only 1-3 wbc's and 25-30 rbc's. ASSESSMENT AND PLAN: This is an 80-year-old female with colon cancer, adenocarcinoma, home O2, end-stage chronic obstructive pulmonary disease, Takotsubo syndrome, myocardial infarction with normal coronaries, hypothyroidism, high cholesterol, gastrointestinal bleed, cataract, Klebsiella urinary tract infection with Chow catheter and hematuria but the urinalysis is not consistent with that. If possible, we encourage discontinuation of the Chow catheter. We will give her a short course of Bactrim which has been started by Dr. Elizabeth 5 days and discontinue her Chow catheter if possible. Milton Barrett MD
[2016-09-02] MEDS: Magnesium Oxide 400 mg Tab UD PO SCH ×2 (09:56→17:23)
[2016-09-02] MEDS: Calcitonin 200 Int Units/Inh Nasal Spray (3.7 ml) NS SCH (09:56)
[2016-09-02] MEDS: Tiotropium 18 mcg Cap For Inhalation IH SCH (09:58)
[2016-09-02] MEDS: Nystatin-Triamcinolone Cream(30 gm) TOP SCH ×3 (09:58→17:23)
[2016-09-02] MEDS: Multivitamin Therapeutic Tab PO SCH (09:58)
[2016-09-02] MEDS: Cefpodoxime (Vantin) 100 mg Tab PO SCH ×2 (09:59→21:26)
--- NOTE | 2016-09-02 13:24 | PN ---
DATE: 09/02/2016 SUBJECTIVE: The patient seen in bed, in no acute distress, nontoxic. PHYSICAL EXAMINATION VITAL SIGNS: Temperature is 98, blood pressure is 105/60, respiratory of 20, heart rate of 95. HEENT: Unremarkable. NECK: Supple. LUNGS: Decreased breath sounds. HEART: Normal S1 and S2. ABDOMEN: Soft. LABORATORY DATA: Reveals a white count of 7.1, hemoglobin of 10, platelets of 259. Chemistries reveal BUN of 18, creatinine of 0.9. Microbiology reveals urine cultures for positive Klebsiella. Review of orders, reveals the patient to be on Vantin and cefpodoxime 100 mg p.o. b.i.d. ASSESSMENT AND PLAN: This is an 80-year-old female recently discharged from the hospital with diagnoses of colon cancer, adenocarcinoma, end-stage chronic obstructive lung disease on home O2 therapy, Takotsubo syndrome; hypothyroidism, high cholesterol, GI bleed and cataract, right hemicolectomy, colon resection, coronary cath, now with hematuria, Chow catheter in with Klebsiella urinary tract infection, will complete with p.o. short course of Vantin, which is cefpodoxime. Milton Barrett MD
--- NOTE | 2016-09-02 16:39 | CP.PCM.PN ---
Subjective - Date & Time of Evaluation Date of Evaluation: 09/02/16 Time of Evaluation: 11:40 - Subjective Subjective: nad Objective - Vital Signs/Intake and Output Vital Signs (last 24 hours): Temp Pulse Resp BP Pulse Ox 98.2 F 100 H 18 118/63 100 09/02/16 14:00 09/02/16 14:35 09/02/16 14:00 09/02/16 14:35 09/02/16 14:00 Intake and Output: 09/02/16 09/02/16 06:59 18:59 Output Total 600 Balance -600 - Medications Medications: Current Medications Calcitonin [place] (Miacalcin) 200 iu NS DAILY [facility] PRN Reason: Protocol Last Admin: 09/02/16 09:56 Dose: 1 dose Cefpodoxime Proxetil (Vantin) 100 mg PO Q12 [facility] PRN Reason: Protocol Last Admin: 09/02/16 09:59 Dose: 100 mg Docusate Sodium (Colace) 100 mg PO BID [facility] PRN Reason: Protocol Last Admin: 09/02/16 09:55 Dose: 100 mg Ferrous Sulfate (Feosol) 324 mg PO 0800,1200,1800 [facility] PRN Reason: Protocol Last Admin: 09/02/16 11:35 Dose: 324 mg Levalbuterol HCl (Xopenex) 0.63 mg IH [id number] [facility] Last Admin: 09/02/16 13:00 Dose: 0.63 mg Levalbuterol HCl (Xopenex) 0.63 mg IH Q2 PRN PRN Reason: Shortness of Breath Levothyroxine Sodium (Synthroid) 50 mcg PO 0630 [facility] PRN Reason: Protocol Last Admin: 09/02/16 06:47 Dose: 50 mcg Lidocaine HCl (Xylocaine 2%) 0 ea TOP Q6H PRN; Protocol PRN Reason: Pain, moderate (4-7) Magnesium Oxide (Mag-Ox) 400 mg PO BID [facility] PRN Reason: Protocol Last Admin: 09/02/16 09:56 Dose: 400 mg Meclizine HCl (Antivert) 12.5 mg PO TID PRN; Protocol PRN Reason: Dizziness Last Admin: 09/01/16 10:20 Dose: 12.5 mg Multivitamins (Thera Tab) 1 tab PO DAILY [facility] PRN Reason: Protocol Last Admin: 09/02/16 09:58 Dose: 1 tab Nystatin/Triamcinolone Acetonide (Nystatin/Triamcinolone Cream) 0 ea TOP TID [facility] PRN Reason: Protocol Last Admin: 09/02/16 14:28 Dose: 1 applic Ondansetron HCl (Zofran Inj) 4 mg IVP Q4H PRN; Protocol PRN Reason: Nausea/Vomiting Pantoprazole Sodium (Protonix Inj) 40 mg IVPB 0600,1800 [facility] PRN Reason: Protocol Last Admin: 09/02/16 06:47 Dose: 40 mg Pramipexole Dihydrochloride (Mirapex) 0.125 mg PO DAILY [facility] PRN Reason: Protocol Last Admin: 09/02/16 09:56 Dose: 0.125 mg Propranolol HCl (Inderal) 10 mg PO TID [facility] PRN Reason: Protocol Last Admin: 09/02/16 14:35 Dose: 10 mg Tiotropium [place] (Spiriva) 18 mcg IH DAILY W[facility]ACE PRN Reason: Protocol Last Admin: 09/02/16 09:58 Dose: 18 mcg Tramadol/Acetaminophen (Ultracet 37.5/325 Mg) 1 tab PO Q6H PRN; Protocol PRN Reason: Pain, moderate (4-7) Last Admin: 09/02/16 06:08 Dose: 1 tab - Labs Labs: 09/01/16 07:10 09/01/16 07:10 - Respiratory Exam Respiratory Exam: Clear to Ausculation Bilateral, NORMAL BREATHING PATTERN - Cardiovascular Exam Cardiovascular Exam: REGULAR RHYTHM - GI/Abdominal Exam GI & Abdominal Exam: Soft, Normal Bowel Sounds - Back Exam Back Exam: NORMAL INSPECTION - Neurological Exam Neurological Exam: Alert, Awake - Skin Skin Exam: Dry, Warm Assessment and Plan (1) Adenocarcinoma of colon Status: Resolved (2) COPD (chronic obstructive pulmonary disease) Status: Chronic (3) Hematuria Status: Resolved - Assessment and Plan (Free Text) Plan: urine clear, will dc sawyer cath, continue PT, SW for dc planning
--- NOTE | 2016-09-02 19:44 | CP.PCM.PCO ---
Physician Communication Note - Physician Communication Note Physician Communication Note: Improving/I will be away til 09/20-[place] to cover
[2016-09-03] MEDS: Levalbuterol 0.63 MG/3 ML Inhal Soln UD IH SCH ×4 (01:17→20:14)
[2016-09-03] MEDS: TraMADol/Apap 37.5/325 mg Tab PO PRN ×2 (03:39→21:35)
[2016-09-03 06:16] LABS: BLOOD UREA NITROGEN 22 mg/dL (7-21); CALCIUM 8.9 mg/dL (8.4-10.5); CARBON DIOXIDE 30 mmol/L (21-33); CHLORIDE 97 mmol/L (98-107); GFR AFRICAN-AMERICAN > 60; GLUCOSE,RANDOM 88 mg/dL (70-110); POTASSIUM 4.8 mmol/L (3.6-5.0); SODIUM 133 mmol/L (132-148)
[2016-09-03] MEDS: Pantoprazole 40 mg EC Tab PO SCH ×2 (06:20→16:27)
[2016-09-03] MEDS: Levothyroxine 50 MCG TAB PO SCH (06:20)
--- NOTE | 2016-09-03 10:00 | PN ---
PULMONARY NOTE DATE: 09/03/2016 SUBJECTIVE: The patient appears comfortable this morning. She is not shortness of breath at rest. PHYSICAL EXAMINATION VITAL SIGNS: Temperature is 98.2, pulse is 80, respirations are 18, and blood pressure is 123/68. Oxygen saturation on nasal cannula is 100%. HEENT: Normocephalic and atraumatic. NECK: No JVD. CARDIOVASCULAR: Positive S1 and S2. No S3 or gallop. LUNGS: Decreased breath sounds at the bases. Very minimal rhonchi. No wheezing. EXTREMITIES: Positive for edema. No cyanosis. No clubbing. Calves are nontender to palpation. GASTROINTESTINAL: Abdomen is soft. It is nontender to palpation. Bowel sounds are positive. Abdomen is postoperative. SKIN: No acute rash. NEUROLOGIC: Exam is limited at the present time. PERTINENT LABORATORY DATA: Chest x-ray was done earlier this morning and reviewed. There are no official results on the chart. The chest x-ray film this morning shows no significant/acute disease. IMPRESSION: 1. Status post hemicolectomy. 2. Colon cancer. 3. Advanced chronic obstructive pulmonary disease. 4. Asthma. 5. Recent myocardial infarction. 6. Anemia. PLAN: The patient appears comfortable at the present time. She is not shortness of breath at rest. She does state that she is feeling much better overall. I did discuss the case with the patient and nurse at length. Apparently, at approximately 3:00 a.m., the patient did experience a short episode of chest discomfort. I did review the chest x-ray as above. The chest x-ray shows no acute disease. Repeat EKG and labs are ordered. The nurse stated that she will also touch base with cardiology - Dr. Quach. Again, at the present time, the patient does appear clinically stable. However, again, her future status/prognosis does remain very guarded. I will discuss the above with Dr. Davis this morning. Richard Mak MD MTDJessie
[2016-09-03] MEDS: Magnesium Oxide 400 mg Tab UD PO SCH ×2 (11:03→17:50)
[2016-09-03] MEDS: Calcitonin 200 Int Units/Inh Nasal Spray (3.7 ml) NS SCH (11:04)
[2016-09-03] MEDS: Nystatin-Triamcinolone Cream(30 gm) TOP SCH ×3 (11:05→17:50)
[2016-09-03] MEDS: Tiotropium 18 mcg Cap For Inhalation IH SCH (11:06)
[2016-09-03] MEDS: Cefpodoxime (Vantin) 100 mg Tab PO SCH ×2 (11:06→21:35)
[2016-09-03] MEDS: Multivitamin Therapeutic Tab PO SCH (11:06)
--- NOTE | 2016-09-03 11:20 | PN ---
DATE: 09/03/2016 LOCATION: The patient is in room 313. SUBJECTIVE: The patient is seen earlier this morning. She states she had chest pain earlier, which is now resolved. No nausea. She describes the pain as substernal and she has no abdominal pain or diarrhea. PHYSICAL EXAMINATION: VITAL SIGNS: Temperature is 98, blood pressure is 118/63, respiratory rate of 18, heart rate of 100. HEENT: Unremarkable. NECK: Supple. LUNGS: Decreased breath sounds. HEART: Normal S1 and S2. ABDOMEN: Soft, nontender. LABORATORY DATA: Reveals a white count of 7.1, hemoglobin of 10, platelets of 259. Chemistries revealed the patient's troponin is 0.01, and creatinine is 1.0. Review of orders reveals the patient is currently on Vantin p.o. ASSESSMENT AND PLAN: An 80-year-old female recently discharged from the hospital with history of colon cancer, adenocarcinoma, end-stage chronic obstructive lung disease on home O2 therapy with Takotsubo syndrome, hypothyroidism, high cholesterol, gastrointestinal bleed, right hemicolectomy, colon resection with hematuria and a Chow catheter with Klebsiella urinary tract, on p.o. Vantin, which is cefpodoxime, and now with a chest pain, which has resolved. We will order a d-dimer and Dopplers of her lower extremity to rule out deep vein thrombosis and/or pulmonary emboli in this patient with underlying malignancy. She is not on any heparin compared to the GI issues. We will follow closely with you. Cardiac workup has been initiated with troponin and EKG findings. Etiology of the chest pain to be determined. We will follow with you. Dr. Mak is on consult. We will discuss with him. Milton Barrett MD
--- NOTE | 2016-09-03 11:22 | CP.PCM.PN ---
Subjective - Date & Time of Evaluation Date of Evaluation: 09/03/16 Time of Evaluation: 10:00 - Subjective Subjective: NAD, had episode chest discomfort this am, troponin neg, some leg discomfort, no swelling, no sob, d-dimer CXR and venous duplex pending Objective - Vital Signs/Intake and Output Vital Signs (last 24 hours): Temp Pulse Resp BP Pulse Ox 98.5 F 93 H 20 112/62 99 09/03/16 10:17 09/03/16 11:03 09/03/16 10:17 09/03/16 11:03 09/03/16 10:17 - Medications Medications: Current Medications Calcitonin [place] (Miacalcin) 200 iu NS DAILY W[facility]ACE PRN Reason: Protocol Last Admin: 09/03/16 11:04 Dose: 1 dose Cefpodoxime Proxetil (Vantin) 100 mg PO Q12 [facility]ACE PRN Reason: Protocol Last Admin: 09/03/16 11:06 Dose: 100 mg Docusate Sodium (Colace) 100 mg PO BID [facility]ACE PRN Reason: Protocol Last Admin: 09/03/16 11:03 Dose: 100 mg Ferrous Sulfate (Feosol) 324 mg PO 0800,1200,1800 [facility] PRN Reason: Protocol Last Admin: 09/03/16 08:32 Dose: 324 mg Levalbuterol HCl (Xopenex) 0.63 mg IH [id number] [facility]ACE Last Admin: 09/03/16 07:24 Dose: 0.63 mg Levalbuterol HCl (Xopenex) 0.63 mg IH Q2 PRN PRN Reason: Shortness of Breath Levothyroxine Sodium (Synthroid) 50 mcg PO 0630 [facility]ACE PRN Reason: Protocol Last Admin: 09/03/16 06:20 Dose: 50 mcg Lidocaine HCl (Xylocaine 2%) 0 ea TOP Q6H PRN; Protocol PRN Reason: Pain, moderate (4-7) Magnesium Oxide (Mag-Ox) 400 mg PO BID WALLACE PRN Reason: Protocol Last Admin: 09/03/16 11:03 Dose: 400 mg Meclizine HCl (Antivert) 12.5 mg PO TID PRN; Protocol PRN Reason: Dizziness Last Admin: 09/01/16 10:20 Dose: 12.5 mg Multivitamins (Thera Tab) 1 tab PO DAILY W[facility]ACE PRN Reason: Protocol Last Admin: 09/03/16 11:06 Dose: 1 tab Nystatin/Triamcinolone Acetonide (Nystatin/Triamcinolone Cream) 0 ea TOP TID [facility]ACE PRN Reason: Protocol Last Admin: 09/03/16 11:05 Dose: 1 applic Ondansetron HCl (Zofran Inj) 4 mg IVP Q4H PRN; Protocol PRN Reason: Nausea/Vomiting Pantoprazole Sodium (Protonix Ec Tab) 40 mg PO 0600,1600 [facility]ACE Last Admin: 09/03/16 06:20 Dose: 40 mg Pramipexole Dihydrochloride (Mirapex) 0.125 mg PO DAILY [facility]ACE PRN Reason: Protocol Last Admin: 09/03/16 11:04 Dose: 0.125 mg Propranolol HCl (Inderal) 10 mg PO TID [facility]ACE PRN Reason: Protocol Last Admin: 09/03/16 11:03 Dose: 10 mg Tiotropium [place] (Spiriva) 18 mcg IH DAILY [facility]ACE PRN Reason: Protocol Last Admin: 09/03/16 11:06 Dose: 18 mcg Tramadol/Acetaminophen (Ultracet 37.5/325 Mg) 1 tab PO Q6H PRN; Protocol PRN Reason: Pain, moderate (4-7) Last Admin: 09/03/16 03:39 Dose: 1 tab - Labs Labs: 09/01/16 07:10 09/03/16 04:42 - Respiratory Exam Respiratory Exam: Clear to Ausculation Bilateral, NORMAL BREATHING PATTERN - Cardiovascular Exam Cardiovascular Exam: REGULAR RHYTHM - GI/Abdominal Exam GI & Abdominal Exam: Soft, Normal Bowel Sounds - Back Exam Back Exam: NORMAL INSPECTION - Neurological Exam Neurological Exam: Alert, Awake - Skin Skin Exam: Dry, Warm Assessment and Plan (1) Adenocarcinoma of colon Status: Resolved (2) COPD (chronic obstructive pulmonary disease) Status: Chronic (3) Hematuria Status: Resolved - Assessment and Plan (Free Text) Plan: continue PT, SW for dc planning
--- NOTE | 2016-09-03 13:02 | RAD ---
HISTORY: Chest pain COMPARISON: Chest x-ray performed 08/22/16, CTA chest performed 08/23/16 TECHNIQUE: Chest, one view. FINDINGS: LUNGS: No focal consolidation. Please note that chest x-ray has limited sensitivity for the detection of pulmonary masses. PLEURA: Probable trace right pleural effusion. No definite pneumothorax . CARDIOVASCULAR: Cardiomegaly. Atherosclerotic calcifications. OSSEOUS STRUCTURES: Osseous demineralization. Degenerative changes of the spine and shoulders. VISUALIZED UPPER ABDOMEN: Unremarkable. OTHER FINDINGS: Small metallic screw projects over the right lung apex, presumably external to the patient. Correlate clinically. IMPRESSION: Cardiomegaly. Probable trace right pleural effusion. Additional findings as above.
--- NOTE | 2016-09-03 18:31 | US ---
HISTORY: Leg pain and swelling. Evaluate for DVT PHYSICIAN(S): Armand Infante MD. TECHNIQUE: Duplex sonography and color-flow Doppler with graded compression were used to evaluate the deep venous systems of both lower extremities. FINDINGS: The visualized deep venous systems of both lower extremities are sonographically normal and compressible. Normal wave forms and augmentation are seen. There is no sonographic evidence for deep venous thrombosis in the visualized segments of both lower extremities. There is a 4.3 x 6.1 cm fluid collection in left groin. This may be related to a recent cardiac catheterization and resolving hematoma. IMPRESSION: No sonographic evidence for deep venous thrombosis in the visualized segments of both lower extremities.
[2016-09-04] MEDS: Levalbuterol 0.63 MG/3 ML Inhal Soln UD IH SCH ×4 (01:39→19:39)
[2016-09-04] MEDS: Levothyroxine 50 MCG TAB PO SCH (06:04)
[2016-09-04] MEDS: Pantoprazole 40 mg EC Tab PO SCH ×2 (06:04→17:38)
--- NOTE | 2016-09-04 10:21 | CP.PCM.PN ---
Subjective - Date & Time of Evaluation Date of Evaluation: 09/04/16 Time of Evaluation: 10:45 - Subjective Subjective: NAD Objective - Vital Signs/Intake and Output Vital Signs (last 24 hours): Temp Pulse Resp BP Pulse Ox 98.1 F 98 H 16 120/60 100 09/04/16 06:00 09/04/16 06:00 09/04/16 06:00 09/04/16 06:00 09/04/16 06:00 Intake and Output: 09/04/16 09/04/16 06:59 18:59 Intake Total 480 Output Total 700 Balance -220 - Medications Medications: Current Medications Calcitonin [place] (Miacalcin) 200 iu NS DAILY [facility] PRN Reason: Protocol Last Admin: 09/03/16 11:04 Dose: 1 dose Cefpodoxime Proxetil (Vantin) 100 mg PO Q12 [facility] PRN Reason: Protocol Last Admin: 09/03/16 21:35 Dose: 100 mg Docusate Sodium (Colace) 100 mg PO BID [facility] PRN Reason: Protocol Last Admin: 09/03/16 17:49 Dose: 100 mg Ferrous Sulfate (Feosol) 324 mg PO 0800,1200,1800 [facility] PRN Reason: Protocol Last Admin: 09/04/16 08:16 Dose: 324 mg Levalbuterol HCl (Xopenex) 0.63 mg IH [id number] [facility] Last Admin: 09/04/16 07:24 Dose: 0.63 mg Levalbuterol HCl (Xopenex) 0.63 mg IH Q2 PRN PRN Reason: Shortness of Breath Levothyroxine Sodium (Synthroid) 50 mcg PO 0630 [facility] PRN Reason: Protocol Last Admin: 09/04/16 06:04 Dose: 50 mcg Lidocaine HCl (Xylocaine 2%) 0 ea TOP Q6H PRN; Protocol PRN Reason: Pain, moderate (4-7) Magnesium Oxide (Mag-Ox) 400 mg PO BID [facility] PRN Reason: Protocol Last Admin: 09/03/16 17:50 Dose: 400 mg Meclizine HCl (Antivert) 12.5 mg PO TID PRN; Protocol PRN Reason: Dizziness Last Admin: 09/01/16 10:20 Dose: 12.5 mg Multivitamins (Thera Tab) 1 tab PO DAILY [facility] PRN Reason: Protocol Last Admin: 09/03/16 11:06 Dose: 1 tab Nystatin/Triamcinolone Acetonide (Nystatin/Triamcinolone Cream) 0 ea TOP TID [facility] PRN Reason: Protocol Last Admin: 09/03/16 17:50 Dose: 1 applic Ondansetron HCl (Zofran Inj) 4 mg IVP Q4H PRN; Protocol PRN Reason: Nausea/Vomiting Pantoprazole Sodium (Protonix Ec Tab) 40 mg PO 0600,1600 [facility] Last Admin: 09/04/16 06:04 Dose: 40 mg Pramipexole Dihydrochloride (Mirapex) 0.125 mg PO DAILY [facility] PRN Reason: Protocol Last Admin: 09/03/16 11:04 Dose: 0.125 mg Propranolol HCl (Inderal) 10 mg PO TID [facility] PRN Reason: Protocol Last Admin: 09/03/16 17:49 Dose: 10 mg Tiotropium [place] (Spiriva) 18 mcg IH DAILY [facility] PRN Reason: Protocol Last Admin: 09/03/16 11:06 Dose: 18 mcg Tramadol/Acetaminophen (Ultracet 37.5/325 Mg) 1 tab PO Q6H PRN; Protocol PRN Reason: Pain, moderate (4-7) Last Admin: 09/03/16 21:35 Dose: 1 tab - Labs Labs: 09/01/16 07:10 09/03/16 04:42 - Respiratory Exam Respiratory Exam: Clear to Ausculation Bilateral, NORMAL BREATHING PATTERN - Cardiovascular Exam Cardiovascular Exam: REGULAR RHYTHM - GI/Abdominal Exam GI & Abdominal Exam: Soft, Normal Bowel Sounds - Extremities Exam Extremities Exam: Normal Inspection - Neurological Exam Neurological Exam: Alert, Awake - Skin Skin Exam: Dry, Warm Assessment and Plan (1) Adenocarcinoma of colon Status: Resolved (2) COPD (chronic obstructive pulmonary disease) Status: Chronic (3) Hematuria Status: Resolved - Assessment and Plan (Free Text) Plan: continue PT, SW for dc planning
[2016-09-04] MEDS: Magnesium Oxide 400 mg Tab UD PO SCH ×2 (11:03→17:42)
[2016-09-04] MEDS: Calcitonin 200 Int Units/Inh Nasal Spray (3.7 ml) NS SCH (11:04)
[2016-09-04] MEDS: Nystatin-Triamcinolone Cream(30 gm) TOP SCH ×3 (11:05→17:42)
[2016-09-04] MEDS: Tiotropium 18 mcg Cap For Inhalation IH SCH (11:05)
[2016-09-04] MEDS: Cefpodoxime (Vantin) 100 mg Tab PO SCH ×2 (11:06→21:18)
[2016-09-04] MEDS: Multivitamin Therapeutic Tab PO SCH (11:06)
--- NOTE | 2016-09-04 13:50 | PN ---
DATE: 09/04/2016 SUBJECTIVE: The patient is in bed and in no acute distress. She is eating break fast. She states she has had a good night. No fevers and no chills. PHYSICAL EXAMINATION: VITAL SIGNS: Temperature is 98, blood pressure is 120/60, and respiratory rate of 16. HEENT: Unremarkable. NECK: Supple. LUNGS: Decrease breath sounds. HEART: Normal S1 and S2. ABDOMEN: Soft and nontender. LABORATORY DATA: White count is 7.1, hemoglobin of 10, and platelets of 259. D-dimer is 4.4. Chemistries revealed BUN of 22 and creatinine of 1.0. RADIOLOGIC DATA: Ultrasound of lower extremities: No evidence of DVT. note from yesterday as noted. Dr. Griffith's note is reviewed from yesterday. ASSESSMENT AND PLAN: This is an 81-year-old female recently discharged from the hospital with history of colon cancer, adenocarcinoma, end-stage chronic obstructive lung disease with chronic respiratory failure on home O2 therapy with Takotsubo syndrome, hypothyroidism, high cholesterol, gastrointestinal bleeding, right hemicolectomy, colon resection with hematuria, has a Chow catheter, Klebsiella urinary tract infection, on p.o. Vantin, which is cefpodoxime and chest pain yesterday with an elevated D-dimer, which is of no significant at this point because of its elevation, however, concerned about the etiology of the chest pain, which appears to have resolved. Ultrasound of lower extremities negatives for deep venous thrombosis. She is at risk for pulmonary emboli because of the underlying malignancy. We will discuss with Dr. Mak for further workup of pulmonary embolus. She appears to be comfortable now. Milton Barrett MD
[2016-09-05] MEDS: Levalbuterol 0.63 MG/3 ML Inhal Soln UD IH SCH ×4 (02:11→19:36)
[2016-09-05] MEDS: Pantoprazole 40 mg EC Tab PO SCH ×2 (05:11→17:46)
[2016-09-05] MEDS: Levothyroxine 50 MCG TAB PO SCH (06:31)
[2016-09-05] MEDS: Calcitonin 200 Int Units/Inh Nasal Spray (3.7 ml) NS SCH (09:43)
[2016-09-05] MEDS: Magnesium Oxide 400 mg Tab UD PO SCH ×2 (09:43→17:44)
[2016-09-05] MEDS: Nystatin-Triamcinolone Cream(30 gm) TOP SCH ×3 (09:44→17:48)
[2016-09-05] MEDS: Tiotropium 18 mcg Cap For Inhalation IH SCH (09:44)
[2016-09-05] MEDS: Multivitamin Therapeutic Tab PO SCH (09:45)
[2016-09-05] MEDS: Cefpodoxime (Vantin) 100 mg Tab PO SCH ×2 (09:45→21:14)
--- NOTE | 2016-09-05 10:55 | CP.PCM.PN ---
Subjective - Date & Time of Evaluation Date of Evaluation: 09/05/16 Time of Evaluation: 10:30 - Subjective Subjective: mild dyspnea and tachcardia, no cp Objective - Vital Signs/Intake and Output Vital Signs (last 24 hours): Temp Pulse Resp BP Pulse Ox 98.1 F 105 H 16 105/61 100 09/04/16 06:00 09/04/16 17:40 09/04/16 06:00 09/04/16 17:40 09/04/16 06:00 Intake and Output: 09/05/16 09/05/16 06:59 18:59 Intake Total 0 Output Total 200 Balance -200 - Medications Medications: Current Medications Calcitonin [place] (Miacalcin) 200 iu NS DAILY [facility] PRN Reason: Protocol Last Admin: 09/05/16 09:43 Dose: 1 dose Cefpodoxime Proxetil (Vantin) 100 mg PO Q12 [facility] PRN Reason: Protocol Last Admin: 09/05/16 09:45 Dose: 100 mg Docusate Sodium (Colace) 100 mg PO BID [facility] PRN Reason: Protocol Last Admin: 09/05/16 09:37 Dose: 100 mg Ferrous Sulfate (Feosol) 324 mg PO 0800,1200,1800 [facility] PRN Reason: Protocol Last Admin: 09/05/16 08:19 Dose: 324 mg Levalbuterol HCl (Xopenex) 0.63 mg IH [id number] [facility] Last Admin: 09/05/16 07:25 Dose: 0.63 mg Levalbuterol HCl (Xopenex) 0.63 mg IH Q2 PRN PRN Reason: Shortness of Breath Levothyroxine Sodium (Synthroid) 50 mcg PO 0630 [facility] PRN Reason: Protocol Last Admin: 09/05/16 06:31 Dose: 50 mcg Lidocaine HCl (Xylocaine 2%) 0 ea TOP Q6H PRN; Protocol PRN Reason: Pain, moderate (4-7) Magnesium Oxide (Mag-Ox) 400 mg PO BID [facility] PRN Reason: Protocol Last Admin: 09/05/16 09:43 Dose: 400 mg Meclizine HCl (Antivert) 12.5 mg PO TID PRN; Protocol PRN Reason: Dizziness Last Admin: 09/01/16 10:20 Dose: 12.5 mg Multivitamins (Thera Tab) 1 tab PO DAILY [facility] PRN Reason: Protocol Last Admin: 09/05/16 09:45 Dose: 1 tab Nystatin/Triamcinolone Acetonide (Nystatin/Triamcinolone Cream) 0 ea TOP TID [facility] PRN Reason: Protocol Last Admin: 09/05/16 09:44 Dose: 1 applic Ondansetron HCl (Zofran Inj) 4 mg IVP Q4H PRN; Protocol PRN Reason: Nausea/Vomiting Pantoprazole Sodium (Protonix Ec Tab) 40 mg PO 0600,1600 [facility] Last Admin: 09/05/16 05:11 Dose: 40 mg Pramipexole Dihydrochloride (Mirapex) 0.125 mg PO DAILY [facility] PRN Reason: Protocol Last Admin: 09/05/16 09:44 Dose: 0.125 mg Propranolol HCl (Inderal) 10 mg PO TID [facility] PRN Reason: Protocol Last Admin: 09/04/16 17:40 Dose: 10 mg Tiotropium [place] (Spiriva) 18 mcg IH DAILY [facility] PRN Reason: Protocol Last Admin: 09/05/16 09:44 Dose: 18 mcg Tramadol/Acetaminophen (Ultracet 37.5/325 Mg) 1 tab PO Q6H PRN; Protocol PRN Reason: Pain, moderate (4-7) Last Admin: 09/03/16 21:35 Dose: 1 tab - Labs Labs: 09/01/16 07:10 09/03/16 04:42 - Respiratory Exam Respiratory Exam: Clear to Ausculation Bilateral - Cardiovascular Exam Cardiovascular Exam: Tachycardia, REGULAR RHYTHM - Rectal Exam Rectal Exam: NORMAL INSPECTION - Extremities Exam Extremities Exam: Normal Inspection - Neurological Exam Neurological Exam: Alert, Awake Assessment and Plan (1) Adenocarcinoma of colon Status: Resolved (2) COPD (chronic obstructive pulmonary disease) Status: Chronic (3) Hematuria Status: Resolved (4) Tachycardia Status: Acute - Assessment and Plan (Free Text) Plan: ECG, check labs, cardio consult
--- NOTE | 2016-09-05 10:58 | PN ---
DATE: 09/05/2016 SUBJECTIVE: The patient is seen in bed in no acute distress. PHYSICAL EXAMINATION VITAL SIGNS: Temperature is 98, blood pressure is 105/60, respiratory rate of 18. HEENT: Examination of HEENT is unremarkable. NECK: Supple. LUNGS: Have decreased breath sound. HEART: Normal S1, S2. ABDOMEN: Soft and nontender. LABORATORY DATA: Examination reveals a white count of 7.1, hemoglobin of 10, platelets of 259. D-dimer is 4.4 and microbiology is noted. Dr. Griffith's note is reviewed from yesterday. ASSESSMENT AND PLAN: This is an 80-year-old female recently discharged from the hospital with diagnosis of adenocarcinoma of the colon and endstage chronic obstructive lung disease and chronic respiratory failure on home O2 therapy with Takotsubo syndrome, hypothyroidism, high cholesterol, gastrointestinal bleed, right hemicolectomy, colon resection with hematuria and Chow catheter, developed Klebsiella urinary tract infection. Currently on p.o. Vantin, developed chest pain which has resolved now. Elevated D-dimer. Negative Dopplers of the lower extremities. From an infectious disease point, give you, will complete the Vantin therapy which is cefpodoxime. Concerned about pulmonary emboli. Discussed with Pulmonary and they will pursue at this time. Milton Barrett MD
[2016-09-05 11:18] LABS: ADD MANUAL DIFF? NO
[2016-09-05 11:40] LABS: ALKALINE PHOSPHATASE 66 U/L (38-133); ALT/SGPT 18 U/L (7-56); AST/SGOT 23 U/L (15-39); BILIRUBIN,TOTAL 0.5 mg/dL (0.2-1.3); BLOOD UREA NITROGEN 21 mg/dL (7-21); CALCIUM 8.4 mg/dL (8.4-10.5); CARBON DIOXIDE 29 mmol/L (21-33); CHLORIDE 98 mmol/L (98-107); GFR AFRICAN-AMERICAN > 60; GLUCOSE,RANDOM 99 mg/dL (70-110); POTASSIUM 3.7 mmol/L (3.6-5.0); SODIUM 133 mmol/L (132-148); TOTAL PROTEIN 5.4 g/dL (5.8-8.3)
[2016-09-05 11:43] LABS: BASO # 0.02 K/mm3 (0.0-2.0); BASO % 0.3 % (0.0-3.0); EOS # 0.1 (0.0-0.7); EOS % 0.8 % (1.5-5.0); GRAN # 4.15 (1.4-6.5); GRAN % 62.4 % (50.0-68.0); HEMATOCRIT 29.8 % (36.0-48.0); LYMPH # 1.8 (1.2-3.4); MEAN CELL VOLUME 94.6 fL (80.0-105.0); MEAN CORPUSCULAR HEMOGLOBIN 30.5 pg (25.0-35.0); MEAN CORPUSCULAR HGB CONC 32.2 g/dl (31.0-37.0); MEAN PLATELET VOLUME 8.7 fl (7.0-11.0); MONO # 0.6 (0.1-0.6); MONO % 9.5 % (1.0-6.0); PLATELET COUNT 195 10^3/uL (120.0-450.0); RED CELL DISTRIBUTION WIDTH 15.2 % (11.5-14.5); WHITE BLOOD COUNT 6.6 10^3/ul (4.5-11.0)
[2016-09-05 11:52] LABS: TROPONIN I < 0.01 ng/mL
--- NOTE | 2016-09-05 12:52 | CARD ---
APPROVED REPORT EKG Measurement Heart [id number] <Conclusion> Normal sinus rhythm ST & T wave abnormality, consider lateral ischemia Abnormal ECG
[2016-09-06] MEDS: Levalbuterol 0.63 MG/3 ML Inhal Soln UD IH SCH ×2 (01:25→07:29)
[2016-09-06] MEDS: Pantoprazole 40 mg EC Tab PO SCH ×2 (05:33→17:11)
[2016-09-06] MEDS: Levothyroxine 50 MCG TAB PO SCH (05:33)
[2016-09-06] MEDS: Tiotropium 18 mcg Cap For Inhalation IH SCH (09:23)
[2016-09-06] MEDS: Nystatin-Triamcinolone Cream(30 gm) TOP SCH ×3 (09:23→17:12)
[2016-09-06] MEDS: Magnesium Oxide 400 mg Tab UD PO SCH ×2 (09:23→17:12)
[2016-09-06] MEDS: Cefpodoxime (Vantin) 100 mg Tab PO SCH ×2 (09:24→21:15)
[2016-09-06] MEDS: Multivitamin Therapeutic Tab PO SCH (09:25)
[2016-09-06] MEDS: Calcitonin 200 Int Units/Inh Nasal Spray (3.7 ml) NS SCH (09:29)
--- NOTE | 2016-09-06 09:33 | CP.PCM.PN ---
Subjective - Date & Time of Evaluation Date of Evaluation: 09/06/16 Time of Evaluation: 09:10 - Subjective Subjective: feels better today, denies cp no sob Objective - Vital Signs/Intake and Output Vital Signs (last 24 hours): Temp Pulse Resp BP Pulse Ox 98 F 139 H 20 106/64 100 09/05/16 08:00 09/06/16 09:22 09/05/16 08:00 09/06/16 09:22 09/04/16 06:00 Intake and Output: 09/06/16 09/06/16 06:59 18:59 Intake Total 0 Balance 0 - Medications Medications: Current Medications Calcitonin [place] (Miacalcin) 200 iu NS DAILY [facility] PRN Reason: Protocol Last Admin: 09/06/16 09:29 Dose: 1 spr Cefpodoxime Proxetil (Vantin) 100 mg PO Q12 [facility] PRN Reason: Protocol Last Admin: 09/06/16 09:24 Dose: 100 mg Docusate Sodium (Colace) 100 mg PO BID [facility] PRN Reason: Protocol Last Admin: 09/06/16 09:22 Dose: 100 mg Ferrous Sulfate (Feosol) 324 mg PO 0800,1200,1800 [facility] PRN Reason: Protocol Last Admin: 09/06/16 08:12 Dose: 324 mg Levothyroxine Sodium (Synthroid) 50 mcg PO 0630 [facility] PRN Reason: Protocol Last Admin: 09/06/16 05:33 Dose: 50 mcg Lidocaine HCl (Xylocaine 2%) 0 ea TOP Q6H PRN; Protocol PRN Reason: Pain, moderate (4-7) Magnesium Oxide (Mag-Ox) 400 mg PO BID [facility] PRN Reason: Protocol Last Admin: 09/06/16 09:23 Dose: 400 mg Meclizine HCl (Antivert) 12.5 mg PO TID PRN; Protocol PRN Reason: Dizziness Last Admin: 09/01/16 10:20 Dose: 12.5 mg Multivitamins (Thera Tab) 1 tab PO DAILY [facility] PRN Reason: Protocol Last Admin: 09/06/16 09:25 Dose: 1 tab Nystatin/Triamcinolone Acetonide (Nystatin/Triamcinolone Cream) 0 ea TOP TID [facility] PRN Reason: Protocol Last Admin: 09/06/16 09:23 Dose: 1 applic Ondansetron HCl (Zofran Inj) 4 mg IVP Q4H PRN; Protocol PRN Reason: Nausea/Vomiting Pantoprazole Sodium (Protonix Ec Tab) 40 mg PO 0600,1600 [facility] Last Admin: 09/06/16 05:33 Dose: 40 mg Pramipexole Dihydrochloride (Mirapex) 0.125 mg PO DAILY [facility] PRN Reason: Protocol Last Admin: 09/06/16 09:24 Dose: 0.125 mg Propranolol HCl (Inderal) 10 mg PO TID [facility] PRN Reason: Protocol Last Admin: 09/06/16 09:22 Dose: 10 mg Tiotropium [place] (Spiriva) 18 mcg IH DAILY [facility] PRN Reason: Protocol Last Admin: 09/06/16 09:23 Dose: 18 mcg Tramadol/Acetaminophen (Ultracet 37.5/325 Mg) 1 tab PO Q6H PRN; Protocol PRN Reason: Pain, moderate (4-7) Last Admin: 09/03/16 21:35 Dose: 1 tab - Labs Labs: 09/05/16 11:10 09/05/16 11:10 - Respiratory Exam Respiratory Exam: Clear to Ausculation Bilateral, NORMAL BREATHING PATTERN - Cardiovascular Exam Cardiovascular Exam: Tachycardia - GI/Abdominal Exam GI & Abdominal Exam: Soft, Normal Bowel Sounds - Extremities Exam Extremities Exam: Normal Inspection - Neurological Exam Neurological Exam: Alert, Awake - Skin Skin Exam: Dry, Normal Color, Warm Assessment and Plan (1) Adenocarcinoma of colon Status: Resolved (2) COPD (chronic obstructive pulmonary disease) Status: Chronic (3) Hematuria Status: Resolved (4) Tachycardia Status: Acute - Assessment and Plan (Free Text) Assessment: tachycardia prob secondary to xopenex, will dc and observe Plan: continue PT, SW for dc planning
--- NOTE | 2016-09-06 09:41 | PN ---
PULMONARY NOTE DATE: 09/06/2016 SUBJECTIVE: The patient appears comfortable this morning. She is not shortness of breath at rest. PHYSICAL EXAMINATION: VITAL SIGNS: Temperature is 98.0, pulse this morning is 88, respirations are 18, and blood pressure is 112/62. Oxygen saturation on nasal cannula is 100%. HEENT: Normocephalic and atraumatic. NECK: No JVD. CARDIOVASCULAR: Positive S1 and S2. No S3 or gallop. LUNGS: Decreased breath sounds at the bases. Very minimal/less rhonchi. No wheezing. EXTREMITIES: Positive for edema. No cyanosis. No clubbing. Calves are nontender to palpation. GASTROINTESTINAL: Abdomen is soft, nontender, and nondistended. Bowel sounds are positive. Abdomen is postoperative. SKIN: No acute rash. NEUROLOGIC: Exam is limited at the present time. IMPRESSION: 1. Status post hemicolectomy. 2. Colon cancer. 3. Advanced chronic obstructive pulmonary disease. 4. Asthma. 5. Recent myocardial infarction. 6. Anemia. PLAN: The patient appears comfortable this morning. She is not short of breath at rest. She has no recent chest pain. On physical exam, there is only minimal bronchospasm noted. I will continue the current nebulizer treatment for now. I would continue with the antibiotic coverage as per infectious disease. Input by Dr. Barrett is noted. Clinical status of the patient is significantly improved overall. However, her future status/prognosis does remain guarded. I will discuss the above with the attending physician. Richard Mak MD [facility]
--- NOTE | 2016-09-06 16:41 | CP.PCM.PN ---
Subjective - Date & Time of Evaluation Date of Evaluation: 09/06/16 Time of Evaluation: 11:05 - Subjective Subjective: Comfortable in bed, not in distress, afebrile. No nausea, no vomiting. Objective - Vital Signs/Intake and Output Vital Signs (last 24 hours): Temp Pulse Resp BP Pulse Ox 97.7 F 109 H 18 101/56 L 97 09/06/16 15:57 09/06/16 15:57 09/06/16 15:57 09/06/16 15:57 09/06/16 15:57 Intake and Output: 09/06/16 09/06/16 06:59 18:59 Intake Total 0 Balance 0 - Medications Medications: Current Medications Calcitonin [place] (Miacalcin) 200 iu NS DAILY [facility] PRN Reason: Protocol Last Admin: 09/06/16 09:29 Dose: 1 spr Cefpodoxime Proxetil (Vantin) 100 mg PO Q12 [facility] PRN Reason: Protocol Last Admin: 09/06/16 09:24 Dose: 100 mg Docusate Sodium (Colace) 100 mg PO BID [facility] PRN Reason: Protocol Last Admin: 09/06/16 09:22 Dose: 100 mg Ferrous Sulfate (Feosol) 324 mg PO 0800,1200,1800 [facility] PRN Reason: Protocol Last Admin: 09/06/16 11:20 Dose: 324 mg Levothyroxine Sodium (Synthroid) 50 mcg PO 0630 [facility] PRN Reason: Protocol Last Admin: 09/06/16 05:33 Dose: 50 mcg Lidocaine HCl (Xylocaine 2%) 0 ea TOP Q6H PRN; Protocol PRN Reason: Pain, moderate (4-7) Magnesium Oxide (Mag-Ox) 400 mg PO BID [facility] PRN Reason: Protocol Last Admin: 09/06/16 09:23 Dose: 400 mg Meclizine HCl (Antivert) 12.5 mg PO TID PRN; Protocol PRN Reason: Dizziness Last Admin: 09/01/16 10:20 Dose: 12.5 mg Multivitamins (Thera Tab) 1 tab PO DAILY [facility] PRN Reason: Protocol Last Admin: 09/06/16 09:25 Dose: 1 tab Nystatin/Triamcinolone Acetonide (Nystatin/Triamcinolone Cream) 0 ea TOP TID [facility] PRN Reason: Protocol Last Admin: 09/06/16 13:55 Dose: 1 applic Ondansetron HCl (Zofran Inj) 4 mg IVP Q4H PRN; Protocol PRN Reason: Nausea/Vomiting Pantoprazole Sodium (Protonix Ec Tab) 40 mg PO 0600,1600 [facility] Last Admin: 09/06/16 05:33 Dose: 40 mg Pramipexole Dihydrochloride (Mirapex) 0.125 mg PO DAILY [facility] PRN Reason: Protocol Last Admin: 09/06/16 09:24 Dose: 0.125 mg Propranolol HCl (Inderal) 20 mg PO TID [facility] PRN Reason: Protocol Tiotropium [place] (Spiriva) 18 mcg IH DAILY [facility] PRN Reason: Protocol Last Admin: 09/06/16 09:23 Dose: 18 mcg Tramadol/Acetaminophen (Ultracet 37.5/325 Mg) 1 tab PO Q6H PRN; Protocol PRN Reason: Pain, moderate (4-7) Last Admin: 09/03/16 21:35 Dose: 1 tab - Labs Labs: 09/05/16 11:10 09/05/16 11:10 - Constitutional Appears: Non-toxic, No Acute Distress - Head Exam Head Exam: NORMAL INSPECTION - ENT Exam ENT Exam: Mucous Membranes Moist - Neck Exam Neck Exam: absent: Meningismus - Respiratory Exam Respiratory Exam: Decreased Breath Sounds - Cardiovascular Exam Cardiovascular Exam: +S1, +S2 - GI/Abdominal Exam GI & Abdominal Exam: Soft. absent: Tenderness Assessment and Plan - Assessment and Plan (Free Text) Plan: Assessment Klebsiella UTI adenocarcinoma of the colon with GI bleeding S/P right hemicolectomy dyslipidemia hypothyroidism end stage COPD on home oxygen history of Takotsubo syndrome Plan Continue patient on PO Cefpodoxime and complete therapy (Day 6 of 10-14 days)
[2016-09-06] MEDS: TraMADol/Apap 37.5/325 mg Tab PO PRN (21:15)
--- NOTE | 2016-09-07 01:16 | CON ---
DATE: 09/06/2016 TYPE OF DICTATION: Consult. SERVICE: Cardiology. REASON FOR CONSULTATION: Cardiac evaluation followup, status post non-STEMI, status post possible Takotsubo syndrome. BRIEF CLINICAL HISTORY: This is an 80-year-old female with a past medical history of COPD, asthma, hypothyroidism, gastroesophageal reflux, on home O2, recently admitted with GI bleed, found to be adenocarcinoma stage I, status post right hemicolectomy. Postop course was complicated by non-ST segment myocardial infarction; underwent cardiac catheterization, normal coronaries, possible Takotsubo syndrome, was in transitional care unit ICU, had bright red blood of 250 bloody diarrhea and bright red blood per rectum. Patient moved to ICU and later on patient was transferred to the medical floor. At that time, hemoglobin was 8.8, status post packed RBC transfusion. Now since the patient is hemodynamically stable, they have transferred back to transitional care for the continuity of the care. Denies any chest pain, denies any palpitation, denies any bright red blood per rectum. PAST MEDICAL HISTORY: Significant for asthma, COPD, hypothyroidism, vertigo, history of O2 at home, history of right hemicolectomy, adenocarcinoma of the colon. PAST SURGICAL HISTORY: Significant for cataract surgery. Recently, the patient had right hemicolectomy, ileotomy, and colonic mass was removed, status post stage I colon cancer. RECENT CARDIAC WORKUP: As follows: The patient had a cardiac catheterization after having a non-STEMI after the right hemicolectomy dated 08/23/2016 that shows normal coronaries, very tortuous apical hypokinesis noted by echo. Echocardiography done shows ejection fraction of 35%, moderate aortic regurgitation, no aortic stenosis, mild to moderate mitral regurgitation, systolic pressure 51, significant wall motion abnormalities and anterior wall hypokinesis noted. Later on, the patient had MUGA scan done dated 08/26/2016 that showed ejection fraction of 43%. SOCIAL HISTORY: Denies any history of alcohol abuse. REVIEW OF SYSTEMS: As per HPI. PHYSICAL EXAMINATION: VITAL SIGNS: Temperature ------, heart rate 90, blood pressure 112/62. HEENT: PERRLA, intact. NECK: Supple. No carotid bruit. No thyromegaly. CHEST: Clear to auscultation. HEART: S1 and S2 regular. ABDOMEN: Soft. EXTREMITIES: Clubbing and cyanosis negative. LABORATORY DATA: Blood workup as follows. WBC 6.3, hemoglobin 9.6, hematocrit 29.8, platelet count 195. Chemistry shows sodium of 133, potassium 3.7, chloride 98, carbon dioxide 29, anion gap of 12, BUN 21, creatinine 0.9. BNP 1240, total protein 5.4, albumin 2.7, albumin/globulin ratio 1. IMPRESSION: An 80-year-old female with past medical history significant for home O2 oxygen, history of tobacco abuse, history of diabetes and hyperlipidemia, admitted with GI bleed, workup found to be stage I colon cancer, status post right hemicolectomy. Postop course was complicated by non-ST segment myocardial infarction possibly secondary to Takotsubo syndrome. Most recent MUGA scan showed ejection fraction of 43% dated 08/26/2016. Echocardiogram revealed an ejection fraction of 35% status post cardiac catheterization on 08/23/2016, normal coronaries, most likely symptoms happened postop secondary to Takotsubo syndrome. Postop course was complicated by recurrent gastrointestinal bleed, moved to ICU, and now patient transferred back to transitional care unit. Protein calorie malnutrition was present on admission, failure to thrive. RECOMMENDATIONS: Increase nutritional support, continue low-dose beta-peter as blood pressure is tolerated. Continue propranolol, we will increase to 20 mg t.i.d., and continue iron supplementation. Continue multivitamin. Continue Ensure pudding. We will follow with you. Thank you ------ taking care of your patient. Kemar Quach MD
[2016-09-07] MEDS: Pantoprazole 40 mg EC Tab PO SCH ×2 (05:55→17:29)
[2016-09-07] MEDS: Levothyroxine 50 MCG TAB PO SCH (05:55)
--- NOTE | 2016-09-07 08:53 | CP.PCM.PN ---
Subjective - Date & Time of Evaluation Date of Evaluation: 09/07/16 Time of Evaluation: 08:30 - Subjective Subjective: NAD Objective - Vital Signs/Intake and Output Vital Signs (last 24 hours): Temp Pulse Resp BP Pulse Ox 97.8 F 101 H 19 108/71 97 09/07/16 06:00 09/07/16 06:00 09/07/16 06:00 09/07/16 06:00 09/06/16 15:57 Intake and Output: 09/07/16 09/07/16 06:59 18:59 Output Total 100 Balance -100 - Medications Medications: Current Medications Calcitonin [place] (Miacalcin) 200 iu NS DAILY [facility] PRN Reason: Protocol Last Admin: 09/06/16 09:29 Dose: 1 spr Cefpodoxime Proxetil (Vantin) 100 mg PO Q12 [facility] PRN Reason: Protocol Last Admin: 09/06/16 21:15 Dose: 100 mg Docusate Sodium (Colace) 100 mg PO BID [facility] PRN Reason: Protocol Last Admin: 09/06/16 17:11 Dose: 100 mg Ferrous Sulfate (Feosol) 324 mg PO 0800,1200,1800 [facility] PRN Reason: Protocol Last Admin: 09/07/16 08:40 Dose: 324 mg Levothyroxine Sodium (Synthroid) 50 mcg PO 0630 [facility] PRN Reason: Protocol Last Admin: 09/07/16 05:55 Dose: 50 mcg Lidocaine HCl (Xylocaine 2%) 0 ea TOP Q6H PRN; Protocol PRN Reason: Pain, moderate (4-7) Magnesium Oxide (Mag-Ox) 400 mg PO BID [facility] PRN Reason: Protocol Last Admin: 09/06/16 17:12 Dose: 400 mg Meclizine HCl (Antivert) 12.5 mg PO TID PRN; Protocol PRN Reason: Dizziness Last Admin: 09/01/16 10:20 Dose: 12.5 mg Multivitamins (Thera Tab) 1 tab PO DAILY [facility] PRN Reason: Protocol Last Admin: 09/06/16 09:25 Dose: 1 tab Nystatin/Triamcinolone Acetonide (Nystatin/Triamcinolone Cream) 0 ea TOP TID [facility] PRN Reason: Protocol Last Admin: 09/06/16 17:12 Dose: 1 applic Ondansetron HCl (Zofran Inj) 4 mg IVP Q4H PRN; Protocol PRN Reason: Nausea/Vomiting Pantoprazole Sodium (Protonix Ec Tab) 40 mg PO 0600,1600 [facility] Last Admin: 09/07/16 05:55 Dose: 40 mg Pramipexole Dihydrochloride (Mirapex) 0.125 mg PO DAILY [facility] PRN Reason: Protocol Last Admin: 09/06/16 09:24 Dose: 0.125 mg Propranolol HCl (Inderal) 20 mg PO TID [facility] PRN Reason: Protocol Last Admin: 09/06/16 17:12 Dose: 20 mg Tiotropium [place] (Spiriva) 18 mcg IH DAILY [facility] PRN Reason: Protocol Last Admin: 09/06/16 09:23 Dose: 18 mcg Tramadol/Acetaminophen (Ultracet 37.5/325 Mg) 1 tab PO Q6H PRN; Protocol PRN Reason: Pain, moderate (4-7) Last Admin: 09/06/16 21:15 Dose: 1 tab - Labs Labs: 09/05/16 11:10 09/05/16 11:10 - Respiratory Exam Respiratory Exam: Clear to Ausculation Bilateral - Cardiovascular Exam Cardiovascular Exam: REGULAR RHYTHM - GI/Abdominal Exam GI & Abdominal Exam: Soft, Normal Bowel Sounds - Neurological Exam Neurological Exam: Alert, Awake - Skin Skin Exam: Dry, Warm Assessment and Plan (1) Adenocarcinoma of colon Status: Resolved (2) COPD (chronic obstructive pulmonary disease) Status: Chronic (3) Hematuria Status: Resolved (4) Tachycardia Status: Acute (5) Urinary retention with incomplete bladder emptying Status: Acute - Assessment and Plan (Free Text) Plan: dc sawyer and observe, taper propranolol due to urimary retention, for dc planning
[2016-09-07] MEDS: Calcitonin 200 Int Units/Inh Nasal Spray (3.7 ml) NS SCH (10:01)
[2016-09-07] MEDS: Magnesium Oxide 400 mg Tab UD PO SCH ×2 (10:01→17:28)
[2016-09-07] MEDS: Tiotropium 18 mcg Cap For Inhalation IH SCH (10:02)
[2016-09-07] MEDS: Multivitamin Therapeutic Tab PO SCH (10:02)
[2016-09-07] MEDS: Nystatin-Triamcinolone Cream(30 gm) TOP SCH ×3 (10:02→17:59)
[2016-09-07] MEDS: Cefpodoxime (Vantin) 100 mg Tab PO SCH ×2 (10:03→21:26)
--- NOTE | 2016-09-07 10:29 | CARD ---
APPROVED REPORT EKG Measurement Heart [id number] TN 160P9 [id number] <Conclusion> Normal sinus rhythm T wave abnormality, consider lateral ischemia Abnormal ECG
--- NOTE | 2016-09-07 11:37 | PN ---
PULMONARY NOTE DATE: 09/07/2016 SUBJECTIVE: The patient appears comfortable this morning. She is not short of breath at rest. PHYSICAL EXAMINATION: VITAL SIGNS: Temperature is 97.7, pulse this morning 88, respirations 18 and blood pressure 101/56. Oxygen saturation on nasal cannula is 97%. HEENT: Normocephalic and atraumatic. NECK: No JVD. CARDIOVASCULAR: Positive S1 and S2. No S3 gallop. LUNGS: Decreased breath sounds at the bases. No rhonchi or wheezing this morning. EXTREMITIES: Positive edema. No cyanosis. No clubbing. Calves are nontender to palpation. GASTROINTESTINAL: Abdomen is soft, nontender and nondistended. Bowel sounds are positive. Abdomen is postoperative. SKIN: No acute rash. NEUROLOGIC: Limited at the present time. IMPRESSION: 1. Status post hemicolectomy. 2. Colon cancer. 3. Advanced chronic obstructive pulmonary disease. 4. Asthma. 5. Recent myocardial infarction. 6. Anemia. PLAN: The patient appears comfortable this morning. She is not short of breath at rest. She has no recent chest pain. She states she is feeling much better overall. On physical exam, her bronchospasm continues to resolve. In addition, the oxygen saturation on nasal cannula is now 97%. I will continue with the current nebulizer treatments for now. Inputs by Cardiology and infectious disease are noted. Clinical status of the patient has significantly improved compared to last week. However, again, the overall status/prognosis for this very elderly patient-does remain guarded. All are aware. I will discuss the above with the attending physician. Richard Mak MD MTDJessie
--- NOTE | 2016-09-07 14:00 | PN ---
REASON FOR THE CONSULTATION: Follow up cardiac evaluation, follow up status post non-STEMI, status post possible Takotsubo syndrome. SUBJECTIVE: The patient is sitting in the chair, denies any chest pain, shortness of breath, any palpitation. Denies any bright red blood per rectum. OBJECTIVE: Sitting in chair and having the breakfast, not in apparent distress. PHYSICAL EXAMINATION: VITAL SIGNS: Temperature afebrile, heart rate 101, blood pressure 108/71. HEENT: PERRLA. Extraocular muscles are intact. NECK: Supple. No carotid bruit or thyromegaly. CHEST: Clear to auscultation. HEART: S1 and S2 regular. ABDOMEN: Soft. EXTREMITIES: Clubbing and cyanosis negative. LABORATORY DATA: Blood workup as follows: WBC 6.6, hemoglobin 9.6, hematocrit 29.8, platelet count 195. Chemistry shows sodium 130, potassium 3.7, chloride 98, carbon dioxide 29, anion gap of 10, BUN 21, creatinine 0.9. BNP 1240. Total protein 5.4. Albumin 2.7. Albumin/globulin ratio 1. IMPRESSION: 1. Severe protein calorie malnutrition. 2. Tachycardia. 3. Anemia. 4. Colon cancer treatment, status post right hemicolectomy, bright red blood per rectum. 5. Status post cardiac arrhythmia with non-ST segment elevation myocardial infarction, normal coronaries, possible Takotsubo syndrome. Echocardiography shows ejection %. MUGA scan shows ejection fraction 43% dated 08/26/2016. RECOMMENDATIONS: Give nutrition support, continue low-dose beta-peter as blood pressure as tolerated. Continue propranolol, increased to 20 mg t.i.d. because heart rate went up to 130. Continue iron supplement. Continue multivitamin supplement. Ensure pudding was added, but the patient did not like Ensure pudding. Discussed with dietitian to increase nutrition support. Thank you Dr. Huff for providing this opportunity in taking care of the patient. We will follow with you. Kemar Quach MD
--- NOTE | 2016-09-07 15:16 | CP.PCM.PN ---
Subjective - Date & Time of Evaluation Date of Evaluation: 09/07/16 Time of Evaluation: 10:15 - Subjective Subjective: Comfortable, not in distress. Objective - Vital Signs/Intake and Output Vital Signs (last 24 hours): Temp Pulse Resp BP Pulse Ox 97.8 F 101 H 19 108/71 97 09/07/16 06:00 09/07/16 06:00 09/07/16 06:00 09/07/16 06:00 09/06/16 15:57 Intake and Output: 09/07/16 09/07/16 06:59 18:59 Output Total 100 Balance -100 - Medications Medications: Current Medications Calcitonin [place] (Miacalcin) 200 iu NS DAILY [facility] PRN Reason: Protocol Last Admin: 09/06/16 09:29 Dose: 1 spr Cefpodoxime Proxetil (Vantin) 100 mg PO Q12 [facility] PRN Reason: Protocol Last Admin: 09/06/16 21:15 Dose: 100 mg Docusate Sodium (Colace) 100 mg PO BID [facility] PRN Reason: Protocol Last Admin: 09/06/16 17:11 Dose: 100 mg Ferrous Sulfate (Feosol) 324 mg PO 0800,1200,1800 [facility] PRN Reason: Protocol Last Admin: 09/07/16 08:40 Dose: 324 mg Levothyroxine Sodium (Synthroid) 50 mcg PO 0630 [facility] PRN Reason: Protocol Last Admin: 09/07/16 05:55 Dose: 50 mcg Lidocaine HCl (Xylocaine 2%) 0 ea TOP Q6H PRN; Protocol PRN Reason: Pain, moderate (4-7) Magnesium Oxide (Mag-Ox) 400 mg PO BID [facility] PRN Reason: Protocol Last Admin: 09/06/16 17:12 Dose: 400 mg Meclizine HCl (Antivert) 12.5 mg PO TID PRN; Protocol PRN Reason: Dizziness Last Admin: 09/01/16 10:20 Dose: 12.5 mg Multivitamins (Thera Tab) 1 tab PO DAILY [facility] PRN Reason: Protocol Last Admin: 09/06/16 09:25 Dose: 1 tab Nystatin/Triamcinolone Acetonide (Nystatin/Triamcinolone Cream) 0 ea TOP TID [facility] PRN Reason: Protocol Last Admin: 09/06/16 17:12 Dose: 1 applic Ondansetron HCl (Zofran Inj) 4 mg IVP Q4H PRN; Protocol PRN Reason: Nausea/Vomiting Pantoprazole Sodium (Protonix Ec Tab) 40 mg PO 0600,1600 [facility] Last Admin: 09/07/16 05:55 Dose: 40 mg Pramipexole Dihydrochloride (Mirapex) 0.125 mg PO DAILY [facility] PRN Reason: Protocol Last Admin: 09/06/16 09:24 Dose: 0.125 mg Propranolol HCl (Inderal) 20 mg PO BID [facility] PRN Reason: Protocol Tiotropium [place] (Spiriva) 18 mcg IH DAILY [facility] PRN Reason: Protocol Last Admin: 09/06/16 09:23 Dose: 18 mcg Tramadol/Acetaminophen (Ultracet 37.5/325 Mg) 1 tab PO Q6H PRN; Protocol PRN Reason: Pain, moderate (4-7) Last Admin: 09/06/16 21:15 Dose: 1 tab - Labs Labs: 09/05/16 11:10 09/05/16 11:10 - Constitutional Appears: Non-toxic, No Acute Distress - Head Exam Head Exam: NORMAL INSPECTION - Neck Exam Neck Exam: absent: Meningismus - Respiratory Exam Respiratory Exam: Decreased Breath Sounds - Cardiovascular Exam Cardiovascular Exam: +S1, +S2 - GI/Abdominal Exam GI & Abdominal Exam: Soft. 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
[2016-09-07] MEDS: TraMADol/Apap 37.5/325 mg Tab PO PRN (21:25)
[2016-09-08] MEDS: Levothyroxine 50 MCG TAB PO SCH (06:08)
[2016-09-08] MEDS: Pantoprazole 40 mg EC Tab PO SCH (06:08)
[2016-09-08 06:55] VITALS: O2SAT 100
[2016-09-08] MEDS ORDERED: Levalbuterol 0.63 MG/3 ML Inhal Soln UD IH SCH (08:00)
--- NOTE | 2016-09-08 09:34 | CP.PCM.PN ---
Subjective - Date & Time of Evaluation Date of Evaluation: 09/08/16 Time of Evaluation: 08:45 - Subjective Subjective: NAD Objective - Vital Signs/Intake and Output Vital Signs (last 24 hours): Temp Pulse Resp BP Pulse Ox 98.3 F 20 L 121 H 90/58 L 100 09/08/16 06:00 09/08/16 06:00 09/08/16 06:00 09/08/16 06:00 09/08/16 06:00 Intake and Output: 09/08/16 09/08/16 06:59 18:59 Intake Total 0 Output Total 470 Balance -470 - Medications Medications: Current Medications Calcitonin [place] (Miacalcin) 200 iu NS DAILY [facility] PRN Reason: Protocol Last Admin: 09/07/16 10:01 Dose: 1 spr Cefpodoxime Proxetil (Vantin) 100 mg PO Q12 [facility] PRN Reason: Protocol Last Admin: 09/07/16 21:26 Dose: 100 mg Docusate Sodium (Colace) 100 mg PO BID [facility] PRN Reason: Protocol Last Admin: 09/07/16 17:29 Dose: 100 mg Ferrous Sulfate (Feosol) 324 mg PO 0800,1200,1800 [facility] PRN Reason: Protocol Last Admin: 09/08/16 08:28 Dose: 324 mg Levalbuterol HCl (Xopenex) 0.63 mg IH TIDRESP [facility] Last Admin: 09/08/16 07:45 Dose: 0.63 mg Levothyroxine Sodium (Synthroid) 50 mcg PO 0630 [facility] PRN Reason: Protocol Last Admin: 09/08/16 06:08 Dose: 50 mcg Lidocaine HCl (Xylocaine 2%) 0 ea TOP Q6H PRN; Protocol PRN Reason: Pain, moderate (4-7) Magnesium Oxide (Mag-Ox) 400 mg PO BID [facility] PRN Reason: Protocol Last Admin: 09/07/16 17:28 Dose: 400 mg Meclizine HCl (Antivert) 12.5 mg PO TID PRN; Protocol PRN Reason: Dizziness Last Admin: 09/01/16 10:20 Dose: 12.5 mg Multivitamins (Thera Tab) 1 tab PO DAILY [place] PRN Reason: Protocol Last Admin: 09/07/16 10:02 Dose: 1 tab Nystatin/Triamcinolone Acetonide (Nystatin/Triamcinolone Cream) 0 ea TOP TID [facility] PRN Reason: Protocol Last Admin: 09/07/16 17:59 Dose: 1 applic Ondansetron HCl (Zofran Inj) 4 mg IVP Q4H PRN; Protocol PRN Reason: Nausea/Vomiting Pantoprazole Sodium (Protonix Ec Tab) 40 mg PO 0600,1600 [facility] Last Admin: 09/08/16 06:08 Dose: 40 mg Pramipexole Dihydrochloride (Mirapex) 0.125 mg PO DAILY [facility] PRN Reason: Protocol Last Admin: 09/07/16 10:02 Dose: 0.125 mg Propranolol HCl (Inderal) 20 mg PO BID [facility] PRN Reason: Protocol Last Admin: 09/07/16 17:31 Dose: Not Given Tiotropium [place] (Spiriva) 18 mcg IH DAILY [facility] PRN Reason: Protocol Last Admin: 09/07/16 10:02 Dose: 18 mcg Tramadol/Acetaminophen (Ultracet 37.5/325 Mg) 1 tab PO Q6H PRN; Protocol PRN Reason: Pain, moderate (4-7) Last Admin: 09/07/16 21:25 Dose: 1 tab - Labs Labs: 09/05/16 11:10 09/05/16 11:10 - Respiratory Exam Respiratory Exam: Clear to Ausculation Bilateral, NORMAL BREATHING PATTERN - Cardiovascular Exam Cardiovascular Exam: Tachycardia - GI/Abdominal Exam GI & Abdominal Exam: Soft, Normal Bowel Sounds - Extremities Exam Extremities Exam: Full ROM, Normal Inspection - Back Exam Back Exam: CVA tenderness (L) - Skin Skin Exam: Dry, Warm Assessment and Plan (1) Adenocarcinoma of colon Status: Resolved (2) COPD (chronic obstructive pulmonary disease) Status: Chronic (3) Hematuria Status: Resolved (4) Tachycardia Status: Acute (5) Urinary retention with incomplete bladder emptying Status: Acute - Assessment and Plan (Free Text) Plan: dc xopenex d/t tachycardia, SW for dc in am
[2016-09-08] MEDS: Magnesium Oxide 400 mg Tab UD PO SCH (10:04)
[2016-09-08] MEDS: Calcitonin 200 Int Units/Inh Nasal Spray (3.7 ml) NS SCH (10:05)
[2016-09-08] MEDS: Tiotropium 18 mcg Cap For Inhalation IH SCH (10:07)
[2016-09-08] MEDS: Multivitamin Therapeutic Tab PO SCH (10:07)
[2016-09-08] MEDS: Nystatin-Triamcinolone Cream(30 gm) TOP SCH ×2 (10:07→13:55)
[2016-09-08] MEDS: Cefpodoxime (Vantin) 100 mg Tab PO SCH (10:08)
[2016-09-08 10:09] VITALS: BP 100/69
[2016-09-08 10:39] VITALS: PULSE 140; RESP 18; TEMP 98.4
--- NOTE | 2016-09-08 13:08 | PN ---
DATE: 09/08/2016 REASON FOR CONSULTATION: Cardiac evaluation follow up status post non-STEMI, possible takotsubo syndrome status post colon dissection. Continued care in transitional care unit. SUBJECTIVE: The patient denies any chest pain, sitting on the bed, having breakfast. No chest pain. No shortness of breath. No bloody bowel movement. OBJECTIVE: GENERAL: Lying in bed and now started to having the breakfast. VITAL SIGNS: As follows, temperature afebrile, heart rate 100, and blood pressure 98/56. HEENT: PERRLA. Extraocular muscles are intact. NECK: Supple. No carotid bruit. No thyromegaly. CHEST: Clear to auscultation. HEART: S1 and S2, regular. ABDOMEN: Soft. EXTREMITIES: Clubbing and cyanosis negative. LABORATORY DATA: WBC 6.6, hemoglobin 9.6, hematocrit 29.8, platelet count 195. Chemistry shows sodium 136, potassium 3.7, chloride 98, carbon dioxide 29, anion gap of 10, BUN 21, and creatinine 0.9. BNP 1240. Total protein 5.4. Albumin 2.7 as of 09/05/2016. IMPRESSION: An 80-year-old female who admitted with gastrointestinal bleed, found to be stage I colon cancer, status post right hemicolectomy. Postoperative course was complicated with non-ST segment myocardial infarction, underwent cardiac catheterization, revealed normal coronaries, possible takotsubo syndrome, had echo shows anterior wall hypokinesis. MUGA scan shows ejection fraction 43%. The patient was in transitional care unit. The patient had bright red blood per rectum, moved to ICU, and then stabilized and transferred back to transitional care unit. Now, the patient currently in transitional care unit having rehab therapy. No further episode of bright red blood per rectum noted. Tachycardia, anemia, and protein-calorie malnutrition. RECOMMENDATIONS: Increase nutritional support. Continue propranolol as blood pressure is tolerated. Continue rehab. Continue iron supplementation. Continue multivitamin. Monitor closely, we will follow with you. Thank you Dr. Huff for providing me the opportunity in taking care of Win Lambert. Also check TSH on next blood draw and continue low dose of Synthroid. We will follow with you. We will repeat the blood work tomorrow. Kemar Quach MD [facility] # [id number]
--- NOTE | 2016-09-09 01:42 | PN ---
DATE: 09/08/2016 PULMONARY NOTE SUBJECTIVE: The patient appears comfortable this morning. She is not short of breath at rest. PHYSICAL EXAMINATION VITAL SIGNS: Temperature is 98.3, pulse 90, respirations 18, and blood pressure 90/58. Oxygen saturation on nasal cannula is 100%. HEENT: Normocephalic and atraumatic. NECK: No JVD. CARDIOVASCULAR: Positive S1 and S2. No S3. LUNGS: Decreased breath sounds at the bases. Very minimal rhonchi. No wheezing. EXTREMITIES: Positive for edema. No cyanosis. No clubbing. Calves are nontender to palpation. GASTROINTESTINAL: Abdomen is soft, nontender, and nondistended. Bowel sounds are positive. Abdomen is postoperative. SKIN: No acute rash. NEUROLOGIC EXAM: Limited at the present time. IMPRESSION: 1. Status post hemicolectomy. 2. Colon cancer. 3. Advanced chronic obstructive pulmonary disease. 4. Asthma. 5. Recent myocardial infarction. 6. Anemia. PLAN: The patient appears very comfortable this morning. She is not short of breath at rest. She states she is feeling much better overall. On physical exam, no significant bronchospasm exists. In addition, the oxygen saturation on nasal cannula is now 100%. I will continue the current nebulizer treatments for now. I would continue with the cardiology and infectious disease evaluations. Inputs are noted. Clinical status of the patient is certainly improved overall. However, again, this patient's future status/prognosis does remain very guarded. All are aware. Richard Mak MD MTDD
--- NOTE | 2016-09-30 12:59 | DS ---
LOCATION: Room 313-01. CHIEF COMPLAINT: Postop complications colon surgery. HISTORY OF PRESENT ILLNESS: This is an 80-year-old female with ischemic cardiomyopathy, chronic obstructive pulmonary disease, hypothyroidism, gastroesophageal reflex and a recent right colon resection for adenocarcinoma. The patient has had complications including bleeding, cardiac ischemia and NSTEMI and also has been catheterize and found to have takotsubo syndrome. Most recently, the patient has had difficulty urinating with some hematuria and at the time of this initial transfer to the [facility], she is found to have urinary tract infection and will be started on treatment. ALLERGIES: CODEINE. MEDICATIONS: Acetylcysteine by nebulizer twice a day, Ultracet three times a day as needed, Spiriva 18 mcg daily, Inderal 10 mg t.i.d., Mirapex 0.125 daily, Protonix 40 mg b.i.d., Zofran 4 mg q. 4 p.r.n., meclizine 12.5 mg t.i.d. p.r.n., levothyroxine 50 mcg daily, Xopenex 0.63 mg inhalation q.i.d. p.r.n., iron sulphate 324 mg t.i.d., Miacalcin nasal spray 200 units daily and Colace 100 mg b.i.d. PHYSICAL EXAMINATION: Unremarkable from the previous two admissions and transfer note with well healed midline incision and one half ben remaining. There was some tenderness over the suprapubic lesion. Microbiology on 08/30/2016; urinalysis grows Klebsiella pneumonia 100,000 colonies per mL sensitive to cephalosporin. HOSPITAL COURSE: The patient is doing well and able to have the Chow catheter removed and it is tolerated diet progress through physical therapy and is ambulating satisfactorily and is actually able to be discharged on 09/08/2016 for office followup with cardiology and with the attending physician as well as consulting surgeon. DISCHARGE DIAGNOSES: 1. Carcinoma of the ascending colon (stage I) - recovered. 2. Urinary tract infection - Klebsiella pneumonia. 3. Chronic obstructive pulmonary disease - moderate to severe. 4. Ischemic cardiomyopathy (takotsubo syndrome.) 5. Non-ST segment myocardial infarction - resolved. 6. Gastroesophageal reflux. 7. Hypothyroidism. 8. Osteoporosis. Viktor Davis MD [facility] # [id number]
--- NOTE | 2016-10-13 23:05 | DS ---
CHIEF COMPLAINT: Colon cancer. Urinary tract infection - cystitis. Chronic obstructive pulmonary disease. Takotsubo ischemic cardiomyopathy. HISTORY OF PRESENT ILLNESS: The patient is an 80-year-old female who underwent a colon resection 3 weeks earlier for a carcinoma of the ascending colon. This has been complicated by ischemic cardiomyopathy (Takotsubo syndrome,) recurrent rectal bleeding, chronic obstructive pulmonary disease and urinary tract infection with hematuria. She is now transferred to the transitional care unit for deconditioning and preparation for being managed at home. MEDICATIONS: Include Mucomyst, Ultracet, Spiriva, Inderal, Mirapex, Protonix, Zofran, multivitamins, Antivert, magnesium oxide, Synthroid, Xopenex, Feosol, Miacalcin, and Colace. ALLERGIES: INCLUDE CODEINE. SOCIAL HISTORY: Denies tobacco or alcohol. PHYSICAL EXAMINATION: GENERAL: A well-healed incision. No tenderness. No abnormal findings. LABORATORY DATA: The hemoglobin is 10.5, the white count is 7.1, the platelets are 259,000. Chemistry is essentially normal. HOSPITAL COURSE: The patient rapidly improves with relief of symptoms of her urinary tract infection and hematuria and is able to be ambulating removing the Chow and be prepared for discharge home. She will remain on the same medications she has been on at home and will follow up in the office. There is no need for further chemotherapy or radiation treatment. DISCHARGE DIAGNOSES: Carcinoma of the colon, stage I, T1, N0, M0. Takotsubo syndrome - ischemic cardiomyopathy. Chronic obstructive pulmonary disease. Hypothyroidism. Anemia secondary to bleeding in the gastrointestinal tract. Viktor Davis MD
== END 2016-09-08 18:57 | disposition home or self-care (01) | DRG 374 ==
LOC: TRCU 14:57
PROVIDERS: ADMIT Surgery; ATTEND Surgery
PROC: F07Z9ZZ Gait Training/Functional Ambulation Treatment (ICD-10-PCS; principal; 2016-09-01)
PROC: F07M6ZZ Therapeutic Exercise Treatment of Musculoskeletal System - Whole Body (ICD-10-PCS; 2016-09-01)
PROC: F08Z1ZZ Dressing Techniques Treatment (ICD-10-PCS; 2016-09-01)
PROC: F08Z2ZZ Grooming/Personal Hygiene Treatment (ICD-10-PCS; 2016-09-01)
PROC: F08Z0ZZ Bathing/Showering Techniques Treatment (ICD-10-PCS; 2016-09-01)
DX: C18.9 Malignant neoplasm of colon, unspecified (principal); E43 Unspecified severe protein-calorie malnutrition; I21.4 Non-ST elevation (NSTEMI) myocardial infarction; K91.841 Postprocedural hemorrhage of a digestive system organ or structure following other procedure; J96.10 Chronic respiratory failure, unspecified whether with hypoxia or hypercapnia; I50.9 Heart failure, unspecified; K92.2 Gastrointestinal hemorrhage, unspecified; N39.0 Urinary tract infection, site not specified; I51.81 Takotsubo syndrome; J44.9 Chronic obstructive pulmonary disease, unspecified; K21.9 Gastro-esophageal reflux disease without esophagitis; I35.1 Nonrheumatic aortic (valve) insufficiency; I25.2 Old myocardial infarction; B96.1 Klebsiella pneumoniae [K. pneumoniae] as the cause of diseases classified elsewhere; D64.9 Anemia, unspecified; E03.9 Hypothyroidism, unspecified; E78.00 Pure hypercholesterolemia, unspecified; E78.5 Hyperlipidemia, unspecified; Z98.42 Cataract extraction status, left eye; Z98.41 Cataract extraction status, right eye; H35.30 Unspecified macular degeneration; H40.9 Unspecified glaucoma; I25.10 Atherosclerotic heart disease of native coronary artery without angina pectoris; R62.7 Adult failure to thrive; Z86.010 Personal history of colon polyps; Z88.5 Allergy status to narcotic agent; Z90.49 Acquired absence of other specified parts of digestive tract; Z99.81 Dependence on supplemental oxygen

== ENCOUNTER 2017-01-24 09:46 | Inpatient (IN) | payer MEDICARE, BC ==
[2017-01-24 11:13] LABS: BASO # 0.03 K/mm3 (0.0-2.0); BASO % 0.5 % (0.0-3.0); EOS # 0.1 (0.0-0.7); EOS % 1.3 % (1.5-5.0); GRAN # 3.13 (1.4-6.5); GRAN % 52.6 % (50.0-68.0); LYMPH # 2.1 (1.2-3.4); LYMPH % 35.3 % (22.0-35.0); MEAN CELL VOLUME 92.5 fl (80.0-105.0); MEAN CORPUSCULAR HEMOGLOBIN 28.5 pg (25.0-35.0); MEAN CORPUSCULAR HGB CONC 30.8 g/dl (31.0-37.0); MEAN PLATELET VOLUME 8.6 fl (7.0-11.0); MONO # 0.6 (0.1-0.6); MONO % 10.3 % (1.0-6.0); RED CELL DISTRIBUTION WIDTH 14.3 % (11.5-14.5)
[2017-01-24 11:14] LABS: HEMATOCRIT 21.1 % (36.0-48.0)
--- NOTE | 2017-01-24 11:24 | ED PDOC ---
Arrival/HPI - General Chief Complaint: Abnormal Labs Time Seen by Provider: 01/24/17 10:14 Historian: Patient - History of Present Illness Narrative History of Present Illness (Text): 01/24/17 11:22 81yo female with Past medical history of anemia and Colon CA referred to Emergency department by her PMD for hemoglobin of 6. Pt states she had the blood work done last week and was called with the result today. she notes previous transfusion in July 2016. She admits to shortness of breath, but is chronic secondary to her COPD. She denies chest pain, dizziness, weakness, melena, hematemesis, any other complaint. Past Medical History - Provider Review Nursing Documentation Reviewed: Yes - Infectious Disease Hx of Infectious Diseases: None - Reproductive Menopause: Yes - Cardiac Hx Cardiac Disorders: Yes Hx Angina: Yes - Pulmonary Hx Asthma: Yes Hx Chronic Obstructive Pulmonary Disease (COPD): Yes - Neurological Hx Neurological Disorder: Yes Hx Dizziness: Yes (VERTIGO) - HEENT Hx HEENT Disorder: Yes Hx Cataracts: Yes (cataract removal ou) Hx Glaucoma: Yes Hx Macular Degeneration: Yes - Renal Hx Renal Disorder: No - Endocrine/Metabolic Hx Hypothyroidism: Yes - Hematological/Oncological Hx Anemia: Yes - Integumentary Hx Dermatological Disorder: Yes Other/Comment: MID LOWER ABDOMINAL AREA INCISION LINE POST HEMICOLECTOMY AUGUST 16. 08-28-16 GROIN AREA,PERINAL AREA WITH A LARGE BRUISE OR HEMATOMA.BURGUNDY COLORED SKIN. - Musculoskeletal/Rheumatological Hx Falls: No - Gastrointestinal Hx Gastrointestinal Disorders: Yes Hx Gastroesophageal Reflux: Yes Other/Comment: Colon CA - Genitourinary/Gynecological Hx Hematuria: Yes Hx Urinary Tract Infection: Yes - Psychiatric Hx Emotional Abuse: No Hx Physical Abuse: No Hx Substance Use: No - Surgical History Hx Cardiac Catheterization: Yes Other/Comment: s/p Hemicolectomy - Anesthesia Hx Anesthesia Reactions: No Hx Malignant Hyperthermia: No - Suicidal Assessment Feels Threatened In Home Enviroment: No Family/Social History - Physician Review Nursing Documentation Reviewed: Yes Family/Social History: Unknown Family HX Smoking Status: Never Smoked Hx Alcohol Use: No Hx Substance Use: No Hx Substance Use Treatment: No Allergies/Home Meds Allergies/Adverse Reactions: Allergies codeine Allergy (Verified 09/02/16 08:22) NAUSEA Home Medications: Home Meds Medication Instructions Recorded Confirmed Aspirin [Ecotrin] 81 mg PO DAILY 01/24/17 01/24/17 Cu/Se/Vit A/Vit C/Vit E/Zinc 1 tab PO DAILY 01/24/17 01/24/17 [Ocuvite] Meclizine [Antivert] 12.5 mg PO DAILY 01/24/17 01/24/17 Metoprolol Tartrate [Lopressor] 0 mg PO BID 01/24/17 01/24/17 Montelukast [Singulair] 10 mg PO DAILY 01/24/17 01/24/17 Pramipexole [Mirapex] 0 mg PO DAILY 01/24/17 01/24/17 Review of Systems - Physician Review All systems were reviewed & negative as marked: Yes - Review of Systems Constitutional: Normal Eyes: Normal ENT: Normal Respiratory: Normal Cardiovascular: Normal Gastrointestinal: Normal Genitourinary Female: Normal Musculoskeletal: Normal Skin: Normal Neurological: Normal Endocrine: Normal Hemo/Lymphatic: Normal, Other (Low hemoglobin) Psychiatric: Normal Physical Exam Vital Signs Reviewed: Yes Vital Signs Temp Pulse Resp BP Pulse Ox 01/24/17 13:18 97.8 F 58 L 16 140/52 L 01/24/17 12:59 97.6 F 60 16 137/57 L 01/24/17 12:42 97.6 F 62 16 127/60 100 01/24/17 11:12 74 18 121/64 99 01/24/17 10:10 98.1 F 76 16 123/69 100 Temperature: Afebrile Blood Pressure: Normal Pulse: Regular Respiratory Rate: Normal Appearance: Positive for: Well-Appearing, Non-Toxic, Comfortable Pain Distress: None Mental Status: Positive for: Alert and Oriented X 3 - Systems Exam Head: Present: Atraumatic, Normocephalic Pupils: Present: PERRL Extroacular Muscles: Present: EOMI Conjunctiva: Present: Normal Mouth: Present: Moist Mucous Membranes Neck: Present: Normal Range of Motion Respiratory/Chest: Present: Clear to Auscultation, Good Air Exchange. No: Respiratory Distress, Accessory Muscle Use Cardiovascular: Present: Regular Rate and Rhythm, Normal S1, S2. No: Murmurs Abdomen: Present: Normal Bowel Sounds. No: Tenderness, Distention, Peritoneal Signs Back: Present: Normal Inspection Upper Extremity: Present: Normal Inspection. No: Cyanosis, Edema Lower Extremity: Present: Normal Inspection. No: Edema Neurological: Present: GCS=15, CN II-XII Intact, Speech Normal Skin: Present: Warm, Dry, Normal Color. No: Rashes Psychiatric: Present: Alert, Oriented x 3, Normal Insight, Normal Concentration Medical Decision Making ED Course and Treatment: 01/24/17 18:16 Pt in Emergency department for stated history. she ws hemodynamically stable in Emergency department. Her H/H was 6. Transfusion consent was obtained from pt. 2units of PRBC was ordered and transfusion was started in Emergency department.. Case was DC with Dr. Griffith and pt was placed on OBS for further evaluation. - Lab Interpretations Lab Results: 01/24/17 11:05 01/24/17 11:05 Lab Results 01/24/17 11:32: Blood Type O POSITIVE, Antibody Screen Negative, Crossmatch See Detail, BBK History Checked Patient has bt 01/24/17 11:05: Sodium 143, Potassium 5.2 H, Chloride 109 H, Carbon Dioxide 25, Anion Gap 14, BUN 21, Creatinine 1.0, Est GFR ( Amer) > 60, Est GFR (Non- Af Amer) 53, Random Glucose 78, Calcium 8.7, Total Bilirubin 0.3, AST 37 H, ALT 35, Alkaline Phosphatase 78, Total Protein 6.7, Albumin 3.8, Globulin 2.9, Albumin/Globulin Ratio 1.3 01/24/17 11:05: PT 10.9, INR 0.99, APTT 24.2 L 01/24/17 11:05: WBC 6.0, RBC 2.28 L, Hgb 6.5 L*, Hct 21.1 L, MCV 92.5, MCH 28.5 , MCHC 30.8 L, RDW 14.3, Plt Count 259, MPV 8.6, Gran % 52.6, Lymph % (Auto) 35.3 H, Coos % (Auto) 10.3 H, Eos % (Auto) 1.3 L, Baso % (Auto) 0.5, Gran # 3.13 , Lymph # 2.1, Coos # 0.6, Eos # 0.1, Baso # 0.03 - Medication Orders Current Medication Orders: Discontinued Medications Pneumococcal Polyvalent Vaccine (Pneumovax 23 Vaccine) 0.5 ml IM .ONCE ONE Stop: 01/24/17 17:05 Sodium Polystyrene Sulfonate (Kayexalate Susp) 15 gm PO STAT STA Stop: 01/24/17 13:32 Last Admin: 01/24/17 13:35 Dose: 15 gm Disposition/Present on Arrival - Present on Arrival Any Indicators Present on Arrival: No History of DVT/PE: No History of Uncontrolled Diabetes: No Urinary Catheter: Yes History of Decub. Ulcer: No History Surgical Site Infection Following: None - Disposition Have Diagnosis and Disposition been Completed?: Yes Diagnosis: Anemia Disposition: HOSPITALIZED Disposition Time: 12:00 Patient Problems: Current Active Problems Problem Status Onset Anemia Acute Condition: FAIR
[2017-01-24 11:27] LABS: ALB/GLOB RATIO 1.3 (1.1-1.8); ALKALINE PHOSPHATASE 78 U/L (38-126); ALT/SGPT 35 U/L (7-56); AST/SGOT 37 U/L (14-36); BILIRUBIN,TOTAL 0.3 mg/dL (0.2-1.3); BLOOD UREA NITROGEN 21 mg/dL (7-21); CALCIUM 8.7 mg/dL (8.4-10.5); CARBON DIOXIDE 25 mmol/L (21-33); CHLORIDE 109 mmol/L (98-107); GFR AFRICAN-AMERICAN > 60; GLUCOSE,RANDOM 78 mg/dL (70-110); POTASSIUM 5.2 mmol/L (3.6-5.0); SODIUM 143 mmol/L (132-148); TOTAL PROTEIN 6.7 g/dL (5.8-8.3)
[2017-01-24 11:28] LABS: INR 0.99 (0.93-1.08); PARTIAL THROMBOPLASTIN TIME 24.2 Seconds (25.1-36.5)
[2017-01-24] MEDS ORDERED: Sod Polystyrene Sulf 15 gm/60 ml Susp PO STA (13:31)
[2017-01-24 17:04] VITALS: BMI 18.1
[2017-01-24] MEDS ORDERED: Influenza Vaccine 60 mcg/0.5 mL SYR (4YR UP) IM ONE (17:04)
[2017-01-24] MEDS ORDERED: Pneumococcal 23-Valent Vaccine IM ONE (17:04)
[2017-01-24 17:41] VITALS: RESP 20
[2017-01-25 09:12] LABS: BASO # 0.03 K/mm3 (0.0-2.0); BASO % 0.5 % (0.0-3.0); EOS # 0.1 (0.0-0.7); EOS % 1.6 % (1.5-5.0); GRAN # 3.26 (1.4-6.5); GRAN % 52.4 % (50.0-68.0); LYMPH # 2.1 (1.2-3.4); LYMPH % 33.3 % (22.0-35.0); MEAN CORPUSCULAR HEMOGLOBIN 28.4 pg (25.0-35.0); MEAN CORPUSCULAR HGB CONC 32.3 g/dl (31.0-37.0); MEAN PLATELET VOLUME 8.8 fl (7.0-11.0); MONO # 0.8 (0.1-0.6); MONO % 12.2 % (1.0-6.0); RED CELL DISTRIBUTION WIDTH 15.8 % (11.5-14.5); WHITE BLOOD COUNT 6.2 10^3/ul (4.5-11.0)
[2017-01-25 09:26] LABS: ALB/GLOB RATIO 1.3 (1.1-1.8); BILIRUBIN,TOTAL 0.9 mg/dL (0.2-1.3); CALCIUM 8.4 mg/dL (8.4-10.5); POTASSIUM 4.6 mmol/L (3.6-5.0); TOTAL PROTEIN 6.2 g/dL (5.8-8.3)
[2017-01-25] MEDS ORDERED: Propofol 10 mg/ml Inj (20 ML) ONE (14:09)
[2017-01-25] MEDS ORDERED: Sodium Chloride 0.9% 100 ML IV SCH (15:15)
--- NOTE | 2017-01-25 22:38 | HP ---
HISTORY OF PRESENT ILLNESS: The patient is an 81-year-old female, referred to the emergency department by Dr. Davis for anemia. The patient has a history of carcinoma of the colon and underwent a right hemicolectomy in August. She denies any melena. No bright red blood per rectum or abdominal pain at the present time. There is no jaundice. No fever. No chills. No diarrhea. No nausea. No vomiting. PAST MEDICAL HISTORY: Includes COPD, coronary artery disease, hypothyroidism, degenerative joint disease and osteoporosis. PAST SURGICAL HISTORY: As above. CURRENT MEDICATIONS: Include Miacalcin nasal spray, Synthroid, Protonix, Inderal. ALLERGIES: THE PATIENT IS ALLERGIC TO CODEINE. SOCIAL HISTORY: The patient denies alcohol or tobacco use. REVIEW OF SYSTEMS: Essentially as above. She denies any chest pain or shortness of breath or swelling of the legs. PHYSICAL EXAMINATION: GENERAL: The patient is a well-developed, somewhat cachectic elderly female, in no acute distress. VITAL SIGNS: Blood pressure 116/49, temperature 97.6, pulse 55, respiratory rate 20. HEENT: Head is normocephalic, atraumatic. Pupils equal, round and reactive to light. Extraocular movements intact. NECK: Supple. No thyromegaly. No carotid bruit. LUNGS: Clear. HEART: Regular rate and rhythm. ABDOMEN: Soft, nontender. Bowel sounds are normoactive. There is a healed out laparotomy scar. EXTREMITIES: Without cyanosis, clubbing or edema. NEUROLOGICAL: The patient is awake and oriented x3 without focal sensorimotor deficits. SKIN: Warm and dry. LABORATORY DATA: WBC is 6.0, hemoglobin 6.5, hematocrit 21.1, which increased to 9.7 and 30.0 post transfusion packed red blood cells. Chemistry: Sodium 141, potassium 4.6, chloride 109, CO2 of 25, BUN 20, creatinine 1.1. IMPRESSION: 1. Anemia. Rule out gastrointestinal bleed. 2. Cancer of the colon, status post right hemicolectomy. 3. Chronic obstructive pulmonary disease. 4. Hypothyroidism. 5. Coronary artery disease. 6. Degenerative joint disease/osteoporosis. PLAN: The patient is admitted to the medical surgical floor. Has received 2 units of packed red blood cells. She will be seen in consultation by GI for endoscopy. We will monitor hemoglobin and hematocrit. Surgical followup with Dr. Davis. TEX Winter MD [facility] # [id number]
--- NOTE | 2017-01-26 00:36 | CP.PCM.CON ---
<Serge Fernandez - Last Filed: 01/26/17 00:45> History of Present Illness - History of Present Illness History of Present Illness: General Surgery- Dr. Davis Win 81F well known to Dr. Davis service w/ pmhx of COPD, CAD, Colon Ca s/p R. Hemicolectomy in August was admitted due to anemia, Hg of 6. Patient denies bright red blood per rectum, nausea, vomiting, diarrhea, fevers, chills, chest pain. Patient underwent and EGD eariler this visit and was found to have gastric polyps and Andre ulcers. Patient was transfused 2units of blood. repeat Hg is 9.7 PMH: COPD, CAD, hypothyroidism, Colon Ca, DJD osteoperosis PSH: R. Hemicolectomy August 2016, cataract sgx ALL: Codein SocialHx: denies etoh, tobacco, recreational drug use Review of Systems - Review of Systems All systems: reviewed and no additional remarkable complaints except - Constitutional Constitutional: As Per HPI Past Patient History - Infectious Disease Hx of Infectious Diseases: None - Past Social History Smoking Status: Never Smoked - CARDIAC Hx Cardiac Disorders: Yes Hx Angina: Yes - PULMONARY Hx Asthma: Yes Hx Chronic Obstructive Pulmonary Disease (COPD): Yes - NEUROLOGICAL Hx Neurological Disorder: Yes Hx Dizziness: Yes (VERTIGO) - HEENT Hx HEENT Problems: Yes Hx Cataracts: Yes (cataract removal ou) Hx Glaucoma: Yes Hx Macular Degeneration: Yes - RENAL Hx Chronic Kidney Disease: No - ENDOCRINE/METABOLIC Hx Hypothyroidism: Yes - HEMATOLOGICAL/ONCOLOGICAL Hx Anemia: Yes - INTEGUMENTARY Hx Dermatological Problems: Yes Other/Comment: MID LOWER ABDOMINAL AREA INCISION LINE POST HEMICOLECTOMY AUGUST 16. - GROIN AREA,PERINAL AREA WITH A LARGE BRUISE OR HEMATOMA.BURGUNDY COLORED SKIN. - MUSCULOSKELETAL/RHEUMATOLOGICAL Hx Falls: No - GASTROINTESTINAL Hx Gastrointestinal Disorders: Yes Hx Gastroesophageal Reflux: Yes Other/Comment: Colon CA - GENITOURINARY/GYNECOLOGICAL Hx Hematuria: Yes Hx Urinary Tract Infection: Yes - PSYCHIATRIC Hx Emotional Abuse: No Hx Physical Abuse: No Hx Substance Use: No - SURGICAL HISTORY Hx Cardiac Catheterization: Yes Other/Comment: s/p Hemicolectomy - ANESTHESIA Hx Anesthesia Reactions: No Hx Malignant Hyperthermia: No Meds Allergies/Adverse Reactions: Allergies Allergy/AdvReac Type Severity Reaction Status Date / Time codeine Allergy NAUSEA Verified 09/02/16 08:22 - Medications Medications: Current Medications Sodium Chloride (Sodium Chloride 0.9%) 100 mls @ 100 mls/hr IV .Q1H [facility] Last Admin: 01/25/17 16:04 Dose: 100 mls/hr Pantoprazole Sodium (Protonix Ec Tab) 40 mg PO 0600 [facility] Physical Exam - Constitutional Appears: Non-toxic, No Acute Distress - Head Exam Head Exam: ATRAUMATIC - Eye Exam Eye Exam: EOMI. absent: Scleral icterus Pupil Exam: PERRL - ENT Exam ENT Exam: Mucous Membranes Moist - Respiratory Exam Respiratory Exam: NORMAL BREATHING PATTERN. absent: Accessory Muscle Use, Respiratory Distress - Cardiovascular Exam Cardiovascular Exam: +S1, +S2. absent: Bradycardia, Tachycardia - GI/Abdominal Exam GI & Abdominal Exam: Soft. absent: Distended, Firm, Guarding, Hernia, Tenderness - Extremities Exam Extremities exam: Positive for: normal inspection. Negative for: calf tenderness - Neurological Exam Neurological exam: Alert, Oriented x3 - Skin Skin Exam: Normal Color, Warm Results - Vital Signs Recent Vital Signs: Last Vital Signs Temp 97.6 F 01/25/17 16:00 Pulse 55 L 01/25/17 16:00 Resp 20 01/25/17 16:00 BP 116/49 L 01/25/17 16:00 Pulse Ox 100 01/25/17 16:00 - Labs Result Diagrams: 01/25/17 09:00 01/25/17 09:00 Assessment & Plan - Assessment and Plan (Free Text) Assessment: 81F w/ anemia s/p EGD & 2units of PRBC Plan: - no acute surgical intervention at this time - will continue to monitor H/H - PPI - serial abd exams - further recs per Dr. Ryan Fernandez PGY1 <Viktor Davis - Last Filed: 01/27/17 10:49> Results - Vital Signs Recent Vital Signs: Last Vital Signs Temp 98.7 F 01/26/17 06:00 Pulse 64 01/26/17 06:00 Resp 20 01/26/17 06:00 BP 134/64 01/26/17 06:00 Pulse Ox 98 01/26/17 06:00 - Labs Result Diagrams: 01/26/17 06:10 01/25/17 09:00 Assessment & Plan - Assessment and Plan (Free Text) Assessment: DX Andre ulcer bleed(Chronic) in the Incarcerated Hiatal Hernia Surgery now very risky Leonides: PPI/Carafaate/Poss H2 Seth-re check labs closely This consultation done under my direct supervision Ulysses Davis MD FACS
--- NOTE | 2017-01-26 04:35 | CON ---
DATE: 01/25/2017 REASON FOR CONSULTATION: Severe anemia. HISTORY OF PRESENT ILLNESS: This is an 81-year-old patient with a past medical history of right colon cancer, status post right hemicolectomy done a year ago, admitted with a severe anemia on routine examination. The patient was sent to the ER. The patient's hemoglobin was found to be 6.5. The patient denies any history of bleeding per rectum, melena. No vomiting blood. No abdominal pain. PAST MEDICAL HISTORY: Other past medical history significant for COPD, asthma, history of hypothyroidism, vertigo, and dyslipidemia. PAST SURGICAL HISTORY: Significant for cataract surgery, right colon resection. . SOCIAL HISTORY: Positive for smoking. Denies alcohol use. REVIEW OF SYSTEMS: Positive as above. Other systems reviewed. PHYSICAL EXAMINATION: GENERAL: The patient is lying on the bed, not in acute distress. VITAL SIGNS: Temperature is 98, pulse is 73, blood pressure is 104/55, and respirations 20. HEENT: Atraumatic, anicteric. NECK: Supple. HEART: S1 and S2 heard. LUNGS: Bilateral air entry present. ABDOMEN: Soft. There is no tenderness. EXTREMITIES: No edema. No cyanosis. LABORATORY DATA: Hemoglobin 6.5. The patient received two units of packed RBC at the time of examination. WBC is 6.0, platelets 259. Chemistry is essentially unremarkable. Potassium 5.2. LFTs normal. IMPRESSION: This is an 81-year-old patient with a history of colon cancer, status post right hemicolectomy, admitted with severe anemia. Denies any obvious gastrointestinal blood loss. The patient also has a history of large combined hiatal hernia, history of ulcer disease before. DIFFERENTIAL DIAGNOSES: Essentially include chronic blood loss from the Andre ulcers, rule out colonic malignancy. The patient had other comorbidities including angiodysplasias and other differential diagnoses is also to be considered. Other comorbidities include chronic obstructive pulmonary disease, hypothyroidism, and dyslipidemia. Would recommend 1. Follow up iron studies, B12 and folate levels. Because the patient has a right hemicolectomy and B12 deficiency also to be taken as a consideration. The patient would benefit from EGD and colonoscopy to further evaluate. I had a detailed discussion with the patient at length. The patient refused to have colonoscopy. The plan is to consider endoscopy in a.m. and we will also consider CAT scan after reviewing the endoscopic findings. The patient will be kept n.p.o. after clear liquid breakfast for an EGD in a.m. Thank you very much for allowing us to participate in the care of the patient. The patient was seen and evaluated on 01/24/2017 at 8 p.m. Joseline Sierra MD [facility]
[2017-01-26] MEDS ORDERED: Sodium Chloride 0.9% 1,000 ML IV SCH (05:33)
[2017-01-26] MEDS ORDERED: Pantoprazole 40 mg EC Tab PO SCH (06:00)
[2017-01-26 06:36] LABS: MEAN CELL VOLUME 89.3 fl (80.0-105.0); MEAN CORPUSCULAR HEMOGLOBIN 28.3 pg (25.0-35.0); MEAN CORPUSCULAR HGB CONC 31.7 g/dl (31.0-37.0); MEAN PLATELET VOLUME 9.3 fl (7.0-11.0); RED CELL DISTRIBUTION WIDTH 15.5 % (11.5-14.5); WHITE BLOOD COUNT 6.1 10^3/ul (4.5-11.0)
[2017-01-26] MEDS ORDERED: Barium Sulfate Susp 2.1% w/v, 2.0% w/w 450 mL Bottle PO ONE (06:59)
[2017-01-26 09:38] VITALS: BP 134/64; PULSE 64; TEMP 98.7; O2SAT 98
--- NOTE | 2017-01-26 12:29 | CT ---
PROCEDURE: CT Abdomen and Pelvis with contrast HISTORY: anemia,h/o colon cancer sp r colectomy, h/o ckd COMPARISON: 07/21/2016 TECHNIQUE: Oral contrast only. Radiation dose: Total exam DLP = 168.33 mGy-cm. This CT exam was performed using one or more of the following dose reduction techniques: Automated exposure control, adjustment of the mA and/or kV according to patient size, and/or use of iterative reconstruction technique. FINDINGS: LOWER THORAX: Large hiatal hernia. Persistent thickening of the wall of the stomach consistent with gastritis although neoplasm should be considered in the appropriate clinical setting. LIVER: Unremarkable. No gross lesion or ductal dilatation. GALLBLADDER AND BILE DUCTS: Unremarkable. PANCREAS: Unremarkable. No gross lesion or ductal dilatation. SPLEEN: Unremarkable. ADRENALS: Unremarkable. No mass. KIDNEYS AND URETERS: Unremarkable. No hydronephrosis. No solid mass. VASCULATURE: Unremarkable. No aortic aneurysm. BOWEL: Unremarkable. No obstruction. No gross mural thickening. APPENDIX: The appendix is not visualized. PERITONEUM: Unremarkable. No free fluid. No free air. LYMPH NODES: No acute findings related to the clinical presentation. Multiple benign and incidental findings identified previously including gallstones, cystic pelvic mass on the left. Unremarkable. No enlarged lymph nodes. BLADDER: Unremarkable. REPRODUCTIVE: Stable cystic mass, bilobed in any left adnexal region. The largest component 4.9 cm, the smaller component 1.4 cm. BONES: No acute fracture. OTHER FINDINGS: None. IMPRESSION: Unremarkable contrast enhanced CT of the abdomen and pelvis.
--- NOTE | 2017-01-26 13:34 | CP.PCM.PN ---
Subjective - Date & Time of Evaluation Date of Evaluation: 01/26/17 Time of Evaluation: 10:35 - Subjective Subjective: Seen and examined at the bedside earlier today, the chart was reviewed. Patient underwent endoscopy yesterday and found to have paraesophageal hernia, gastric polyp and gastric ulcer/[place] ulcers. Patient is pending CT scan of abdomen and pelvis with oral contrast, patient refusing since this morning, endorses that she is going home either way. Patient denies nausea, vomiting, or abdominal pain. No episodes of overt GI bleed. Encouraged patient to go for CT scan of abdomen and pelvis prior to being discharged home, patient agrees. Objective - Vital Signs/Intake and Output Vital Signs (last 24 hours): Temp Pulse Resp BP Pulse Ox 98.7 F 64 20 134/64 98 01/26/17 06:00 01/26/17 06:00 01/26/17 06:00 01/26/17 06:00 01/26/17 06:00 Intake and Output: 01/26/17 01/26/17 06:59 18:59 Intake Total 1350 0 Balance 1350 0 - Medications Medications: Current Medications Sodium Chloride (Sodium Chloride 0.9%) 1,000 mls @ 100 mls/hr IV .Q10H [facility] Last Admin: 01/26/17 05:30 Dose: 100 mls/hr Pantoprazole Sodium (Protonix Ec Tab) 40 mg PO 0600 [facility] Last Admin: 01/26/17 05:59 Dose: 40 mg - Labs Labs: 01/26/17 06:10 PT 10.9 SECONDS (9.4-12.5) 01/24/17 11:05 INR 0.99 (0.93-1.08) 01/24/17 11:05 APTT 24.2 Seconds (25.1-36.5) L 01/24/17 11:05 - Constitutional Appears: No Acute Distress - Eye Exam Eye Exam: Normal appearance. absent: Scleral icterus - ENT Exam ENT Exam: Mucous Membranes Moist - Respiratory Exam Respiratory Exam: NORMAL BREATHING PATTERN. absent: Respiratory Distress - Cardiovascular Exam Cardiovascular Exam: +S1, +S2 - GI/Abdominal Exam GI & Abdominal Exam: Soft, Normal Bowel Sounds. absent: Guarding, Tenderness, Organomegaly, Rebound - Extremities Exam Extremities Exam: absent: Calf Tenderness, Pedal Edema - Neurological Exam Neurological Exam: Alert, Awake, Oriented x3 - Skin Skin Exam: Dry, Warm Assessment and Plan - Assessment and Plan (Free Text) Assessment: Assessment: Anemia status post blood transfusion Status post EGD: Paraesophageal hernia, gastric polyp, gastric ulcer Colon cancer status post resection Plan: Continue to trend H&H and monitor for overt GI bleed Follow-up CT scan of abdomen and pelvis Continue Protonix daily Patient refused colonoscopy Would recommend patient to have repeat endoscopy to follow-up gastric ulcer/ [place] ulcers, 6-8 weeks,,on discharge patient should continue PPI, discussed with patient. Seen and examined with Dr. Angulo. CT scan of abdomen and pelvis: revealed large hiatal hernia and thickening of stomach, patient is status post endoscopy see endoscopy report. Multiple benign /incidental finding such as gallstones and cystic pelvis mass seen on left, as seen prior study. Bowel, unremarkable, see [employer] for full report.
--- NOTE | 2017-01-26 21:09 | CP.PCM.PCO ---
Physician Communication Note - Physician Communication Note Physician Communication Note: Andre Ulcer:Leonides PPI BID/Carafate/close follow up
--- NOTE | 2017-01-27 08:14 | DS ---
HOSPITAL COURSE: The patient is an 81-year-old female with a history of adenocarcinoma of the colon, status post right hemicolectomy in August of this year who presented to Dr. Huff's office with anemia, hemoglobin of 6.0 on CBC. The patient was referred to the emergency room and received 2 units of packed red blood cells. Hemoglobin at the present time is 9.5. The patient underwent an upper endoscopy which showed small gastric ulcers which are presumed not to be the source of her blood loss. The patient, however, refused to stay in the hospital for colonoscopy, and we will follow up, and have colonoscopy performed as an outpatient. At the present time, there is no active rectal bleeding. No melena, no bright red blood per rectum. No abdominal pain. PHYSICAL EXAMINATION: VITAL SIGNS: Blood pressure 134/64, temperature 98.7, pulse 64, respiratory rate 20. LUNGS: Clear. HEART: Regular rate and rhythm. ABDOMEN: Soft and nontender. Bowel sounds are normoactive. EXTREMITIES: Without cyanosis, clubbing, or edema. NEUROLOGIC: The patient is awake and oriented x3 without focal, sensory, or motor deficits. SKIN: Warm and dry. LABORATORY DATA: WBC is 6.1, hemoglobin is 9.5, hematocrit 30.0. IMPRESSION: 1. Anemia, rule out gastrointestinal bleed. 2. History of adenocarcinoma of the colon, status post right hemicolectomy. 3. Chronic obstructive pulmonary disease. 4. Hypothyroidism. 5. Degenerative joint disease/osteoporosis. 6. History of congestive heart failure. PLAN: The patient will be discharged to home on the following medications: Omeprazole 40 mg daily, metoprolol 50 mg twice daily, Singulair 10 mg daily. She will be maintained on a heart healthy diet. Activity is ad boom, and she will be followed up in the office within next [address] Sierra for GI for colonoscopy and by Dr. Huff for surgical followup. Juliano Griffith JD/ cc:
--- NOTE | 2017-01-27 12:21 | PQF ANEMIA ---
01/27/17 Dr. Griffith, Anemia is documented throughout this record. Please specify whether this is considered due to acute or chronic blood loss, or both. Thank you. Clarification of your documentation is requested to better reflect the severity of illness and intensity of treatment of your patient. Indicators present [x] Anemia [] Drop in H&H from []___ to []___ [] Hypotension [] GI Bleed [] Transfusion(s) [] Acute bleed other sites [] Tachycardia [] Surgical Procedure Blood Loss (expected not a complication) Other:[] Location in the medical record that reflects the above clinical findings: [] Treatment Provided: [] PHYSICIAN'S RESPONSE Based on your medical judgment of the clinical indicators outlined above, are you treating this patient for a known or suspected: [] Acute blood loss anemia [] Chronic blood loss anemia [x] Acute on Chronic blood loss anemia [] Anemia due to malignancy [] Anemia due to chemotherapy or radiation therapy [] Anemia of Chronic Disease, please specify: [] [] Other, please indicate type of anemia []____ [] If Unable to Determine, please check the box, sign and date. Present On Admission (POA) Indicator: [] Present at the time of admission [] Not present at the time of admission [x] Clinically Undetermined In responding to this query, please exercise your independent professional judgment. The fact that a question is asked does not imply that any particular answer is desired or expected. Thank you for your clarification on this documentation. 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
== END 2017-01-26 15:43 | disposition home or self-care (01) | DRG 378 ==
LOC: ED 09:46 → ERH 12:16 → 3RNO 13:53 → OBSVTOIN 01-25 17:02
PROVIDERS: ADMIT Internal Medicine; ATTEND Internal Medicine
PROC: 0DB68ZX Excision of Stomach, Via Natural or Artificial Opening Endoscopic, Diagnostic (ICD-10-PCS; principal; 2017-01-25 15:30)
DX: K92.2 Gastrointestinal hemorrhage, unspecified (principal); K44.0 Diaphragmatic hernia with obstruction, without gangrene; I50.9 Heart failure, unspecified; D50.0 Iron deficiency anemia secondary to blood loss (chronic); D62 Acute posthemorrhagic anemia; E03.9 Hypothyroidism, unspecified; Z85.038 Personal history of other malignant neoplasm of large intestine; Z90.49 Acquired absence of other specified parts of digestive tract; E78.5 Hyperlipidemia, unspecified; H35.30 Unspecified macular degeneration; H40.9 Unspecified glaucoma; I25.10 Atherosclerotic heart disease of native coronary artery without angina pectoris; J44.9 Chronic obstructive pulmonary disease, unspecified; K21.9 Gastro-esophageal reflux disease without esophagitis; K25.9 Gastric ulcer, unspecified as acute or chronic, without hemorrhage or perforation; K31.7 Polyp of stomach and duodenum; M19.90 Unspecified osteoarthritis, unspecified site; M81.0 Age-related osteoporosis without current pathological fracture; Z79.82 Long term (current) use of aspirin; Z79.899 Other long term (current) drug therapy; Z87.440 Personal history of urinary (tract) infections; Z98.42 Cataract extraction status, left eye; Z98.41 Cataract extraction status, right eye; R40.2412 Glasgow coma scale score 13-15, at arrival to emergency department; Z88.5 Allergy status to narcotic agent; E53.8 Deficiency of other specified B group vitamins

== ENCOUNTER 2017-02-19 13:18 | Emergency (ER) | payer MEDICARE, BC ==
[2017-02-19 13:34] VITALS: TEMP 98.3
[2017-02-19 13:36] VITALS: BMI 17.4
--- NOTE | 2017-02-19 14:44 | ED PDOC ---
Arrival/HPI - General Chief Complaint: Trauma Time Seen by Provider: 02/19/17 14:21 Historian: Patient - History of Present Illness Narrative History of Present Illness (Text): 02/19/17 14:43 81yo female with PMHx of hypertension, dizziness biba for left wrist and elbow pain s/p trauma this morning. 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 States she lost her balance and fell. States pain is mild. She denies hitting her head anywhere. She denies LOC , focal weakness, dizziness, nausea, vomiting, back pain, leg pain, any other complaint. Past Medical History - Provider Review Nursing Documentation Reviewed: Yes - Infectious Disease Hx of Infectious Diseases: None - Cardiac Hx Cardiac Disorders: Yes Hx Angina: Yes - Pulmonary Hx Asthma: Yes Hx Chronic Obstructive Pulmonary Disease (COPD): Yes - Neurological Hx Neurological Disorder: Yes Hx Dizziness: Yes (VERTIGO) - HEENT Hx HEENT Disorder: Yes Hx Cataracts: Yes (cataract removal ou) Hx Glaucoma: Yes Hx Macular Degeneration: Yes - Renal Hx Renal Disorder: No - Endocrine/Metabolic Hx Hypothyroidism: Yes - Hematological/Oncological Hx Anemia: Yes - Integumentary Hx Dermatological Disorder: Yes Other/Comment: MID LOWER ABDOMINAL AREA INCISION LINE POST HEMICOLECTOMY AUGUST 16. 08-28-16 GROIN AREA,PERINAL AREA WITH A LARGE BRUISE OR HEMATOMA.BURGUNDY COLORED SKIN. - Musculoskeletal/Rheumatological Hx Falls: No - Gastrointestinal Hx Gastrointestinal Disorders: Yes Hx Gastroesophageal Reflux: Yes Other/Comment: Colon CA - Genitourinary/Gynecological Hx Hematuria: Yes Hx Urinary Tract Infection: Yes - Psychiatric Hx Emotional Abuse: No Hx Physical Abuse: No Hx Substance Use: No - Surgical History Hx Cardiac Catheterization: Yes Other/Comment: s/p Hemicolectomy - Anesthesia Hx Anesthesia Reactions: No Hx Malignant Hyperthermia: No - Suicidal Assessment Feels Threatened In Home Enviroment: No Family/Social History - Physician Review Nursing Documentation Reviewed: Yes Family/Social History: Unknown Family HX Smoking Status: Never Smoked Hx Alcohol Use: No Hx Substance Use: No Hx Substance Use Treatment: No Allergies/Home Meds Allergies/Adverse Reactions: Allergies codeine Allergy (Verified 09/02/16 08:22) NAUSEA Home Medications: Home Meds Medication Instructions Recorded Confirmed Cu/Se/Vit A/Vit C/Vit E/Zinc 1 tab PO DAILY 01/24/17 02/19/17 [Ocuvite] Meclizine [Antivert] 12.5 mg PO DAILY 01/24/17 02/19/17 Metoprolol Tartrate [Lopressor] 0 mg PO BID 01/24/17 02/19/17 Montelukast [Singulair] 10 mg PO DAILY 01/24/17 02/19/17 Pramipexole [Mirapex] 0 mg PO DAILY 01/24/17 02/19/17 Review of Systems - Physician Review All systems were reviewed & negative as marked: Yes - Review of Systems Constitutional: Normal Eyes: Normal ENT: Normal Respiratory: Normal Cardiovascular: Normal Gastrointestinal: Normal Genitourinary Female: Normal Musculoskeletal: Arthralgias (Left wrist/elbow pain) Skin: Normal Neurological: Normal Endocrine: Normal Hemo/Lymphatic: Normal Psychiatric: Normal Physical Exam Vital Signs Reviewed: Yes Vital Signs Temp Pulse Resp BP Pulse Ox 02/19/17 16:08 69 18 141/77 98 02/19/17 13:33 98.3 F 75 14 138/72 100 Temperature: Afebrile Blood Pressure: Normal Pulse: Regular Respiratory Rate: Normal Appearance: Positive for: Well-Appearing, Non-Toxic, Comfortable Pain Distress: None Mental Status: Positive for: Alert and Oriented X 3 - Systems Exam Head: Present: Atraumatic, Normocephalic Pupils: Present: PERRL Extroacular Muscles: Present: EOMI Conjunctiva: Present: Normal Mouth: Present: Moist Mucous Membranes Neck: Present: Normal Range of Motion Respiratory/Chest: Present: Clear to Auscultation, Good Air Exchange. No: Respiratory Distress, Accessory Muscle Use Cardiovascular: Present: Regular Rate and Rhythm, Normal S1, S2. No: Murmurs Abdomen: Present: Normal Bowel Sounds. No: Tenderness, Distention, Peritoneal Signs Back: Present: Normal Inspection Upper Extremity: Present: Normal ROM, NORMAL PULSES, Swelling (Mild swelling of the wrist noted), Neurovascularly Intact. No: Cyanosis, Edema, Tenderness ( Left wrist/elbow), Deformity Lower Extremity: Present: Normal Inspection. No: Edema Neurological: Present: GCS=15, CN II-XII Intact, Speech Normal Skin: Present: Warm, Dry, Normal Color. No: Rashes Psychiatric: Present: Alert, Oriented x 3, Normal Insight, Normal Concentration Medical Decision Making ED Course and Treatment: 02/20/17 01:54 LEft wrist/elbow xray - Negative Head Ct - Negative PT declined pain medication in ED states she is not in pain. she was neurologically intact in ED. she was DC home and advised to take Tylenol every 6hrs as needed for pain. Referred to her PMD - RAD Interpretation Radiology Orders: 02/19/17 14:22 HEAD W/O CONTRAST [CT] Stat ELBOW LEFT 3 VIEWS ROUTINE [RAD] Stat WRIST, LEFT 3 VIEWS [RAD] Stat Disposition/Present on Arrival - Present on Arrival Any Indicators Present on Arrival: No History of DVT/PE: No History of Uncontrolled Diabetes: No Urinary Catheter: Yes History of Decub. Ulcer: No History Surgical Site Infection Following: None - Disposition Have Diagnosis and Disposition been Completed?: Yes Diagnosis: Elbow pain, Wrist pain Disposition: HOME/ ROUTINE Disposition Time: 15:55 Patient Plan: Discharge Condition: STABLE Discharge Instructions (ExitCare): Wrist Injury (ED), Elbow Sprain (ED) Additional Instructions: Follow up with your doctor Return to ED for any new symptoms Referrals: AbilToaguila Gupta, [Primary Care Provider] - Follow up with primary Shelbi Torres MD [Staff Provider] - Follow up with primary Forms: [employer] (Kyrgyz)
--- NOTE | 2017-02-19 14:53 | CT ---
PROCEDURE: CT HEAD WITHOUT CONTRAST. HISTORY: s/p head injury COMPARISON: None available. TECHNIQUE: Axial computed tomography images were obtained through the head/brain without intravenous contrast. Radiation dose: Total exam DLP = 803 mGy-cm. This CT exam was performed using one or more of the following dose reduction techniques: Automated exposure control, adjustment of the mA and/or kV according to patient size, and/or use of iterative reconstruction technique. FINDINGS: HEMORRHAGE: No intracranial hemorrhage. BRAIN: No mass effect or edema. No atrophy or chronic microvascular ischemic changes. VENTRICLES: Unremarkable. No hydrocephalus. CALVARIUM: Unremarkable. PARANASAL SINUSES: Unremarkable as visualized. No significant inflammatory changes. MASTOID AIR CELLS: Unremarkable as visualized. No inflammatory changes. OTHER FINDINGS: None. IMPRESSION: No acute findings
--- NOTE | 2017-02-19 15:33 | RAD ---
PROCEDURE: Left Wrist Radiographs. HISTORY: wrist pain s/p trauma COMPARISON: None. FINDINGS: BONES: Normal. No fracture. JOINTS: Degenerative changes are seen at the base of the thumb SOFT TISSUES: Calcifications are seen in the region of the triangular fibrocartilage OTHER FINDINGS: None. IMPRESSION: No acute findings
--- NOTE | 2017-02-19 15:35 | RAD ---
PROCEDURE: Radiographs of the left elbow. HISTORY: elbow pain COMPARISON: No prior. FINDINGS: BONES: Normal. No fracture. JOINTS: Normal. No osteoarthritis. SOFT TISSUES: Normal. JOINT EFFUSION: None. OTHER FINDINGS: None IMPRESSION: Unremarkable radiographs of the left elbow.
[2017-02-19 16:09] VITALS: BP 141/77; PULSE 69; RESP 18; O2SAT 98
== END 2017-02-19 16:29 | disposition home or self-care (01) ==
LOC: ED 13:18
DX: M25.522 Pain in left elbow (principal); M25.532 Pain in left wrist; I10 Essential (primary) hypertension

== ENCOUNTER 2017-03-12 12:35 | Inpatient (IN) | payer MEDICARE, BC ==
[2017-03-12 12:35] VITALS: BMI 17.4
--- NOTE | 2017-03-12 13:07 | ED PDOC ---
Arrival/HPI - General Chief Complaint: Back Pain Time Seen by Provider: 03/12/17 12:49 Historian: Patient - History of Present Illness Narrative History of Present Illness (Text): 03/12/17 13:03 This 81 yo female with PMHx of hypertension, dizziness, anemia, colon Ca., presents to this ED by BLS c/o b/l lower back pain x 2 weeks. Patient stated she loss balanced after she got up from a chair to answer phone call. She stated she came to this ED , and x-rays were normal. Patient admits lower back pain was mild, but it has progressively worsen. Patient denies sob, cp, sesay, syncope, dysrthria, dysphagia, diplopia, weakness, paresthesias, /GI incontinence, saddle anesthesias, urinary retention, rectal bleeding, dizzy, or abnormal gait. Time/Duration: Other (2 weeks) Quality: Aching Context: Home Past Medical History - Provider Review Nursing Documentation Reviewed: Yes - Infectious Disease Hx of Infectious Diseases: None - Reproductive Menopause: Yes - Cardiac Hx Cardiac Disorders: Yes Hx Angina: Yes - Pulmonary Hx Asthma: Yes Hx Chronic Obstructive Pulmonary Disease (COPD): Yes - Neurological Hx Neurological Disorder: Yes Hx Dizziness: Yes (VERTIGO) - HEENT Hx HEENT Disorder: Yes Hx Cataracts: Yes (cataract removal ou) Hx Glaucoma: Yes Hx Macular Degeneration: Yes - Renal Hx Renal Disorder: No - Endocrine/Metabolic Hx Hypothyroidism: Yes - Hematological/Oncological Hx Anemia: Yes - Integumentary Hx Dermatological Disorder: Yes Other/Comment: MID LOWER ABDOMINAL AREA INCISION LINE POST HEMICOLECTOMY AUGUST 16. 08-28-16 GROIN AREA,PERINAL AREA WITH A LARGE BRUISE OR HEMATOMA.BURGUNDY COLORED SKIN. - Musculoskeletal/Rheumatological Hx Falls: No - Gastrointestinal Hx Gastrointestinal Disorders: Yes Hx Gastroesophageal Reflux: Yes Other/Comment: Colon CA - Genitourinary/Gynecological Hx Hematuria: Yes Hx Urinary Tract Infection: Yes - Psychiatric Hx Emotional Abuse: No Hx Physical Abuse: No Hx Substance Use: No - Surgical History Hx Cardiac Catheterization: Yes Other/Comment: s/p Hemicolectomy - Anesthesia Hx Anesthesia: Yes Hx Anesthesia Reactions: No Hx Malignant Hyperthermia: No - Suicidal Assessment Feels Threatened In Home Enviroment: No Family/Social History - Physician Review Nursing Documentation Reviewed: Yes Family/Social History: Other (noncontributory) Smoking Status: Never Smoked Hx Alcohol Use: No Hx Substance Use: No Hx Substance Use Treatment: No Allergies/Home Meds Allergies/Adverse Reactions: Allergies codeine Allergy (Verified 03/12/17 20:25) NAUSEA Home Medications: Home Meds Medication Instructions Recorded Confirmed Cu/Se/Vit A/Vit C/Vit E/Zinc 1 tab PO DAILY 01/24/17 03/12/17 [Ocuvite] Meclizine [Antivert] 12.5 mg PO DAILY 01/24/17 03/12/17 Metoprolol Tartrate [Lopressor] 1 tab PO BID 01/24/17 03/12/17 Montelukast [Singulair] 10 mg PO DAILY 01/24/17 03/12/17 Pramipexole [Mirapex] 1 tab PO DAILY 01/24/17 03/12/17 Review of Systems - Review of Systems Constitutional: Normal. absent: Fatigue, Weight Change, Fevers Eyes: Normal ENT: Normal Respiratory: Normal Cardiovascular: Normal Gastrointestinal: Normal Genitourinary Female: Normal. absent: Dysuria, Frequency, Hematuria, Vaginal Bleeding, Vaginal Discharge Musculoskeletal: Back Pain Skin: Normal Neurological: Normal Endocrine: Normal Hemo/Lymphatic: Normal Psychiatric: Normal Physical Exam Vital Signs Temp Pulse Resp BP Pulse Ox 03/12/17 20:27 69 18 117/61 99 03/12/17 18:28 71 131/60 03/12/17 17:14 74 18 128/71 97 03/12/17 12:45 97.7 F 85 20 131/74 97 Temperature: Afebrile Blood Pressure: Normal Pulse: Regular Respiratory Rate: Normal Appearance: Positive for: Well-Appearing, Non-Toxic, Comfortable Pain Distress: None Mental Status: Positive for: Alert and Oriented X 3 - Systems Exam Head: Present: Atraumatic, Normocephalic Pupils: Present: PERRL Extroacular Muscles: Present: EOMI Conjunctiva: Present: Normal Mouth: Present: Moist Mucous Membranes Neck: Present: Normal Range of Motion Respiratory/Chest: Present: Clear to Auscultation, Good Air Exchange. No: Respiratory Distress, Accessory Muscle Use Cardiovascular: Present: Regular Rate and Rhythm, Normal S1, S2. No: Murmurs Abdomen: Present: Normal Bowel Sounds. No: Tenderness, Distention, Peritoneal Signs Back: Present: Normal Inspection, Paraspinal Tenderness (mild b/l paravertebral tenderness, no vertebral step off, no vertebral point tenderness. no skin rash) . No: CVA Tenderness, Midline Tenderness Upper Extremity: Present: Normal Inspection. No: Cyanosis, Edema Lower Extremity: Present: Normal Inspection. No: Edema Neurological: Present: GCS=15, CN II-XII Intact, Speech Normal Skin: Present: Warm, Dry, Normal Color. No: Rashes Psychiatric: Present: Alert, Oriented x 3, Normal Insight, Normal Concentration Medical Decision Making ED Course and Treatment: 03/12/17 16:24 Patient stated pain has improved, but she still cannot ambulate due to pain. 03/12/17 17:[address] Ford regarding patient c/o intractable back pain. She agrees with plan for admission. She recommended Dr. Victor Orthopedist. Re-evaluation Time: 17:10 Reassessment Condition: Re-examined, Improving,but remains with symptoms - Lab Interpretations Microbiology Results: Microbiology Results 03/12/17 13:50 Urine,Catheterized Urine Culture - Final No Growth (<1,000 CFU/ML) Lab Results: 03/12/17 13:35 03/12/17 13:35 Lab Results 03/12/17 13:50: Urine Color Yellow, Urine Appearance Clear, Urine pH 6.0, Ur Specific [place] 1.020, Urine Protein 30 H, Urine Glucose (UA) Negative, Urine Ketones 40 H, Urine Blood Trace-intact H, Urine Nitrate Negative, Urine Bilirubin Negative, Urine Urobilinogen 0.2, Ur Leukocyte Esterase Negative, Urine RBC 0 - 2, Urine WBC Negative, Ur Epithelial Cells None, Urine Bacteria Neg 03/12/17 13:35: Sodium 144, Potassium 4.1, Chloride 111 H, Carbon Dioxide 20 L, Anion Gap 17, BUN 22 H, Creatinine 1.0, Est GFR ( Amer) > 60, Est GFR ( Non-Af Amer) 53, Random Glucose 72, Calcium 9.1, Total Bilirubin 0.4, AST 30, ALT 34, Alkaline Phosphatase 138 H D, Total Protein 6.5, Albumin 3.5, Globulin 3.0, Albumin/Globulin Ratio 1.2 03/12/17 13:35: WBC 5.3 D, RBC 3.12 L, Hgb 9.2 L, Hct 28.9 L, MCV 92.6, MCH 29.5, MCHC 31.8, RDW 17.6 H, Plt Count 210, MPV 9.1, Gran % 62.4, Lymph % (Auto ) 30.8, [place] % (Auto) 6.2 H, Eos % (Auto) 0.2 L, Baso % (Auto) 0.4, Gran # 3.33 , Lymph # (Auto) 1.6, [place] # (Auto) 0.3, Eos # (Auto) 0.0, Baso # (Auto) 0.02 I have reviewed the lab results: Yes Interpretation: Abnormal lab values - RAD Interpretation Narrative RAD Interpretations (Text): 03/12/17 16:09 PROCEDURE: CT Lumbar Spine without contrast HISTORY: back pain s/p fall COMPARISON: None. TECHNIQUE: Axial computed tomography images were obtained of the lumbar spine without the use of intravenous contrast. Coronal and sagittal reformatted images were created and reviewed. Radiation dose: Total exam DLP = 266 mGy-cm. This CT exam was performed using one or more of the following dose reduction techniques: Automated exposure control, adjustment of the mA and/or kV according to patient size, and/or use of iterative reconstruction technique. FINDINGS: VERTEBRAE: There is a small focal fracture through the left sacral ala. Image 67 series 2. There is bony demineralization with loss of trabecular bone DISCS/SPINAL CANAL/NEURAL FORAMINA: L1-2: Unremarkable. L2-3: Unremarkable. L3-4: Unremarkable. L4-5: There is severe facet arthropathy with 8 mm of anterior subluxation. Severe did disc degeneration. Moderate central stenosis L5-S1: Unremarkable. PARASPINAL SOFT TISSUES: Unremarkable. OTHER FINDINGS: None. IMPRESSION: Severe facet arthropathy and disc degeneration with 8 mm of anterior subluxation at L4-5. There is moderate central stenosis. Severe osteopenia. Nondisplaced fracture of the anterior surface of the left sacral ala 03/12/17 17:12 Chest x-rays: NAD Radiology Orders: 03/12/17 12:58 LUMBAR SPINE W/O CONTRAST [CT] Stat 03/12/17 16:25 CHEST PORTABLE [RAD] Stat - EKG Interpretation Interpreted by ED Physician: Yes (NSR @ [address] changes) Type: 12 lead EKG Comparison: No previous EKG avail. - Medication Orders Current Medication Orders: Lidocaine (Lidoderm) 1 ea TD DAILY COUNTS INCLUDE 234 BEDS AT THE [facility] Last Admin: 03/15/17 12:15 Dose: 1 ea MAR Transdermal Patch Site Document 03/15/17 12:15 EP (Rec: 03/15/17 12:15 EP [facility] [id number] Transdermal Patch Site Transdermal Patch Site Left Lower Back Meclizine HCl (Antivert) 12.5 mg PO TID COUNTS INCLUDE 234 BEDS AT THE [facility] Last Admin: 03/15/17 17:23 Dose: 12.5 mg Metoprolol Tartrate (Lopressor) 25 mg PO BID COUNTS INCLUDE 234 BEDS AT THE [facility] Last Admin: 03/15/17 17:23 Dose: 25 mg [facility] Pulse and Blood Pressure Document 03/15/17 17:23 EP (Rec: 03/15/17 17:23 EP [id number][place] Pulse Pulse Rate (60-90) 72 Blood Pressure Blood Pressure (100/60-150/90) 139/60 Montelukast Sodium (Singulair) 10 mg PO DAILY COUNTS INCLUDE 234 BEDS AT THE [facility] Last Admin: 03/15/17 09:37 Dose: 10 mg Pantoprazole Sodium (Protonix Ec Tab) 40 mg PO 0630 COUNTS INCLUDE 234 BEDS AT THE [facility] Last Admin: 03/15/17 06:21 Dose: 40 mg Pramipexole Dihydrochloride (Mirapex) 0.5 mg PO DAILY COUNTS INCLUDE 234 BEDS AT THE [facility] Last Admin: 03/15/17 09:38 Dose: 0.5 mg Tramadol/Acetaminophen (Ultracet 37.5/325 Mg) 1 tab PO Q6H COUNTS INCLUDE 234 BEDS AT THE [facility] Last Admin: 03/15/17 17:23 Dose: 1 tab [facility] Pain Assessment Document 03/15/17 17:23 EP (Rec: 03/15/17 17:23 EP [id number][place] Pain Reassessment Is this a pain reassessment? No Sleep Is patient sleeping during reassessment? No Presence of Pain Presence of Pain Yes Re-Assess: [facility] Pain Assessment Document 03/15/17 18:23 EP (Rec: 03/15/17 18:37 [facility] Pain Reassessment Is this a pain reassessment? Yes Sleep Is patient sleeping during reassessment? No Presence of Pain Presence of Pain No Discontinued Medications Hydromorphone HCl (Dilaudid) 0.5 mg IVP STAT STA Stop: 03/12/17 14:56 Last Admin: 03/12/17 15:09 Dose: 0.5 mg MAR Pain Assessment Document 03/12/17 15:09 OCS (Rec: 03/12/17 15:09 OCS [facility] [id number][place] Pain Reassessment Is this a pain reassessment? Yes Sleep Is patient sleeping during reassessment? No Presence of Pain Presence of Pain Yes Pain Scale Used Pain Scale Used Numeric Location Left, Right or Bilateral Left Upper or Lower Upper Pain Location Body Site Back Description Description Constant Intensity of Pain at present 8 Aggravating Factors ADL's IVP Administration Document 03/12/17 15:09 OCS (Rec: 03/12/17 15:09 OCS [id number][place] Charges for Administration # of IVP Administrations 1 Iron Sucrose 200 mg/ Sodium (Chloride) 110 mls @ 110 mls/hr IVPB ONCE ONE Stop: 03/13/17 17:49 Last Admin: 03/13/17 18:31 Dose: 110 mls/hr eMAR Start Stop Document 03/13/17 18:31 CV (Rec: 03/13/17 18:31 CV [id number]) Intravenous Solution Start Date 03/13/17 Start Time 18:31 Iron Sucrose 200 mg/ Sodium (Chloride) 110 mls @ 110 mls/hr IVPB ONCE ONE Stop: 03/14/17 13:44 Last Admin: 03/14/17 13:28 Dose: 110 mls/hr eMAR Start Stop Document 03/14/17 13:28 MCV (Rec: 03/14/17 13:28 MCV [facility] [id number][place] Intravenous Solution Start Date 03/14/17 Start Time 13:28 Iron Sucrose 100 mg/ Sodium (Chloride) 105 mls @ 210 mls/hr IVPB ONCE ONE Stop: 03/15/17 12:27 Last Admin: 03/15/17 13:31 Dose: 210 mls/hr eMAR Start Stop Document 03/15/17 13:31 EP (Rec: 03/15/17 13:31 EP [facility] [id number]) Intravenous Solution Start Date 03/15/17 Start Time 13:31 End Date 03/15/17 End time 14:01 Total Infusion Time 30 Meclizine HCl (Antivert) 12.5 mg PO DAILY [place] Pneumococcal Polyvalent Vaccine (Pneumovax 23 Vaccine) 0.5 ml IM .ONCE ONE Stop: 03/12/17 22:38 Disposition/Present on Arrival - Present on Arrival Any Indicators Present on Arrival: No History of DVT/PE: No History of Uncontrolled Diabetes: No Urinary Catheter: Yes History of Decub. Ulcer: No History Surgical Site Infection Following: None - Disposition Have Diagnosis and Disposition been Completed?: Yes Diagnosis: Intractable low back pain, Fracture of sacrum Disposition: HOSPITALIZED Disposition Time: 17:13 Patient Plan: Admission Patient Problems: Current Active Problems Problem Status Onset Fracture of sacrum Acute Intractable low back pain Acute Condition: STABLE
[2017-03-12 13:50] LABS: BASO # 0.02 K/mm3 (0.0-2.0); BASO % 0.4 % (0.0-3.0); EOS % 0.2 % (1.5-5.0); GRAN # 3.33 (1.4-6.5); GRAN % 62.4 % (50.0-68.0); HEMOGLOBIN 9.2 g/dL (12.0-16.0); LYMPH # 1.6 (1.2-3.4); LYMPH % 30.8 % (22.0-35.0); MEAN CELL VOLUME 92.6 fl (80.0-105.0); MEAN CORPUSCULAR HEMOGLOBIN 29.5 pg (25.0-35.0); MEAN CORPUSCULAR HGB CONC 31.8 g/dl (31.0-37.0); MEAN PLATELET VOLUME 9.1 fl (7.0-11.0); MONO # 0.3 (0.1-0.6); MONO % 6.2 % (1.0-6.0); RBC 3.12 10^6/uL (3.5-6.1); RED CELL DISTRIBUTION WIDTH 17.6 % (11.5-14.5); WHITE BLOOD COUNT 5.3 10^3/ul (4.5-11.0)
[2017-03-12 14:00] LABS: URINE BILIRUBIN NEGATIVE (NEGATIVE); URINE BLOOD TRACE-INTACT (NEGATIVE); URINE GLUCOSE (UA) NEGATIVE (NEGATIVE); URINE LEUKOCYTE ESTERASE NEGATIVE Leu/uL (NEGATIVE); URINE NITRATE NEGATIVE (NEGATIVE); URINE PROTEIN 30 mg/dL (<30 mg/dL); URINE UROBILINOGEN 0.2 E.U./dL (<1 E.U./dL)
[2017-03-12 14:01] LABS: URINE APPEARANCE CLEAR (CLEAR); URINE COLOR YELLOW (YELLOW)
[2017-03-12 14:27] LABS: URINE BACTERIA NEG (NEG); URINE RBC 0 - 2 /hpf (0-2); URINE WBC NEGATIVE /hpf (0-6)
[2017-03-12 14:50] LABS: ALB/GLOB RATIO 1.2 (1.1-1.8); ALBUMIN 3.5 g/dL (3.0-4.8); ALT/SGPT 34 U/L (7-56); AST/SGOT 30 U/L (14-36); BLOOD UREA NITROGEN 22 mg/dL (7-21); CALCIUM 9.1 mg/dL (8.4-10.5); GFR AFRICAN-AMERICAN > 60; GFR NON-AFRICAN AMERICAN 53
[2017-03-12] MEDS ORDERED: HYDROmorphone 0.5 mg/0.5 ml ISec IVP STA (14:55)
--- NOTE | 2017-03-12 15:23 | CT ---
PROCEDURE: CT Lumbar Spine without contrast HISTORY: back pain s/p fall COMPARISON: None. TECHNIQUE: Axial computed tomography images were obtained of the lumbar spine without the use of intravenous contrast. Coronal and sagittal reformatted images were created and reviewed. Radiation dose: Total exam DLP = 266 mGy-cm. This CT exam was performed using one or more of the following dose reduction techniques: Automated exposure control, adjustment of the mA and/or kV according to patient size, and/or use of iterative reconstruction technique. FINDINGS: VERTEBRAE: There is a small focal fracture through the left sacral ala. Image 67 series 2. There is bony demineralization with loss of trabecular bone DISCS/SPINAL CANAL/NEURAL FORAMINA: L1-2: Unremarkable. L2-3: Unremarkable. L3-4: Unremarkable. L4-5: There is severe facet arthropathy with 8 mm of anterior subluxation. Severe did disc degeneration. Moderate central stenosis L5-S1: Unremarkable. PARASPINAL SOFT TISSUES: Unremarkable. OTHER FINDINGS: None. IMPRESSION: Severe facet arthropathy and disc degeneration with 8 mm of anterior subluxation at L4-5. There is moderate central stenosis. Severe osteopenia. Nondisplaced fracture of the anterior surface of the left sacral ala
--- NOTE | 2017-03-12 16:58 | RAD ---
HISTORY: admission COMPARISON: 09/03/2016 FINDINGS: LUNGS: No active pulmonary disease. PLEURA: No significant pleural effusion identified, no pneumothorax apparent. CARDIOVASCULAR: Mild cardiomegaly OSSEOUS STRUCTURES: No significant abnormalities. VISUALIZED UPPER ABDOMEN: Normal. OTHER FINDINGS: None. IMPRESSION: No active disease.
[2017-03-12] MEDS: TraMADol/Apap 37.5/325 mg Tab PO SCH (18:28)
[2017-03-12] MEDS ORDERED: Pneumococcal 23-Valent Vaccine IM ONE (22:37)
[2017-03-12] MEDS ORDERED: Influenza Vaccine 60 mcg/0.5 mL SYR (4YR UP) IM ONE (22:37)
[2017-03-13] MEDS: TraMADol/Apap 37.5/325 mg Tab PO SCH ×4 (00:30→17:16)
[2017-03-13] MEDS: Pantoprazole 40 mg EC Tab PO SCH (05:58)
--- NOTE | 2017-03-13 05:59 | HP ---
HISTORY OF PRESENT ILLNESS: Patient is 81 years old, came to emergency room because of increasing weakness, increasing back pain, and feeling weak and dizzy. She almost 2 weeks, got worse today, so she came to emergency room for further evaluation. Patient states she has been having difficulty walking. She lost her balance today when got up to attend the phone call. Patient came to emergency room 2 weeks ago, had x-ray done and was sent home. Since then, her back pain has been getting worse. No history of loss of consciousness, no headache, no nausea or vomiting, no fever, no chills, no rectal bleeding, no hemoptysis, no hematemesis. PAST MEDICAL HISTORY: Significant for: 1. COPD. 2. Coronary artery disease. 3. Hypothyroidism. 4. Degenerative disk disease. 5. Osteoporosis. 6. History of right hemicolectomy in 08/2016. SOCIAL HISTORY: Patient lives with her family. Denies smoking, drinking or alcohol use. ALLERGIES: SHE IS NOT ALLERGIC TO ANY MEDICATIONS. MEDICATIONS AT HOME: She is on metoprolol 1 tablet twice a day, meclizine 12.5 daily, multivitamins, Mirapex one tablet daily, omeprazole 40 mg daily, montelukast, Singulair 10 mg daily. REVIEW OF SYSTEMS: Significant for lower back pain and having generalized weakness. PHYSICAL EXAMINATION: GENERAL: She is awake, alert and oriented, able to communicate. VITAL SIGNS: She is afebrile. Pulse 85, respirations 20, blood pressure 128/71. LUNGS: Bilateral fair air flow. No rhonchi or crackle. HEART: S1, S2 audible. ABDOMEN: Soft, nontender. No rebound, no guarding. NEUROLOGIC: Patient is awake, alert, able to communicate. LABORATORY EXAMINATION: WBC 5.3, hemoglobin 9.2, hematocrit 28.9, platelet count of 210. Chemistry: Sodium 145, potassium 4.1, chloride 101, CO2 20, BUN 22, creatinine 1.0, blood sugar of 72. LFTs are within normal limits. Alk phos is 138. Urinalysis shows positive ketones. CT scan of the lumbar spine done shows severe facet arthropathy and disk degeneration with 9 mm anterior subluxation at L4-L5. There is moderate central stenosis, severe osteopenia and nondisplaced fracture of anterior surface of the left sacral ala. ASSESSMENT: 1. Acute on chronic low back pain. 2. Status post fall. 3. Ala of sacral fracture. 4. History of cancer of colon status post right hemicolectomy. 5. Chronic anemia. 6. Chronic obstructive pulmonary disease. 7. Hypertension. PLAN: Patient will be admitted, on oral analgesic. Physical therapy evaluation will be done. Patient needs physical therapy, probably subacute rehab. Stanley Ford MD
[2017-03-13 11:18] LABS: BASO # 0.01 K/mm3 (0.0-2.0); BASO % 0.2 % (0.0-3.0); EOS # 0.1 (0.0-0.7); EOS % 1.2 % (1.5-5.0); GRAN # 3.23 (1.4-6.5); GRAN % 62.7 % (50.0-68.0); HEMOGLOBIN 8.8 g/dL (12.0-16.0); LYMPH # 1.5 (1.2-3.4); LYMPH % 28.9 % (22.0-35.0); MEAN CELL VOLUME 92.3 fl (80.0-105.0); MEAN CORPUSCULAR HEMOGLOBIN 29.3 pg (25.0-35.0); MEAN CORPUSCULAR HGB CONC 31.8 g/dl (31.0-37.0); MEAN PLATELET VOLUME 9.6 fl (7.0-11.0); MONO # 0.4 (0.1-0.6); RED CELL DISTRIBUTION WIDTH 17.9 % (11.5-14.5); WHITE BLOOD COUNT 5.2 10^3/ul (4.5-11.0)
[2017-03-13 11:30] LABS: IRON 38 ug/dL (45-180)
[2017-03-13 11:31] LABS: BLOOD UREA NITROGEN 26 mg/dL (7-21); CALCIUM 9.2 mg/dL (8.4-10.5); GFR AFRICAN-AMERICAN > 60; GFR NON-AFRICAN AMERICAN 53
[2017-03-13 11:39] LABS: % IRON SATURATION 18 % (20-55); TOTAL IRON BINDING CAPACITY 214 ug/dL (265-497)
--- NOTE | 2017-03-13 11:54 | CARD ---
APPROVED REPORT EKG Measurement Heart [id number] [id number] <Conclusion> Normal sinus rhythm Septal infarct, age undetermined Abnormal ECG
--- NOTE | 2017-03-13 18:22 | PN ---
DATE: 03/13/2017 HISTORY OF PRESENT ILLNESS: Ms. Walden is an 81-year-old female, admitted to the hospital after increasing weakness, back pain, feeling weak and dizzy for almost 2 weeks. She also has difficulty in walking. CAT scan of the pelvis showed fracture, right sacrum ala. 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 Denies any rectal bleeding, no hemoptysis. No fever, no chills, no rigors. No complaints today, has back pain occasionally, controlled with current medications. PAST MEDICAL HISTORY: COPD, coronary artery disease, hypothyroidism, degenerative disk disease, osteoporosis, right hemicolectomy for colon cancer. SOCIAL HISTORY: Lives alone by herself. PERSONAL HISTORY: No history of smoking or alcohol abuse. ALLERGIES: NO KNOWN DRUG ALLERGIES. HOME MEDICATIONS: Metoprolol, meclizine, multivitamin, omeprazole, Singulair. REVIEW OF SYSTEMS: As per HPI. Rest of 12-point review of systems reviewed and negative. PHYSICAL EXAMINATION GENERAL: Awake, alert, and oriented x3. VITAL SIGNS: Stable. Temperature 98.7, heart rate 80 per minute, respiratory rate 18 per minute, blood pressure 120/70. LUNGS: Air entry present and equal bilaterally. No added sound. CARDIOVASCULAR: S1 and S2 normal. No murmur. No gallop. ABDOMEN: Soft, nontender. No hepatosplenomegaly. EXTREMITIES: No edema. CENTRAL NERVOUS SYSTEM: Awake, alert and oriented x3. SKIN: No petechiae. No rash. SPINE: Nontender. LABORATORY DATA: White count 5.2, hemoglobin 8.8, hematocrit 27.7, platelet count 218, granulocyte 62%, lymphocyte 28%. Sodium 141, potassium 4.3, iron 38, iron saturation 18%, alkaline phosphatase 138. ASSESSMENT: 1. Fracture, right sacral ala. 2. Back pain. 3. Dizziness. 4. Symptomatic anemia. 5. Iron deficiency. 6. Colon cancer, status post right hemicolectomy. PLAN: Hemoglobin declined to 8.8 today. Iron studies were ordered showed low iron. She has severe iron deficiency. We will give 1 dose of IV iron 200 mg. She will need continuation of IV iron as outpatient. We will do CEA also to assess for status of colon cancer. She was stage II at diagnosis. It was high grade with lymphovascular invasion. No evidence of recurrence at present. She has osteoporosis. We can consider Prolia as outpatient. Thank you, Dr. Ford for allowing us to participate in Ms. Walden's care. Katja Rodríguez MD BRIAN
--- NOTE | 2017-03-13 20:51 | CON ---
DATE: 03/13/2017 ORTHOPEDIC CONSULTATION HISTORY OF PRESENT ILLNESS: The patient is an 81-year-old female, lives alone who fell in her apartment a couple of weeks ago and was trying to care for herself, but the pain was too great, so came to The emergency room on the day of admission which was 03/12/2017, found to have sacral fracture when x-rayed of her spine where the pain was but it is a stable right ala fracture compatible with conservative therapy with early range of motion and early up out of bed and early ambulation to minimize the disuse atrophy and the fracture is stable enough to tolerate those therapy sessions, so we will get her up out of bed and get her strength back in her legs and hopefully she could return home to live alone if she gets more aggressive physical therapy and strengthen. Fracture is going to take 6 weeks to heal, but she can certainly ambulate with a walker. FINAL DIAGNOSIS: Stable right ala fracture of her sacrum and treatable with conservative therapy, which is physical therapy and precautions of ambulating with a walker. Luis Antonio Victor DO
[2017-03-14] MEDS: TraMADol/Apap 37.5/325 mg Tab PO SCH ×4 (01:24→17:19)
[2017-03-14] MEDS: Pantoprazole 40 mg EC Tab PO SCH (05:51)
--- NOTE | 2017-03-14 11:18 | PN ---
DATE: 03/14/2017 SUBJECTIVE: The patient was admitted on 03/12/2017 for a fall at home orthopedically. She has a sacral fracture nondisplaced on the left side and the left-sided fracture is totally nondisplaced consistent with a stress fracture or insufficiency fracture. She is being getting up, out of bed to the chair. It is necessary because she has a bed sore on the sacrum; so, we will keep get her up and ambulate and get her strength back. In fact, she will have uneventful healing in six weeks for the left sacral alar fracture. Luis Antonio Victor DO MTDJessie
--- NOTE | 2017-03-14 18:45 | PN ---
DATE: SUBJECTIVE: The patient is 81 years old, seen and examined, complaining of lower back pain, has difficulty walking because of that. Patient fell because of loss of balance. Denies any loss of consciousness, denies any dizziness. PHYSICAL EXAMINATION: GENERAL: She is awake, alert, oriented, communicative. VITAL SIGNS: She is afebrile, pulse 90, respirations 16, blood pressure 158/74. LUNGS: Bilateral good air flow. No rhonchi or crackle. HEART: S1, S2 audible. ABDOMEN: Soft, nontender. No rebound, no guarding. NEUROLOGIC: Patient is awake, alert, oriented, communicative, moves all extremities, bilateral legs, no edema. LABORATORY DATA: Her iron is 38, TIBC 214 and saturation is 18%. Urinalysis is unremarkable. Lumbar CT shows nondisplaced fracture of ala of sacrum on the left side. ASSESSMENT: 1. Status post fall. 2. Sacral fracture, nondisplaced. 3. Cancer of the colon. 4. Deconditioning and difficulty walking, status post multiple falls. 5. Chronic anemia. PLAN: I will give her one iron infusion, request for TCU evaluation, encourage ambulation. We will follow up this patient in a.m. Stanley Ford MD
--- NOTE | 2017-03-14 23:19 | CP.PCM.PN ---
Subjective - Date & Time of Evaluation Date of Evaluation: 03/14/17 Time of Evaluation: 18:00 - Subjective Subjective: DATE: 03/14/2017 HISTORY OF PRESENT ILLNESS: Ms. Walden is an 81-year-old female, admitted to the hospital after increasing weakness, back pain, feeling weak and dizzy for almost 2 weeks. She also has difficulty in walking. CAT scan of the pelvis showed fracture, right sacrum ala. 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 Denies any rectal bleeding, no hemoptysis. No fever, no chills, no rigors. Hb/Hct stable. On IV iron. REVIEW OF SYSTEMS: As per HPI. Rest of 12-point review of systems reviewed and negative. PHYSICAL EXAMINATION GENERAL: Awake, alert, and oriented x3. VITAL SIGNS: Stable. reviewed. LUNGS: Air entry present and equal bilaterally. No added sound. CARDIOVASCULAR: S1 and S2 normal. No murmur. No gallop. ABDOMEN: Soft, nontender. No hepatosplenomegaly. EXTREMITIES: No edema. CENTRAL NERVOUS SYSTEM: Awake, alert and oriented x3. SKIN: No petechiae. No rash. SPINE: Nontender. LABORATORY DATA: reviewed. ASSESSMENT: 1. Fracture, right sacral ala. 2. Back pain. 3. Dizziness. 4. Symptomatic anemia. 5. Iron deficiency. 6. Colon cancer, status post right hemicolectomy. PLAN: Hemoglobin stable. She has severe iron deficiency. ON IV iron. We will do CEA also to assess for status of colon cancer. No evidence of recurrence at present. She has osteoporosis. We can consider Prolia as outpatient. Back Pain controlled . Thank you, Dr. Fodr for allowing us to participate in Ms. Walden's care. Katja Rodríguez MD Objective - Vital Signs/Intake and Output Vital Signs (last 24 hours): Temp Pulse Resp BP Pulse Ox 98.6 F 66 18 134/75 96 03/14/17 16:00 03/14/17 17:20 03/14/17 16:00 03/14/17 17:20 03/14/17 16:00 Intake and Output: 03/14/17 03/15/17 18:59 06:59 Intake Total 480 420 Balance 480 420 - Medications Medications: Current Medications Meclizine HCl (Antivert) 12.5 mg PO TID [facility] Last Admin: 03/14/17 17:21 Dose: 12.5 mg Metoprolol Tartrate (Lopressor) 25 mg PO BID [facility] Last Admin: 03/14/17 17:20 Dose: 25 mg Montelukast Sodium (Singulair) 10 mg PO DAILY [facility] Last Admin: 03/14/17 09:34 Dose: 10 mg Pantoprazole Sodium (Protonix Ec Tab) 40 mg PO 0630 [facility] Last Admin: 03/14/17 05:51 Dose: Not Given Pramipexole Dihydrochloride (Mirapex) 0.5 mg PO DAILY [facility] Last Admin: 03/14/17 09:36 Dose: 0.5 mg Tramadol/Acetaminophen (Ultracet 37.5/325 Mg) 1 tab PO Q6H [facility] Last Admin: 03/14/17 17:19 Dose: 1 tab - Labs Labs: 03/13/17 11:00 03/13/17 11:00
[2017-03-15] MEDS: TraMADol/Apap 37.5/325 mg Tab PO SCH ×6 (01:52→23:29)
[2017-03-15] MEDS: Pantoprazole 40 mg EC Tab PO SCH (06:21)
[2017-03-15] MEDS: Lidocaine 5% Patch TD SCH (12:15)
--- NOTE | 2017-03-16 01:37 | DS ---
HISTORY OF PRESENT ILLNESS: The patient is 81 years old, seen and examined, lying in bed, seems to be comfortable, was able to ambulate. Does not want to go to [facility] or other group home. She things they are going to take her property away. However, she is agreeable for TCU. PHYSICAL EXAMINATION: GENERAL: She is awake, alert, oriented, communicative. VITAL SIGNS: She is afebrile, pulse 90, respirations 16, blood pressure 125/57. LUNGS: Bilateral good airflow. No rhonchi or crackle. HEART: S1 and S2 audible. ABDOMEN: Soft. Nontender. No rebound. No guarding. NEUROLOGIC: The patient is awake, alert, oriented. Moves all extremities. LABORATORY EXAM: No new lab available today. ASSESSMENT: 1. Status post fall. 2. Nondisplaced fracture of ala of sacrum. 3. History of cancer colon. 4. Anemia. 5. Deconditioning and difficulty walking. PLAN: We will continue the patient on meclizine. She got 2 iron infusions, we will give her one more today and apply Lidoderm patch to the lower back. Awaiting TCU evaluation and transfer. Stanley Ford MD cc:
[2017-03-16] MEDS: TraMADol/Apap 37.5/325 mg Tab PO SCH ×2 (06:11→12:11)
[2017-03-16] MEDS: Pantoprazole 40 mg EC Tab PO SCH (06:11)
[2017-03-16 08:19] VITALS: RESP 20; TEMP 97.3; O2SAT 97
[2017-03-16] MEDS: Lidocaine 5% Patch TD SCH (10:13)
[2017-03-16 10:19] VITALS: BP 124/71; PULSE 77
--- NOTE | 2017-03-17 07:09 | DS ---
HISTORY OF PRESENT ILLNESS: Patient is 81-year-old, seen and examined, sitting in chair, seems to be comfortable. Complained of pain in the lower back, complained of generalized weakness. PHYSICAL EXAMINATION VITAL SIGNS: She is afebrile, pulse 80, respirations 20, blood pressure 124/71. LUNGS: Bilateral fair airflow. No rhonchi or crackle. HEART: S1, S2 audible. ABDOMEN: Soft, nontender. No rebound, no guarding. NEUROLOGICAL: She is awake and alert. Able to communicate. Complaint of lower back pain. ASSESSMENT AND PLAN 1. Status post fall. 2. Sacral ala fracture. 3. Symptomatic anemia. 4. History of carcinoma of colon, status post right hemicolectomy. 5. Generalized weakness. 6. Iron deficiency. PLAN: Patient is clinically stable. She will be transferred to [place] for rehab and further monitoring. Stanley Ford MD
== END 2017-03-16 14:10 | DRG 544 ==
LOC: ED 12:35 → ERH 17:14 → 5RNO 21:26
PROVIDERS: ADMIT Internal Medicine; ATTEND Internal Medicine
DX: M84.38XA Stress fracture, other site, initial encounter for fracture (principal); L89.159 Pressure ulcer of sacral region, unspecified stage; J44.9 Chronic obstructive pulmonary disease, unspecified; D64.9 Anemia, unspecified; Z91.81 History of falling; E03.9 Hypothyroidism, unspecified; E61.1 Iron deficiency; G89.29 Other chronic pain; M54.5 Low back pain; H35.30 Unspecified macular degeneration; H40.9 Unspecified glaucoma; I10 Essential (primary) hypertension; I25.10 Atherosclerotic heart disease of native coronary artery without angina pectoris; K21.9 Gastro-esophageal reflux disease without esophagitis; M46.90 Unspecified inflammatory spondylopathy, site unspecified; M81.0 Age-related osteoporosis without current pathological fracture; Z79.899 Other long term (current) drug therapy; Z85.038 Personal history of other malignant neoplasm of large intestine; Z87.440 Personal history of urinary (tract) infections; Z90.49 Acquired absence of other specified parts of digestive tract; Z98.42 Cataract extraction status, left eye; Z98.41 Cataract extraction status, right eye; Z88.5 Allergy status to narcotic agent; R40.2412 Glasgow coma scale score 13-15, at arrival to emergency department; M51.36 Other intervertebral disc degeneration, lumbar region

== ENCOUNTER 2017-08-27 09:47 | Emergency (ER) | payer MEDICARE, BC ==
[2017-08-27 09:48] VITALS: BMI 17.4
[2017-08-27] MEDS ORDERED: Sodium Chloride 0.9% 1,000 ML IV STA (10:12)
[2017-08-27 10:18] VITALS: RESP 18; O2SAT 99
--- NOTE | 2017-08-27 10:23 | ED PDOC ---
Arrival/HPI <Gricelda Deras - Last Filed: 08/27/17 10:39> <Bryn Chan - Last Filed: 08/27/17 16:07> - General Chief Complaint: Dizziness/Lightheaded Time Seen by Provider: 08/27/17 09:49 - History of Present Illness Narrative History of Present Illness (Text): 81 year old female with history of colon carcinoma, anemia due to GI bleed, COPD , ischemic cardiomyopathy, hypothyroidism, and osteoporosis presents with dizziness for 4-5 days. She reports having a history of vertigo but cannot remember the medication she is on. She feels like she is spinning around the room. She reports shortness of breath due to her COPD that has been present for an extended period of time. She denies headache, fever, tinnitus, hearing loss, change in vision, nausea, vomiting, chest pain, heart palpitations, wheezing, constipation, diarrhea, bloody stools, dysuria, hematuria, numbness/tingling, and weakness. (Bryn Chan) Past Medical History - Provider Review Nursing Documentation Reviewed: Yes - Infectious Disease Hx of Infectious Diseases: None - Reproductive Menopause: Yes - Cardiac Hx Cardiac Disorders: Yes Hx Angina: Yes - Pulmonary Hx Asthma: Yes Hx Chronic Obstructive Pulmonary Disease (COPD): Yes - Neurological Hx Neurological Disorder: Yes Hx Dizziness: Yes (VERTIGO) - HEENT Hx HEENT Disorder: Yes Hx Cataracts: Yes (cataract removal ou) Hx Glaucoma: Yes Hx Macular Degeneration: Yes - Renal Hx Renal Disorder: No - Endocrine/Metabolic Hx Hypothyroidism: Yes - Hematological/Oncological Hx Anemia: Yes - Integumentary Hx Dermatological Disorder: Yes Other/Comment: MID LOWER ABDOMINAL AREA INCISION LINE POST HEMICOLECTOMY AUGUST 16. 08-28-16 GROIN AREA,PERINAL AREA WITH A LARGE BRUISE OR HEMATOMA.BURGUNDY COLORED SKIN. - Musculoskeletal/Rheumatological Hx Falls: No - Gastrointestinal Hx Gastrointestinal Disorders: Yes Hx Gastroesophageal Reflux: Yes Other/Comment: Colon CA - Genitourinary/Gynecological Hx Hematuria: Yes Hx Urinary Tract Infection: Yes - Psychiatric Hx Emotional Abuse: No Hx Physical Abuse: No Hx Substance Use: No - Surgical History Hx Cardiac Catheterization: Yes Other/Comment: s/p Hemicolectomy - Anesthesia Hx Anesthesia: Yes Hx Anesthesia Reactions: No Hx Malignant Hyperthermia: No - Suicidal Assessment Feels Threatened In Home Enviroment: No <Bryn Chan - Last Filed: 08/27/17 16:07> Family/Social History - Physician Review Nursing Documentation Reviewed: Yes Family/Social History: Unknown Family HX Smoking Status: Never Smoked Hx Alcohol Use: No Hx Substance Use: No Hx Substance Use Treatment: No <Esme Chanzebnilda - Last Filed: 08/27/17 16:07> Allergies/Home Meds <Gricelda Deras - Last Filed: 08/27/17 10:39> <Bryn Chan - Last Filed: 08/27/17 16:07> Allergies/Adverse Reactions: Allergies codeine Allergy (Verified 03/12/17 20:25) NAUSEA Home Medications: Home Meds Medication Instructions Recorded Confirmed Cu/Se/Vit A/Vit C/Vit E/Zinc 1 tab PO DAILY 01/24/17 08/27/17 [Ocuvite] Meclizine [Antivert] 12.5 mg PO DAILY 01/24/17 08/27/17 Metoprolol Tartrate [Lopressor] 1 tab PO BID 01/24/17 08/27/17 Montelukast [Singulair] 10 mg PO DAILY 01/24/17 08/27/17 Pramipexole [Mirapex] 1 tab PO DAILY 01/24/17 08/27/17 Review of Systems - Physician Review All systems were reviewed & negative as marked: Yes - Review of Systems Constitutional: Normal Eyes: Normal. absent: Vision Changes, Photophobia ENT: Normal. absent: Tinnitus Respiratory: SOB (chronic). absent: Cough, Sputum Cardiovascular: Normal. absent: Chest Pain, Palpitations Gastrointestinal: Appetite Changes (loss of appetite for 4-5 days). absent: Abdominal Pain, Constipation, Diarrhea, Nausea, Vomiting Genitourinary Female: Normal Musculoskeletal: Normal Skin: Normal Neurological: Dizziness. absent: Headache <Esme Chanzebnilda - Last Filed: 08/27/17 16:07> Physical Exam <Gricelda Deras - Last Filed: 08/27/17 10:39> Vital Signs Reviewed: Yes Temperature: Afebrile Blood Pressure: Normal Pulse: Regular Respiratory Rate: Normal Appearance: Positive for: Well-Appearing Pain Distress: None Mental Status: Positive for: Alert and Oriented X 3 - Systems Exam Head: Present: Atraumatic, Normocephalic Pupils: Present: PERRL Extroacular Muscles: Present: EOMI Conjunctiva: Present: Normal Mouth: Present: Moist Mucous Membranes Pharnyx: Present: Normal Respiratory/Chest: Present: Wheezes (mild wheezes in bilateral upper lobes) Cardiovascular: Present: Regular Rate and Rhythm Abdomen: Present: Normal Bowel Sounds. No: Tenderness, Distention Upper Extremity: Present: Normal Inspection, Normal ROM, NORMAL PULSES Lower Extremity: Present: Normal Inspection, NORMAL PULSES, Normal ROM Neurological: Present: GCS=15, CN II-XII Intact, Speech Normal, Motor Func Grossly Intact Skin: Present: Warm, Dry, Pale Psychiatric: Present: Alert, Oriented x 3, Normal Insight, Normal Concentration <Bryn Chan - Last Filed: 08/27/17 16:07> Vital Signs Temp Pulse Resp BP Pulse Ox 08/27/17 11:49 98.6 F 78 18 135/63 99 08/27/17 09:48 98.2 F 73 18 127/53 L 99 Medical Decision Making <Gricelda Deras - Last Filed: 08/27/17 10:39> - Lab Interpretations I have reviewed the lab results: Yes - RAD Interpretation Graphics Production Specialist: ED Physician - EKG Interpretation Interpreted by ED Physician: Yes <Bryn Chan - Last Filed: 08/27/17 16:07> ED Course and Treatment: 08/27/17 10:38 81 year old female presents to the Emergency department for evaluation of dizziness since 4-5 days. In agreement with resident note, which includes further HPI details. Patient was seen and evaluated with resident, came up with plan and treatment together. (Gricelda Deras) Impression: 81 year old female with history of colon carcinoma, anemia due to GI bleed, COPD, ischemic cardiomyopathy, hypothyroidism, and osteoporosis presents with dizziness for 4-5 days. Assessment: Vertigo vs. anemia Rule out hypoxia due to asthma or COPD, arrhythmia, myocardial infarction, UTI, pneumonia Plan: Meclizine 12.5 mg PO for possible vertigo. IV fluids 0.9% NS for dehydration. CBC and CMP ordered to evaluate for anemia and electrolyte abnormalities. Chest X ray to rule out pneumonia. EKG to rule out arrhythmia or [place]. Urine analysis and culture to rule out UTI. 08/27/17 10:48 CBC shows Hemoglobin of 9.8 which is consistent with her past hemoglobins. Her CMP is unremarkable. Urine analysis is unremarkable. 08/27/17 11:18 EKG: Normal sinus rhythm Vent rate: 73 SD: 172 QRS: 82 QT/QTc: 380/418 CXR: no acute findings Patient is feeling relief from dizziness after meclizine treatment. Patient can be discharged and follow up with Dr. Ford. [facility] - Lab Interpretations Lab Results: 08/27/17 10:00 08/27/17 10:00 Lab Results 08/27/17 10:00: Sodium 141, Potassium 4.0, Chloride 108 H, Carbon Dioxide 23, Anion Gap 14, BUN 21, Creatinine 0.9, Est GFR ( Amer) > 60, Est GFR (Non- Af Amer) 60, Random Glucose 100, Calcium 8.6, Total Bilirubin 0.5, AST 20, ALT 31, Alkaline Phosphatase 74, Total Protein 6.3, Albumin 3.5, Globulin 2.8, Albumin/Globulin Ratio 1.3 08/27/17 10:00: WBC 5.9, RBC 2.96 L, Hgb 9.8 L, Hct 29.3 L, MCV 99.0, MCH 33.1, MCHC 33.4, RDW 13.4, Plt Count 176, MPV 9.0, Gran % 59.8, Lymph % (Auto) 28.8, [place] % (Auto) 8.2 H, Eos % (Auto) 2.7, Baso % (Auto) 0.5, Gran # 3.51, Lymph # ( Auto) 1.7, [place] # (Auto) 0.5, Eos # (Auto) 0.2, Baso # (Auto) 0.03 - RAD Interpretation Radiology Orders: 08/27/17 10:12 CHEST PORTABLE [RAD] Stat - Medication Orders Current Medication Orders: Discontinued Medications Sodium Chloride (Sodium Chloride 0.9%) 1,000 mls @ 999 mls/hr IV .Q1H1M STA Stop: 08/27/17 11:12 Last Admin: 08/27/17 10:22 Dose: 999 mls/hr eMAR Start Stop Document 08/27/17 10:22 EWO (Rec: 08/27/17 10:22 EWO [id number]) Intravenous Solution Start Date 08/27/17 Start Time 10:22 End Date 08/27/17 End time 11:22 Total Infusion Time 60 Meclizine HCl (Antivert) 12.5 mg PO STAT STA Stop: 08/27/17 10:15 Last Admin: 08/27/17 10:22 Dose: 12.5 mg - PA / DICE DEALER / Resident Statement MIMA has reviewed & agrees with the documentation as recorded. MIMA has examined the patient and agrees with the treatment plan. - Scribe Statement The provider has reviewed the documentation as recorded by the Scribe <Gricelda Deras - Last Filed: 08/27/17 10:39> - PA / DICE DEALER / Resident Statement MIMA has reviewed & agrees with the documentation as recorded. MIMA has examined the patient and agrees with the treatment plan. <Bryn Chan - Last Filed: 08/27/17 16:07> - Scribe Statement Marcos Becerra. All medical record entries made by the Scribe were at my direction and personally dictated by me. I have reviewed the chart and agree that the record accurately reflects my personal performance of the history, physical exam, medical decision making, and the department course for this patient. I have also personally directed, reviewed, and agree with the discharge instructions and disposition. (Gricelda Deras) Disposition/Present on Arrival <Gricelda Deras - Last Filed: 08/27/17 10:39> - Present on Arrival Any Indicators Present on Arrival: No History of DVT/PE: No History of Uncontrolled Diabetes: No Urinary Catheter: No History of Decub. Ulcer: No History Surgical Site Infection Following: None - Disposition Have Diagnosis and Disposition been Completed?: Yes Disposition Time: 10:30 Patient Plan: Discharge <Bryn Chan - Last Filed: 08/27/17 16:07> - Disposition Diagnosis: Vertigo Disposition: HOME/ ROUTINE Condition: STABLE Additional Instructions: WILFRED TAYLOR, thank you for letting us take care of you today. Your provider was Gricelda Deras MD and Bryn Chan DO and you were treated for DIZZINESS. The emergency medical care you received today was directed at your acute symptoms. Blood counts, electrolytes, chest x ray, and EKG did not show any acute findings for your symptoms. Meclizine was given, which improved your symptoms. It may take several days for your symptoms to resolve. Return to the Emergency Department if your symptoms worsen, do not improve, or if you have any other problems. Please contact your doctor, Dr. Ford, for follow up appointment and to refill your medication. You will be given meclizine to take at home until your appointment. Bring any paperwork you were given at discharge with you along with any medications you are taking to your follow up visit. Our treatment cannot replace ongoing medical care by a primary care provider outside of the emergency department. Thank you for allowing the [facility] team to be part of your care today. Prescriptions: Meclizine [Antivert] 12.5 mg PO DAILY 5 Days #5 tab Referrals: Stanley Ford MD [Family Provider] - Follow up with primary Forms: [facility] (French)
[2017-08-27 10:36] LABS: BASO # 0.03 K/mm3 (0.0-2.0); BASO % 0.5 % (0.0-3.0); EOS # 0.2 (0.0-0.7); EOS % 2.7 % (1.5-5.0); GRAN # 3.51 (1.4-6.5); GRAN % 59.8 % (50.0-68.0); HEMOGLOBIN 9.8 g/dL (12.0-16.0); LYMPH # 1.7 (1.2-3.4); LYMPH % 28.8 % (22.0-35.0); MEAN CORPUSCULAR HEMOGLOBIN 33.1 pg (25.0-35.0); MEAN CORPUSCULAR HGB CONC 33.4 g/dl (31.0-37.0); MONO # 0.5 (0.1-0.6); MONO % 8.2 % (1.0-6.0); RBC 2.96 10^6/uL (3.5-6.1); RED CELL DISTRIBUTION WIDTH 13.4 % (11.5-14.5); WHITE BLOOD COUNT 5.9 10^3/ul (4.5-11.0)
[2017-08-27 10:37] LABS: ALB/GLOB RATIO 1.3 (1.1-1.8); ALBUMIN 3.5 g/dL (3.0-4.8); ALT/SGPT 31 U/L (7-56); AST/SGOT 20 U/L (14-36); BLOOD UREA NITROGEN 21 mg/dL (7-21); CALCIUM 8.6 mg/dL (8.4-10.5); GFR AFRICAN-AMERICAN > 60; GFR NON-AFRICAN AMERICAN 60
[2017-08-27 11:50] VITALS: BP 135/63; PULSE 78; TEMP 98.6
--- NOTE | 2017-08-27 13:16 | RAD ---
Date of service: 08/27/2017 HISTORY: r/o infiltrate COMPARISON: 03/12/2017. FINDINGS: LUNGS: The lungs are clear. PLEURA: No significant pleural effusion identified, no pneumothorax apparent. CARDIOVASCULAR: Normal. OSSEOUS STRUCTURES: No significant abnormalities. VISUALIZED UPPER ABDOMEN: Normal. OTHER FINDINGS: None. IMPRESSION: No active pulmonary disease.
--- NOTE | 2017-08-28 12:27 | CARD ---
APPROVED REPORT Date of service: 08/27/2017 EKG Measurement Heart [id number] <Conclusion> Normal sinus rhythm Normal ECG
== END 2017-08-27 11:59 | disposition home or self-care (01) ==
LOC: ED 09:47
DX: R42 Dizziness and giddiness (principal); E03.9 Hypothyroidism, unspecified
CPT/HCPCS: 71045; 80053; 85025; 93005; 96360; 99285; J7030

== ENCOUNTER 2018-02-17 10:26 | Inpatient (IN) | payer MEDICARE, BC ==
--- NOTE | 2018-02-17 12:12 | CT ---
Date of service: 02/17/2018 PROCEDURE: CT HEAD WITHOUT CONTRAST. HISTORY: dizziness COMPARISON: Noncontrast head CT performed 02/19/17 TECHNIQUE: Axial computed tomography images were obtained through the head/brain without intravenous contrast. Radiation dose: Total exam DLP = 783.84 mGy-cm. This CT exam was performed using one or more of the following dose reduction techniques: Automated exposure control, adjustment of the mA and/or kV according to patient size, and/or use of iterative reconstruction technique. FINDINGS: Streak artifact limits evaluation of the skull base. HEMORRHAGE: No intracranial hemorrhage. BRAIN: Diffuse atrophy with prominence of the ventricles and sulci noted. No mass effect or edema. Intracranial atherosclerosis. Scattered periventricular and subcortical white matter hypodensities, which are nonspecific, but often seen with chronic microvascular ischemic disease. Please note that MRI with diffusion imaging is more sensitive in the detection of acute ischemic event. VENTRICLES: No hydrocephalus. CALVARIUM: Unremarkable. PARANASAL SINUSES: Unremarkable as visualized. No significant inflammatory changes. MASTOID AIR CELLS: Unremarkable as visualized. No inflammatory changes. OTHER FINDINGS: None. IMPRESSION: Generalized atrophy. Nonspecific white matter changes.
--- NOTE | 2018-02-17 12:41 | RAD ---
PROCEDURE: Radiographs of the left humerus. HISTORY: left arm pain COMPARISON: None. FINDINGS: BONES: Normal. No fracture or focal lesion. SOFT TISSUES: Normal. OTHER FINDINGS: None. IMPRESSION: Normal radiographs of left humerus.
--- NOTE | 2018-02-17 12:43 | RAD ---
Date of service: 02/17/2018 PROCEDURE: Radiographs of the Left Shoulder HISTORY: left arm pain COMPARISON: No prior. FINDINGS: BONES: Normal. No fracture. JOINTS: Normal. Glenohumeral and acromioclavicular joints preserved. No osteoarthritis. SOFT TISSUES: Normal. OTHER FINDINGS: None. IMPRESSION: Normal radiographs of the left shoulder.
--- NOTE | 2018-02-17 12:46 | RAD ---
Date of service: 02/17/2018 HISTORY: dizziness, left arm pain COMPARISON: 08/27/2017 FINDINGS: LUNGS: No active pulmonary disease. PLEURA: No significant pleural effusion identified, no pneumothorax apparent. CARDIOVASCULAR: Minimal aortic calcification Mild cardiomegaly and aortic tortuosity no pulmonary vascular congestion. OSSEOUS STRUCTURES: No significant abnormalities. VISUALIZED UPPER ABDOMEN: Normal. OTHER FINDINGS: None. IMPRESSION: No active disease.
[2018-02-17 13:02] LABS: ALB/GLOB RATIO 1.2 (1.1-1.8); ALBUMIN 3.5 g/dL (3.0-4.8); ALT/SGPT 31 U/L (7-56); AST/SGOT 21 U/L (14-36); BLOOD UREA NITROGEN 24 mg/dL (7-21); CALCIUM 8.8 mg/dL (8.4-10.5); GFR NON-AFRICAN AMERICAN 47
[2018-02-17 13:12] LABS: TROPONIN I < 0.01 ng/mL
[2018-02-17 13:16] LABS: BASO # 0.02 K/mm3 (0.0-2.0); BASO % 0.3 % (0.0-3.0); EOS # 0.1 (0.0-0.7); EOS % 0.7 % (1.5-5.0); GRAN # 4.6 (1.4-6.5); GRAN % 68.7 % (50.0-68.0); LYMPH # 1.6 (1.2-3.4); LYMPH % 23.1 % (22.0-35.0); MEAN CELL VOLUME 102.5 fl (80.0-105.0); MEAN CORPUSCULAR HEMOGLOBIN 32.4 pg (25.0-35.0); MEAN CORPUSCULAR HGB CONC 31.6 g/dl (31.0-37.0); MEAN PLATELET VOLUME 8.8 fl (7.0-11.0); MONO # 0.5 (0.1-0.6); MONO % 7.2 % (1.0-6.0); RBC 2.78 10^6/uL (3.5-6.1); WHITE BLOOD COUNT 6.7 10^3/uL (4.5-11.0)
--- NOTE | 2018-02-17 15:50 | ED PDOC ---
Arrival/HPI - General Chief Complaint: Upper Extremity Problem/Injury Time Seen by Provider: 02/17/18 10:43 Historian: Patient - History of Present Illness Narrative History of Present Illness (Text): 02/17/18 15:45 A 82 year old female, whose past medical history includes vertigo, anemia, colon cancer, ACS, hypertension, hyperthyroidism, and CHF, presents to the emergency department presenting with dizziness and left arm pain from earlier today. Patient states she did not fall and have any injuries however she felt pain in her left shoulder. Patient states occasionally experiences shortness of breath but denies any at present time. Patient denies any chest pain, shortness of breath, abdominal pain, nausea, vomiting, changes in appetite or any other complaints. Time/Duration: Other (earlier today) Symptom Onset: Gradual Symptom Course: Unchanged Activities at Onset: Light Context: Home Past Medical History - Provider Review Nursing Documentation Reviewed: Yes - Infectious Disease Hx of Infectious Diseases: None - Cardiac Hx Cardiac Disorders: Yes Hx Angina: Yes - Pulmonary Hx Asthma: Yes Hx Chronic Obstructive Pulmonary Disease (COPD): Yes - Neurological Hx Neurological Disorder: Yes Hx Dizziness: Yes (VERTIGO) - HEENT Hx HEENT Disorder: Yes Hx Cataracts: Yes (cataract removal ou) Hx Glaucoma: Yes Hx Macular Degeneration: Yes - Renal Hx Renal Disorder: No - Endocrine/Metabolic Hx Hypothyroidism: Yes - Hematological/Oncological Hx Anemia: Yes - Integumentary Hx Dermatological Disorder: Yes - Musculoskeletal/Rheumatological Hx Falls: No - Gastrointestinal Hx Gastrointestinal Disorders: Yes Hx Gastroesophageal Reflux: Yes Other/Comment: Colon CA - Genitourinary/Gynecological Hx Hematuria: Yes Hx Urinary Tract Infection: Yes - Psychiatric Hx Emotional Abuse: No Hx Physical Abuse: No Hx Substance Use: No - Surgical History Hx Cardiac Catheterization: Yes Other/Comment: s/p Hemicolectomy - Anesthesia Hx Anesthesia: Yes Hx Anesthesia Reactions: No Hx Malignant Hyperthermia: No - Suicidal Assessment Feels Threatened In Home Enviroment: No Family/Social History - Physician Review Nursing Documentation Reviewed: Yes Family/Social History: No Known Family HX Smoking Status: Never Smoked Hx Alcohol Use: No Hx Substance Use: No Hx Substance Use Treatment: No Allergies/Home Meds Allergies/Adverse Reactions: Allergies codeine Allergy (Verified 03/12/17 20:25) NAUSEA Home Medications: Home Meds Medication Instructions Recorded Confirmed Cu/Se/Vit A/Vit C/Vit E/Zinc 1 tab PO DAILY 01/24/17 02/17/18 [Ocuvite] Metoprolol Tartrate [Lopressor] 25 mg PO BID 01/24/17 02/17/18 Montelukast [Singulair] 10 mg PO DAILY 01/24/17 02/17/18 Levothyroxine [Synthroid] 50 mcg PO DAILY 01/16/18 02/17/18 Simvastatin [Zocor] 40 mg PO DAILY 01/16/18 02/17/18 Review of Systems - Physician Review All systems were reviewed & negative as marked: Yes - Review of Systems Constitutional: absent: Fatigue, Fevers ENT: absent: Sore Throat, Sinus Congestion Respiratory: absent: SOB, Cough Cardiovascular: absent: Chest Pain, Palpitations Gastrointestinal: absent: Abdominal Pain, Nausea, Vomiting, Appetite Changes Genitourinary Female: absent: Dysuria, Frequency, Hematuria Musculoskeletal: Arthralgias. absent: Back Pain, Neck Pain Skin: absent: Rash, Pruritis Neurological: Dizziness. absent: Headache, Focal Weakness Psychiatric: absent: Anxiety, Depression Physical Exam Vital Signs Reviewed: Yes Vital Signs Temp Pulse Resp BP Pulse Ox 02/17/18 12:43 85 20 125/62 97 02/17/18 10:54 98.9 F 77 18 136/68 97 Temperature: Afebrile Blood Pressure: Normal Pulse: Regular Respiratory Rate: Normal Appearance: Positive for: Well-Appearing, Non-Toxic, Comfortable Pain Distress: None Mental Status: Positive for: Alert and Oriented X 3 - Systems Exam Head: Present: Atraumatic, Normocephalic Pupils: Present: PERRL Extroacular Muscles: Present: EOMI Conjunctiva: Present: Normal Mouth: Present: Moist Mucous Membranes Neck: Present: Normal Range of Motion. No: MIDLINE TENDERNESS, Paraspinal Tenderness Respiratory/Chest: Present: Clear to Auscultation, Good Air Exchange. No: Respiratory Distress, Accessory Muscle Use, Wheezes, Retracting, Rhonchi, Tachypneic Cardiovascular: Present: Regular Rate and Rhythm, Normal S1, S2 Abdomen: No: Tenderness, Distention, Peritoneal Signs, Rebound, Guarding Back: Present: Normal Inspection. No: Midline Tenderness, Paraspinal Tenderness Upper Extremity: Present: NORMAL PULSES, Neurovascularly Intact, Other (distal pulses intact, no ecchymosis). No: Edema, Normal ROM (Limited abduction to left shoulder), Tenderness, Swelling, Erythema Neurological: Present: GCS=15, Speech Normal, Normal Sensory Function, Other (m oving all extremities) Skin: Present: Warm, Dry, Normal Color Psychiatric: Present: Alert, Oriented x 3 Medical Decision Making ED Course and Treatment: 02/17/18 15:56 82 year old female presenting to the emergency room complaining of dizziness and left arm pain. Plan: -- EKG -- Labs -- Aspirin -- Reassess and disposition Prior Visits: Notes and results from previous visits were reviewed. Progress Notes: pt is non toxic well appearing; no distress. stable vitals. c/o left shoulder pain. no trauma or injury. no signs of trauma. no chest tenderness, no step offs. lungs cta bilaterally. cbc; hgb; 9.0 cmp: bun; 24/ cr:1.1 ekg; NSR at 69b/m no st elevations; cxr; no infiltrate or effusion shoulder left xray; no fracture humerus left no fracture head CT; FINDINGS: Streak artifact limits evaluation of the skull base. HEMORRHAGE: No intracranial hemorrhage. BRAIN: Diffuse atrophy with prominence of the ventricles and sulci noted. No mass effect or edema. Intracranial atherosclerosis. Scattered periventricular and subcortical white matter hypodensities, which are nonspecific, but often seen with chronic microvascular ischemic disease. Please note that MRI with diffusion imaging is more sensitive in the detection of acute ischemic event. VENTRICLES: No hydrocephalus. CALVARIUM: Unremarkable. PARANASAL SINUSES: Unremarkable as visualized. No significant inflammatory changes. MASTOID AIR CELLS: Unremarkable as visualized. No inflammatory changes. OTHER FINDINGS: None. IMPRESSION: Generalized atrophy. Nonspecific white matter changes. Asa given po All results discussed in depth with the patient. Case discussed with Dr. Ford in depth excepts observational status admission for dizziness and left shoulder pain Impression: Dizziness, left arm pain Admit observational status - Lab Interpretations Lab Results: Troponin I < 0.01 ng/mL 02/17/18 12:40 Total Bilirubin 0.3 mg/dL (0.2-1.3) 02/17/18 12:40 AST 21 U/L (14-36) 02/17/18 12:40 ALT 31 U/L (7-56) 02/17/18 12:40 Alkaline Phosphatase 81 U/L (38-126) 02/17/18 12:40 Total Protein 6.6 g/dL (5.8-8.3) 02/17/18 12:40 Albumin 3.5 g/dL (3.0-4.8) 02/17/18 12:40 Globulin 3.1 gm/dL 02/17/18 12:40 Albumin/Globulin Ratio 1.2 (1.1-1.8) 02/17/18 12:40 - RAD Interpretation Radiology Orders: 02/17/18 11:24 HEAD W/O CONTRAST [CT] Stat HUMERUS LEFT [RAD] Stat SHOULDER LEFT [RAD] Stat 02/17/18 11:25 CHEST PORTABLE [RAD] Stat - Medication Orders Current Medication Orders: Discontinued Medications Aspirin (Aspirin) 325 mg PO STAT STA Stop: 02/17/18 15:24 - Scribe Statement The provider has reviewed the documentation as recorded by the Mariluz Gomez All medical record entries made by the Yolandeibe were at my direction and personally dictated by me. I have reviewed the chart and agree that the record accurately reflects my personal performance of the history, physical exam, medical decision making, and the department course for this patient. I have also personally directed, reviewed, and agree with the discharge instructions and disposition. Disposition/Present on Arrival - Present on Arrival Any Indicators Present on Arrival: No History of DVT/PE: No History of Uncontrolled Diabetes: No Urinary Catheter: No History of Decub. Ulcer: No History Surgical Site Infection Following: None - Disposition Have Diagnosis and Disposition been Completed?: Yes Diagnosis: Dizziness, Anemia, Left arm pain Disposition: HOSPITALIZED Disposition Time: 12:44 Patient Plan: Observation Condition: FAIR
--- NOTE | 2018-02-17 19:59 | CARD ---
APPROVED REPORT Date of service: 02/17/2018 EKG Measurement Heart [id number] P18 [id number] <Conclusion> Normal sinus rhythm Moderate voltage criteria for LVH, may be normal variant Abnormal ECG
[2018-02-17 22:54] VITALS: BMI 17.9
[2018-02-17] MEDS ORDERED: Pneumococcal 23-Valent Vaccine IM ONE (22:54)
[2018-02-17] MEDS ORDERED: Influenza Vaccine 60 mcg/0.5 mL SYR (4YR UP) IM ONE (22:54)
--- NOTE | 2018-02-17 23:49 | HP ---
DATE OF EXAM: 02/17/2018 HISTORY OF PRESENT ILLNESS: The patient is an 82-year-old who lives by herself. The patient lately has been very dizzy. I saw her in the office a couple of days ago, was given antibiotics, but she states she has no significant relief. This morning when she got out of bed, she was extremely dizzy. She thought she is going to pass out. She pressed her Life Alert button, and she was brought to the emergency room for further evaluation. The patient denies any nausea or vomiting. No history of fever or chills. No cough or congestion. No rectal bleeding. No hemoptysis. No hematemesis. PAST MEDICAL HISTORY: Significant for: 1. Chronic vertigo. 2. Anemia. 3. History of CA colon. 4. Hypertension. 5. Hypothyroidism. 6. History of congestive heart failure. 7. The patient recently had a fall and had sacral ala fracture. ALLERGIES: SHE IS ALLERGIC TO CODEINE. MEDICATIONS AT HOME: She is on Antivert 12.5 t.i.d. She is on simvastatin 40 mg daily, omeprazole 40 mg daily, Singulair 10 mg daily, metoprolol 25 twice a day, meclizine 12.5 three times a day, levothyroxine 50 mcg daily. SOCIAL HISTORY: She lives by herself. No smoking, drinking, or alcohol use. PHYSICAL EXAMINATION: GENERAL: Looks very anxious and scared. The patient states although she is feeling better, she did have pain in her left foot and complained of pain in the left earlier. VITAL SIGNS: She is afebrile, pulse 74, respirations 20, blood pressure 122/80. LUNGS: Bilateral fair airflow. No rhonchi or crackle. HEART: S1 and S2 audible. ABDOMEN: Soft, nontender. No rebound. No guarding. NEUROLOGICAL: The patient is awake, alert, oriented, able to communicate. Moves all extremities, but gets dizzy when she stands up. EXTREMITIES: Bilateral legs, no edema. LABORATORY EXAMINATION: WBC is 6.7, hemoglobin 9, hematocrit 28.5, platelets 209. Chemistry: Sodium 140, potassium 3.9, chloride 108, CO2 of 26, BUN 24, creatinine 1.1, blood sugar of 92. ASSESSMENT: 1. Dizziness. 2. Near syncope. 3. Hypertension. 4. Hypothyroidism. PLAN: We will make patient's orthostatic changes. We will continue her on current medications. I will order for carotid Doppler, also follow up troponin, and we will order for a CT scan of the brain, and we will follow up this patient in a.m. Stanley Ford MD
[2018-02-18] MEDS: Dextrose 5%/0.45% NS 1,000 ML IV SCH ×3 (01:16→20:11)
[2018-02-18] MEDS: Levothyroxine 50 MCG TAB PO SCH (05:44)
--- NOTE | 2018-02-18 10:21 | CT ---
Date of service: 02/18/2018 PROCEDURE: CT HEAD WITHOUT CONTRAST. HISTORY: dizziness COMPARISON: February 17, 2018. Time of the most recent examination: 11:46. Summary of findings on the comparison examination: Generalized atrophy. TECHNIQUE: Axial computed tomography images were obtained through the head/brain without intravenous contrast. Supplemental Coronal and Sagittal projections created and reviewed. Radiation dose: Total exam DLP = 851.41 mGy-cm. This CT exam was performed using one or more of the following dose reduction techniques: Automated exposure control, adjustment of the mA and/or kV according to patient size, and/or use of iterative reconstruction technique. FINDINGS: HEMORRHAGE: No intracranial hemorrhage. BRAIN: No mass effect or edema. Cortical and cerebellar atrophy, periventricular small vessel disease. VENTRICLES: Unremarkable. No hydrocephalus. CALVARIUM: Unremarkable. PARANASAL SINUSES: Unremarkable as visualized. No significant inflammatory changes. MASTOID AIR CELLS: Unremarkable as visualized. No inflammatory changes. OTHER FINDINGS: None. IMPRESSION: No acute intracranial abnormalities. No significant findings to account for the clinical presentation. No significant interval change compared to the prior examination(s).
[2018-02-18 10:29] LABS: FREE T4 1.72 ng/dL (0.78-2.19)
--- NOTE | 2018-02-18 13:22 | PN ---
DATE: 02/18/2018 SUBJECTIVE: The patient is an 82-year-old, seen and examined, she is little better, still dizzy when she gets up, still get off balance. She is high risk for fall and she has fallen in the past and sustained sacral fracture. PHYSICAL EXAMINATION: GENERAL: She is awake, alert, oriented, able to communicate. VITAL SIGNS: The patient is afebrile, pulse 82, respirations 16, and blood pressure 114/60. LUNGS: Bilateral fair airflow. No rhonchi or crackle. HEART: S1, S2 audible. ABDOMEN: Soft, nontender. No rebound, no guarding. NEUROLOGICAL: The patient is awake, alert, and oriented. Able to communicate. Has difficulty walking and getting out of bed. LABORATORY DATA: T4 is 1.72, TSH is 1.13. ASSESSMENT: 1. Dizziness and difficulty walking, unstable gait, high potential to fall. 2. History of hypertension. 3. Severe vertigo. 4. Hyperlipidemia. 5. Hypothyroidism. PLAN: We will admit the patient, get TCU evaluation. The patient will benefit from physical therapy and get training prior to discharge since she is high risk for falls. Stanley Ford MD
[2018-02-19] MEDS: Levothyroxine 50 MCG TAB PO SCH (05:31)
--- NOTE | 2018-02-19 12:37 | PN ---
DATE: 02/19/2018 SUBJECTIVE: The patient has no complaints of any chest pain or shortness of breath. No headaches or dizziness. PHYSICAL EXAMINATION: VITAL SIGNS: Temperature is 98.4, pulse is 74, blood pressure 112/64, respirations 19. GENERAL: The patient is lying in bed, flat, comfortable. HEENT: No oral lesion. Anicteric sclerae. Moist mucosa. NECK: No JVD, adenopathy, or thyromegaly. CARDIOVASCULAR: S1 and S2, regular. No murmurs, rubs, or gallops. LUNGS: Clear to auscultation bilaterally. No wheeze, rales, or rhonchi. ABDOMEN: Bowel sounds are positive, soft, nontender and nondistended. EXTREMITIES: No cyanosis, clubbing, or edema. LABORATORY DATA: White count of 6.7, hemoglobin is 9, creatinine is 1.1. Carotid ultrasound is pending. ASSESSMENT: 1. Dizziness. 2. Gait dysfunction. 3. Hypertension. 4. Vertigo. 5. Dyslipidemia. 6. Hypothyroidism. PLAN: The patient has symptoms of hypothyroidism. The patient is on Singulair. The patient is on metoprolol, is going to continue Lipitor for dyslipidemia. The patient is on IV fluids. He is on meclozine for the vertigo. The patient is on a heart-healthy diet. The patient is being evaluated for transistional care unit. Vladimir King MD
--- NOTE | 2018-02-19 13:36 | US ---
PROCEDURE: Bilateral carotid artery duplex ultrasound HISTORY: Carotid stenosis PHYSICIAN(S): Armand Infante MD. TECHNIQUE: Duplex sonography and color-flow Doppler were used to evaluate the carotid bifurcations and limited segments of the vertebral arteries bilaterally. FINDINGS: There is mild smooth heterogeneous plaque noted at the carotid bifurcations bilaterally. The peak systolic velocity in the proximal right internal carotid artery is 105 cm/sec. This corresponds to a 20 to 39% proximal right ICA stenosis. Normal systolic velocities are noted in the proximal right external carotid artery. There is antegrade flow in the right vertebral artery. The peak systolic velocity in the proximal left internal carotid artery is 80 cm/sec. This corresponds to a 20 to 39% proximal left ICA stenosis. Normal systolic velocities are noted in the proximal left external carotid artery. There is antegrade flow in the left vertebral artery. IMPRESSION: 1. Bilateral 20-39% proximal ICA stenoses. 2. Antegrade flow in both vertebral arteries.
[2018-02-19] MEDS: Dextrose 5%/0.45% NS 1,000 ML IV SCH (14:59)
[2018-02-20] MEDS: Dextrose 5%/0.45% NS 1,000 ML IV SCH ×2 (00:30→06:00)
[2018-02-20] MEDS: Levothyroxine 50 MCG TAB PO SCH (06:09)
--- NOTE | 2018-02-20 13:01 | DS ---
HISTORY OF PRESENT ILLNESS: The patient is 82-year-old seen and examined, lying in bed, complained of feeling dizzy when she walks. Denies any nausea or vomiting. Eating and tolerating. Complained of generalized weakness. PHYSICAL EXAMINATION: VITAL SIGNS: She is afebrile, pulse 79, respiration 20, blood pressure 103/55. LUNGS: Bilateral fair airflow. No rhonchi or crackles. HEART: S1, S2 audible. ABDOMEN: Soft, nontender. No rebound, no guarding. NEUROLOGIC: The patient is awake, alert, oriented, communicative, moves all extremities. ASSESSMENT: 1. Intractable dizziness. 2. Difficulty walking, unstable gait. 3. Dehydration. 4. History of hypertension. 5. History of multiple falls at home. PLAN: The patient needs rehab and gait training and will be transferred to [facility] today later on. Stanley Ford MD
[2018-02-20 22:35] VITALS: RESP 16
[2018-02-21] MEDS: Levothyroxine 50 MCG TAB PO SCH (05:54)
[2018-02-21 07:44] LABS: BASO # 0.02 K/mm3 (0.0-2.0); BASO % 0.3 % (0.0-3.0); EOS # 0.1 (0.0-0.7); EOS % 0.7 % (1.5-5.0); GRAN # 4.44 (1.4-6.5); GRAN % 61.4 % (50.0-68.0); HEMOGLOBIN 8.6 g/dL (12.0-16.0); LYMPH # 1.7 (1.2-3.4); LYMPH % 23.4 % (22.0-35.0); MEAN CELL VOLUME 99.6 fl (80.0-105.0); MEAN CORPUSCULAR HEMOGLOBIN 32.2 pg (25.0-35.0); MEAN CORPUSCULAR HGB CONC 32.3 g/dl (31.0-37.0); MEAN PLATELET VOLUME 8.6 fl (7.0-11.0); MONO % 14.2 % (1.0-6.0); RBC 2.67 10^6/uL (3.5-6.1); RED CELL DISTRIBUTION WIDTH 12.7 % (11.5-14.5); WHITE BLOOD COUNT 7.2 10^3/uL (4.5-11.0)
[2018-02-21 08:07] LABS: CALCIUM 8.2 mg/dL (8.4-10.5)
[2018-02-21 09:00] VITALS: TEMP 99.8; O2SAT 97
[2018-02-21 09:12] VITALS: BP 159/92; PULSE 99
--- NOTE | 2018-02-21 21:38 | DS ---
HISTORY OF PRESENT ILLNESS: The patient is an 82-year-old, who lives by herself, has been extremely dizzy and she felt as if she is going to pass out, so she pressed her life alert button and ambulance brought the patient to emergency room for further evaluation. The patient had CAT scan done along with carotid Doppler, was found to be negative. The patient does have history of chronic vertigo, has unstable gait. PHYSICAL EXAMINATION: GENERAL: Today, seems to be doing little better, still feels dizzy at times. VITAL SIGNS: She is afebrile, pulse 83, respirations 16, and blood pressure is 159/92. LUNGS: Bilateral fair airflow, no rhonchi or crackles. HEART: S1 and S2 audible. ABDOMEN: Soft and nontender. No rebound, no guarding. NEUROLOGIC: The patient is awake, alert, oriented, able to communicate. LABORATORY DATA: WBC 7.2, hemoglobin 8.6, hematocrit 26, and platelets 153. Chemistry; sodium 134, potassium 4.4, chloride 105, CO2 of 24, BUN 19, creatinine 1.1, blood sugar of 105. AST 58 and alk phos 133. ASSESSMENT: 1. Dizziness. 2. Near syncope. 3. Chronic vertigo. 4. Hypertension. 5. Hyperlipidemia. 6. Hypothyroidism. PLAN: The patient will remain on these medications. She is accepted in TCU. She will be transferred to TCU for further rehab and gait training. Stanley Ford MD
== END 2018-02-21 15:30 | DRG 149 ==
LOC: ED 10:26 → ERH 15:23 → 2RSO 18:30 → OBSVTOIN 02-18 11:20 → 5RSO 02-20 08:45
PROVIDERS: ADMIT Internal Medicine; ATTEND Internal Medicine
DX: R42 Dizziness and giddiness (principal); D64.9 Anemia, unspecified; E03.9 Hypothyroidism, unspecified; I11.0 Hypertensive heart disease with heart failure; J44.9 Chronic obstructive pulmonary disease, unspecified; R26.2 Difficulty in walking, not elsewhere classified; M25.512 Pain in left shoulder; M79.602 Pain in left arm; Z85.038 Personal history of other malignant neoplasm of large intestine; Z91.81 History of falling; E78.5 Hyperlipidemia, unspecified; E86.0 Dehydration; H35.30 Unspecified macular degeneration; H40.9 Unspecified glaucoma; I50.9 Heart failure, unspecified; K21.9 Gastro-esophageal reflux disease without esophagitis; Z79.890 Hormone replacement therapy; Z79.899 Other long term (current) drug therapy; Z87.440 Personal history of urinary (tract) infections; Z90.49 Acquired absence of other specified parts of digestive tract; Z88.5 Allergy status to narcotic agent; Z87.81 Personal history of (healed) traumatic fracture

== ENCOUNTER 2018-02-21 16:03 | Inpatient (IN) | payer OTHER, BC ==
[2018-02-21 18:22] VITALS: BMI 17.9
[2018-02-22] MEDS: Levothyroxine 50 MCG TAB PO SCH (05:28)
[2018-02-22] MEDS ORDERED: VIT E PO SCH (10:00)
[2018-02-22] MEDS ORDERED: VIT A PO SCH (10:00)
[2018-02-22] MEDS ORDERED: [UNRECOGNIZED DRUG - OTHER] PO SCH (10:00)
[2018-02-22] MEDS ORDERED: VIT C PO SCH (10:00)
[2018-02-22] MEDS ORDERED: ZINC PO SCH (10:00)
--- NOTE | 2018-02-22 16:22 | HP ---
DATE OF EXAM: 02/22/2018 HISTORY OF PRESENT ILLNESS: The patient is an 82-year-old, seen and examined. The patient came in with extreme dizziness as if she is going to fall and has . The patient had neuro workup done, unremarkable. She was unstable and at high risk to fall at home. So, she was transferred to TCU for gait training and close observation. PAST MEDICAL HISTORY: She has significant past medical history of; 1. Hypertension. 2. Hyperlipidemia. 3. Degenerative disc disease. 4. History of hypothyroidism and hyperlipidemia. ALLERGIES: SHE IS ALLERGIC TO CODEINE. MEDICATIONS: At home, she is on Zocor 20 mg daily, omeprazole 40 mg daily, Singulair 10 mg daily, metoprolol 25 daily, levothyroxine 50 mcg daily. SOCIAL HISTORY: She lives by herself. She has a home-health aide. She has a nephew who lives far from her. PHYSICAL EXAMINATION GENERAL: She is awake, alert, oriented, communicative. VITAL SIGNS: She is afebrile, pulse is 73, respirations 18, blood pressure 102/57. LUNGS: Bilaterally fair airflow. No rhonchi or crackle. HEART: S1, S2 audible. ABDOMEN: Soft, nontender. No rebound, no guarding. NEUROLOGIC: She is awake, alert, oriented. Able to communicate. ASSESSMENT: 1. Severe vertigo. 2. Hypertension. 3. Hyperlipidemia. 4. Degenerative disc disease. 5. sacral fracture in the past. PLAN: We will continue current medications. We will encourage physical therapy and gait training. We will follow up in a.m. Stanley Ford MD
[2018-02-23] MEDS: Levothyroxine 50 MCG TAB PO SCH (05:34)
--- NOTE | 2018-02-23 14:33 | PN ---
DATE: 02/23/2018 SUBJECTIVE: The patient is 82-year-old seen and examined doing well, participating in therapy. PHYSICAL EXAMINATION VITAL SIGNS: She is afebrile, pulse 90, respirations 18, blood pressure 94/54. LUNGS: Bilateral fair air flow. No rhonchi or crackle. HEART: S1 and S2 audible. ABDOMEN: Soft and nontender. No rebound and no guarding. NEUROLOGIC: The patient is awake, alert, oriented, able to communicate. ASSESSMENT: 1. Dizziness. 2. Vertigo. 3. Status post multiple falls. 4. History of hypertension. 5. Hypothyroidism. PLAN: The patient's vital signs reviewed. She seems to be running hypotensive, so I will cut down her metoprolol to once a day. We will follow up. Stanley Ford MD
[2018-02-24] MEDS: Levothyroxine 50 MCG TAB PO SCH (08:01)
--- NOTE | 2018-02-24 15:00 | PN ---
DATE: 02/24/2018 SUBJECTIVE: The patient is 82-year-old and seen and examined, doing well, resting comfortably, and participating in therapy. OBJECTIVE: VITAL SIGNS: She is afebrile, pulse 81, respiration 18, blood pressure 113/51. LUNGS: Bilateral fair airflow. No rhonchi or crackle. HEART: S1, S2 audible. ABDOMEN: Soft, nontender. No rebound, no guarding. NEUROLOGIC: The patient is awake, alert, oriented, communicative. ASSESSMENT: 1. Hypothyroidism. 2. Anxiety disorder. 3. Status post multiple fall. 4. Her vertigo seems to be improving. PLAN: We will continue the patient on Antivert, Lipitor, metoprolol, Singulair, and levothyroxine and encourage physical therapy. We will follow up the patient in a.m. Stanley Ford MD
[2018-02-25] MEDS: Levothyroxine 50 MCG TAB PO SCH (05:13)
--- NOTE | 2018-02-25 16:50 | PN ---
DATE: 02/25/2018 SUBJECTIVE: The patient is 82 years old, seen and examined, doing well, eating and tolerating. No nausea or vomiting. No diarrhea, participating in therapy. Did not feel dizzy anymore. OBJECTIVE: VITAL SIGNS: She is afebrile, pulse 78, respiration 18, and blood pressure 102/59. LUNGS: Bilateral fair airflow. No rhonchi or crackle. HEART: S1, S2 audible. ABDOMEN: Soft, nontender. No rebound, no guarding. NEUROLOGIC: The patient is awake, alert, oriented, and communicative. EXTREMITIES: Bilateral legs, no edema. ASSESSMENT: 1. Severe dizziness versus vertigo. 2. Hypertension. 3. Hyperlipidemia. 4. Hypotension. PLAN: We will cut down her metoprolol to once a day, continue all other medications, and encourage physical therapy. We will follow up. Stanley Ford MD
[2018-02-26] MEDS: Levothyroxine 50 MCG TAB PO SCH (05:05)
[2018-02-26 11:18] VITALS: TEMP 97.8; O2SAT 99
--- NOTE | 2018-02-26 20:27 | PN ---
DATE: 02/26/2018 SUBJECTIVE: The patient is 82-year-old seen and examined sitting in chair, seems to be comfortable. No nausea or vomiting or diarrhea. PHYSICAL EXAMINATION: VITAL SIGNS: She is afebrile, pulse , respirations 20, blood pressure 90/65. LUNGS: Bilateral good airflow. No rhonchi or crackle. HEART: S1 and S2 audible. ABDOMEN: Soft, nontender. No rebound. No guarding. NEUROLOGICAL: She is awake, alert, oriented, able to communicate. EXTREMITIES: Bilateral legs, no edema. ASSESSMENT: 1. Status post vertigo. The vertigo seems to be resolving. 2. Generalized weakness. 3. Hypertension. 4. Hyperlipidemia. 5. Hypothyroidism. PLAN: We will continue the patient on current medication. Continue physical therapy and gait training. Possible discharge next Tuesday. Stanley Ford MD
[2018-02-27] MEDS: Levothyroxine 50 MCG TAB PO SCH (05:15)
--- NOTE | 2018-02-27 14:57 | PN ---
DATE: 02/27/2018 SUBJECTIVE: The patient is 82 years old, seen and examined, lying in bed, seems to be comfortable, participating in therapy, feels much better. PHYSICAL EXAMINATION VITAL SIGNS: She is afebrile, pulse 100, respirations 20, and blood pressure 98/65. LUNGS: Bilateral fair airflow. No rhonchi or crackles. HEART: S1 and S2 audible. ABDOMEN: Soft, nontender. No rebound. No guarding. NEUROLOGIC: The patient is awake and alert, able to communicate, moves all extremities. EXTREMITIES: Bilateral legs, no edema. LABORATORY DATA: There is no new lab available today. ASSESSMENT: 1. Severe vertigo. 2. Unstable gait, seems to be doing well and participating in therapy. 3. Hypertension. 4. Hyperlipidemia. 5. Deconditioning and difficulty walking. PLAN: We will continue the patient on current medications, continue physical therapy. Discharge plan for Tuesday. Stanley Ford MD
[2018-02-28] MEDS: Levothyroxine 50 MCG TAB PO SCH (05:18)
[2018-02-28 13:48] LABS: BASO # 0.04 K/mm3 (0.0-2.0); BASO % 0.7 % (0.0-3.0); EOS # 0.2 (0.0-0.7); EOS % 3.8 % (1.5-5.0); GRAN # 2.55 (1.4-6.5); GRAN % 46.8 % (50.0-68.0); LYMPH # 2.1 (1.2-3.4); MEAN CELL VOLUME 101.1 fl (80.0-105.0); MEAN CORPUSCULAR HEMOGLOBIN 31.7 pg (25.0-35.0); MEAN CORPUSCULAR HGB CONC 31.4 g/dl (31.0-37.0); MEAN PLATELET VOLUME 8.5 fl (7.0-11.0); MONO # 0.5 (0.1-0.6); MONO % 9.7 % (1.0-6.0); RBC 2.84 10^6/uL (3.5-6.1); RED CELL DISTRIBUTION WIDTH 12.9 % (11.5-14.5); WHITE BLOOD COUNT 5.5 10^3/uL (4.5-11.0)
[2018-02-28 14:12] LABS: ALBUMIN 3.2 g/dL (3.0-4.8); CALCIUM 8.7 mg/dL (8.4-10.5)
[2018-02-28 16:09] VITALS: PULSE 70; RESP 18
--- NOTE | 2018-02-28 21:59 | PN ---
DATE: 02/28/2018 SUBJECTIVE: The patient is an 82-year-old, seen and examined, lying in bed, seems to be comfortable. No weakness. No numbness. No dizziness. PHYSICAL EXAMINATION: VITAL SIGNS: She is afebrile, pulse 70, respirations 18, blood pressure 108/59. LUNGS: Bilateral fair airflow, no rhonchi or crackle. HEART: S1 and S2 audible. ABDOMEN: Soft, nontender. No rebound. No guarding. NEUROLOGIC: Patient is awake, alert, oriented, communicative, moves all extremities. EXTREMITIES: No leg edema. LABORATORY DATA: WBC is 5.5, hemoglobin 9, hematocrit 28.7, platelet 240. Chemistry: Sodium 138, potassium 4.3, chloride 106, CO2 of 28, BUN 40, creatinine 1.1, blood sugar 107, alk phos is 168. ASSESSMENT: 1. Chronic vertigo. 2. Hypertension. 3. Deconditioning and difficulty walking. 4. Hypothyroidism. 5. Chronic anemia. PLAN: We will continue the patient on current medication, discharge plan for a.m. and home PT. Stanley Ford MD
[2018-03-01 09:21] VITALS: BP 94/50
[2018-03-01] MEDS ORDERED: Pneumococcal 23-Valent Vaccine IM ONE (13:24)
--- NOTE | 2018-03-02 00:12 | DS ---
HISTORY OF PRESENT ILLNESS: The patient has no complaints or Any chest pain. No shortness of breath. No headaches. She is going to be discharged home today. She came to the [facility] for rehab. She is ambulating better. She is having vertigo symptoms. She was deconditioned and was having gait instability. PHYSICAL EXAMINATION: VITAL SIGNS: Temperature is 97.8, pulse 70, blood pressure 108/59, respirations 18 and O2 saturation 99%. GENERAL: The patient is lying in bed, flat, comfortable. HEENT: No oral lesion. Anicteric sclerae. Moist mucosa. NECK: No JVD, adenopathy, or thyromegaly. CARDIOVASCULAR: S1 and S2, regular. No murmurs, rubs, or gallops. LUNGS: Clear to auscultation bilaterally. No wheeze, rales, or rhonchi. ABDOMEN: Bowel sounds are positive, soft, nontender and nondistended. EXTREMITIES: No cyanosis, clubbing or edema. LABORATORY DATA: White count is 5.5. and hemoglobin 9. Chemistry shows sodium of 138 and potassium 4.3. ASSESSMENT: 1. Chronic vertigo. 2. Hypertension. 3. Gait instability. 4. Hypothyroidism. 5. Chronic anemia. PLAN: The patient is on Singulair and is going to continue. She is receiving Synthroid for hypothyroidism. She is on Lipitor for dyslipidemia. She is on meclizine for her vertigo, this will be continued. She says she has a medications at home that does not require any further medication. Condition stabilized if we increase her . Follow with Dr. Ford in 1 to 2 weeks, leave chart at the hospital if condition worsens. Vladimir King MD
== END 2018-03-01 14:53 | disposition home or self-care (01) | DRG 556 ==
LOC: TRCU 16:03
PROVIDERS: ADMIT Internal Medicine; ATTEND Internal Medicine
PROC: F07Z9FZ Gait Training/Functional Ambulation Treatment using Assistive, Adaptive, Supportive or Protective Equipment (ICD-10-PCS; principal; 2018-02-22)
PROC: F08Z4FZ Home Management Treatment using Assistive, Adaptive, Supportive or Protective Equipment (ICD-10-PCS; 2018-02-22)
DX: R26.2 Difficulty in walking, not elsewhere classified (principal); R42 Dizziness and giddiness; R53.1 Weakness; I10 Essential (primary) hypertension; E03.9 Hypothyroidism, unspecified; D64.9 Anemia, unspecified; E78.5 Hyperlipidemia, unspecified; F41.9 Anxiety disorder, unspecified; Z91.81 History of falling

== ENCOUNTER 2018-03-30 11:06 | Outpatient (CLI) | payer MEDICARE, BC | END 2018-03-30 11:07 | disposition home or self-care (01) | LOC: LAB 11:06 ==

== ENCOUNTER 2018-06-20 11:56 | Outpatient (CLI) | payer MEDICARE, BC | END 2018-06-20 11:57 | disposition home or self-care (01) | LOC: LAB 11:56 ==